=== PATIENT | male | born 1955 | race Two or more races ===

== ENCOUNTER 2020-04-03 09:52 | Emergency (ER) | payer MEDICARE, MEDICAID, SELFPAY ==
[2020-04-03 10:10] VITALS: BP 124/87; PULSE 88; RESP 16; TEMP 36.1; O2SAT 99; BMI 28.3
--- NOTE | 2020-04-03 10:10 | ED_ITS ---
HPI - Skin/Abscess/Foreign Bdy General Chief complaint: General Medical Stated complaint: swollen finger, itchy body Time Seen by Provider: 04/03/20 10:10 History of Present Illness HPI narrative: Patient with 2 complaints First complaint is left 3rd finger pain and redness and scant watery discharge redness pain mild swelling similar to prior infection of left 3rd finger Patient also complains of several days of feeling very itchy all over his body, no new rash no difficulty breathing no throat swelling Related Data Previous Rx's Medication Instructions Recorded cephalexin [Keflex] 500 mg PO QID 7 Days #28 cap 04/03/20 cetirizine 10 mg PO DAILY PRN #14 cap 04/03/20 doxycycline hyclate 100 mg PO BID 7 Days #14 cap 04/03/20 hydroxyzine pamoate [Vistaril] 50 mg PO BEDTIME #10 cap 04/03/20 prednisone 40 mg PO DAILY 3 Days #6 tab 04/03/20 Allergies Allergy/AdvReac Type Severity Reaction Status Date / Time latex [LATEX] Allergy Unknown UNKNOWN Unverified 11/20/19 15:08 morphine [MORPHINE] AdvReac Mild SENSATION Unverified 11/20/19 15:08 OF HEAT/WARMTH environmental Allergy Unknown Uncoded 05/26/19 00:00 GRASS Allergy Unknown POSITIVE Uncoded 11/20/19 15:08 ALLERGY TEST latex Allergy Unknown Uncoded 05/26/19 00:00 morphine AdvReac Unknown hot flashes Uncoded 05/26/19 00:00 Review of Systems Review of Systems: Positives are left 3rd finger pain and redness and generalized itchiness No fever no chills no dizziness no weakness no difficulty breathing or swallowing no throat swelling no chest pain no shortness of breath no difficulty breathing or swallowing Yes all other systems are reviewed and are negative PMFSH Past Medical History Source: nursing notes reviewed Social History Social History Advance Directives: No Advance Directives Information Provided: Yes Physical Exam Vital Signs: Vital Signs: Last Vital Signs Temp 97.0 F 04/03/20 10:10 Pulse 88 04/03/20 10:10 Resp 16 04/03/20 10:10 BP 124/87 04/03/20 10:10 Pulse Ox 99 04/03/20 10:10 Body Mass Index 28.3 Left 3rd finger middle phalanx dorsal has an area of redness that is weeping watery fluid, no fluctuance, full range of motion in all joints, this area is mildly tender it is about the size of a quarter, no fluctuance no pus visible, tendon function is intact in both flexion and extension, sensation is intact vascular intact no swelling over any joints no lymphangitis Course Course Course Narrative: The wound on the left 3rd finger is treated with antibiotics The generalized pruritus is treated with prednisone and antihistamine, labs were done with no evidence of liver or kidney failure MDM - Skin/Abscess/Foreign Bdy Lab Data Attestation: I reviewed the patient's lab results. Result diagrams: 04/03/20 10:42 04/03/20 10:42 Labs: Lab Results 04/03/20 04/03/20 Range/Units 10:42 10:42 WBC 4.7 L (4.8-10.8) X10*3/uL RBC 4.86 (4.60-5.80) X10*6/uL Hgb 15.0 (14.0-18.0) g/dl Hct 45.9 (42-52) % MCV 94.4 (80-98) fL MCH 30.9 (27.0-33.0) pg MCHC 32.7 (31.0-36.0) g/dl RDW 13.0 (11.0-16.0) % Plt Count 190 (160-400) X10*3/uL MPV 11.0 (9.4-12.4) fL Immature Gran % (Auto) 0.2 (0.0-0.4) % Neut % (Auto) 64.9 (45-73) % Lymph % (Auto) 23.7 (20-40) % [place] % (Auto) 8.9 (2-11) % Eos % (Auto) 1.7 (0-4) % Baso % (Auto) 0.6 (0-2) % Lymph # (Auto) 1.1 L (1.2-4.9) X10*3/uL [place] # (Auto) 0.4 (0.1-1.2) X10*3/uL Eos # (Auto) 0.1 (0.0-0.4) X10*3/uL Baso # (Auto) 0.0 (0.0-0.2) X10*3/uL Abs Immat Gran (auto) 0.01 (0.00-0.03) X10*3/uL Absolute Neuts (auto) 3.1 (2.0-8.3) X10*3/uL Absolute Nucleated RBC 0.000 (0.0-0.012) X10*3/uL Nucleated RBC % (auto) 0.0 (0.0-0.2) /100WBC Sodium 141 (135-145) mmol/L Potassium 4.9 (3.3-5.1) mmol/L Chloride 103 (96-108) mmol/L Carbon Dioxide 28 (22-29) mmol/L Anion Gap 15 (12-20) BUN 25 H (9-16) mg/dL Creatinine 0.96 (0.5-1.4) mg/dL Estim Creat Clear Calc 88.9 Estimated GFR > 60 Random Glucose 81 (60-115) mg/dL Calcium 9.7 (8.4-10.2) mg/dL Total Bilirubin 0.9 (0.0-1.0) mg/dL Direct Bilirubin 0.2 (0.0-0.5) mg/dL AST 31 (5-37) U/L ALT 51 H (0-40) U/L Alkaline Phosphatase 70 (39-117) U/L Total Protein 7.5 (6.5-8.0) g/dL Albumin 4.8 (3.5-5.0) g/dL Discharge Plan Discharge Clinical Impression: Cellulitis, Generalized pruritus Patient Disposition: Home, Self-Care Additional Instructions: We are treating the infection on her finger with antibiotic and a cream to apply to the finger I am not sure what is causing all the itching, it may be an allergy so we are treating with medication for itch and allergy Our blood tests did not show any dangerous cause of itching Follow with primary doctor or wound clinic or hand doctor in 3 days for recheck, if they are not available you can return to the ER for recheck Return any time any worse condition or concerns For finger follow with hand doctor if available or wound clinic Prescriptions: New cephalexin [Keflex] 500 mg capsule 500 mg PO QID 7 Days Qty: 28 RF: 0 doxycycline hyclate 100 mg capsule 100 mg PO BID 7 Days Qty: 14 RF: 0 cetirizine 10 mg capsule 10 mg PO DAILY PRN (Reason: allergy symptoms) Qty: 14 RF: 0 prednisone 20 mg tablet 40 mg PO DAILY 3 Days Qty: 6 RF: 0 hydroxyzine pamoate [Vistaril] 50 mg capsule 50 mg PO BEDTIME Qty: 10 RF: 0 Referrals: Geeta Hodges PA [Physician Shower Screen Installer] - 2 days (Recurrent wound to left 3rd finger) Veronica Tolentino MD [Physician] - 2 days (Recurrent left 3rd finger infection) Interventions: ED Discharge Assessment Last Done: 04/03/20 12:31 Discharge Date/Time: 04/03/20 12:32
--- NOTE | 2020-04-03 10:21 | XR_ITS ---
EXAMINATION: XR FINGER, LEFT CLINICAL INFORMATION: Abnormality third finger. Question osteoarthritis. COMPARISON: None TECHNIQUE: 3 views of the left third finger. FINDINGS: There is mild flexion deformity DIP joint third digit with periarticular spurring and soft tissue swelling with calcification. 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 No periosteal elevation or thickening seen to suspect osteomyelitis. XR/XR finger LT min 2V IMPRESSION: Mild loss of the DIP joint space with periapical spurring and soft tissue swelling as a small bony erosive changes along the dorsal proximal distal phalanx. This may represent a erosive arthritic changes. There is no periosteal thickening or elevation to suspect osteomyelitis.
[2020-04-03] MEDS: Loratadine 10 MG TABLET PO (10:30)
[2020-04-03] MEDS: cephALEXin 500 MG CAPSULE PO (10:31)
[2020-04-03 10:50] LABS: MANUAL DIFF FLAG NO
[2020-04-03 10:51] LABS: Basophils Percent Auto 0.6 % (0-2); Eosinophils Absolute Auto 0.1 X10*3/uL (0.0-0.4); Eosinophils Percent Auto 1.7 % (0-4); Hematocrit 45.9 % (42-52); Imm Gran Abs Auto 0.01 X10*3/uL (0.00-0.03); Imm Gran Pct Auto 0.2 % (0.0-0.4); Lymphocytes Absolute Auto 1.1 X10*3/uL (1.2-4.9); Lymphocytes Percent Auto 23.7 % (20-40); Mean Corpuscular HGB Conc 32.7 g/dl (31.0-36.0); Mean Corpuscular Hemoglobin 30.9 pg (27.0-33.0); Mean Corpuscular Volume 94.4 fL (80-98); Monocytes Absolute Auto 0.4 X10*3/uL (0.1-1.2); Monocytes Percent Auto 8.9 % (2-11); Neutrophils Absolute Auto 3.1 X10*3/uL (2.0-8.3); Neutrophils Percent Auto 64.9 % (45-73); Platelet Count 190 X10*3/uL (160-400); Red Blood Count 4.86 X10*6/uL (4.60-5.80); White Blood Count 4.7 X10*3/uL (4.8-10.8)
[2020-04-03 11:29] LABS: Alanine Aminotransferase 51 U/L (0-40); Albumin Level 4.8 g/dL (3.5-5.0); Alkaline Phosphatase 70 U/L (39-117); Anion Gap 15 (12-20); Aspartate Amino Transferase 31 U/L (5-37); Bilirubin Direct 0.2 mg/dL (0.0-0.5); Bilirubin Total 0.9 mg/dL (0.0-1.0); Blood Urea Nitrogen 25 mg/dL (9-16); Calcium 9.7 mg/dL (8.4-10.2); Carbon Dioxide 28 mmol/L (22-29); Chloride 103 mmol/L (96-108); Creatinine Clr Calc Pharmacy 88.9; Estimated Glomerular Filt Rate > 60; Glucose Random 81 mg/dL (60-115); Potassium 4.9 mmol/L (3.3-5.1); Sodium 141 mmol/L (135-145); Total Protein 7.5 g/dL (6.5-8.0)
[2020-04-03] MEDS: predniSONE 20 MG TABLET 60 MG PO (12:12)
== END 2020-04-03 12:32 | disposition home or self-care (01) ==
PROVIDERS: Physician Assistant Medical; Emergency Provider Emergency Medicine
DX: L03.012 Cellulitis of left finger (principal); L29.9 Pruritus, unspecified
CPT/HCPCS: 36415; 73140; 80048; 80076; 85025; 87071; 87205; 99283

== ENCOUNTER 2020-04-16 14:17 | Outpatient (RCR) | payer MEDICARE, MEDICAID, SELFPAY | END 2020-05-04 10:00 | disposition home or self-care (01) | LOC: HO.WCC 14:17 | PROVIDERS: Visit Provider Physician Assistant | DX: Z09 Encounter for follow-up examination after completed treatment for conditions other than malignant neoplasm (principal); R20.2 Paresthesia of skin; Z87.891 Personal history of nicotine dependence | CPT/HCPCS: 99212 ==

== ENCOUNTER 2020-04-16 17:47 | Inpatient (IN) | payer MEDICARE, MEDICAID, SELFPAY ==
--- NOTE | ~2020-04-16 | CT_ITS ---
EXAMINATION: CT HAND WITH CONTRAST CLINICAL INFORMATION: Wound to the distal third digit. COMPARISON: 04/03/2020. TECHNIQUE: Contiguous helical images of the left hand were obtained following the administration of IV contrast. Multiplanar reconstructions were performed. 85 mL of Omnipaque 350 were administered without incident. FINDINGS: Corresponding to the area of clinical concern, there is focal soft tissue prominence overlying the dorsum of the third distal phalanx. There are no radiopaque foreign bodies. There are no drainable fluid collections. The associated osseous structures are without evidence of acute or chronic bony destruction. There is mild narrowing to the third DIP joint with mild osteophyte formation. No areas of bone destruction are identified within the remainder of the visualized left hand. CT/CT hand LT w con IMPRESSION: Focal soft tissue prominence overlying the torso of the third DIP joint without associated destructive bone processes. There are no drainable fluid collections. The nature of the soft tissue prominence is nonspecific. If deemed clinically appropriate, consider correlation with MRI for further tissue characterization. The aforementioned was discussed with Ayana Rodirguez NP, at 0147 hours.
--- NOTE | ~2020-04-16 | MR_ITS ---
EXAMINATION: MRI WITHOUT AND WITH CONTRAST HAND, LEFT CLINICAL INFORMATION: Osteomyelitis 3rd finger COMPARISON: CT 04/17/2020 TECHNIQUE: MRI without and with intravenous administration of 10 mL of Gadavist is performed on the left hand. FINDINGS: There is mild skin thickening/enhancement of the 3rd finger dorsally, at the level of the DIP joint which may represent cellulitis. No abscess. No joint effusion. No evidence of osteomyelitis. Flexor and extensor tendons appear intact. MR/MR hand LT wo/w con IMPRESSION: Possible cellulitis of the distal 3rd finger. No abscess or evidence of osteomyelitis.
--- NOTE | ~2020-04-16 | XR_ITS ---
EXAMINATION: CHEST 1 VIEW CLINICAL INFORMATION: Tachycardia. COMPARISON: 08/23/2015. TECHNIQUE: An AP view of the chest is provided. FINDINGS: The cardiac silhouette is not enlarged. The mediastinal and hilar contours are unremarkable. There are neither pleural effusions nor pneumothoraces. There is mild streaky opacification within the left mid and right lower lung zones in the setting of slightly decreased lung volumes. There is a stable nodular density within the right lower lung zone. The osseous structures are stable. XR/XR chest 1V IMPRESSION: Mild nonspecific streaky opacification bilaterally. Favor atelectasis, though a developing infiltrate is difficult to exclude. Recommendation is for a followup chest series to be obtained following treatment and/or resolution of symptoms to assure resolution of this appearance.
[2020-04-16 17:58] VITALS: BP 125/85; PULSE 109; RESP 22; TEMP 36.7; O2SAT 95; BMI 28.5
--- NOTE | 2020-04-16 21:53 | ED.EXTPRO ---
HPI - Extremity Problem General Chief complaint: Extremity Problem Stated complaint: doctor said come in for iv Time Seen by Provider: 04/16/20 21:53 Source: patient Mode of arrival: ambulatory Limitations: no limitations History of Present Illness HPI Narrative: 64-year-old male referred to this facility by primary care physician presents with a chronic wound to the left 3rd finger. Was seen in the emergency department on 04/03/2020 and given Keflex And doxycycline. Patient stated that he finished the medications but the wound has not healed. He is now itching throughout his body and has some redness coming from the finger up the arm and to the armpit. He states to be tired, but does not report fevers, chills, chest pain or pressure, palpitations, shortness of breath, abdominal pain, abdominal distention, dysuria, hematuria, or any other concerning symptoms. MD Complaint: extremity pain, extremity swelling, joint swelling and joint paint Onset (ago): month(s) Pain Consistency: constant Location: left and upper extremity Severity scale (1-10): 10 Quality: burning, aching and other (Itching) Relieving factors: nothing Exacerbating factors: range of motion Associated symptoms: denies other symptoms Related Data Home Medications Medication Instructions Recorded Confirmed tamsulosin 1 cap PO BEDTIME 04/17/20 04/17/20 Allergies Allergy/AdvReac Type Severity Reaction Status Date / Time latex [LATEX] Allergy Unknown UNKNOWN Unverified 11/20/19 15:08 morphine [MORPHINE] AdvReac Mild SENSATION Unverified 11/20/19 15:08 OF HEAT/WARMTH environmental Allergy Unknown Uncoded 05/26/19 00:00 GRASS Allergy Unknown POSITIVE Uncoded 11/20/19 15:08 ALLERGY TEST latex Allergy Unknown Uncoded 05/26/19 00:00 morphine AdvReac Unknown hot flashes Uncoded 05/26/19 00:00 Review of Systems Review of Systems: Constitutional: No Fever, No Chills ENT/Mouth: No Ear Pain, No Hoarseness, No sore throat Eyes: No Eye Pain, No Swelling, No Redness, No Foreign Body Cardiovascular: No Chest Pain, No SOB Respiratory: No Cough, No Dyspnea Gastrointestinal: No Nausea, No Vomiting, No Diarrhea, No abdominal Pain Genitourinary: No Dysuria, No Hematuria Musculoskeletal: positive 3rd finger pain, No Myalgias, No Joint Swelling Skin: Positive wound to left 3rd index finger, erythema and drainage, No Skin lacerations, No rash Neuro: No Weakness, No Numbness, No Paresthesias, No Loss of Consciousness, No Dizziness, No Headache Psych: No Anxiety/Panic, No Depression Heme/Lymph: no easy bruising, no Lymphadenopathy Endocrine: No Polyuria, No Polydipsia Yes all other systems are reviewed and are negative [facility] Past Medical History Attestation statement: The following information was validated with the patient. Source: old records reviewed Medical History Asthma Prostate atrophy Pulmonary nodules Social History Social History Smoked in Last 30 Days: No Advance Directives: No Advance Directives Information Provided: Yes Physical Exam Vital Signs: Vital Signs: Last Vital Signs Temp 98.2 F 04/17/20 00:43 Pulse 76 04/17/20 00:43 Resp 13 04/17/20 00:43 BP 119/61 04/17/20 00:43 Pulse Ox 95 04/17/20 00:43 Body Mass Index 28.5 Appearance: Alert. Oriented X3. No acute distress. Eyes: Pupils equal, round and reactive to light. ENT: Pharynx normal. Neck: Normal inspection. Neck supple. CVS: Normal heart rate and rhythm. Pulses normal. Respiratory: No respiratory distress. Breath sounds normal. Abdomen: Soft and nontender. Skin: Approximately 3 cm in diameter wound noted to the dorsal aspect of the left 3rd finger, phlebitis noted to left upper extremity radiating from the hand laterally to the elbow and into the axilla. otherwise Skin warm and dry. Normal skin color. Normal skin turgor. Extremities: No lower extremity edema. Neuro: No motor deficit. No sensory deficit. Skin: Other: Course Course Course Narrative: 64-year-old male presents with chronic wound, vital signs on admission heart rate 109, respiration rate 22 which meets sepsis criteria. Patient was on doxycycline and Keflex which was started on the 04/03/2020. Will resuscitate with fluids 30 mL per kg, IV ceftriaxone, lactic, cultures and CBC and syphilis. X-ray of the hand on 04/03/2020 indicates Mild loss of the DIP joint space with periapical spurring and soft tissue swelling as a small bony erosive changes along the dorsal proximal distal phalanx. This may represent a erosive arthritic changes. Will order CT scan left hand to rule out tenosynovitis, or suspected Ca. syphilis negative, lactic acid 1.8, sepsis is not indicated. CT scan shows focal soft tissue prominence overlying the torso of the 3rd D IP joint without associated destructive bone process ease, no fluid collections, no indication of tenosynovitis. Radiology recommendation is to consider MRI for further tissue characterization. Will treat for osteomyelitis based on the discussion with Radiology. Discussion with hospitalist regarding plan of care. Patient will be admitted for IV antibiotics. Consultations Consultation #1: Maurice Time: 01:30 MDM - Extremity (Nontraumatic) MDM Narrative Medical decision making narrative: Syphilis, herpetic simeon, Ca, tenosynovitis, osteomyelitis Differential Diagnosis Differential diagnosis: Likely gout and cellulitis Medical Records Attestation: I reviewed the patient's medical records. Lab Data Attestation: I reviewed the patient's lab results. Result diagrams: 04/16/20 22:25 04/16/20 22:25 Labs: Lab Results 04/16/20 04/16/20 04/16/20 Range/Units 22:25 22:25 22:25 WBC 6.3 (4.8-10.8) X10*3/uL RBC 4.50 L (4.60-5.80) X10*6/uL Hgb 14.0 (14.0-18.0) g/dl Hct 42.2 (42-52) % MCV 93.8 (80-98) fL MCH 31.1 (27.0-33.0) pg MCHC 33.2 (31.0-36.0) g/dl RDW 13.2 (11.0-16.0) % Plt Count 207 (160-400) X10*3/uL MPV 11.0 (9.4-12.4) fL Immature Gran % (Auto) 0.5 H (0.0-0.4) % Neut % (Auto) 57.4 (45-73) % Lymph % (Auto) 29.7 (20-40) % [place] % (Auto) 9.2 (2-11) % Eos % (Auto) 2.7 (0-4) % Baso % (Auto) 0.5 (0-2) % Lymph # (Auto) 1.9 (1.2-4.9) X10*3/uL [place] # (Auto) 0.6 (0.1-1.2) X10*3/uL Eos # (Auto) 0.2 (0.0-0.4) X10*3/uL Baso # (Auto) 0.0 (0.0-0.2) X10*3/uL Abs Immat Gran (auto) 0.03 (0.00-0.03) X10*3/uL Absolute Neuts (auto) 3.6 (2.0-8.3) X10*3/uL Absolute Nucleated RBC 0.000 (0.0-0.012) X10*3/uL Nucleated RBC % (auto) 0.0 (0.0-0.2) /100WBC PT 12.2 (10.8-13.0) SEC INR 1.0 (0.9-1.1) APTT 27.7 (24.1-38.0) SEC Sodium 142 (135-145) mmol/L Potassium 3.9 D (3.3-5.1) mmol/L Chloride 106 (96-108) mmol/L Carbon Dioxide 27 (22-29) mmol/L Anion Gap 13 (12-20) BUN 24 H (9-16) mg/dL Creatinine 0.93 (0.5-1.4) mg/dL Estim Creat Clear Calc 92.2 Estimated GFR > 60 Random Glucose 106 (60-115) mg/dL Lactic Acid (0.5-2.0) mmol/L Calcium 9.1 D (8.4-10.2) mg/dL Magnesium 2.2 (1.6-2.6) mg/dL Troponin I High Sens (<3.5-35.0) ng/L T.pallidum Ab (EIA) (Nonreactive) 04/16/20 04/16/20 04/16/20 Range/Units 22:25 22:25 22:25 WBC (4.8-10.8) X10*3/uL RBC (4.60-5.80) X10*6/uL Hgb (14.0-18.0) g/dl Hct (42-52) % MCV (80-98) fL MCH (27.0-33.0) pg MCHC (31.0-36.0) g/dl RDW (11.0-16.0) % Plt Count (160-400) X10*3/uL MPV (9.4-12.4) fL Immature Gran % (Auto) (0.0-0.4) % Neut % (Auto) (45-73) % Lymph % (Auto) (20-40) % [place] % (Auto) (2-11) % Eos % (Auto) (0-4) % Baso % (Auto) (0-2) % Lymph # (Auto) (1.2-4.9) X10*3/uL [place] # (Auto) (0.1-1.2) X10*3/uL Eos # (Auto) (0.0-0.4) X10*3/uL Baso # (Auto) (0.0-0.2) X10*3/uL Abs Immat Gran (auto) (0.00-0.03) X10*3/uL Absolute Neuts (auto) (2.0-8.3) X10*3/uL Absolute Nucleated RBC (0.0-0.012) X10*3/uL Nucleated RBC % (auto) (0.0-0.2) /100WBC PT (10.8-13.0) SEC INR (0.9-1.1) APTT (24.1-38.0) SEC Sodium (135-145) mmol/L Potassium (3.3-5.1) mmol/L Chloride (96-108) mmol/L Carbon Dioxide (22-29) mmol/L Anion Gap (12-20) BUN (9-16) mg/dL Creatinine (0.5-1.4) mg/dL Estim Creat Clear Calc Estimated GFR Random Glucose (60-115) mg/dL Lactic Acid 1.8 (0.5-2.0) mmol/L Calcium (8.4-10.2) mg/dL Magnesium (1.6-2.6) mg/dL Troponin I High Sens < 3.5 (<3.5-35.0) ng/L T.pallidum Ab (EIA) Nonreactive (Nonreactive) Imaging Data Finger x-ray: Attestation: I personally reviewed and interpreted this imaging study as follows: Radiologist's impression: EXAMINATION: XR FINGER, LEFT CLINICAL INFORMATION: Abnormality third finger. Question osteoarthritis. COMPARISON: None TECHNIQUE: 3 views of the left third finger. FINDINGS: There is mild flexion deformity DIP joint third digit with periarticular spurring and soft tissue swelling with calcification. 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 No periosteal elevation or thickening seen to suspect osteomyelitis. XR/XR finger LT min 2V IMPRESSION: Mild loss of the DIP joint space with periapical spurring and soft tissue swelling as a small bony erosive changes along the dorsal proximal distal phalanx. This may represent a erosive arthritic changes. There is no periosteal thickening or elevation to suspect osteomyelitis. CT scan of left hand: Attestation: I personally reviewed and interpreted this imaging study as follows: Radiologist's impression: EXAMINATION: CT HAND WITH CONTRAST CLINICAL INFORMATION: Wound to the distal third digit. COMPARISON: 04/03/2020. TECHNIQUE: Contiguous helical images of the left hand were obtained following the administration of IV contrast. Multiplanar reconstructions were performed. 85 mL of Omnipaque 350 were administered without incident. FINDINGS: Corresponding to the area of clinical concern, there is focal soft tissue prominence overlying the dorsum of the third distal phalanx. There are no radiopaque foreign bodies. There are no drainable fluid collections. The associated osseous structures are without evidence of acute or chronic bony destruction. There is mild narrowing to the third DIP joint with mild osteophyte formation. No areas of bone destruction are identified within the remainder of the visualized left hand. CT/CT hand LT w con IMPRESSION: Focal soft tissue prominence overlying the torso of the third DIP joint without associated destructive bone processes. There are no drainable fluid collections. The nature of the soft tissue prominence is nonspecific. If deemed clinically appropriate, consider correlation with MRI for further tissue characterization. The aforementioned was discussed with Ayana Rodriguez NP, at 0147 hours. Critical Care Time Critical Care Time Critical Care Time: Yes Total Critical Care Time: 45 Attestation: I have personally provided critical care time exclusive of time spent on separately billable procedures. Time includes review of laboratory data, radiology results, discussion with consultants, and monitoring for potential decompensation. Interventions were performed as documented. Discharge Plan Discharge Clinical Impression: Cellulitis, Osteomyelitis, Chronic wound of extremity Patient Disposition: Admitted As Inpatient Prescriptions: No Action tamsulosin 0.4 mg capsule 1 cap PO BEDTIME RF: 0
[2020-04-16 22:00] VITALS: BP 132/76; PULSE 87; RESP 14; TEMP 36.8; O2SAT 100
--- NOTE | 2020-04-16 22:09 | ECG_ITS ---
Test Reason : SEPTIC Blood Pressure : / mmHG Vent. Rate : 082 BPM Atrial Rate : 082 BPM P-R Int : 140 ms QRS Dur : 096 ms QT Int : 364 ms P-R-T Axes : 044 043 046 degrees QTc Int : 425 ms Normal sinus rhythm Incomplete right bundle branch block Borderline ECG When compared with ECG of 26-OCT-2018 15:11, No significant change was found Referred By: Ayana Fernandes Electronically Signed By:BUZZ LANDRY MD
[2020-04-16 22:41] LABS: MANUAL DIFF FLAG NO
[2020-04-16 22:42] LABS: Basophils Percent Auto 0.5 % (0-2); Eosinophils Absolute Auto 0.2 X10*3/uL (0.0-0.4); Eosinophils Percent Auto 2.7 % (0-4); Hematocrit 42.2 % (42-52); Imm Gran Abs Auto 0.03 X10*3/uL (0.00-0.03); Imm Gran Pct Auto 0.5 % (0.0-0.4); Lymphocytes Absolute Auto 1.9 X10*3/uL (1.2-4.9); Lymphocytes Percent Auto 29.7 % (20-40); Mean Corpuscular HGB Conc 33.2 g/dl (31.0-36.0); Mean Corpuscular Hemoglobin 31.1 pg (27.0-33.0); Mean Corpuscular Volume 93.8 fL (80-98); Monocytes Absolute Auto 0.6 X10*3/uL (0.1-1.2); Monocytes Percent Auto 9.2 % (2-11); Neutrophils Absolute Auto 3.6 X10*3/uL (2.0-8.3); Neutrophils Percent Auto 57.4 % (45-73); Platelet Count 207 X10*3/uL (160-400); Red Cell Distribution Width 13.2 % (11.0-16.0); White Blood Count 6.3 X10*3/uL (4.8-10.8)
[2020-04-16 22:54] LABS: Prothrombin Time 12.2 SEC (10.8-13.0)
[2020-04-16 22:57] LABS: Partial Thromboplastin Time 27.7 SEC (24.1-38.0)
[2020-04-16 23:06] LABS: Lactic Acid 1.8 mmol/L (0.5-2.0)
[2020-04-16 23:20] LABS: Anion Gap 13 (12-20); Blood Urea Nitrogen 24 mg/dL (9-16); Calcium 9.1 mg/dL (8.4-10.2); Carbon Dioxide 27 mmol/L (22-29); Chloride 106 mmol/L (96-108); Creatinine Clr Calc Pharmacy 92.2; Estimated Glomerular Filt Rate > 60; Glucose Random 106 mg/dL (60-115); Magnesium 2.2 mg/dL (1.6-2.6); Potassium 3.9 mmol/L (3.3-5.1); Sodium 142 mmol/L (135-145)
[2020-04-16] MEDS: cefTRIAXone sodium 1 GM in 0.9 % Sodium Chloride 50 ML IV (23:26)
[2020-04-16 23:27] LABS: Troponin-I High Sensitivity < 3.5 ng/L (<3.5-35.0)
[2020-04-16 23:28] VITALS: BP 114/54
[2020-04-16 23:37] LABS: Syphilis Screen Nonreactive (Nonreactive)
[2020-04-17] VITALS (9 sets, daily range): BP systolic 103–145; BP diastolic 51–81; PULSE 58–76; RESP 12–22; TEMP 36.1–36.8; O2SAT 95–100
[2020-04-17] MEDS: Acetaminophen 325 MG TABLET 650 MG PO ×3 (00:54→19:23)
[2020-04-17] MEDS: oxyCODONE HCl Immed Release 5 MG TABLET PO ×2 (00:54→09:45)
[2020-04-17] MEDS: iohexoL 350 MG/ML 100 ML INFUS..BTL 85 ML IV (01:20)
[2020-04-17] MEDS: Enoxaparin Sodium 40 MG/0.4 ML SYRINGE SUBCUT (03:45)
[2020-04-17 04:12] LABS: COVID-19 Test Negative (Negative); IDNOW Serial# 9DD0AD1C
[2020-04-17 04:19] LABS: C Reactive Protein 0.08 mg/dL (< or = 0.50)
[2020-04-17 04:36] LABS: Erythrocyte Sedimentation Rate 2 MM/HR (0-15)
--- NOTE | 2020-04-17 05:51 | PM.IMHP ---
History of Present Illness Date of Service: 04/17/20 Chief Complaint: Finger infection This is a 64-year-old male with no significant past medical history presents to the hospital with complaints of acute on chronic wound of the left middle finger. Patient reports that he has been having difficulty with this finger for the past 1 year, this new wound started about 2 months ago, he went to the wound clinic today and the wound clinic recommended that he comes back to the hospital for IV antibiotics. Patient denies any fever chills, reports that he is unable to bend his finger much due to the severe pain, the pain is 10/10, nonradiating, patient also has noticed draining from his wound. He has no other wound in any other of his fingers or toes, he has no history of diabetes. Review of systems otherwise negative for any chest pain, shortness of breath, headache, change in vision, abdominal pain nausea or vomiting, no diarrhea constipation, no urinary symptoms and no lower extremity edema. On arrival to the ED hemodynamically stable with no significant abnormal vitals Labs are significant for WBC count of 6.3, otherwise unremarkable. Head CT shows focal soft tissue prominence overlying the torso of the 3rd D IP joint without associated destructive bone process. No drainable fluid collection. Past medical history: Asthma Surgical history: Knee surgery, ear surgery, neck surgery Family history: Denies Social history: Comes from home, denies any tobacco alcohol or illicit drugs Review of Systems Review of Systems: Yes all other systems are reviewed and are negative [facility] Medical History Asthma Prostate atrophy Pulmonary nodules Surgical History H/O cervical spine surgery H/O knee surgery History of ear surgery Social History Smoked in Last 30 Days: No Advance Directives: No Advance Directives Information Provided: Yes Meds Allergies Allergy/AdvReac Type Severity Reaction Status Date / Time latex [LATEX] Allergy Unknown UNKNOWN Unverified 11/20/19 15:08 morphine [MORPHINE] AdvReac Mild SENSATION Unverified 11/20/19 15:08 OF HEAT/WARMTH environmental Allergy Unknown Uncoded 05/26/19 00:00 GRASS Allergy Unknown POSITIVE Uncoded 11/20/19 15:08 ALLERGY TEST latex Allergy Unknown Uncoded 05/26/19 00:00 morphine AdvReac Unknown hot flashes Uncoded 05/26/19 00:00 Active Medications: Current Medications Generic Name Dose Route Start Last Admin Trade Name Freq PRN Reason Stop Dose Admin Acetaminophen 650 mg 04/17/20 03:24 Acetaminophen 325 Mg Tablet PO Q6H PRN Pain, Mild (Pain Scale 1-3) Docusate Sodium 100 mg 04/17/20 03:24 Docusate Sodium 100 Mg Capsule PO DAILY PRN Constipation Enoxaparin Sodium 40 mg 04/17/20 03:24 04/17/20 03:45 Enoxaparin Sodium 40 Mg/0.4 Ml Syringe SUBCUT 40 mg Q24H RENNY Administration Vancomycin HCl 1,500 mg/ 280 mls @ 186.667 mls/hr 04/17/20 03:24 04/17/20 03:28 Sodium Chloride IV Not Given Q24H RENNY Ondansetron HCl 4 mg 04/17/20 03:24 Ondansetron Hcl 4 Mg/2 Ml Vial IVPUSH Q8H PRN Nausea and Vomiting Oxycodone HCl 5 mg 04/17/20 03:24 Oxycodone Hcl Immed Release 5 Mg Tablet PO Q6H PRN Pain, Severe (Pain Scale 7-10) Pharmacy Consult 1 each 04/17/20 01:46 Consult Rx Vancomycin Dosing MISCELLANE DAILY PRN Consult order Pharmacy Consult 1 each 04/17/20 03:24 Consult Rx Vancomycin Dosing MISCELLANE DAILY PRN Consult order Sodium Chloride 3 ml 04/17/20 08:00 0.9 % Sodium Chloride Flush 3 [facility] Tamsulosin HCl 0.4 mg 04/17/20 21:00 Tamsulosin Hcl 0.4 Mg Capsule PO BEDTIME [facility] Home Medications Medication Instructions Recorded Confirmed Last Taken Type tamsulosin 1 cap PO BEDTIME 04/17/20 04/17/20 Unknown History Physical Exam Vital Signs and Narrative: Vital Signs: Last Vital Signs Temp 98.2 F 04/17/20 00:43 Pulse 74 04/17/20 03:24 Resp 16 04/17/20 03:24 BP 103/51 L 04/17/20 02:00 Pulse Ox 100 04/17/20 03:24 Body Mass Index 28.5 Const: General: cooperative and no acute distress Orientation/consciousness: patient oriented x3 Eyes: General: appearance normal, both eyes and all related structures Resp: Effort & Inspection: normal respiratory effort and able to speak in complete sentences Cardio: Rate: regular rate Rhythm: regular rhythm GI: Palpation (GI): Soft to palpation Auscultation: normal bowel sounds Skin: General skin exam: no rashes or lesions noted Neuro: General: patient oriented x3 Cognition (Neuro): normal cognition Extrem: Other: Open wound on the dorsum of the 3rd left finger, at the D IP joint. There is worth, difficulty with movement of the finger, tenderness. General: Yes no pedal edema Results Labs CBC and Chem 7: 04/16/20 22:25 04/16/20 22:25 Labs: Laboratory Results - last 24 hr 04/16/20 04/16/20 04/16/20 22:25 22:25 22:25 MCV 93.8 MCH 31.1 MCHC 33.2 RDW 13.2 Plt Count 207 MPV 11.0 Immature Gran % (Auto) 0.5 H Neut % (Auto) 57.4 Lymph % (Auto) 29.7 Ralls % (Auto) 9.2 Eos % (Auto) 2.7 Baso % (Auto) 0.5 Lymph # (Auto) 1.9 Ralls # (Auto) 0.6 Eos # (Auto) 0.2 Baso # (Auto) 0.0 Abs Immat Gran (auto) 0.03 Absolute Neuts (auto) 3.6 Absolute Nucleated RBC 0.000 Nucleated RBC % (auto) 0.0 ESR PT 12.2 INR 1.0 APTT 27.7 Anion Gap 13 Estim Creat Clear Calc 92.2 Estimated GFR > 60 Random Glucose 106 Lactic Acid Calcium 9.1 D Magnesium 2.2 Troponin I High Sens C-Reactive Protein T.pallidum Ab (EIA) COVID-19 ([place]) COVID-19 Clin Com 04/16/20 04/16/20 04/16/20 22:25 22:25 22:25 MCV MCH MCHC RDW Plt Count MPV Immature Gran % (Auto) Neut % (Auto) Lymph % (Auto) Ralls % (Auto) Eos % (Auto) Baso % (Auto) Lymph # (Auto) Ralls # (Auto) Eos # (Auto) Baso # (Auto) Abs Immat Gran (auto) Absolute Neuts (auto) Absolute Nucleated RBC Nucleated RBC % (auto) ESR PT INR APTT Anion Gap Estim Creat Clear Calc Estimated GFR Random Glucose Lactic Acid 1.8 Calcium Magnesium Troponin I High Sens < 3.5 C-Reactive Protein T.pallidum Ab (EIA) Nonreactive COVID-19 ([place]) COVID-19 Clin Com 04/17/20 04/17/20 04/17/20 03:51 03:51 03:51 MCV MCH MCHC RDW Plt Count MPV Immature Gran % (Auto) Neut % (Auto) Lymph % (Auto) Ralls % (Auto) Eos % (Auto) Baso % (Auto) Lymph # (Auto) Ralls # (Auto) Eos # (Auto) Baso # (Auto) Abs Immat Gran (auto) Absolute Neuts (auto) Absolute Nucleated RBC Nucleated RBC % (auto) ESR 2 PT INR APTT Anion Gap Estim Creat Clear Calc Estimated GFR Random Glucose Lactic Acid Calcium Magnesium Troponin I High Sens C-Reactive Protein 0.08 T.pallidum Ab (EIA) COVID-19 ([place]) Negative COVID-19 Clin Com See Note Imaging Radiologist's Impressions: Impressions Chest X-Ray 04/16/20 22:08 IMPRESSION: Mild nonspecific streaky opacification bilaterally. Favor atelectasis, though a developing infiltrate is difficult to exclude. Recommendation is for a followup chest series to be obtained following treatment and/or resolution of symptoms to assure resolution of this appearance. Hand CT 04/17/20 00:10 IMPRESSION: Focal soft tissue prominence overlying the torso of the third DIP joint without associated destructive bone processes. There are no drainable fluid collections. The nature of the soft tissue prominence is nonspecific. If deemed clinically appropriate, consider correlation with MRI for further tissue characterization. The aforementioned was discussed with Ayana Rodriguez NP, at 0147 hours. Assessment and Plan (1) Cellulitis: Qualifiers: Laterality: left Site of cellulitis: extremity Site of cellulitis of extremity: finger Qualified Code(s): L03.012 - Cellulitis of left finger Status: Acute (2) Chronic wound of extremity: Status: Acute 64-year-old male with history of asthm presents to the hospital with acute on chronic wound of 3rd middle finger. # cellulitis - patient has had this wound on off for the past 1 year, recently for the past 2 months, presented to the wound clinic who recommended patient come to the hospital - will start patient on vancomycin given the nature of the wound being open and draining and nonhealing for the past 2 months - normal ESR, and CRP therefore see mellitus less likely - will consult ID for further recommendation # asthma - no evidence of exacerbation - p.r.n. albuterol DVT prophylaxis: Enoxaparin
[2020-04-17 06:26] LABS: MANUAL DIFF FLAG NO
[2020-04-17 06:30] LABS: Basophils Percent Auto 0.4 % (0-2); Eosinophils Absolute Auto 0.1 X10*3/uL (0.0-0.4); Eosinophils Percent Auto 2.2 % (0-4); Hematocrit 40.2 % (42-52); Hemoglobin 12.9 g/dl (14.0-18.0); Imm Gran Abs Auto 0.02 X10*3/uL (0.00-0.03); Imm Gran Pct Auto 0.4 % (0.0-0.4); Lymphocytes Absolute Auto 1.7 X10*3/uL (1.2-4.9); Lymphocytes Percent Auto 33.7 % (20-40); Mean Corpuscular HGB Conc 32.1 g/dl (31.0-36.0); Mean Corpuscular Hemoglobin 30.4 pg (27.0-33.0); Mean Corpuscular Volume 94.6 fL (80-98); Monocytes Absolute Auto 0.5 X10*3/uL (0.1-1.2); Monocytes Percent Auto 9.1 % (2-11); Neutrophils Absolute Auto 2.7 X10*3/uL (2.0-8.3); Neutrophils Percent Auto 54.2 % (45-73); Platelet Count 174 X10*3/uL (160-400); Red Blood Count 4.25 X10*6/uL (4.60-5.80); Red Cell Distribution Width 13.3 % (11.0-16.0)
[2020-04-17 06:41] LABS: Alanine Aminotransferase 36 U/L (0-40); Albumin Level 3.5 g/dL (3.5-5.0); Alkaline Phosphatase 54 U/L (39-117); Anion Gap 9 (12-20); Aspartate Amino Transferase 23 U/L (5-37); Bilirubin Total 0.7 mg/dL (0.0-1.0); Blood Urea Nitrogen 20 mg/dL (9-16); Carbon Dioxide 26 mmol/L (22-29); Chloride 109 mmol/L (96-108); Creatinine Clr Calc Pharmacy 108.6; Estimated Glomerular Filt Rate > 60; Glucose Random 101 mg/dL (60-115); Potassium 4.3 mmol/L (3.3-5.1); Sodium 140 mmol/L (135-145); Total Protein 5.6 g/dL (6.5-8.0)
[2020-04-17] MEDS: 0.9 % Sodium Chloride Flush 3 ML SYRINGE IVFLUSH ×2 (09:45→16:21)
[2020-04-17] MEDS: Triamcinolone Acet 0.1 % Oint 15 GM TUBE 1 APPL TOPICAL ×2 (12:30→22:19)
--- NOTE | 2020-04-17 13:11 | P.CNID_ITS ---
History of Present Illness Data of Consult Service Date: 04/17/20 Requesting physician: Ahsan Martinez Primary Care Provider: Unknown Physician HPI Reason for consult: finger lesion He presents to hospital with chronic wound left 3rd finger he reports for two years. He has said lately he has clear drainage over last two weeks On 04/03 he was prescribed Keflex and Doxycycline with no improvement and came to hospital via Wound Clinic Review of Systems Review of Systems: Yes all other systems are reviewed and are negative PMFSH Past Medical History Medical History Asthma Prostate atrophy Pulmonary nodules Surgical History Surgical History H/O cervical spine surgery H/O knee surgery History of ear surgery Social History Social History Household Members: Spouse Housing: Apartment Do you presently have visiting nurse or other home services: No Smoking Status: Never smoker Smoked in Last 30 Days: No Second Hand Smoke Exposure: No Use of substances other than those prescribed or required for medical reasons: No Currently Displaying Signs/Symptoms of Drug Intoxication Withdrawal: No Have you been hit, kicked, punched, or otherwise hurt by someone within the past year? If so, by whom?: No Do you feel safe in your current relationship?: Yes Is there a partner from a previous relationship who is making you feel unsafe now?: No Are you made to feel afraid or neglected: No Advance Directives: No Advance Directives Information Provided: Yes Do you have thoughts of harming others: None Do you have a plan to hurt others: No Plan Recently lost weight without trying: No Meds Allergies Allergy/AdvReac Type Severity Reaction Status Date / Time latex [LATEX] Allergy Unknown UNKNOWN Unverified 11/20/19 15:08 morphine [MORPHINE] AdvReac Mild SENSATION Unverified 11/20/19 15:08 OF HEAT/WARMTH environmental Allergy Unknown Uncoded 05/26/19 00:00 GRASS Allergy Unknown POSITIVE Uncoded 11/20/19 15:08 ALLERGY TEST latex Allergy Unknown Uncoded 05/26/19 00:00 morphine AdvReac Unknown hot flashes Uncoded 05/26/19 00:00 Active Medications: Current Medications Generic Name Dose Route Start Last Admin Trade Name Freq PRN Reason Stop Dose Admin Acetaminophen 650 mg 04/17/20 03:24 04/17/20 07:05 Acetaminophen 325 Mg Tablet PO 650 mg Q6H PRN Administration Pain, Mild (Pain Scale 1-3) Docusate Sodium 100 mg 04/17/20 03:24 Docusate Sodium 100 Mg Capsule PO DAILY PRN Constipation Enoxaparin Sodium 40 mg 04/17/20 03:24 04/17/20 03:45 Enoxaparin Sodium 40 Mg/0.4 Ml Syringe SUBCUT 40 mg Q24H RENNY Administration Vancomycin HCl 1,000 mg/ 270 mls @ 270 mls/hr 04/17/20 14:00 Sodium Chloride IV Q12H RENNY Loratadine 10 mg 04/17/20 09:15 04/17/20 11:36 Loratadine 10 Mg Tablet PO Not Given DAILY RENNY Ondansetron HCl 4 mg 04/17/20 03:24 Ondansetron Hcl 4 Mg/2 Ml Vial IVPUSH Q8H PRN Nausea and Vomiting Oxycodone HCl 5 mg 04/17/20 03:24 04/17/20 09:45 Oxycodone Hcl Immed Release 5 Mg Tablet PO 5 mg Q6H PRN Administration Pain, Severe (Pain Scale 7-10) Pharmacy Consult 1 each 04/17/20 03:24 Consult Rx Vancomycin Dosing MISCELLANE DAILY PRN Consult order Sodium Chloride 3 ml 04/17/20 08:00 04/17/20 09:45 0.9 % Sodium Chloride Flush 3 Ml Syringe IVFLUSH 3 ml QSHIFT [facility] Administration Tamsulosin HCl 0.4 mg 04/17/20 21:00 Tamsulosin Hcl 0.4 Mg Capsule PO BEDTIME [facility] Triamcinolone Acetonide 1 appl 04/17/20 09:15 04/17/20 12:30 Triamcinolone Acet 0.1 % Oint 15 Gm Tube TOPICAL 1 appl BID [facility] Administration Home Medications Medication Instructions Recorded Confirmed Last Taken Type tamsulosin 1 cap PO BEDTIME 04/17/20 04/17/20 Unknown History Physical Exam Vital Signs: Vital Signs: Last Vital Signs Temp 97.0 F 04/17/20 11:41 Pulse 58 04/17/20 11:41 Resp 20 04/17/20 11:41 BP 127/71 04/17/20 11:41 Pulse Ox 95 04/17/20 11:41 Body Mass Index 28.5 Const: General: cooperative Orientation/consciousness: patient oriented x3 HENMT: Head: Yes normal to inspection Mouth: Normal oral and palatal mucosa present Eyes: General: appearance normal, both eyes and all related structures Resp: Effort & Inspection: normal respiratory effort Cardio: Rate: regular rate Rhythm: regular rhythm GI: Palpation (GI): Soft to palpation and nontender : General: Yes no CVA tenderness Back/Spine/Pelvis: Back: no CVA tenderness Skin: General skin exam: no rashes or lesions noted Neuro: General: patient oriented x3 Extrem: Other: left third finger eschar lesion 2 cm longitudinal,no cellulitis Results Labs CBC & Chem 7: 04/17/20 05:40 04/17/20 05:40 Labs: Short CBC 04/16/20 04/17/20 Range/Units 22:25 05:40 WBC 6.3 5.0 (4.8-10.8) X10*3/uL Hgb 14.0 12.9 L (14.0-18.0) g/dl Hct 42.2 40.2 L (42-52) % Plt Count 207 174 (160-400) X10*3/uL BMP 04/16/20 04/17/20 22:25 05:40 Sodium 142 140 Potassium 3.9 D 4.3 Chloride 106 109 H Carbon Dioxide 27 26 BUN 24 H 20 H Creatinine 0.93 0.79 Calcium 9.1 D 8.0 L D Liver Function 04/17/20 Range/Units 05:40 Total Bilirubin 0.7 (0.0-1.0) mg/dL AST 23 (5-37) U/L ALT 36 (0-40) U/L Alkaline Phosphatase 54 D (39-117) U/L Albumin 3.5 D (3.5-5.0) g/dL Assessment and Plan (1) Chronic wound of extremity: Problem details: He has had nonhealing wound he reports for years There is no fever,chills,leukocytosis or spreading cellulitis Possible syphilis,malignancy,herpetic simeon?osteomyelitis Status: Acute Check MRI of finger Stop Vancomycin Check HIV,RPR negative and ESR only 2 makes osteomyelitis less likely Dermatology outpatient if no diagnosis found ?biopsy,may hold Surgery biopsy for now due to difficult location to biopsy and Dermatology may have further lou as?creams Try Valtrex po?herpetic simeon MRSA should have responded to the Doxycycline and usually waxes and wanes,not stay in same location for years
--- NOTE | 2020-04-17 16:23 | MHC.CM.PN ---
Pt reports he lives with his , has no services, and no DME. pt reports being fully independent with all care. Pt has a HCP on file. pt states he does not know the name of his PCP. He states he goes to [facility] in [place] but they keep changing his providers. [facility] delivered current DC plan is home no services pt will arrange ride
[2020-04-17] MEDS: Tamsulosin HCL 0.4 MG CAPSULE PO (22:19)
[2020-04-18] VITALS (7 sets, daily range): BP systolic 101–146; BP diastolic 60–70; PULSE 62–87; RESP 18–20; TEMP 36.3–36.8; O2SAT 92–99
[2020-04-18] MEDS: 0.9 % Sodium Chloride Flush 3 ML SYRINGE IVFLUSH ×4 (00:41→20:59)
[2020-04-18] MEDS: Enoxaparin Sodium 40 MG/0.4 ML SYRINGE SUBCUT (03:44)
[2020-04-18 07:00] LABS: Basophils Percent Auto 0.3 % (0-2); Eosinophils Absolute Auto 0.1 X10*3/uL (0.0-0.4); Eosinophils Percent Auto 2.2 % (0-4); Hematocrit 43.3 % (42-52); Hemoglobin 14.3 g/dl (14.0-18.0); Imm Gran Abs Auto 0.02 X10*3/uL (0.00-0.03); Imm Gran Pct Auto 0.3 % (0.0-0.4); Lymphocytes Absolute Auto 1.4 X10*3/uL (1.2-4.9); Lymphocytes Percent Auto 22.9 % (20-40); MANUAL DIFF FLAG NO; Mean Corpuscular Hemoglobin 30.8 pg (27.0-33.0); Mean Corpuscular Volume 93.3 fL (80-98); Mean Platelet Volume 11.1 fL (9.4-12.4); Monocytes Absolute Auto 0.5 X10*3/uL (0.1-1.2); Monocytes Percent Auto 7.9 % (2-11); Neutrophils Absolute Auto 3.9 X10*3/uL (2.0-8.3); Neutrophils Percent Auto 66.4 % (45-73); Platelet Count 196 X10*3/uL (160-400); Red Blood Count 4.64 X10*6/uL (4.60-5.80); Red Cell Distribution Width 13.2 % (11.0-16.0); White Blood Count 5.9 X10*3/uL (4.8-10.8)
[2020-04-18 07:28] LABS: Anion Gap 12 (12-20); Blood Urea Nitrogen 13 mg/dL (9-16); Carbon Dioxide 28 mmol/L (22-29); Chloride 104 mmol/L (96-108); Creatinine Clr Calc Pharmacy 100.9; Estimated Glomerular Filt Rate > 60; Glucose Random 112 mg/dL (60-115); Potassium 4.2 mmol/L (3.3-5.1); Sodium 140 mmol/L (135-145)
[2020-04-18] MEDS: Triamcinolone Acet 0.1 % Oint 15 GM TUBE 1 APPL TOPICAL ×2 (08:30→21:00)
[2020-04-18] MEDS: Loratadine 10 MG TABLET PO (08:30)
--- NOTE | 2020-04-18 10:18 | P.PNIM_ITS ---
Subjective Subjective Date of Service: 04/18/20 Interval History: patient seen and examined at bedside patient reported finger drainage and swelling improving Review of Systems Constitutional: No Fever, No Chills ENT/Mouth: No Ear Pain, No Hoarseness, No sore throat Eyes: No Eye Pain, No Swelling, No Redness, No Foreign Body Cardiovascular: No Chest Pain, No SOB Respiratory: No Cough, No Dyspnea Gastrointestinal: No Nausea, No Vomiting, No Diarrhea, No abdominal Pain Genitourinary: No Dysuria, No Hematuria Musculoskeletal: positive 3rd finger pain, No Myalgias, No Joint Swelling Skin: Positive wound to left 3rd index finger, erythema and drainage, No Skin lacerations, No rash Neuro: No Weakness, No Numbness, No Paresthesias, No Loss of Consciousness, No Dizziness, No Headache Psych: No Anxiety/Panic, No Depression Heme/Lymph: no easy bruising, no Lymphadenopathy Endocrine: No Polyuria, No Polydipsia Physical Exam Vital Signs: Vital Signs: Last Vital Signs Temp 97.4 F 04/18/20 07:51 Pulse 62 04/18/20 07:51 Resp 18 04/18/20 07:51 BP 118/67 04/18/20 07:51 Pulse Ox 98 04/18/20 07:51 Body Mass Index 28.5 Const: General: cooperative and no acute distress Orientation/consciou sness: patient oriented x3 Eyes: General: appearance normal, both eyes and all related structures Resp: Effort & Inspection: normal respiratory effort and able to speak in complete sentences Cardio: Rate: regular rate Rhythm: regular rhythm GI: Palpation (GI): Soft to palpation Auscultation: normal bowel sounds Skin: General skin exam: no rashes or lesions noted Neuro: General: patient oriented x3 Cognition (Neuro): normal cognition Extrem: Other: Open wound on the dorsum of the 3rd left finger, at the D IP joint. There is worth, difficulty with movement of the finger, tenderness. Gen eral: Yes no pedal edema Objective Data Current Medications Generic Name Dose Route Start Last Admin Trade Name Freq PRN Reason Stop Dose Admin Acetaminophen 650 mg 04/17/20 03:24 04/17/20 19:23 Acetaminophen 325 Mg Tablet PO 650 mg Q6H PRN Administration Pain, Mild (Pain Scale 1-3) Docusate Sodium 100 mg 04/17/20 03:24 Docusate Sodium 100 Mg Capsule PO DAILY PRN Constipation Enoxaparin Sodium 40 mg 04/17/20 03:24 04/18/20 03:44 Enoxaparin Sodium 40 Mg/0.4 Ml Syringe SUBCUT 40 mg Q24H RENNY Administration Loratadine 10 mg 04/17/20 09:15 04/18/20 08:30 Loratadine 10 Mg Tablet PO 10 mg DAILY RENNY Administration Ondansetron HCl 4 mg 04/17/20 03:24 Ondansetron Hcl 4 Mg/2 Ml Vial IVPUSH Q8H PRN Nausea and Vomiting Oxycodone HCl 5 mg 04/17/20 03:24 04/17/20 09:45 Oxycodone Hcl Immed Release 5 Mg Tablet PO 5 mg Q6H PRN Administration Pain, Severe (Pain Scale 7-10) Pharmacy Consult 1 each 04/17/20 03:24 Consult Rx Vancomycin Dosing MISCELLANE DAILY PRN Consult order Sodium Chloride 3 ml 04/17/20 08:00 04/18/20 08:30 0.9 % Sodium Chloride Flush 3 Ml Syringe IVFLUSH 3 ml QSHIFT [facility]EN[facility] Administration Tamsulosin HCl 0.4 mg 04/17/20 21:00 04/17/20 22:19 Tamsulosin Hcl 0.4 Mg Capsule PO 0.4 mg BEDTIME [facility] Administration Triamcinolone Acetonide 1 appl 04/17/20 09:15 04/18/20 08:30 Triamcinolone Acet 0.1 % Oint 15 Gm Tube TOPICAL 1 appl BID [facility]ENNY Administration Valacyclovir HCl 1,000 mg 04/17/20 13:30 04/18/20 08:30 Valacycyclovir Hcl 1,000 Mg Tablet PO 1,000 mg BID RENNY Administration Labs CBC & Chem 7: 04/18/20 05:48 04/18/20 05:48 Microbiology Microbiology Results: Microbiology 04/16/20 22:27 Blood - Arterial Blood Culture - Preliminary No growth after 24 hours. 04/16/20 22:27 Blood - Arterial Blood Culture - Preliminary No growth after 24 hours. Assessment and Plan (1) Cellulitis: Status: Acute (2) Chronic wound of extremity: Status: Acute Assessment and Plan: 64-year-old male with history of asthm presents to the hospital with acute on chronic wound of 3rd middle finger. Left 3rd finger wound with erythema and drainage r/o syphilis,malignancy,herpetic simeon?osteomyelitis Patient has had this wound on off for the past 1 year, recently for the past 2 months, presented to the wound clinic who recommended patient come to the hospital Seen by ID recommended MRI and to rule out osteomyelitis ESR normal Vancomycin stopped per ID started on valacyclovir will get surgical evaluation for possible biopsy MRI hand pending Asthma - no evidence of exacerbation - p.r.n. albuterol DVT prophylaxis: Enoxaparin
[2020-04-18 13:38] LABS: Vancomycin Trough < 3.0 mcg/mL (10.0-20.0)
[2020-04-18] MEDS: Acetaminophen 325 MG TABLET 650 MG PO (19:42)
[2020-04-18] MEDS: Tamsulosin HCL 0.4 MG CAPSULE PO (20:59)
[2020-04-19] MEDS: Enoxaparin Sodium 40 MG/0.4 ML SYRINGE SUBCUT (03:30)
[2020-04-19 03:38] VITALS: BP 131/66; PULSE 72; RESP 16; TEMP 36.2; O2SAT 94
[2020-04-19 07:27] VITALS: BP 113/72; PULSE 71; RESP 18; TEMP 36.4; O2SAT 98
[2020-04-19 07:54] LABS: HIV AB/AG Nonreactive (Nonreactive); HIV Num 1 0.05 S/CO (0.00-0.99)
[2020-04-19] MEDS: Loratadine 10 MG TABLET PO (08:26)
[2020-04-19] MEDS: Triamcinolone Acet 0.1 % Oint 15 GM TUBE 1 APPL TOPICAL (09:12)
[2020-04-19] MEDS: 0.9 % Sodium Chloride Flush 3 ML SYRINGE IVFLUSH ×2 (09:12→15:16)
--- NOTE | 2020-04-19 10:24 | P.DS_ITS ---
DS: Providers Provider Date of Service: 07/03/20 Date of admission: 04/17/20 03:13 Primary care physician: Unknown Physician Consults: 04/17/20 03:24 Consult to Infectious Diseases Stat Consulting Provider: Nay Lockwood Reason for consultation: finger infection Has provider been notified: No 04/18/20 09:53 Consult to General Surgery Routine Consulting Provider: Kaela Mclain Reason for consultation: left third finger wound persistent assess for possible biopsy DS: Diagnosis Discharge Diagnosis (1) Cellulitis: Status: Acute (2) Chronic wound of extremity: Status: Acute DS: Medications Discharge Medications Home Medications: Home Medications Medication Instructions Recorded Confirmed tamsulosin 1 cap PO BEDTIME 04/17/20 04/17/20 DS: Summary Hospital Course Hospital Course: Chief Complaint: Finger infection This is a 64-year-old male with no significant past medical history presents to the hospital with complaints of acute on chronic wound of the left middle finger. Patient reports that he has been having difficulty with this finger for the past 1 year, this new wound started about 2 months ago, he went to the wound clinic today and the wound clinic recommended that he comes back to the hospital for IV antibiotics. Patient denies any fever chills, reports that he is unable to bend his finger much due to the severe pain, the pain is 10/10, nonradiating, patient also has noticed draining from his wound. He has no other wound in any other of his fingers or toes, he has no history of diabetes. Review of systems otherwise negative for any chest pain, shortness of breath, headache, change in vision, abdominal pain nausea or vomiting, no diarrhea constipation, no urinary symptoms and no lower extremity edema. On arrival to the ED hemodynamically stable with no significant abnormal vitals Labs are significant for WBC count of 6.3, otherwise unremarkable. Head CT shows focal soft tissue prominence overlying the torso of the 3rd D IP joint without associated destructive bone process. No drainable fluid collection. Hospital course: Finger infection/cellulitis, Started on Vancomycin but was discontinued as finding look more herpetic and was given IV Acyclovir. MRI Time Spent with Patient Time attestation: Total time spent providing and/or coordinating discharge services: Discharge coordination time: Greater than 30 minutes Physical Exam Vital Signs: Vital Signs: Last Vital Signs Temp 97.6 F 04/19/20 07:27 Pulse 71 04/19/20 07:27 Resp 18 04/19/20 07:27 BP 113/72 04/19/20 07:27 Pulse Ox 98 04/19/20 07:27 Body Mass Index 28.5 Const: Orientation/consciousness: patient oriented x3 Resp: Effort & Inspection: normal respiratory effort and able to speak in complete sentences Cardio: Rate: regular rate Rhythm: regular rhythm GI: Palpation (GI): Soft to palpation and nontender Auscultation: normal g[place] wel sounds Skin: Other: General skin exam: no rashes or lesions noted Neuro: General: patient oriented x3 Cognition (Neuro): normal cognition Extrem: Other: Open wound on the dorsum of the 3rd left finger, at the D IP joint. There is worth, difficulty with movement of the finger, tenderness. General: Yes no pedal edema DS: Data Data Completed and Pending Labs on day of discharge: Laboratory Results - last 24 hr 04/17/20 04/18/20 13:29 12:57 Vancomycin Trough < 3.0 L HIV 1&2 Ab/P24 Ag 4thGn Nonreactive Preliminary micro results at discharge 04/16/20 22:27 Blood Culture - Preliminary Blood - Arterial No growth after 48 hours. 04/16/20 22:27 Blood Culture - Preliminary Blood - Arterial No growth after 48 hours. Discharge Plan Discharge Anticipated Discharge Date/Time: 04/19/20 17:09 Patient Disposition: Home, Self-Care Discharge Diagnosis: Cellulitis Referrals: Physician,Unknown [Primary Care Provider] - Discharge Medications: New doxycycline hyclate 100 mg tablet 100 mg PO BID Qty: 14 RF: 0 valacyclovir 1 gram Tablet 1,000 mg PO BID Qty: 14 RF: 0 Continued tamsulosin 0.4 mg capsule 1 cap PO BEDTIME RF: 0 Discharge Orders: Discharge Order (Routine); Ordered 04/19/20 Ordered By: Reinaldo Wang Diet: advance to usual diet Activity on Discharge: As tolerated Stand Alone Forms: Patient Portal Discharge page Visit Report Forms: Patient Portal Discharge page Care Plan Goals: Resolution of infection Health Concerns: Finger infection Cellulitis Plan of Treatment: Take Doxycyline and Acyclovir as recommended and follow up with your Docor in a week Assessment: Cellulitis Discharge Date/Time: 04/19/20 17:45
[2020-04-19 11:23] VITALS: BP 125/80; PULSE 79; RESP 18; TEMP 36.4; O2SAT 97
[2020-04-19 15:37] VITALS: BP 146/71; PULSE 77; RESP 18; TEMP 36.1; O2SAT 93
== END 2020-04-19 17:45 | disposition home or self-care (01) | DRG 603 ==
LOC: HO.ED 04-17 03:23 → HO.IMC 04-17 06:55
PROVIDERS: Internal Medicine; Nurse Practitioner Family; Admitting Provider Internal Medicine; Emergency Provider Student in an Organized Health Care Education/Training Program; Visit Provider Internal Medicine
DX: L03.012 Cellulitis of left finger (principal); L98.499 Non-pressure chronic ulcer of skin of other sites with unspecified severity; J45.909 Unspecified asthma, uncomplicated; Z20.822 Contact with and (suspected) exposure to COVID-19; Z88.5 Allergy status to narcotic agent; Z79.899 Other long term (current) drug therapy
CPT/HCPCS: 36415; 71045; 73201; 73220; 80048; 80053; 80202; 83605; 83735; 84484; 85025; 85610; 85652; 85730; 86140; 86780; 87040; 87389; 87635; 93005; 96361; 96365; 96366; 96367; 99285; 99291; A9585; J0696; J1650; J3370; Q9967

== ENCOUNTER 2020-07-23 20:06 | Emergency (ER) | payer MEDICARE, MEDICAID, SELFPAY ==
--- NOTE | ~2020-07-23 | XR_ITS ---
EXAMINATION: PORTABLE CHEST 1 VIEW CLINICAL INFORMATION: CHEST PAIN . COMPARISON: 04/16/2020. TECHNIQUE: Portable frontal view of the chest was obtained. FINDINGS: The lungs are well expanded. No focal infiltrate, effusion, edema, or pneumothorax. Calcific granuloma at the left base incidentally noted are in Cardiac and mediastinal silhouettes are within normal limits for technique. No acute bony abnormality seen. Cervical spine hardware partially visualized. XR/XR chest 1V IMPRESSION: No evidence of acute disease.
--- NOTE | 2020-07-23 20:31 | ECG_ITS ---
Test Reason : CP/SOB Blood Pressure : / mmHG Vent. Rate : 064 BPM Atrial Rate : 064 BPM P-R Int : 156 ms QRS Dur : 094 ms QT Int : 366 ms P-R-T Axes : 052 029 041 degrees QTc Int : 377 ms Normal sinus rhythm Normal ECG When compared with ECG of 16-APR-2020 22:21, No significant change was found Referred By: Generic ED Physician Electronically Signed By:BUZZ LANDRY MD
[2020-07-23 22:15] VITALS: BP 109/67; PULSE 71; RESP 18; TEMP 37.1; O2SAT 96; BMI 28.5
[2020-07-23 22:43] LABS: Basophils Percent Auto 0.7 % (0-2); Eosinophils Absolute Auto 0.2 X10*3/uL (0.0-0.4); Eosinophils Percent Auto 2.5 % (0-4); Hematocrit 42.2 % (42-52); Imm Gran Abs Auto 0.02 X10*3/uL (0.00-0.03); Imm Gran Pct Auto 0.3 % (0.0-0.4); Lymphocytes Absolute Auto 1.8 X10*3/uL (1.2-4.9); Lymphocytes Percent Auto 29.4 % (20-40); MANUAL DIFF FLAG NO; Mean Corpuscular HGB Conc 33.2 g/dl (31.0-36.0); Mean Corpuscular Hemoglobin 30.8 pg (27.0-33.0); Mean Platelet Volume 10.9 fL (9.4-12.4); Monocytes Absolute Auto 0.5 X10*3/uL (0.1-1.2); Monocytes Percent Auto 8.9 % (2-11); Neutrophils Absolute Auto 3.5 X10*3/uL (2.0-8.3); Neutrophils Percent Auto 58.2 % (45-73); Platelet Count 206 X10*3/uL (160-400); Red Blood Count 4.54 X10*6/uL (4.60-5.80); Red Cell Distribution Width 12.7 % (11.0-16.0); White Blood Count 6.1 X10*3/uL (4.8-10.8)
[2020-07-23 22:59] LABS: COVID-19 Test Negative (Negative); IDNOW Serial# 9DD0AD1C
[2020-07-23 23:15] LABS: Anion Gap 14 (12-20); Blood Urea Nitrogen 20 mg/dL (9-16); Calcium 9.4 mg/dL (8.4-10.2); Carbon Dioxide 24 mmol/L (22-29); Chloride 108 mmol/L (96-108); Creatinine Clr Calc Pharmacy 97.5; Estimated Glomerular Filt Rate > 60; Glucose Random 107 mg/dL (60-115); Potassium 3.9 mmol/L (3.3-5.1); Sodium 142 mmol/L (135-145)
[2020-07-23 23:21] LABS: Troponin-I High Sensitivity < 3.5 ng/L (<3.5-35.0)
[2020-07-24 00:32] VITALS: BP 105/72; PULSE 62; RESP 20; TEMP 36.4; O2SAT 98
== END 2020-07-24 01:03 | disposition left against medical advice (07) ==
PROVIDERS: Emergency Provider Emergency Medicine
DX: R07.89 Other chest pain (principal); R05 Cough; R06.02 Shortness of breath
CPT/HCPCS: 36415; 71045; 80048; 84484; 85025; 87635; 93005; 99283

== ENCOUNTER 2020-07-26 18:15 | Emergency (ER) | payer MEDICARE, MEDICAID, SELFPAY ==
--- NOTE | 2020-07-26 | ECG_ITS ---
Test Reason : SOB Blood Pressure : / mmHG Vent. Rate : 077 BPM Atrial Rate : 077 BPM P-R Int : 140 ms QRS Dur : 086 ms QT Int : 374 ms P-R-T Axes : 033 023 038 degrees QTc Int : 423 ms Normal sinus rhythm Normal ECG When compared with ECG of 23-JUL-2020 21:10, No significant change was found Referred By: Generic ED Physician Electronically Signed By:JERRY ROBERTSON
--- NOTE | ~2020-07-26 | XR_ITS ---
EXAMINATION: XR CHEST CLINICAL INFORMATION: Shortness of breath COMPARISON: 07/23/2020 and 08/23/2015 TECHNIQUE: Frontal view of the chest was obtained. FINDINGS: No significant abnormality is noted involving the heart, lungs, mediastinum, bony thorax or soft tissues.. There is a probable small granuloma present in the right lung overlying the eighth posterior rib. Another rounded granuloma is noted at the left lung base. Both of these are unchanged when compared to studies dating back to 2016. Surgical clips are noted in the lower neck at the thoracic inlet. XR/XR chest 1V IMPRESSION: No acute intrathoracic disease Old calcified pulmonary granulomas, unchanged
[2020-07-26 18:25] VITALS: BP 128/73; PULSE 90; RESP 16; TEMP 35.6; O2SAT 96; BMI 28.3
[2020-07-26 20:00] VITALS: BP 111/56; PULSE 74; RESP 16; TEMP 35.6; O2SAT 96
[2020-07-26 21:12] LABS: MANUAL DIFF FLAG NO
[2020-07-26 21:14] LABS: Basophils Percent Auto 0.5 % (0-2); Eosinophils Absolute Auto 0.1 X10*3/uL (0.0-0.4); Eosinophils Percent Auto 1.8 % (0-4); Hematocrit 39.9 % (42-52); Hemoglobin 13.4 g/dl (14.0-18.0); Imm Gran Abs Auto 0.01 X10*3/uL (0.00-0.03); Imm Gran Pct Auto 0.2 % (0.0-0.4); Lymphocytes Absolute Auto 1.5 X10*3/uL (1.2-4.9); Lymphocytes Percent Auto 28.2 % (20-40); Mean Corpuscular HGB Conc 33.6 g/dl (31.0-36.0); Mean Corpuscular Hemoglobin 31.2 pg (27.0-33.0); Mean Corpuscular Volume 92.8 fL (80-98); Mean Platelet Volume 10.6 fL (9.4-12.4); Monocytes Absolute Auto 0.5 X10*3/uL (0.1-1.2); Monocytes Percent Auto 8.8 % (2-11); Neutrophils Absolute Auto 3.3 X10*3/uL (2.0-8.3); Neutrophils Percent Auto 60.5 % (45-73); Platelet Count 203 X10*3/uL (160-400); White Blood Count 5.5 X10*3/uL (4.8-10.8)
--- NOTE | 2020-07-26 21:34 | ED_ITS ---
HPI - SOB/Dyspnea General Chief Complaint: Dyspnea Stated Complaint: shortness of breath Time Seen by Provider: 07/26/20 21:32 Source: patient Mode of arrival: ambulatory Limitations: no limitations History of Present Illness HPI Narrative: Patient nonsmoker been coughing for last 1 week with increased shortness of breath and feeling tight in the chest drip and cough is mostly dry no fever no chills no leg swelling no cardiac history in the past no fever or chills patient was here 2 days ago labs were done and x-ray negative COVID was also negative Related Data Home Medications Medication Instructions Recorded Confirmed tamsulosin 1 cap PO BEDTIME 04/17/20 04/17/20 Previous Rx's Medication Instructions Recorded doxycycline hyclate 100 mg PO BID #14 tab 04/19/20 valacyclovir 1,000 mg PO BID #14 tab 04/19/20 albuterol sulfate [ProAir HFA] 2 puff INHALATION QID PRN #8.5 g 07/26/20 codeine-guaifenesin 10 ml PO Q4-6H PRN #237 ml 07/26/20 doxycycline hyclate 100 mg PO BID #20 cap 07/26/20 prednisone 40 mg PO DAILY #10 tab 07/26/20 Allergies Allergy/AdvReac Type Severity Reaction Status Date / Time grass pollen Allergy Unknown positive Verified 04/18/20 09:11 allergy test latex [LATEX] Allergy Unknown UNKNOWN Verified 04/17/20 13:28 Latex, Natural Rubber Allergy Unknown Itching Verified 04/18/20 09:11 morphine [MORPHINE] AdvReac Mild SENSATION Verified 04/17/20 13:28 OF HEAT/WARMTH environmental Allergy Unknown Dry Eye Uncoded 04/17/20 13:28 Review of Systems Review of Systems: Constitutional : No Weight loss, No Fever, No Chills ENT/Mouth : No sore throat, No Rhinorrhea Eyes: No Eye Pain, No Swelling Cardiovascular + Chest Pain, no palpitations Respiratory : +Cough, No Sputum, +shortness of breath Gastrointestinal : no Nausea, No Vomiting, No Diarrhea, No abdominal Pain, no black stools Genitourinary : No Dysuria, No Urinary Frequency Musculoskeletal : No joint pain, No Myalgias, No Joint Swelling Skin : No Skin Lesions, No rash Neuro : No Weakness, No Numbness, No Dizziness, No Headache Psych : No Anxiety/Panic, No Depression Heme/Lymph: No Bruising, No Lymphadenopathy Endocrine : No Polyuria, No Polydipsia All other systems reviewed and are negative PMF Past Medical History Medical History Asthma Prostate atrophy Pulmonary nodules Surgical History H/O cervical spine surgery H/O knee surgery History of ear surgery Social History Social History Household Members: Spouse Housing: Apartment Alcohol intake: never Smoking Status: Never smoker Second Hand Smoke Exposure: No Use of substances other than those prescribed or required for medical reasons: No Advance Directives: No service: No Current occupational status: unemployed and retired Physical Exam Vital Signs: Vital Signs: Last Vital Signs Temp 96.1 F L 07/26/20 20:00 Pulse 69 07/26/20 22:22 Resp 16 07/26/20 22:00 BP 111/56 L 07/26/20 22:00 Pulse Ox 99 07/26/20 22:00 Body Mass Index 28.3 Appearance: Alert. Oriented X3. No acute distress. Eyes: PERRLA, No Nystagmus ENT: Pharynx normal. Oral Mucosa moist Neck: Normal inspection. Neck supple. CVS: Normal heart rate and rhythm. Pulses normal. Respiratory: No respiratory distress. Equal air entry bilateral, no wheezing/rales/rhonchi , prolonged expiration with frequent dry cough Abdomen: Soft and nontender. Bowel sounds are present, no mass palpable, no CVA tenderness Skin: Skin warm and dry. Normal skin color. Normal skin turgor. Extremities: No lower extremity edema. No calf tenderness Neuro: Oriented X 3. No motor deficit. No sensory deficit.No cerebellar signs , cranial nerves II-XII intact MDM - SOB/Dyspnea MDM Narrative Medical decision making narrative: Patient feels much better after albuterol inhaler treatment coughing has improved chest x-ray negative blood workup negative discharge patient home Medical Records Attestation: I reviewed the patient's medical records. Lab Data Attestation: I reviewed the patient's lab results. Result diagrams: 07/26/20 21:07 07/26/20 21:07 Labs: Lab Results 07/26/20 07/26/20 07/26/20 Range/Units 21:07 21:07 21:07 WBC 5.5 (4.8-10.8) X10*3/uL RBC 4.30 L (4.60-5.80) X10*6/uL Hgb 13.4 L (14.0-18.0) g/dl Hct 39.9 L (42-52) % MCV 92.8 (80-98) fL MCH 31.2 (27.0-33.0) pg MCHC 33.6 (31.0-36.0) g/dl RDW 13.0 (11.0-16.0) % Plt Count 203 (160-400) X10*3/uL MPV 10.6 (9.4-12.4) fL Immature Gran % (Auto) 0.2 (0.0-0.4) % Neut % (Auto) 60.5 (45-73) % Lymph % (Auto) 28.2 (20-40) % Phillips % (Auto) 8.8 (2-11) % Eos % (Auto) 1.8 (0-4) % Baso % (Auto) 0.5 (0-2) % Lymph # (Auto) 1.5 (1.2-4.9) X10*3/uL Phillips # (Auto) 0.5 (0.1-1.2) X10*3/uL Eos # (Auto) 0.1 (0.0-0.4) X10*3/uL Baso # (Auto) 0.0 (0.0-0.2) X10*3/uL Abs Immat Gran (auto) 0.01 (0.00-0.03) X10*3/uL Absolute Neuts (auto) 3.3 (2.0-8.3) X10*3/uL Absolute Nucleated RBC 0.000 (0.0-0.012) X10*3/uL Nucleated RBC % (auto) 0.0 (0.0-0.2) /100WBC Sodium 142 (135-145) mmol/L Potassium 3.9 (3.3-5.1) mmol/L Chloride 109 H (96-108) mmol/L Carbon Dioxide 23 (22-29) mmol/L Anion Gap 14 (12-20) BUN 22 H (9-16) mg/dL Creatinine 1.00 (0.5-1.4) mg/dL Estim Creat Clear Calc 85.4 Estimated GFR > 60 Random Glucose 148 H D (60-115) mg/dL Calcium 8.9 (8.4-10.2) mg/dL B-Natriuretic Peptide < 10 (<100) pg/mL COVID-19 ([place]) (Negative) COVID-19 Clin Com 07/26/20 Range/Units 22:12 WBC (4.8-10.8) X10*3/uL RBC (4.60-5.80) X10*6/uL Hgb (14.0-18.0) g/dl Hct (42-52) % MCV (80-98) fL MCH (27.0-33.0) pg MCHC (31.0-36.0) g/dl RDW (11.0-16.0) % Plt Count (160-400) X10*3/uL MPV (9.4-12.4) fL Immature Gran % (Auto) (0.0-0.4) % Neut % (Auto) (45-73) % Lymph % (Auto) (20-40) % Phillips % (Auto) (2-11) % Eos % (Auto) (0-4) % Baso % (Auto) (0-2) % Lymph # (Auto) (1.2-4.9) X10*3/uL Phillips # (Auto) (0.1-1.2) X10*3/uL Eos # (Auto) (0.0-0.4) X10*3/uL Baso # (Auto) (0.0-0.2) X10*3/uL Abs Immat Gran (auto) (0.00-0.03) X10*3/uL Absolute Neuts (auto) (2.0-8.3) X10*3/uL Absolute Nucleated RBC (0.0-0.012) X10*3/uL Nucleated RBC % (auto) (0.0-0.2) /100WBC Sodium (135-145) mmol/L Potassium (3.3-5.1) mmol/L Chloride (96-108) mmol/L Carbon Dioxide (22-29) mmol/L Anion Gap (12-20) BUN (9-16) mg/dL Creatinine (0.5-1.4) mg/dL Estim Creat Clear Calc Estimated GFR Random Glucose (60-115) mg/dL Calcium (8.4-10.2) mg/dL B-Natriuretic Peptide (<100) pg/mL COVID-19 ([place]) Negative (Negative) COVID-19 Clin Com See Note ECG Data Attestation: I personally reviewed and interpreted this ECG as follows: Interpretation: Normal sinus rhythm heart rate 77 beats per minute normal intervals normal axis no acute ST T wave changes impression normal EKG Discharge Plan Discharge Clinical Impression: Acute bronchitis Qualifiers: Bronchitis organism: unspecified organism Qualified Code(s): J20.9 - Acute bronchitis, unspecified Patient Disposition: Home, Self-Care Instructions: Acute Bronchitis (ED) Additional Instructions: Take medication as prescribed. Use inhaler. Follow with PCP if not better Prescriptions: New codeine-guaifenesin 10-100 mg/5 mL liquid 10 ml PO Q4-6H PRN (Reason: cough) Qty: 237 RF: 0 doxycycline hyclate 100 mg capsule 100 mg PO BID Qty: 20 RF: 0 prednisone 20 mg tablet 40 mg PO DAILY Qty: 10 RF: 0 albuterol sulfate [ProAir HFA] 90 mcg/actuation HFA aerosol inhaler 2 puff inhalation QID PRN (Reason: shortness of breath or wheezing) Qty: 8.5 RF: 0 No Action tamsulosin 0.4 mg capsule 1 cap PO BEDTIME RF: 0 doxycycline hyclate 100 mg tablet 100 mg PO BID Qty: 14 RF: 0 valacyclovir 1 gram Tablet 1,000 mg PO BID Qty: 14 RF: 0
[2020-07-26 21:35] LABS: Anion Gap 14 (12-20); Blood Urea Nitrogen 22 mg/dL (9-16); Calcium 8.9 mg/dL (8.4-10.2); Carbon Dioxide 23 mmol/L (22-29); Chloride 109 mmol/L (96-108); Creatinine Clr Calc Pharmacy 85.4; Estimated Glomerular Filt Rate > 60; Glucose Random 148 mg/dL (60-115); Potassium 3.9 mmol/L (3.3-5.1); Sodium 142 mmol/L (135-145)
[2020-07-26 22:00] VITALS: BP 111/56; PULSE 74; RESP 16; O2SAT 99
[2020-07-26] MEDS: guaiFEN/Codeine SF 200/20/10ML 10 ML LIQUID PO (22:02)
[2020-07-26] MEDS: methylPREDNISolone Sod Succ 125 MG/2 ML VIAL IVPUSH (22:02)
[2020-07-26] MEDS: Albuterol Sulfate (0.083%) 2.5 MG/3 ML VIAL.NEB 5 MG INHALE (22:19)
[2020-07-26 22:22] VITALS: PULSE 69; O2SAT 98
[2020-07-26 22:22] LABS: B Type Natriuretic Peptide < 10 pg/mL (<100)
[2020-07-26 22:33] LABS: COVID-19 Test Negative (Negative)
[2020-07-26] MEDS: Albuterol Sulfate 90 MCG 8 GM INHALER 4 PUFF INHALE (23:53)
== END 2020-07-27 00:03 | disposition home or self-care (01) ==
PROVIDERS: Emergency Provider Internal Medicine
DX: J20.9 Acute bronchitis, unspecified (principal); Z20.822 Contact with and (suspected) exposure to COVID-19; J45.909 Unspecified asthma, uncomplicated
CPT/HCPCS: 36415; 71045; 80048; 83880; 85025; 87635; 93005; 94640; 96374; 99285; J2930

== ENCOUNTER 2021-02-27 10:49 | Emergency (ER) | payer MEDICARE, MEDICAID, SELFPAY ==
--- NOTE | 2021-02-27 10:59 | ECG_ITS ---
Test Reason : CHEST TIGHTNESS Blood Pressure : / mmHG Vent. Rate : 084 BPM Atrial Rate : 084 BPM P-R Int : 146 ms QRS Dur : 092 ms QT Int : 348 ms P-R-T Axes : 053 005 038 degrees QTc Int : 411 ms Normal sinus rhythm Normal ECG When compared with ECG of 26-JUL-2020 21:02, No significant change was found Referred By: Generic ED Physician Electronically Signed By:Blas Bruce
== END 2021-02-27 19:36 | disposition left against medical advice (07) ==
PROVIDERS: Emergency Provider Emergency Medicine
DX: R07.89 Other chest pain (principal)
CPT/HCPCS: 93005; 99281; 99283

== ENCOUNTER 2021-03-01 04:48 | Emergency (ER) | payer MEDICARE, MEDICAID, SELFPAY ==
[2021-03-01 04:51] VITALS: BP 113/82; PULSE 109; RESP 22; TEMP 36.8; O2SAT 95; BMI 28.3
--- NOTE | 2021-03-01 05:04 | ECG_ITS ---
Test Reason : cp Blood Pressure : / mmHG Vent. Rate : 100 BPM Atrial Rate : 100 BPM P-R Int : 140 ms QRS Dur : 092 ms QT Int : 318 ms P-R-T Axes : 064 034 052 degrees QTc Int : 410 ms Normal sinus rhythm Incomplete right bundle branch block Borderline ECG When compared with ECG of 27-FEB-2021 11:01, No significant change was found Referred By: Nisa Mcghee Electronically Signed By:Blas Bruce
[2021-03-01 05:55] LABS: Influenza A PCR NEGATIVE (Negative); Influenza B PCR NEGATIVE (Negative); Resp Syncy Virus RNA Qual PCR NEGATIVE (Negative)
[2021-03-01 06:25] LABS: SARS COV2 PCR INHOUSE POSITIVE (Negative)
[2021-03-01] MEDS: Acetaminophen 325 MG TABLET 975 MG PO (06:53)
[2021-03-01] MEDS: Ibuprofen 400 MG TABLET PO (06:54)
--- NOTE | 2021-03-01 07:00 | ED.CHESTPAIN ---
HPI - Chest Pain General Chief Complaint: Chest Pain Stated Complaint: chest pain Time Seen by Provider: 03/01/21 05:52 Source: patient Mode of arrival: ambulatory History of Present Illness HPI narrative: 65-year-old male presents without significant past medical history with right-sided chest pain, body aches all over with joint pain, chills, headache and subjective fevers at home since last week. Patient also reports a dry cough and was tested 1 week ago for COVID-19 and at that time was negative. He states he received his 1st COVID-19 vaccine and then did not return for the 2nd. Related Data Home Medications Medication Instructions Recorded Confirmed tamsulosin 0.4 mg capsule 1 cap PO BEDTIME 04/17/20 04/17/20 Previous Rx's Medication Instructions Recorded doxycycline hyclate 100 mg tablet 100 mg PO BID #14 tab 04/19/20 valacyclovir 1 gram tablet 1,000 mg PO BID #14 tab 04/19/20 albuterol sulfate 90 mcg/actuation 2 puff INHALATION QID PRN #8.5 g 07/26/20 aerosol inhaler (ProAir HFA) codeine 10 mg-guaifenesin 100 mg/5 10 ml PO Q4-6H PRN #237 ml 07/26/20 mL oral liquid doxycycline hyclate 100 mg capsule 100 mg PO BID #20 cap 07/26/20 prednisone 20 mg tablet 40 mg PO DAILY #10 tab 07/26/20 ondansetron HCl 4 mg tablet 4 mg PO Q8H PRN #7 tab 03/01/21 (Zofran) Allergies Allergy/AdvReac Type Severity Reaction Status Date / Time grass pollen Allergy Unknown positive Verified 04/18/20 09:11 allergy test latex [LATEX] Allergy Unknown UNKNOWN Verified 04/17/20 13:28 Latex, Natural Rubber Allergy Unknown Itching Verified 04/18/20 09:11 morphine [MORPHINE] AdvReac Mild SENSATION Verified 04/17/20 13:28 OF HEAT/WARMTH environmental Allergy Unknown Dry Eye Uncoded 04/17/20 13:28 Review of Systems Review of Systems: Pertinent positives and negatives as stated in HPI 10 point review of systems is otherwise negative. PMFSH Past Medical History Source: nursing notes reviewed Medical History Asthma Prostate atrophy Pulmonary nodules Surgical History H/O cervical spine surgery H/O knee surgery History of ear surgery Social History Social History Household Members: Spouse Housing: Apartment Do you presently have visiting nurse or other home services: No Alcohol intake: never Patient Tobacco Use Status: Never used Tobacco Second Hand Smoke Exposure: No Use of substances other than those prescribed or required for medical reasons: No Advance Directives: No Advance Directives Information Provided: Yes service: No Current occupational status: unemployed and retired Physical Exam Vital Signs: Vital Signs: Last Vital Signs Temp 98.2 F 03/01/21 04:51 Pulse 109 H 03/01/21 04:51 Resp 22 H 03/01/21 04:51 BP 113/82 03/01/21 04:51 Pulse Ox 95 03/01/21 04:51 BMI result Body Mass Index 28.3 VITAL SIGNS: Reviewed. GENERAL: Well developed, well nourished, in no acute distress. HEAD: Normocephalic/atraumatic EYES: PERRLA, EOMI EARS: Ext canals without abnormality, TMs non-bulging and non-erythematous NOSE: Nares patent bilateral OROPHARYNX: no oral lesions noted, posterior pharynx clear and non-erythematous without noted tonsillar enlargement/erythema/exudates NECK: Supple, no adenopathy LUNGS: Normal breath sounds. No adventitious sounds or accessory muscle use. SpO2<95> CARDIOVASCULAR: Regular rate and rhythm without noted murmurs, no JVD or lower extremity edema. ABDOMEN: Soft, non-tender, non-distended with bowel sounds. SKIN: Inspection of the skin reveals no rashes, tactile warm NEUROLOGIC: Alert and oriented x 4. Strength and sensation to light touch were grossly intact x 4. Course Course Course Narrative: 65-year-old male with history and clinical presentation consistent with viral syndrome and on review of results was noted to be COVID-19 positive. Although patient is feeling improved after having received the combination of Tylenol/ibuprofen/Zofran he states he is still feeling under the weather. He was explained him that this is to be expected and that he needs to follow-up with his primary care provider via telemedicine this morning. MDM - Chest Pain Lab Data Labs: Lab Results 03/01/21 Range/Units 05:12 Influenza Type A (PCR) NEGATIVE (Negative) Influenza Type B (PCR) NEGATIVE (Negative) RSV RNA Qual (PCR) NEGATIVE (Negative) SARS-CoV-2 RNA (RT-PCR) POSITIVE A (Negative) ECG Data ECG #1: Attestation: I personally reviewed and interpreted this ECG as follows: Prior ECG tracings: available for review (02/27/2021) Interpretation: Normal sinus rhythm, HR -100, incomplete right bundle branch block, AK/QRS/QTC are within normal limits. Discharge Plan Discharge Clinical Impression: Lab test positive for detection of COVID-19 virus, Viral syndrome Patient Disposition: Home, Self-Care Instructions: Viral Syndrome (ED), COVID-19 (Coronavirus Disease 2019) (ED) Additional Instructions: 1. Tylenol 1000 mg, orally, every 6 hours as needed for body aches, temperatures greater than 100.4, headache. Do not exceed 4000 mg within 24 hours. 2. Ibuprofen 400 mg, orally with milk or food, every 6 hours as needed for body aches, temperatures greater than 100.4, headache. 3. Recommend bedside cool mist humidifier for additional symptom relief while you sleep. 4. Follow-up with your primary care provider today via telemedicine appointment for re-evaluation further outpatient management. You of tested positive for COVID-19 and must isolate for the next 10 days as per all state and Federal guidelines. Return to the ER for worsening of your symptoms. Prescriptions: New ondansetron HCl [Zofran] 4 mg tablet 4 mg PO Q8H PRN (Reason: nausea and vomiting) Qty: 7 RF: 0 No Action codeine-guaifenesin 10-100 mg/5 mL liquid 10 ml PO Q4-6H PRN (Reason: cough) Qty: 237 RF: 0 doxycycline hyclate 100 mg capsule 100 mg PO BID Qty: 20 RF: 0 prednisone 20 mg tablet 40 mg PO DAILY Qty: 10 RF: 0 albuterol sulfate [ProAir HFA] 90 mcg/actuation HFA aerosol inhaler 2 puff inhalation QID PRN (Reason: shortness of breath or wheezing) Qty: 8.5 RF: 0 tamsulosin 0.4 mg capsule 1 cap PO BEDTIME RF: 0 doxycycline hyclate 100 mg tablet 100 mg PO BID Qty: 14 RF: 0 valacyclovir 1 gram Tablet 1,000 mg PO BID Qty: 14 RF: 0
[2021-03-01] MEDS: Ondansetron ODT 4 MG TAB.RAPDIS TRANSLINGU (07:19)
== END 2021-03-01 07:44 | disposition home or self-care (01) ==
PROVIDERS: Emergency Provider Student in an Organized Health Care Education/Training Program
DX: U07.1 COVID-19 (principal); B34.9 Viral infection, unspecified; J45.909 Unspecified asthma, uncomplicated
CPT/HCPCS: 0241U; 93005; 99283; 99285

== ENCOUNTER 2021-03-07 07:21 | Emergency (ER) | payer MEDICARE, MEDICAID, SELFPAY ==
[2021-03-07 07:39] VITALS: BP 110/83; PULSE 88; RESP 20; TEMP 36.6; O2SAT 92; BMI 25.7
--- NOTE | 2021-03-07 11:54 | PC.NURSE ---
ATTEMPTED TO CALL PATIENT INTO ED. NO ANSWER IN WAITING ROOM. CALLED AT 1100, 1110, 1145
== END 2021-03-07 12:10 | disposition left against medical advice (07) ==
PROVIDERS: Emergency Provider Emergency Medicine
DX: U07.1 COVID-19 (principal); R07.9 Chest pain, unspecified
CPT/HCPCS: 99281

== ENCOUNTER 2021-03-10 10:20 | Inpatient (IN) | payer MEDICARE, MEDICAID, SELFPAY ==
--- NOTE | ~2021-03-10 | CT_ITS ---
EXAMINATION: CT ANGIOGRAM OF THE CHEST WITH AND WITHOUT CONTRAST (CT PULMONARY ANGIOGRAM FOR PE) CLINICAL INFORMATION: Reason for Exam covid + COMPARISON: None TECHNIQUE: Prior to contrast administration, noncontrast localization images were obtained. Subsequently, multidetector volumetric imaging was performed from the thoracic inlet to below the diaphragms following the administration of 80 mL Omnipaque 350 intravenous contrast. No contrast reaction reported Sagittal, coronal, and MIP oblique sagittal reformatted images were obtained on the CT workstation, uploaded to PACS, and reviewed. This CT examination was performed using dose optimization techniques as appropriate, variously including the following: *Automated exposure control *Adjustment of mA and/or kV according to patient size (this includes techniques or standardized protocols for targeted exams where dose is matched to indication/reason for exam; i.e. extremities or head) *Use of iterative reconstruction technique Total exam dose-length product 376 mGy-cm FINDINGS: QUALITY OF STUDY/CONTRAST BOLUS: Suboptimal in the subsegmental branches. PULMONARY ARTERIES: No central, right or left pulmonary artery emboli seen. THORACIC AORTA: No aneurysm or dissection. LUNG: There is diffuse centrilobular emphysematous changes of both lungs. There is patchy opacities in both upper lobes, both lower lobes, lingula and right middle lobe consistent with rivas lobular infiltrates. PLEURA: No pleural effusion or pneumothorax. MEDIASTINUM: Heart size and the great vessels are normal caliber. The central trachea and the bronchi are widely patent. No abnormal size mediastinal or hilar lymph nodes seen. The thyroid lobes are symmetrical and normal. No evidence of septal bowing or right heart strain. CHEST WALL/AXILLA: No axillary or internal mammary lymphadenopathy. OSSEOUS STRUCTURES: No acute or suspicious osseous abnormality. UPPER ABDOMEN: The liver is diffusely attenuated without any focal lesion. Visualized gallbladder, pancreas, adrenal glands and the spleen is unremarkable. No reflux of contrast into the hepatic veins to suggest elevated right heart pressures. CT/CT angio chest PE protocol IMPRESSION: No evidence of central, right or left pulmonary artery emboli. Multilobular infiltrates likely related to COVID disease. Diffuse hepatic steatosis without focal lesion. VTE: negative
--- NOTE | ~2021-03-10 | XR_ITS ---
EXAMINATION: XR CHEST CLINICAL INFORMATION: SOB, Covid positive COMPARISON: Chest 07/26/2020 TECHNIQUE: Frontal view of the chest was obtained. FINDINGS: The lungs are hypoexpanded with patchy opacities in entire left lung and right upper middle lung region suspicious for infiltrates. Heart size and pulmonary vascularity is normal. No gross bony abnormality seen. XR/XR chest 1V IMPRESSION: Bilateral patchy infiltrates more predominantly in the left lung likely Covid related disease.
[2021-03-10 10:41] VITALS: BP 110/71; PULSE 90; RESP 22; TEMP 36.6; O2SAT 93; BMI 25.1
--- NOTE | 2021-03-10 12:44 | ECG_ITS ---
Test Reason : CP Blood Pressure : / mmHG Vent. Rate : 085 BPM Atrial Rate : 085 BPM P-R Int : 146 ms QRS Dur : 102 ms QT Int : 366 ms P-R-T Axes : 057 021 044 degrees QTc Int : 435 ms Normal sinus rhythm RSR' or QR pattern in V1 suggests right ventricular conduction delay Borderline ECG When compared with ECG of 01-MAR-2021 05:03, No significant change was found Referred By: Stacy Garza Electronically Signed By:BUZZ LANDRY MD
--- NOTE | 2021-03-10 12:48 | ED.URI ---
HPI - URI/Sore Throat General Chief Complaint: Upper Respiratory Symptoms Stated Complaint: +covid 02/28 symptoms worsening Time Seen by Provider: 03/10/21 11:06 Source: patient Mode of arrival: ambulatory Limitations: no limitations History of Present Illness HPI Narrative: Patient comes to the emergency room complaining of shortness of breath. Patient is known to be COVID positive since approximately 1 week. Patient tested positive on February. Patient states that he has worsening cough, shortness of breath, diffuse body aches, chest pain bilaterally and in the back on both sides. Patient's is also here in the emergency room much sicker than he is. Related Data Home Medications Medication Instructions Recorded Confirmed tamsulosin 0.4 mg capsule 1 cap PO BEDTIME 04/17/20 03/10/21 ipratropium 20 mcg-albuterol 100 1 puff INHALATION QID PRN 03/10/21 03/10/21 mcg/actuation mist for inhalation (Combivent Respimat) ondansetron HCl 4 mg tablet 4 mg PO Q8H PRN 03/10/21 03/10/21 Previous Rx's Medication Instructions Recorded albuterol sulfate 90 mcg/actuation 2 puff INHALATION QID PRN #8.5 g 07/26/20 aerosol inhaler (ProAir HFA) Allergies Allergy/AdvReac Type Severity Reaction Status Date / Time grass pollen Allergy Unknown positive Verified 04/18/20 09:11 allergy test latex [LATEX] Allergy Unknown UNKNOWN Verified 04/17/20 13:28 Latex, Natural Rubber Allergy Unknown Itching Verified 04/18/20 09:11 morphine [MORPHINE] AdvReac Mild SENSATION Verified 04/17/20 13:28 OF HEAT/WARMTH environmental Allergy Unknown Dry Eye Uncoded 04/17/20 13:28 Review of Systems Review of Systems: Constitutional : No Weight loss, No Fever, No Chills, No Night Sweats, No Fatigue, No Malaise ENT/Mouth : No Hearing loss, No Ear Pain, No Nasal Congestion, No Sinus Pain, No Hoarseness, No sore throat, No Rhinorrhea, No Swallowing Difficulty Eyes: No Eye Pain, No Swelling, No Redness, No Foreign Body, No Discharge, No Vision Changes Cardiovascular : Complaining of chest discomfort with coughing, no edema, no orthopnea, no palpitations Respiratory : Complaining of worsening cough, shortness of breath has gradually been getting worse Gastrointestinal : No Nausea, No Vomiting, No Diarrhea, No Constipation, No abdominal Pain, No Hematochezia, No Melena Genitourinary : no irregular bleeding, No Dysuria, No Urinary Frequency, No Hematuria, No Urinary Incontinence, No Urgency, No Flank Pain, No Urinary Flow Changes, No Hesitancy Musculoskeletal : No joint pain, No Myalgias, No Joint Swelling Skin : No Skin Lesions, No rash Neuro : No Weakness, No Numbness, No Paresthesias, No Loss of Consciousness, No Dizziness, No Headache Psych : No Anxiety/Panic, No Depression, No SI/HI/AH/VH, No Social Issues, Heme/Lymph: No Bruising, No Bleeding,No Lymphadenopathy Endocrine : No Polyuria, No Polydipsia, No Temperature Intolerance [facility] Past Medical History Medical History Asthma Prostate atrophy Pulmonary nodules Surgical History H/O cervical spine surgery H/O knee surgery History of ear surgery Social History Social History Household Members: Spouse Housing: Apartment Do you presently have visiting nurse or other home services: No Alcohol intake: never Patient Tobacco Use Status: Never used Tobacco Second Hand Smoke Exposure: No Advance Directives: No Advance Directives Information Provided: No service: No Current occupational status: unemployed and retired Physical Exam Vital Signs: Vital Signs: Last Vital Signs Temp 98 F 03/10/21 10:41 Pulse 83 03/10/21 16:21 Resp 24 H 03/10/21 16:21 BP 114/72 03/10/21 16:21 Pulse Ox 97 03/10/21 16:21 BMI result Body Mass Index 25.1 Const: Other: Appearance: Alert. Oriented X3. ill-appearing Eyes: Pupils equal, round and reactive to light. ENT: Pharynx normal. Neck: Normal inspection. Neck supple. No lymph nodes noted. No crepitus CVS: Tachycardic, regular rhythm. Pulses normal. Normal S1 and S2 Respiratory: Coughing violently, no wheezing, diminished breath sounds bilaterally, no crackles. Oxygen saturation with sitting and standing dropped to 87% on room air. Improved to 94% on 3 L. Abdomen: Soft and nontender. No rigidity. No distention. Skin: Skin warm and dry. Normal skin color. Normal skin turgor. Extremities: No lower extremity edema. No lower extremity edema. No Lacerations. No Rash Neuro: Oriented X 3. No motor deficit. No sensory deficit. Moving all extermities. No slurred speech. Course Course Course Narrative: 14:50 Patient is known to have COVID-19. Patient states that he has history asthma. Patient is tachycardic, D-dimer elevated, CT scan pending. Chest x-ray shows bilateral patchy infiltrates, this is likely viral/COVID related. Patient being empirically treated with antibiotics for pneumonia. Patient's blood pressure stable. White blood cell count within normal limits. Lactic acid 1.4. Sepsis is not suspected. Patient's oxygen saturation drops to 87% on room air, improved to 97% on 4 L nasal cannula. I discussed the patient with Dr. Harepr, patient being admitted MDM - URI/Sore Throat Lab Data Result diagrams: 03/10/21 13:29 03/10/21 13:29 Labs: Lab Results 03/10/21 03/10/21 03/10/21 Range/Units 13:29 13:29 13:29 WBC 10.8 (4.8-10.8) X10*3/uL RBC 4.78 (4.60-5.80) X10*6/uL Hgb 14.5 (14.0-18.0) g/dl Hct 43.1 (42.0-52.0) % MCV 90.2 (80.0-98.0) fL MCH 30.3 (27.0-33.0) pg MCHC 33.6 (31.0-36.0) g/dl RDW 12.8 (11.0-16.0) % Plt Count 467 H (160-400) X10*3/uL MPV 9.4 (9.4-12.4) fL Immature Gran % (Auto) 0.9 H (0.0-0.4) % Neut % (Auto) 80.8 H (45-73) % Lymph % (Auto) 6.7 L (20-40) % [place] % (Auto) 10.7 (2-11) % Eos % (Auto) 0.7 (0-4) % Baso % (Auto) 0.2 (0-2) % Lymph # (Auto) 0.7 L (1.2-4.9) X10*3/uL [place] # (Auto) 1.2 (0.1-1.2) X10*3/uL Eos # (Auto) 0.1 (0.0-0.4) X10*3/uL Baso # (Auto) 0.0 (0.0-0.2) X10*3/uL Abs Immat Gran (auto) 0.10 H (0.00-0.03) X10*3/uL Absolute Neuts (auto) 8.7 H (2.0-8.3) x10*3/uL Absolute Nucleated RBC 0.000 (0.0-0.012) X10*3/uL Nucleated RBC % (auto) 0.0 (0.0-0.2) /100WBC D-Dimer High Sensitivty 1311 NG/ML Sodium 137 (135-145) mmol/L Potassium 4.5 (3.3-5.1) mmol/L Chloride 100 (96-108) mmol/L Carbon Dioxide 27 (22-29) mmol/L Anion Gap 15 (12-20) BUN 19 H (9-16) mg/dL Creatinine 0.86 (0.5-1.4) mg/dL Estim Creat Clear Calc 89.9 Estimated GFR > 60 Random Glucose 113 (60-115) mg/dL Lactic Acid (0.5-2.0) mmol/L Calcium 8.9 (8.4-10.2) mg/dL Total Bilirubin 1.1 H (0.0-1.0) mg/dL Direct Bilirubin 0.5 (0.0-0.5) mg/dL AST 31 (5-37) U/L ALT 46 H (0-40) U/L Alkaline Phosphatase 62 (39-117) U/L Troponin I High Sens (<3.5-35.0) ng/L B-Natriuretic Peptide (<100) pg/mL Total Protein 7.1 D (6.5-8.0) g/dL Albumin 3.8 (3.5-5.0) g/dL COVID-19 ([place]) (Negative) COVID-19 Clin Com 03/10/21 03/10/21 03/10/21 Range/Units 13:29 13:29 13:29 WBC (4.8-10.8) X10*3/uL RBC (4.60-5.80) X10*6/uL Hgb (14.0-18.0) g/dl Hct (42.0-52.0) % MCV (80.0-98.0) fL MCH (27.0-33.0) pg MCHC (31.0-36.0) g/dl RDW (11.0-16.0) % Plt Count (160-400) X10*3/uL MPV (9.4-12.4) fL Immature Gran % (Auto) (0.0-0.4) % Neut % (Auto) (45-73) % Lymph % (Auto) (20-40) % [place] % (Auto) (2-11) % Eos % (Auto) (0-4) % Baso % (Auto) (0-2) % Lymph # (Auto) (1.2-4.9) X10*3/uL [place] # (Auto) (0.1-1.2) X10*3/uL Eos # (Auto) (0.0-0.4) X10*3/uL Baso # (Auto) (0.0-0.2) X10*3/uL Abs Immat Gran (auto) (0.00-0.03) X10*3/uL Absolute Neuts (auto) (2.0-8.3) x10*3/uL Absolute Nucleated RBC (0.0-0.012) X10*3/uL Nucleated RBC % (auto) (0.0-0.2) /100WBC D-Dimer High Sensitivty NG/ML Sodium (135-145) mmol/L Potassium (3.3-5.1) mmol/L Chloride (96-108) mmol/L Carbon Dioxide (22-29) mmol/L Anion Gap (12-20) BUN (9-16) mg/dL Creatinine (0.5-1.4) mg/dL Estim Creat Clear Calc Estimated GFR Random Glucose (60-115) mg/dL Lactic Acid 1.4 (0.5-2.0) mmol/L Calcium (8.4-10.2) mg/dL Total Bilirubin (0.0-1.0) mg/dL Direct Bilirubin (0.0-0.5) mg/dL AST (5-37) U/L ALT (0-40) U/L Alkaline Phosphatase (39-117) U/L Troponin I High Sens < 3.5 (<3.5-35.0) ng/L B-Natriuretic Peptide < 10 (<100) pg/mL Total Protein (6.5-8.0) g/dL Albumin (3.5-5.0) g/dL COVID-19 ([place]) Positive A (Negative) COVID-19 Clin Com See Note Imaging Data Chest x-ray: Radiologist's impression: The lungs are hypoexpanded with patchy opacities in entire left lung and right upper middle lung region suspicious for infiltrates. Heart size and pulmonary vascularity is normal. No gross bony abnormality seen. XR/XR chest 1V IMPRESSION: Bilateral patchy infiltrates more predominantly in the left lung likely Covid related diseas CTA chest: Radiologist's impression: FINDINGS: QUALITY OF STUDY/CONTRAST BOLUS: Suboptimal in the subsegmental branches. PULMONARY ARTERIES: No central, right or left pulmonary artery emboli seen.? THORACIC AORTA: No aneurysm or dissection. LUNG: There is diffuse centrilobular emphysematous changes of both lungs. There is patchy opacities in both upper lobes, both lower lobes, lingula and right middle lobe consistent with rivas lobular infiltrates. PLEURA: No pleural effusion or pneumothorax. MEDIASTINUM: Heart size and the great vessels are normal caliber. The central trachea and the bronchi are widely patent. No abnormal size mediastinal or hilar lymph nodes seen. The thyroid lobes are symmetrical and normal.? No evidence of septal bowing or right heart strain. CHEST WALL/AXILLA: No axillary or internal mammary lymphadenopathy. OSSEOUS STRUCTURES: No acute or suspicious osseous abnormality.? UPPER ABDOMEN: The liver is diffusely attenuated without any focal lesion. Visualized gallbladder, pancreas, adrenal glands and the spleen is unremarkable.? No reflux of contrast into the hepatic veins to suggest elevated right heart pressures. CT/CT angio chest PE protocol IMPRESSION: No evidence of central, right or left pulmonary artery emboli. ? Multilobular infiltrates likely related to COVID disease. ? Diffuse hepatic steatosis without focal lesion. ? VTE: negative Discharge Plan Discharge Clinical Impression: COVID-19, Hypoxia Patient Disposition: Admitted As Inpatient Prescriptions: No Action albuterol sulfate [ProAir HFA] 90 mcg/actuation HFA aerosol inhaler 2 puff inhalation QID PRN (Reason: shortness of breath or wheezing) Qty: 8.5 RF: 0 tamsulosin 0.4 mg capsule 1 cap PO BEDTIME RF: 0 ondansetron HCl 4 mg tablet 4 mg PO Q8H PRN (Reason: Nausea) RF: 0 Combivent Respimat 20-100 mcg/actuation mist 1 puff inhalation QID PRN (Reason: Wheezing) RF: 0
[2021-03-10 12:52] VITALS: O2SAT 87
[2021-03-10 12:53] VITALS: BP 116/82; PULSE 84; RESP 24; O2SAT 95
[2021-03-10 13:36] LABS: MANUAL DIFF FLAG NO
[2021-03-10] MEDS: dexAMETHasone sod phosphate 4 MG/ML VIAL 6 MG IVPUSH (13:39)
[2021-03-10] MEDS: 0.9 % Sodium Chloride 1,000 ML 999 ML IVCONT (13:40)
[2021-03-10 13:47] LABS: Lactic Acid 1.4 mmol/L (0.5-2.0)
[2021-03-10 13:48] LABS: COVID-19 Test Positive (Negative)
[2021-03-10 13:51] LABS: Basophils Percent Auto 0.2 % (0-2); Eosinophils Absolute Auto 0.1 X10*3/uL (0.0-0.4); Eosinophils Percent Auto 0.7 % (0-4); Hematocrit 43.1 % (42.0-52.0); Hemoglobin 14.5 g/dl (14.0-18.0); Imm Gran Pct Auto 0.9 % (0.0-0.4); Lymphocytes Absolute Auto 0.7 X10*3/uL (1.2-4.9); Lymphocytes Percent Auto 6.7 % (20-40); Mean Corpuscular HGB Conc 33.6 g/dl (31.0-36.0); Mean Corpuscular Hemoglobin 30.3 pg (27.0-33.0); Mean Corpuscular Volume 90.2 fL (80.0-98.0); Mean Platelet Volume 9.4 fL (9.4-12.4); Monocytes Absolute Auto 1.2 X10*3/uL (0.1-1.2); Monocytes Percent Auto 10.7 % (2-11); Neutrophils Absolute Auto 8.7 x10*3/uL (2.0-8.3); Neutrophils Percent Auto 80.8 % (45-73); Platelet Count 467 X10*3/uL (160-400); Red Blood Count 4.78 X10*6/uL (4.60-5.80); Red Cell Distribution Width 12.8 % (11.0-16.0); White Blood Count 10.8 X10*3/uL (4.8-10.8)
[2021-03-10 13:52] LABS: Alanine Aminotransferase 46 U/L (0-40); Albumin Level 3.8 g/dL (3.5-5.0); Alkaline Phosphatase 62 U/L (39-117); Anion Gap 15 (12-20); Aspartate Amino Transferase 31 U/L (5-37); Bilirubin Direct 0.5 mg/dL (0.0-0.5); Bilirubin Total 1.1 mg/dL (0.0-1.0); Blood Urea Nitrogen 19 mg/dL (9-16); Calcium 8.9 mg/dL (8.4-10.2); Carbon Dioxide 27 mmol/L (22-29); Chloride 100 mmol/L (96-108); Creatinine Clr Calc Pharmacy 89.9; Estimated Glomerular Filt Rate > 60; Glucose Random 113 mg/dL (60-115); Potassium 4.5 mmol/L (3.3-5.1); Sodium 137 mmol/L (135-145); Total Protein 7.1 g/dL (6.5-8.0)
[2021-03-10 13:57] LABS: B Type Natriuretic Peptide < 10 pg/mL (<100); Troponin-I High Sensitivity < 3.5 ng/L (<3.5-35.0)
[2021-03-10 13:59] LABS: D Dimer High Sensitivity 1311 NG/ML
--- NOTE | 2021-03-10 14:30 | PHA.MEDREC ---
Pharmacy Consult ? Medication Reconciliation Pharmacy has completed the medication reconciliation. There are no remarkable issues for provider's attention. Kelly Cano, CharlesD
[2021-03-10] MEDS: cefTRIAXone sodium 1 GM in 0.9 % Sodium Chloride 50 ML IV (15:39)
[2021-03-10] MEDS: iohexoL 350 MG/ML 100 ML INFUS..BTL 65 ML IV (15:40)
[2021-03-10] MEDS: Azithromycin 500 MG in 0.9 % Sodium Chloride 250 ML 125 MG IV (16:11)
[2021-03-10 16:21] VITALS: BP 114/72; PULSE 83; RESP 24; O2SAT 97
--- NOTE | 2021-03-10 17:16 | PC.NURSE ---
PT contact, Cynthia (daughter) [phone]
--- NOTE | 2021-03-10 17:42 | P.HPHOSP_ITS ---
History of Present Illness Date of Service: 03/10/21 Chief Complaint: Shortness of breath 65 year old male with history of asthma/emphasyma here with shortness of breath. He is vaccinated with 1 dose of Moderna vaccine vaccine last spring and was tested positive for COVID-19 on 03/01/21 and has not had any specific treatment. He present with increasing shortness of breath, diffuse body ache and noted to be hypoxic with Oxygen saturation of 87 on room air and has improved with oxygen by nasal canula. CXR shows viral pattern pneumonia. No fever, normal WBC. Review of Systems Review of Systems: Gen: no fever Resp: +sob, +cough CV: chest, no LIRIANO, no leg edema GI: No n/v, no abd pain Neuro: No confusion Yes all other systems are reviewed and are negative [facility] Medical History Asthma Prostate atrophy Pulmonary nodules Pertinent family history: Father of liver disease Surgical History H/O cervical spine surgery H/O knee surgery History of ear surgery Social History Household Members: Spouse Housing: Apartment Do you presently have visiting nurse or other home services: No Alcohol intake: never Patient Tobacco Use Status: Never used Tobacco Second Hand Smoke Exposure: No Advance Directives: No Advance Directives Information Provided: No service: No Current occupational status: unemployed and retired Meds Allergies Allergy/AdvReac Type Severity Reaction Status Date / Time grass pollen Allergy Unknown positive Verified 04/18/20 09:11 allergy test latex [LATEX] Allergy Unknown UNKNOWN Verified 04/17/20 13:28 Latex, Natural Rubber Allergy Unknown Itching Verified 04/18/20 09:11 morphine [MORPHINE] AdvReac Mild SENSATION Verified 04/17/20 13:28 OF HEAT/WARMTH environmental Allergy Unknown Dry Eye Uncoded 04/17/20 13:28 Active Medications: Current Medications Acetaminophen (Acetaminophen 325 Mg Tablet) 650 mg PO Q6H PRN PRN Reason: Pain, Mild (Pain Scale 1-3) Ascorbic Acid (Ascorbic Acid 500 Mg Tablet) 500 mg PO DAILY [facility] Dexamethasone Sodium Phosphate (Dexamethasone Sod Phosphate 4 Mg/Ml Vial) 6 mg IVPUSH DAILY [facility] Enoxaparin Sodium (Enoxaparin Sodium 40 Mg/0.4 Ml Syringe) 40 mg SUBCUT Q24H RENNY Famotidine (Famotidine 20 Mg Tablet) 20 mg PO BID [facility] Guaifenesin/Codeine Phosphate (Guaifen/Codeine Sf 200/20/10ml 10 Ml Liquid) 5 ml PO Q6H PRN PRN Reason: Cough Magnesium Hydroxide (Milk Of Magnesia 30 Ml Oral.Susp) 30 ml PO DAILY PRN PRN Reason: Constipation Melatonin (Melatonin 3 Mg Tablet) 6 mg PO BEDTIME PRN PRN Reason: Insomnia Ondansetron HCl (Ondansetron Hcl 4 Mg/2 Ml Vial) 4 mg IVPUSH Q8H PRN PRN Reason: Nausea and Vomiting Pharmacy Consult (Consult Rx Perform Med Rec) 1 each MISCELLANE ONCE PRN PRN Reason: Consult order Sodium Chloride (0.9 % Sodium Chloride Flush 3 Ml Syringe) 3 ml IVFLUSH QSHIFT [facility] Zinc Sulfate (Zinc Sulfate 220 Mg Capsule) 220 mg PO DAILY ONE Stop: 03/10/21 17:34 Home Medications Medication Instructions Recorded Confirmed Last Taken Type tamsulosin 0.4 mg capsule 1 cap PO BEDTIME 04/17/20 03/10/21 Unknown History ipratropium 20 mcg-albuterol 100 1 puff INHALATION QID PRN 03/10/21 03/10/21 Unknown History mcg/actuation mist for inhalation (Combivent Respimat) ondansetron HCl 4 mg tablet 4 mg PO Q8H PRN 03/10/21 03/10/21 Unknown History Physical Exam Vital Signs and Narrative: Vital Signs: Last Vital Signs Temp 98 F 03/10/21 10:41 Pulse 83 03/10/21 16:21 Resp 24 H 03/10/21 16:21 BP 114/72 03/10/21 16:21 Pulse Ox 97 03/10/21 16:21 BMI result Body Mass Index 25.1 Const: Other: Constitutional: Alert, in no distress, Mental Status: Oriented to person, place and time. Eyes: Pupils are equal, round and reactive to light. Ear, Nose and Throat: Oropharynx clear, mucous membranes moist. Ears and nose without eformities. Trachea midline. Respiratory: diminished bilteral, no wheezes, no accesory muscle use Cardiovascular: S1 S2 regular. No murmurs, rubs or gallops. Gastrointestinal: Abdomen soft, non-tender, non-distended. Normal bowel sounds.? Neurologic: Cranial nerves II-XII grossly intact. No focal neurological deficits. Moves all extremities spontaneously.? Skin: No rashes or lesions.? Musculoskeletal: No cyanosis or clubbing. Psychiatric: Normal mood and affect? Results Labs CBC and Chem 7: 03/10/21 13:29 03/10/21 13:29 Labs: Laboratory Results - last 24 hr 03/10/21 03/10/21 03/10/21 13:29 13:29 13:29 MCV 90.2 MCH 30.3 MCHC 33.6 RDW 12.8 Plt Count 467 H MPV 9.4 Immature Gran % (Auto) 0.9 H Neut % (Auto) 80.8 H Lymph % (Auto) 6.7 L Carter % (Auto) 10.7 Eos % (Auto) 0.7 Baso % (Auto) 0.2 Lymph # (Auto) 0.7 L Carter # (Auto) 1.2 Eos # (Auto) 0.1 Baso # (Auto) 0.0 Abs Immat Gran (auto) 0.10 H Absolute Neuts (auto) 8.7 H Absolute Nucleated RBC 0.000 Nucleated RBC % (auto) 0.0 D-Dimer High Sensitivty 1311 Anion Gap 15 Estim Creat Clear Calc 89.9 Estimated GFR > 60 Random Glucose 113 Lactic Acid Calcium 8.9 Total Bilirubin 1.1 H Direct Bilirubin 0.5 AST 31 ALT 46 H Alkaline Phosphatase 62 Troponin I High Sens B-Natriuretic Peptide Total Protein 7.1 D Albumin 3.8 COVID-19 ([place]) COVID-19 Clin Com 03/10/21 03/10/21 03/10/21 13:29 13:29 13:29 MCV MCH MCHC RDW Plt Count MPV Immature Gran % (Auto) Neut % (Auto) Lymph % (Auto) Carter % (Auto) Eos % (Auto) Baso % (Auto) Lymph # (Auto) Carter # (Auto) Eos # (Auto) Baso # (Auto) Abs Immat Gran (auto) Absolute Neuts (auto) Absolute Nucleated RBC Nucleated RBC % (auto) D-Dimer High Sensitivty Anion Gap Estim Creat Clear Calc Estimated GFR Random Glucose Lactic Acid 1.4 Calcium Total Bilirubin Direct Bilirubin AST ALT Alkaline Phosphatase Troponin I High Sens < 3.5 B-Natriuretic Peptide < 10 Total Protein Albumin COVID-19 ([place]) Positive A COVID-19 Clin Com See Note Imaging Radiologist's Impressions: Impressions Chest X-Ray 03/10/21 12:59 IMPRESSION: Bilateral patchy infiltrates more predominantly in the left lung likely Covid related disease. Chest CTA 03/10/21 15:40 IMPRESSION: No evidence of central, right or left pulmonary artery emboli. Multilobular infiltrates likely related to COVID disease. Diffuse hepatic steatosis without focal lesion. VTE: negative Assessment and Plan (1) Acute hypoxemic respiratory failure due to COVID-19: Status: Acute 65 year old male with history of asthma vaccinated x 1 with Moderna vaccine > 6 months ago here with subacute covid with Acute respiratory failure with hypoxia respiratory failure J96.01 - Acute respiratory failure with hypoxia d/t U07.1 - COVID-19 -Negative PE by CT -Out of timeframe for effectiveness of Remdesevir -Dexamethasone 6 daily/D1 -O2 by nasal canula and adjust to sat of 90% or better -Incentive spirometry -Proning if able -Vitamins and minieral (Zinc, Vitamin) -Pepcid to mitigate gastritis from steroid. -ID or pulmonology consult if getting worse -Brionchodilators -no indication for Abx at this time. DVT prophylaxis--Levenox Quality Stroke Does the patient have a stroke diagnosis?: No VTE Prior VTE?: No VTE Risk Level:: Medical - moderate - high VTE Device Contraindication: Treatment Not Indicated VTE Drug Contraindication: N/A - Med Ordered
[2021-03-10] MEDS: Enoxaparin Sodium 40 MG/0.4 ML SYRINGE SUBCUT (18:50)
[2021-03-10 23:25] VITALS: BP 112/69; PULSE 68; RESP 18; O2SAT 95
[2021-03-11] VITALS (8 sets, daily range): BP systolic 103–124; BP diastolic 54–84; PULSE 65–79; RESP 17–20; TEMP 36.3–37; O2SAT 92–95; BMI 26.4
[2021-03-11] MEDS: Zinc Sulfate 220 MG CAPSULE PO (02:18)
--- NOTE | 2021-03-11 04:47 | PC.NURSE ---
pt sleeping, wakes to voice, pt up to restroom and reconnected to monitor when returned to room. Pt alert, respirations easy, n/l. skin w/d. pt denies any complaints at this time.
[2021-03-11] MEDS: 0.9 % Sodium Chloride Flush 3 ML SYRINGE IVFLUSH ×2 (09:06→21:06)
[2021-03-11] MEDS: Ascorbic Acid 500 MG TABLET PO (09:06)
[2021-03-11] MEDS: Famotidine 20 MG TABLET PO ×2 (09:06→21:06)
[2021-03-11] MEDS: dexAMETHasone sod phosphate 4 MG/ML VIAL 6 MG IVPUSH (09:06)
--- NOTE | 2021-03-11 11:54 | HO.PM.IMPN ---
Subjective Subjective Date of Service: 03/12/21 Interval History: f/u on covid with hypoxia, feels better, went down on O2 now 93 on 2 liters, some cough Review of Systems cough no fever sob Physical Exam Vital Signs: Vital Signs: Last Vital Signs Temp 98.6 F 03/11/21 07:58 Pulse 79 03/11/21 07:58 Resp 18 03/11/21 07:58 BP 108/67 03/11/21 07:58 Pulse Ox 93 03/11/21 07:58 BMI result Body Mass Index 25.1 Const: Other: General: AO X 3, no acute distress Resp: normal lung expansion GI: +BS, NT, no distention Skin: No rash Neuro: motor grossly intact Psych: appropriate affect Objective Data Active Medications Acetaminophen (Acetaminophen 325 Mg Tablet) 650 mg PO Q6H PRN PRN Reason: Pain, Mild (Pain Scale 1-3) Albuterol Sulfate (Albuterol Sulfate 90 Mcg 8 Gm Inhaler) 2 puff INHALE QID PRN PRN Reason: shortness of breath or wheezing Albuterol/Ipratropium (Albuterol/Iprat 2.5/0.5mg 3 Ml Ampul.Neb) 3 ml INHALE Q6H PRN PRN Reason: Wheezing Ascorbic Acid (Ascorbic Acid 500 Mg Tablet) 500 mg PO DAILY [facility] Last Admin: 03/11/21 09:06 Dose: 500 mg Documented by: SILKE Dexamethasone Sodium Phosphate (Dexamethasone Sod Phosphate 4 Mg/Ml Vial) 6 mg IVPUSH DAILY [facility] Last Admin: 03/11/21 09:06 Dose: 6 mg Documented by: SILKE Enoxaparin Sodium (Enoxaparin Sodium 40 Mg/0.4 Ml Syringe) 40 mg SUBCUT Q24H [facility] Last Admin: 03/10/21 18:50 Dose: 40 mg Documented by: ELVIRA Famotidine (Famotidine 20 Mg Tablet) 20 mg PO BID [facility] Last Admin: 03/11/21 09:06 Dose: 20 mg Documented by: SILKE Guaifenesin/Codeine Phosphate (Guaifen/Codeine Sf 200/20/10ml 10 Ml Liquid) 5 ml PO Q6H PRN PRN Reason: Cough Magnesium Hydroxide (Milk Of Magnesia 30 Ml Oral.Susp) 30 ml PO DAILY PRN PRN Reason: Constipation Melatonin (Melatonin 3 Mg Tablet) 6 mg PO BEDTIME PRN PRN Reason: Insomnia Ondansetron HCl (Ondansetron Hcl 4 Mg/2 Ml Vial) 4 mg IVPUSH Q8H PRN PRN Reason: Nausea and Vomiting Ondansetron HCl (Ondansetron Odt 4 Mg Tab.Rapdis) 4 mg TRANSLINGU Q8H PRN PRN Reason: Nausea Pharmacy Consult (Consult Rx Perform Med Rec) 1 each MISCELLANE ONCE PRN PRN Reason: Consult order Sodium Chloride (0.9 % Sodium Chloride Flush 3 Ml Syringe) 3 ml IVFLUSH QSHIFT [facility] Last Admin: 03/11/21 09:06 Dose: 3 ml Documented by: SILKE Tamsulosin HCl (Tamsulosin Hcl 0.4 Mg Capsule) 0.4 mg PO BEDTIME [facility] Last Admin: 03/11/21 02:19 Dose: Not Given Documented by: LISSY Non-Admin Reason: See Note Labs CBC & Chem 7: 03/10/21 13:29 03/10/21 13:29 Labs: Laboratory Results - last 24 hr 03/10/21 03/10/21 03/10/21 13:29 13:29 13:29 MCV 90.2 MCH 30.3 MCHC 33.6 RDW 12.8 Plt Count 467 H MPV 9.4 Immature Gran % (Auto) 0.9 H Neut % (Auto) 80.8 H Lymph % (Auto) 6.7 L [place] % (Auto) 10.7 Eos % (Auto) 0.7 Baso % (Auto) 0.2 Lymph # (Auto) 0.7 L [place] # (Auto) 1.2 Eos # (Auto) 0.1 Baso # (Auto) 0.0 Abs Immat Gran (auto) 0.10 H Absolute Neuts (auto) 8.7 H Absolute Nucleated RBC 0.000 Nucleated RBC % (auto) 0.0 D-Dimer High Sensitivty 1311 Anion Gap 15 Estim Creat Clear Calc 89.9 Estimated GFR > 60 Random Glucose 113 Lactic Acid Calcium 8.9 Total Bilirubin 1.1 H Direct Bilirubin 0.5 AST 31 ALT 46 H Alkaline Phosphatase 62 Troponin I High Sens B-Natriuretic Peptide Total Protein 7.1 D Albumin 3.8 COVID-19 ([facility]) COVID-19 Clin Com 03/10/21 03/10/21 03/10/21 13:29 13:29 13:29 MCV MCH MCHC RDW Plt Count MPV Immature Gran % (Auto) Neut % (Auto) Lymph % (Auto) [place] % (Auto) Eos % (Auto) Baso % (Auto) Lymph # (Auto) [place] # (Auto) Eos # (Auto) Baso # (Auto) Abs Immat Gran (auto) Absolute Neuts (auto) Absolute Nucleated RBC Nucleated RBC % (auto) D-Dimer High Sensitivty Anion Gap Estim Creat Clear Calc Estimated GFR Random Glucose Lactic Acid 1.4 Calcium Total Bilirubin Direct Bilirubin AST ALT Alkaline Phosphatase Troponin I High Sens < 3.5 B-Natriuretic Peptide < 10 Total Protein Albumin COVID-19 ([facility]) Positive A COVID-19 Clin Com See Note Assessment and Plan (1) Acute hypoxemic respiratory failure due to COVID-19: Status: Acute (2) COVID-19: Status: Acute Quality Stroke Does the patient have a stroke diagnosis?: No VTE Prior VTE?: No VTE Risk Level:: Medical - moderate - high VTE Device Contraindication: Treatment Not Indicated VTE Drug Contraindication: N/A - Med Ordered
--- NOTE | 2021-03-11 15:57 | PC.NURSE ---
pt. well appearing. Speaking in full, clear sentences that are briefly intermittent with a cough occasionally. Dry, nonproductive cough. Rales bilaterally, primarily on left side. Chest pain when coughing or taking a deep breath. Skin appropriate for ethnicity. VSS.
[2021-03-11] MEDS: Enoxaparin Sodium 40 MG/0.4 ML SYRINGE SUBCUT (18:37)
--- NOTE | 2021-03-11 18:54 | MHC.CM.PN ---
Addendum entered by Pennie Solorio 03/11/21 19:04: IMM signed on 03/11/2021@[email or web address]. Original Note: CM met with admitted patient with bed assignment pending.A&Ox3. 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 IMM reviewed and signed per protocol. Copy given and one to medical records. HCP on file. HCP/ Marshal Jade ([phone]). Pt is currently admitted to [facility] with Covid. Pt is Covid positive from 02/28/2021. Pt received 1 dose of Moderna vaccine greater than 6 months ago. Pt has no services and uses no DME. PCP is at [facility] in [facility]. D/C plan is home without services. Will need to re-evaluate D/C needs closer to discharge. Pt may need home oxygen. Daughter will provide transportation home. CM will follow for d/c needs.
[2021-03-11] MEDS: Tamsulosin HCL 0.4 MG CAPSULE PO (21:06)
[2021-03-12 03:22] VITALS: BP 102/47; RESP 20; TEMP 36.4; O2SAT 96
[2021-03-12 08:00] VITALS: BP 114/65; PULSE 60; RESP 18; TEMP 36.4; O2SAT 94
[2021-03-12 08:45] VITALS: O2SAT 92
[2021-03-12] MEDS: Ascorbic Acid 500 MG TABLET PO (09:31)
[2021-03-12] MEDS: dexAMETHasone sod phosphate 4 MG/ML VIAL 6 MG IVPUSH (09:31)
[2021-03-12] MEDS: Famotidine 20 MG TABLET PO (09:31)
[2021-03-12] MEDS: 0.9 % Sodium Chloride Flush 3 ML SYRINGE IVFLUSH (09:32)
--- NOTE | 2021-03-12 10:22 | PM.DS ---
DS: Providers Provider Date of Service: 03/12/21 Date of admission: 03/10/21 17:38 Primary care physician: Unknown Physician DS: Diagnosis Discharge Diagnosis (1) Acute hypoxemic respiratory failure due to COVID-19: Status: Acute (2) COVID-19: Status: Acute DS: Summary Hospital Course Hospital Course: Chief Complaint: Shortness of breath 65 year? old male with history of asthma/emphasyma here with shortness of breath. He is vaccinated with 1 dose of Moderna vaccine vaccine last spring and was tested positive for COVID-19 on 03/01/21 and has not had any specific treatment. He present with increasing shortness of breath, diffuse body ache and noted to be hypoxic with Oxygen saturation of 87 on room air and has improved with oxygen by nasal canula.? CXR shows viral pattern pneumonia.? No fever, normal WBC. Hospital course: Patient was admitted and treated with O2, IV steroid and has been doing well, feeling good, breathing easy and is taken off oxygen and saturation 92 and above on room air and feels comfortable going home. Will discharge to complete course of Dexamethasone. Final diagnoses: Acute hypoxic respiratory failure due to covid-19 Time Spent with Patient Time attestation: Total time spent providing and/or coordinating discharge services: Discharge coordination time: Greater than 30 minutes Quality: Stroke Does the patient have a stroke diagnosis?: No Physical Exam Vital Signs: Vital Signs: Last Vital Signs Temp 97.5 F 03/12/21 08:00 Pulse 60 03/12/21 08:00 Resp 18 03/12/21 08:00 BP 114/65 03/12/21 08:00 Pulse Ox 92 03/12/21 08:45 BMI result Body Mass Index 26.4 Const: Other: General: AO X 3, no acute distress Resp: CTA bilateral CVS: S1,S2,RRR GI: +BS, NT, no distention Skin: No rash Neuro: motor grossly intact Psych: appropriate affect DS: Data Data Completed and Pending Labs on day of discharge: Preliminary micro results at discharge 03/10/21 14:26 Blood Culture - Preliminary Blood - Venous No growth after 24 hours. 03/10/21 13:29 Blood Culture - Preliminary Blood - Venous No growth after 24 hours. Discharge Plan Discharge Anticipated Discharge Date/Time: 03/12/21 10:00 Patient Disposition: Home, Self-Care Discharge Diagnosis: Covid, acute hypoxic resp failure Referrals: Physician,Unknown J [Primary Care Provider] - 1 Week Discharge Medications: New dexamethasone sodium phosphate 4 mg/mL Solution 6 mg IVPUSH DAILY Qty: 7 RF: 0 Continued albuterol sulfate [ProAir HFA] 90 mcg/actuation HFA aerosol inhaler 2 puff inhalation QID PRN (Reason: shortness of breath or wheezing) Qty: 8.5 RF: 0 tamsulosin 0.4 mg capsule 1 cap PO BEDTIME RF: 0 ondansetron HCl 4 mg tablet 4 mg PO Q8H PRN (Reason: Nausea) RF: 0 Combivent Respimat 20-100 mcg/actuation mist 1 puff inhalation QID PRN (Reason: Wheezing) RF: 0 Discharge Orders: Discharge Order (Routine); Ordered 03/12/21 Ordered By: Reinaldo Harper Diet: advance to usual diet Activity on Discharge: As tolerated Stand Alone Forms: Patient Portal Discharge page Care Plan Goals: Full recovery from covid Health Concerns: covid Plan of Treatment: Take Dexamethasone as directed, follow isolation guidelines and follow up with your Doctor in a week Assessment: as above
--- NOTE | 2021-03-12 11:10 | MHC.CM.PN ---
PT IS CLEARED TO DC HOME TODAY WITH NO SERVICES DAUGHTER TO TRANSPORT
[2021-03-12 11:51] VITALS: BP 103/65; PULSE 73; RESP 18; TEMP 36.6; O2SAT 94
== END 2021-03-12 12:40 | disposition home or self-care (01) | DRG 177 ==
LOC: HO.ED 17:06 → HO.EDOVER 17:59 → HO.IMC 03-11 19:32
PROVIDERS: Admitting Provider Internal Medicine; Emergency Provider Emergency Medicine; Visit Provider Internal Medicine
DX: U07.1 COVID-19 (principal); J96.01 Acute respiratory failure with hypoxia; J12.82 Pneumonia due to coronavirus disease 2019; J43.9 Emphysema, unspecified; Z91.040 Latex allergy status; Z88.5 Allergy status to narcotic agent; Z79.899 Other long term (current) drug therapy
CPT/HCPCS: 36415; 71045; 71275; 80048; 80076; 83605; 83880; 84484; 85025; 85379; 87040; 87635; 93005; 96361; 96365; 96367; 96375; 99281; 99285; J0456; J0696; J1100; J1650; Q9967

== ENCOUNTER 2021-05-23 18:05 | Emergency (ER) | payer MEDICARE, MEDICAID, SELFPAY | END 2021-05-23 19:55 | disposition left against medical advice (07) | PROVIDERS: Emergency Provider Emergency Medicine | DX: R21 Rash and other nonspecific skin eruption (principal) ==

== ENCOUNTER 2021-05-27 18:24 | Emergency (ER) | payer MEDICARE, MEDICAID, SELFPAY ==
[2021-05-27 18:55] VITALS: BP 133/82; PULSE 85; RESP 18; TEMP 36.8; O2SAT 98; BMI 27.8
[2021-05-27] MEDS: hydrOXYzine HCL 50 MG TABLET PO (20:24)
[2021-05-27] MEDS: valACYclovir HCL 1,000 MG TABLET 1000 MG PO (20:25)
--- NOTE | 2021-05-27 20:26 | PC.NURSE ---
NOTE MEDS WERE SCANNED AND GIVEN, DID NOT FILE SO MANUALLY CHARTED.
--- NOTE | 2021-05-27 20:27 | ED.SKABFB ---
HPI - Skin/Abscess/Foreign Bdy General Chief complaint: Skin/Abscess/Foreign Body Stated complaint: rash like infection spreading, sever itchiness Time Seen by Provider: 05/27/21 19:22 Source: patient Mode of arrival: ambulatory Limitations: no limitations History of Present Illness HPI narrative: 65-year-old male here with reports of itching and burning rash that is painful at times to the arms, left hand and buttocks. Patient tells me he has had this rash for 1 month. He is using topical steroid cream and [id number] Benadryl with continued symptoms. Patient tells me he had a similar rash in April of 2020 and was admitted here to the hospital. Patient tells me he was treated with IV medications and then felt like his rash improved. Patient states this rash is similar. He denies any fevers, chills, difficulty breathing, difficulty swallowing, vomiting, diarrhea, facial swelling. No new medications, foods, detergents, topical product. Related Data Home Medications Medication Instructions Recorded Confirmed tamsulosin 0.4 mg capsule 1 cap PO BEDTIME 04/17/20 03/10/21 ipratropium 20 mcg-albuterol 100 1 puff INHALATION QID PRN 03/10/21 03/10/21 mcg/actuation mist for inhalation (Combivent Respimat) ondansetron HCl 4 mg tablet 4 mg PO Q8H PRN 03/10/21 03/10/21 Previous Rx's Medication Instructions Recorded albuterol sulfate 90 mcg/actuation 2 puff INHALATION QID PRN #8.5 g 07/26/20 aerosol inhaler (ProAir HFA) dexamethasone 6 mg tablet 6 mg PO DAILY #7 tab 03/12/21 (Decadron) hydroxyzine HCl 25 mg tablet 25 mg PO Q8H PRN #20 tab 05/27/21 triamcinolone acetonide 0.1 % 1 appl TOPICAL TID PRN #30 g 05/27/21 topical cream valacyclovir 1 gram tablet 1,000 mg PO BID #14 tab 05/27/21 (Valtrex) Allergies Allergy/AdvReac Type Severity Reaction Status Date / Time grass pollen Allergy Unknown positive Verified 05/27/21 18:55 allergy test latex [LATEX] Allergy Unknown UNKNOWN Verified 05/27/21 18:55 Latex, Natural Rubber Allergy Unknown Itching Verified 05/27/21 18:55 morphine [MORPHINE] AdvReac Mild SENSATION Verified 05/27/21 18:55 OF HEAT/WARMTH environmental Allergy Unknown Dry Eye Uncoded 05/27/21 18:55 Review of Systems Review of Systems: Yes all other systems are reviewed and are negative Constitutional: Constitutional: Reports no additional constitutional complaints, Denies body ache(s), Denies chills, Denies fever(s), Denies headache(s) and Denies weakness Eyes: Eyes: Reports no additional eye complaints and Denies change in vision ENT: Reports system reviewed and no additional complaints, except as documented, Denies dizziness, Denies headache(s), Denies nasal congestion, Denies nasal discharge and Denies neck pain Cardiovascular: Cardiovascular: Reports no additional cardiovascular complaints, Denies chest pain, Denies leg edema and Denies dyspnea Respiratory: Respiratory: Reports no additional respiratory complaints, Denies cough and Denies dyspnea Gastrointestinal: Gastrointestinal: Reports no additional gastrointestinal complaints, Denies abdominal pain, Denies diarrhea, Denies nausea and Denies vomiting Genitourinary: Genitourinary: Denies urinary incontinence Musculoskeletal: Musculoskeletal: Reports no additional musculoskeletal complaints, Denies back pain, Denies arthralgias, Denies joint swelling, Denies neck pain, Denies numbness and Denies tingling Integumentary/Breasts: Skin/Breast: Reports system reviewed and no additional complaints, except as docu and Reports rash Neurologic: Reports system reviewed and no additional complaints, except as documented, Denies Abnormal speech present, Denies dizziness, Denies headache(s), Denies numbness, Denies tingling and Denies weakness [facility] Past Medical History Attestation statement: The following information was validated with the patient. Source: old records reviewed and nursing notes reviewed Medical History Asthma Prostate atrophy Pulmonary nodules Surgical History H/O cervical spine surgery H/O knee surgery History of ear surgery Social History Social History Household Members: Family Housing: House Do you presently have visiting nurse or other home services: No Alcohol intake: never Patient Tobacco Use Status: Never used Tobacco Second Hand Smoke Exposure: No Advance Directives: Yes Advance Directives on File: Yes Advance Directives Date on File: 03/11/21 service: No Current occupational status: unemployed and retired Physical Exam Vital Signs: Vital Signs: Last Vital Signs Temp 98.3 F 05/27/21 18:55 Pulse 85 05/27/21 18:55 Resp 18 05/27/21 18:55 BP 133/82 05/27/21 18:55 Pulse Ox 98 05/27/21 18:55 BMI result Body Mass Index 27.8 Const: General: cooperative, healthy appearing, comfortable and no acute distress Orientation/consciousness: patient oriented x3 Limitations: no limitations HEENT: Head: Yes normal to inspection Ears: hearing grossly normal bilaterally General nose exam: Normal external nose present Face and sinus: Yes normal facial exam Mouth: Normal oral and palatal mucosa present Throat: Yes posterior oropharynx normal Eyes: General: appearance normal, both eyes and all related structures Pupils: Equal, round and reactive pupils present Neck: Neck: Yes normal visual inspection Chest: Chest palpation & inspection: normal inspection of the chest Resp: Effort & Inspection: normal respiratory effort Auscultation: clear to auscultation bilaterally Cardio: Rate: regular rate Rhythm: regular rhythm Peripheral pulses: Peripheral pulses 2+ throughout GI: Inspection: Yes normal to inspection Palpation (GI): Soft to palpation and nontender Auscultation: normal bowel sounds Back/Spine/Pelvis: Thoracic/Lumbar Spine: thoracic and lumbar spine normal to inspection Skin: Other: General skin exam: no rashes or lesions noted Neuro: General: patient oriented x3, no focal motor deficits and normal sensation to monofilament Cranial nerves: Yes Equal, round and reactive pupils present Cognition (Neuro): normal cognition Speech: No Abnormal speech present Gait exam (Neuro): Normal gait present Motor exam (neuro): 5/5 motor strength present throughout Extrem: General: Yes normal to inspection Course Course Course Narrative: 65-year-old male here with a recurrent rash over the last month that is itchy, painful and burning. Patient tells me he had a similar rash last year that necessitated admission to the hospital and was treated with IV medications. I reviewed the chart. Patient was admitted for similar type rash. He was tested for HIV, and syphilis which were negative. He was treated with IV antibiotics and then IV acyclovir. It was thought to be herpetic in nature and he improved with IV doxycycline and acyclovir and was discharged home with these. On exam the pattern of the rash seems more herpetic although there are some lesions in the flexor surfaces which makes me think that this may be a dermatitis as well. I discussed this with the patient. Low concern for cellulitis. Hesitant to give prednisone if patient is having a herpetic flare. Discussed the case with Dr. Lu. Plan to start Valtrex, prescribed hydroxyzine for itching, and topical steroid. Recommend follow-up outpatient with primary care and ask for referral for Dermatology. Reviewed worrisome signs and symptoms and when to return to the emergency department. Comfortable discharge home. MDM - Skin/Abscess/Foreign Bdy Medical Records Attestation: I reviewed the patient's medical records. Lab Data Attestation: I reviewed the patient's lab results. Discharge Plan Discharge Clinical Impression: Rash Patient Disposition: Home, Self-Care Instructions: Acute Rash (ED) Additional Instructions: Follow-up with your primary care doctor to get a referral to see a roller mechanic Prescriptions: New valacyclovir [Valtrex] 1 gram tablet 1,000 mg PO BID Qty: 14 0RF hydroxyzine HCl 25 mg tablet 25 mg PO Q8H PRN (Reason: itching) Qty: 20 0RF triamcinolone acetonide 0.1 % cream 1 appl topical TID PRN (Reason: rash) Qty: 30 0RF No Action albuterol sulfate [ProAir HFA] 90 mcg/actuation HFA aerosol inhaler 2 puff inhalation QID PRN (Reason: shortness of breath or wheezing) Qty: 8.5 0RF tamsulosin 0.4 mg capsule 1 cap PO BEDTIME 0RF ondansetron HCl 4 mg tablet 4 mg PO Q8H PRN (Reason: Nausea) 0RF Combivent Respimat 20-100 mcg/actuation mist 1 puff inhalation QID PRN (Reason: Wheezing) 0RF dexamethasone [Decadron] 6 mg tablet 6 mg PO DAILY Qty: 7 0RF Referrals: [facility] [Primary Care Provider] - 2 days Interventions: ED Discharge Assessment Last Done: 05/27/21 20:25 Discharge Date/Time: 05/27/21 20:27
== END 2021-05-27 20:27 | disposition home or self-care (01) ==
PROVIDERS: Emergency Provider Emergency Medicine
DX: R21 Rash and other nonspecific skin eruption (principal)
CPT/HCPCS: 99283

== ENCOUNTER 2021-07-02 07:40 | Outpatient (REF) | payer MEDICARE, MEDICAID, SELFPAY ==
--- NOTE | ~2021-07-02 | XR_ITS ---
EXAMINATION: XR CHEST CLINICAL INFORMATION: Other nonspecific abnormal finding of lung field COMPARISON: Previous chest x-ray and chest CT March 2021 TECHNIQUE: 2 views of the chest were obtained. FINDINGS: The cardiac and mediastinal contours are stable. There is interval improvement in the bilateral infiltrates compared to most recent exam March 2021. There are still coarse lung markings seen, particularly in the left lung. There are 2 dense nodules measuring 4 mm in the right midlung and at the left lung base. These are stable and compared with previous CT probably represent calcified granulomas. There is no pleural effusion or pneumothorax. There are mild degenerative changes of the spine. There are postsurgical changes to the lower cervical spine. XR/XR chest 2V IMPRESSION: Improving bilateral infiltrates from March 2021 exam. Stable wall bilateral pulmonary nodules probably representing calcified granulomas.
[2021-07-02 08:00] LABS: MANUAL DIFF FLAG NO
[2021-07-02 08:35] LABS: Appearance Urine CLEAR; Color Urine YELLOW; Glucose Urine UA NEG (NEG); Leukocyte Esterase Urine NEG (NEG); Nitrite Urine NEG (NEG); Specific Gravity - Urine 1.025 (1.005-1.025); Urine Blood NEG (NEG); Urine Ketones NEG (NEG); Urine Protein NEG (NEG-TRACE)
[2021-07-02 08:39] LABS: Basophils Percent Auto 0.4 % (0-2); Eosinophils Absolute Auto 0.1 X10*3/uL (0.0-0.4); Eosinophils Percent Auto 2.2 % (0-4); Hematocrit 46.7 % (42.0-52.0); Imm Gran Abs Auto 0.02 X10*3/uL (0.00-0.03); Imm Gran Pct Auto 0.4 % (0.0-0.4); Lymphocytes Absolute Auto 1.5 X10*3/uL (1.2-4.9); Lymphocytes Percent Auto 33.6 % (20-40); Mean Corpuscular HGB Conc 32.1 g/dl (31.0-36.0); Mean Corpuscular Hemoglobin 30.6 pg (27.0-33.0); Mean Corpuscular Volume 95.3 fL (80.0-98.0); Mean Platelet Volume 11.1 fL (9.4-12.4); Monocytes Absolute Auto 0.4 X10*3/uL (0.1-1.2); Monocytes Percent Auto 8.1 % (2-11); Neutrophils Absolute Auto 2.5 x10*3/uL (2.0-8.3); Neutrophils Percent Auto 55.3 % (45-73); Platelet Count 210 X10*3/uL (160-400); Red Cell Distribution Width 13.4 % (11.0-16.0); White Blood Count 4.6 X10*3/uL (4.8-10.8)
[2021-07-02 09:41] LABS: Erythrocyte Sedimentation Rate 3 MM/HR (0-15)
[2021-07-02 09:45] LABS: TSH reflex Free T4 1.24 uIU/mL (0.32-4.0); Vitamin D 25-OH Total 13.7 ng/mL (>30)
[2021-07-02 10:00] LABS: Rheumatoid Factor < 15.0 IU/mL (<15.0)
[2021-07-02 10:09] LABS: Alanine Aminotransferase 37 U/L (0-40); Albumin Level 4.5 g/dL (3.5-5.0); Alkaline Phosphatase 64 U/L (39-117); Anion Gap 14 (12-20); Aspartate Amino Transferase 25 U/L (5-37); Bilirubin Total 0.8 mg/dL (0.0-1.0); Blood Urea Nitrogen 21 mg/dL (9-16); C Reactive Protein 0.05 mg/dL (< or = 0.50); Calcium 9.9 mg/dL (8.4-10.2); Carbon Dioxide 25 mmol/L (22-29); Chloride 106 mmol/L (96-108); Cholesterol 245 mg/dL; Estimated Glomerular Filt Rate > 60; Glucose Fasting 118 mg/dL (60-99); HDL Cholesterol 55 mg/dL; LDL Cholesterol Calculated 157 mg/dl; Lactate Dehydrogenase 185 U/L (118-273); Potassium 4.9 mmol/L (3.3-5.1); Sodium 140 mmol/L (135-145); Total Protein 7.3 g/dL (6.5-8.0); Triglycerides 166 mg/dL
[2021-07-04 13:26] LABS: Anti Nuclear Antibody Screen NEGATIVE (NEGATIVE)
[2021-07-04 22:13] LABS: Lyme Abs Screen <0.90 index
== END 2021-07-02 07:41 | disposition home or self-care (01) ==
LOC: HO.LAB 07:40
PROVIDERS: PCP Internal Medicine; Visit Provider Internal Medicine
DX: Z00.00 Encounter for general adult medical examination without abnormal findings (principal); Z12.5 Encounter for screening for malignant neoplasm of prostate; N40.1 Benign prostatic hyperplasia with lower urinary tract symptoms; R91.8 Other nonspecific abnormal finding of lung field; L28.2 Other prurigo; E55.9 Vitamin D deficiency, unspecified
CPT/HCPCS: 36415; 71046; 80053; 80061; 81003; 82306; 82550; 83615; 84153; 84443; 85025; 85652; 86038; 86039; 86140; 86431; 86617; 86618

== ENCOUNTER 2021-07-30 15:52 | Emergency (ER) | payer MEDICARE, MEDICAID, SELFPAY ==
--- NOTE | 2021-07-30 | ECG_ITS ---
Test Reason : DYSPNEA Blood Pressure : / mmHG Vent. Rate : 061 BPM Atrial Rate : 061 BPM P-R Int : 158 ms QRS Dur : 090 ms QT Int : 396 ms P-R-T Axes : 015 005 032 degrees QTc Int : 398 ms Normal sinus rhythm Normal ECG When compared with ECG of 10-MAR-2021 13:11, RSR' pattern in V1 is no longer Present Referred By: Generic ED Physician Electronically Signed By:Blas Bruce
[2021-07-30 15:59] VITALS: BP 113/79; PULSE 68; RESP 18; TEMP 36.2; O2SAT 99; BMI 28.4
--- NOTE | 2021-07-30 17:12 | ED_ITS ---
HPI - SOB/Dyspnea General Chief Complaint: Dyspnea Stated Complaint: Oxygen level fluctuate 70-84 Time Seen by Provider: 07/30/21 17:01 Source: patient Mode of arrival: ambulatory Limitations: no limitations History of Present Illness HPI Narrative: 65-year-old male who presents emergency department for evaluation of shortness of breath. The patient states that he has a history of emphysema and pulmonary nodules. He states that he woke up this morning and had felt like he had to gasp for air. He states that his daughter had O2 saturation monitor and she put it on his finger. The monitor was ranging from 66% to 98%. The patient was concerned about these readings and came to the emergency department for evaluation. He denied fever, chills, rhinorrhea, sore throat, cough, chest pain, dyspnea on exertion. He states that he is no longer feeling short of breath and is not gasping for air. He denied pain or swelling in his lower extremities. He has not been on any long trips. Patient states that he has a history pulmonary nodules and he had a chest x-ray 07/02/2021 which revealed improving bilateral infiltrates since March 26 with stable wall bilateral pulmonary nodules probably representing calcified granulomas. Related Data Home Medications Medication Instructions Recorded Confirmed tamsulosin 0.4 mg capsule 1 cap PO BEDTIME 04/17/20 07/01/21 ipratropium 20 mcg-albuterol 100 1 puff INHALATION QID PRN 03/10/21 07/01/21 mcg/actuation mist for inhalation (Combivent Respimat) ondansetron HCl 4 mg tablet 4 mg PO Q8H PRN 03/10/21 07/01/21 dexamethasone 6 mg tablet 6 mg PO DAILY PRN tab 07/01/21 (Decadron) Previous Rx's Medication Instructions Recorded albuterol sulfate 90 mcg/actuation 2 puff INHALATION QID PRN #8.5 g 07/26/20 aerosol inhaler (ProAir HFA) hydroxyzine HCl 25 mg tablet 25 mg PO Q8H PRN #20 tab 05/27/21 triamcinolone acetonide 0.1 % 1 appl TOPICAL TID PRN #30 g 05/27/21 topical cream valacyclovir 1 gram tablet 1,000 mg PO BID #14 tab 05/27/21 (Valtrex) clotrimazole-betamethasone 1 1 appl TOPICAL BID 14 Days #45 g 07/01/21 %-0.05 % topical cream Allergies Allergy/AdvReac Type Severity Reaction Status Date / Time grass pollen Allergy Unknown positive Verified 07/30/21 16:03 allergy test latex [LATEX] Allergy Unknown UNKNOWN Verified 07/30/21 16:03 Latex, Natural Rubber Allergy Unknown Itching Verified 07/30/21 16:03 morphine [MORPHINE] AdvReac Mild SENSATION Verified 07/30/21 16:03 OF HEAT/WARMTH environmental Allergy Unknown Dry Eye Uncoded 07/01/21 16:53 Review of Systems Review of Systems: Yes all other systems are reviewed and are negative [facility] Past Medical History Medical History Asthma Benign prostatic hyperplasia Overweight (BMI 25.0-29.9) Prostate atrophy Pulmonary nodules Surgical History H/O cervical spine surgery H/O knee surgery History of ear surgery Social History Social History Household Members: Family Housing: House Do you presently have visiting nurse or other home services: No Alcohol intake: never Patient Tobacco Use Status: Never used Tobacco Second Hand Smoke Exposure: No Advance Directives: Yes Advance Directives on File: Yes Advance Directives Date on File: 03/11/21 service: No Current occupational status: unemployed and retired Cognitive needs: No Hearing needs: No Vision needs: Yes Physical Exam Vital Signs: Vital Signs: Last Vital Signs Temp 97.1 F 07/30/21 15:59 Pulse 68 07/30/21 15:59 Resp 18 07/30/21 15:59 BP 113/79 07/30/21 15:59 Pulse Ox 99 07/30/21 15:59 BMI result Body Mass Index 28.4 Const: General: cooperative, no acute distress, alert and awake Orientation/consciousness: oriented to person and oriented to place Limitations: no limitations HEENT: Head: Yes normal to inspection, Yes normocephalic and Yes atraumatic Ears: external ears normal General nose exam: Normal external nose present Face and sinus: Yes normal facial exam Mouth: Normal oral and palatal mucosa present Throat: Yes posterior oropharynx normal Eyes: General: appearance normal, both eyes and all related structures Periorbital: periorbital findings normal Eyelids: Yes eyelids normal Conjunctivae: conjunctivae normal Sclerae: sclerae normal Corneas: corneas normal Pupils: Equal, round and reactive pupils present Direct Ophthalmoscopy: normal light reflex Neck: Neck: Yes normal visual inspection and Yes supple Lymphatic: no lymphadenopathy noted Chest: Chest palpation & inspection: normal inspection of the chest and normal palpation of entire chest wall Resp: Effort & Inspection: normal respiratory effort, abnormal respiratory pattern, no audible wheezes and no respiratory distress Auscultation: clear to auscultation bilaterally, no crackles, no rales, no rhonchi and no wheezes Cardio: Rate: regular rate Rhythm: regular rhythm Heart sounds: S1 normal heart sound present, S2 normal heart sound present and Murmur heart sound present GI: Inspection: No distended Palpation (GI): Soft to palpation, nontender, no guarding and No hepatosplenomegaly present Auscultation: normal bowel sounds : General: Yes no CVA tenderness Back/Spine/Pelvis: Back: no CVA tenderness Skin: General skin exam: no rashes or lesions noted Lesions: no lesions Rashes: no rashes Wounds: no wounds Neuro: General: oriented to person and oriented to place Cranial nerves: Yes CN's II-XII intact bilaterally and Yes Equal, round and reactive pupils present Cognition (Neuro): normal cognition Motor exam (neuro): 5/5 motor strength present throughout Extrem: General: Yes normal to inspection, Yes full ROM, Yes no pedal edema and Yes no calf tenderness Psych: Appearance: grossly normal Mental Status: mental status grossly normal Speech and movement: Clear speech present Affect: normal affect Attitude: cooperative Thought process: Normal thought process present Thought content: Normal thought content present Course Course Course Narrative: 65-year-old male presents emergency department for evaluation of brief episode of shortness of breath occurred this morning when he woke up. The patient's daughter had an O2 saturation monitor which gave him variable results at home which concerned him. Here in the emergency department his O2 saturation is normal and his exam is unremarkable. At this time, I do not think that has a significant COPD exacerbation however his shortness of breath may be related to environmentally allergies since there is of very high pollen count and has been raining at this time I did discuss this with him. The patient was advised to continue to use his inhalers as prescribed by his provider and return if he develops persistent shortness of breath or other symptoms that are concerning to him. Discharge Plan Discharge Clinical Impression: Shortness of breath, COPD (chronic obstructive pulmonary disease) Patient Disposition: Home, Self-Care Additional Instructions: Your O2 saturation today was normal at 99% on room air. Your lung exam was unremarkable. Your shortness of breath today may be caused by the large amount of pollen in the air and the recent rain. Follow-up with your doctor in 2 days. Please return to the emergency department if your symptoms get worse or if you develop any symptoms that are concerning to you. Prescriptions: No Action albuterol sulfate [ProAir HFA] 90 mcg/actuation HFA aerosol inhaler 2 puff inhalation QID PRN (Reason: shortness of breath or wheezing) Qty: 8.5 0RF tamsulosin 0.4 mg capsule 1 cap PO BEDTIME 0RF ondansetron HCl 4 mg tablet 4 mg PO Q8H PRN (Reason: Nausea) 0RF Combivent Respimat 20-100 mcg/actuation mist 1 puff inhalation QID PRN (Reason: Wheezing) 0RF valacyclovir [Valtrex] 1 gram tablet 1,000 mg PO BID Qty: 14 0RF hydroxyzine HCl 25 mg tablet 25 mg PO Q8H PRN (Reason: itching) Qty: 20 0RF triamcinolone acetonide 0.1 % cream 1 appl topical TID PRN (Reason: rash) Qty: 30 0RF dexamethasone [Decadron] 6 mg tablet 6 mg PO DAILY PRN0RF clotrimazole-betamethasone 1-0.05 % cream 1 appl topical BID 14 Days Qty: 45 2RF
== END 2021-07-30 17:37 | disposition home or self-care (01) ==
PROVIDERS: Emergency Provider Emergency Medicine Emergency Medical Services; PCP Internal Medicine
DX: J44.9 Chronic obstructive pulmonary disease, unspecified (principal); R06.02 Shortness of breath; Z79.899 Other long term (current) drug therapy
CPT/HCPCS: 93005; 99283

== ENCOUNTER 2021-09-25 17:56 | Emergency (ER) | payer MEDICARE, MEDICAID, SELFPAY ==
--- NOTE | ~2021-09-25 | XR_ITS ---
EXAMINATION: CR CHEST CLINICAL INFORMATION: Cough. Chest pain. COMPARISON: Chest x-ray dated 07/02/2021. TECHNIQUE: 2 views of the chest were obtained. FINDINGS: The cardiomediastinal silhouette is within normal limits in size. There is patchy parenchymal opacity seen in the right upper lobe, new compared to the prior exam, suspicious for pneumonia in the clinical setting provided. Slight thickening of the central airways is seen. Small nodular density in the right mid lung and in the left lower lung again seen, unchanged and shown to represent densely calcified granulomas and prior CT scan from 03/10/2021. Bony structures are unremarkable. XR/XR chest 2V IMPRESSION: New patchy parenchymal opacity in the right upper lobe, suspicious for pneumonia.
[2021-09-25 18:49] VITALS: BP 117/68; PULSE 88; RESP 20; TEMP 36.7; O2SAT 96; BMI 27.8
--- NOTE | 2021-09-25 18:52 | ECG_ITS ---
Test Reason : WAKNESS Blood Pressure : / mmHG Vent. Rate : 081 BPM Atrial Rate : 081 BPM P-R Int : 152 ms QRS Dur : 094 ms QT Int : 360 ms P-R-T Axes : 044 009 029 degrees QTc Int : 418 ms Normal sinus rhythm Normal ECG When compared with ECG of 30-JUL-2021 16:40, No significant change was found Referred By: Generic ED Physician Electronically Signed By:JERRY ROBERTSON
[2021-09-25 19:11] LABS: MANUAL DIFF FLAG NO
[2021-09-25 19:14] LABS: Basophils Percent Auto 0.4 % (0-2); Eosinophils Absolute Auto 0.2 X10*3/uL (0.0-0.4); Eosinophils Percent Auto 2.6 % (0-4); Hematocrit 39.5 % (42.0-52.0); Imm Gran Abs Auto 0.03 X10*3/uL (0.00-0.03); Imm Gran Pct Auto 0.4 % (0.0-0.4); Lymphocytes Absolute Auto 1.6 X10*3/uL (1.2-4.9); Lymphocytes Percent Auto 21.7 % (20-40); Mean Corpuscular HGB Conc 32.9 g/dl (31.0-36.0); Mean Corpuscular Hemoglobin 30.3 pg (27.0-33.0); Mean Corpuscular Volume 92.1 fL (80.0-98.0); Mean Platelet Volume 9.7 fL (9.4-12.4); Monocytes Absolute Auto 0.7 X10*3/uL (0.1-1.2); Neutrophils Absolute Auto 4.9 x10*3/uL (2.0-8.3); Neutrophils Percent Auto 65.9 % (45-73); Platelet Count 344 X10*3/uL (160-400); Red Blood Count 4.29 X10*6/uL (4.60-5.80); Red Cell Distribution Width 12.8 % (11.0-16.0); White Blood Count 7.4 X10*3/uL (4.8-10.8)
[2021-09-25 19:26] LABS: Anion Gap 14 (12-20); Blood Urea Nitrogen 23 mg/dL (9-16); Calcium 9.2 mg/dL (8.4-10.2); Carbon Dioxide 25 mmol/L (22-29); Chloride 107 mmol/L (96-108); Creatinine Clr Calc Pharmacy 80.5; Estimated Glomerular Filt Rate > 60; Glucose Random 92 mg/dL (60-115); Potassium 4.3 mmol/L (3.3-5.1); Sodium 142 mmol/L (135-145)
[2021-09-25 19:29] LABS: COVID-19 Test Negative (Negative); IDNOW Serial# 16C4AD1C
[2021-09-25 19:34] LABS: Troponin-I High Sensitivity < 3.5 ng/L (<3.5-35.0)
--- NOTE | 2021-09-25 20:09 | ED_ITS ---
HPI - Chest Pain General Chief Complaint: Chest Pain Stated Complaint: Chest Tightness FB in R Eye S/P Injury 09/25/21 Time Seen by Provider: 09/25/21 20:09 Source: patient Mode of arrival: ambulatory Limitations: no limitations History of Present Illness HPI narrative: Patient walked and for evaluation of coughing and chest pain for 1 week. Patient feel chest tightness for the past week, tightness is constant in the mid chest with no radiation, worsening with coughing, with sputum production, otherwise no fever or chills, no recent travel or prolonged immobilization, no lower extremity swelling or tenderness. A family member at home is complaining of coughing also. Patient is a former smoker. No night sweating, no unexplained loss of weight. Related Data Home Medications Medication Instructions Recorded Confirmed tamsulosin 0.4 mg capsule 1 cap PO BEDTIME 04/17/20 07/01/21 ipratropium 20 mcg-albuterol 100 1 puff inhalation QID PRN Wheezing 03/10/21 07/01/21 mcg/actuation mist for inhalation (Combivent Respimat) ondansetron HCl 4 mg tablet 4 mg PO Q8H PRN Nausea 03/10/21 07/01/21 dexamethasone 6 mg tablet 6 mg PO DAILY PRN 07/01/21 (Decadron) Previous Rx's Medication Instructions Recorded albuterol sulfate 90 mcg/actuation 2 puff inhalation QID PRN 07/26/20 aerosol inhaler (ProAir HFA) shortness of breath or wheezing #8.5 grams hydroxyzine HCl 25 mg tablet 25 mg PO Q8H PRN itching #20 tabs 05/27/21 triamcinolone acetonide 0.1 % 1 appl topical TID PRN rash #30 05/27/21 topical cream grams valacyclovir 1 gram tablet 1,000 mg PO BID #14 tabs 05/27/21 (Valtrex) clotrimazole-betamethasone 1 1 appl topical BID 2 weeks #45 07/01/21 %-0.05 % topical cream grams azithromycin 250 mg tablet See Rx Instructions PO .COMPLEX #6 09/25/21 (Zithromax Z-Chaim) tabs Allergies Allergy/AdvReac Type Severity Reaction Status Date / Time grass pollen Allergy Unknown positive Verified 07/30/21 16:03 allergy test latex [LATEX] Allergy Unknown UNKNOWN Verified 07/30/21 16:03 Latex, Natural Rubber Allergy Unknown Itching Verified 07/30/21 16:03 morphine [MORPHINE] AdvReac Mild SENSATION Verified 07/30/21 16:03 OF HEAT/WARMTH environmental Allergy Unknown Dry Eye Uncoded 07/01/21 16:53 Review of Systems Review of Systems: All other systems are reviewed and are negative Constitutional: Reports as per HPI and Reports no additional constitutional complaints Eyes: Reports as per HPI and Reports no additional eye complaints Reports system reviewed and no additional complaints, except as documented Cardiovascular: Reports as per HPI and Reports no additional cardiovascular complaints Respiratory: Reports as per HPI and Reports no additional respiratory complaints Gastrointestinal: Reports as per HPI and Reports no additional gastrointestinal complaints Genitourinary: Reports no additional female genitourinary complaints Musculoskeletal: Reports no additional musculoskeletal complaints Skin/Breast: Reports system reviewed and no additional complaints, except as docu Psychiatric: Reports no additional psychiatric complaints Endocrine: Reports no additional endocrine complaints Hematologic/Lymphatic: Reports no additional hematologic/lymphatic complaints Allergic/Immunologic: Reports no additional allergic/immunologic complaints Reports system reviewed and no additional complaints, except as documented and Reports Abnormal speech present [facility] Past Medical History Medical History Asthma Benign prostatic hyperplasia Overweight (BMI 25.0-29.9) Prostate atrophy Pulmonary nodules Surgical History H/O cervical spine surgery H/O knee surgery History of ear surgery Social History Social History Household Members: Family Housing: House Do you presently have visiting nurse or other home services: No Alcohol intake: never Patient Tobacco Use Status: Never used Tobacco Second Hand Smoke Exposure: No Advance Directives: Yes Advance Directives on File: Yes Advance Directives Date on File: 03/11/21 service: No Current occupational status: unemployed and retired Cognitive needs: No Hearing needs: No Vision needs: Yes Physical Exam Vital Signs: Vital Signs: Last Vital Signs Temp 98.1 F 09/25/21 18:49 Pulse 88 09/25/21 18:49 Resp 20 09/25/21 18:49 BP 117/68 09/25/21 18:49 Pulse Ox 96 09/25/21 18:49 O2 Del Method 09/25/21 18:49 BMI result Body Mass Index 27.8 Vital signs have been reviewed as appeared to be correct. Blood pressure normal. Heart rate normal. Respiration rate normal. Temperature normal. Oxygen saturation normal. Appearance: Alert. Oriented X3. No acute distress. Head: Normal external exam. Normocephalic. Atraumatic. No Morgan signs noted. No raccoon eyes noted Eyes: PERRLA. EOMI. Conjunctiva and sclera normal. Eyelids normal. ENT: TM's Normal. Pharynx normal. Uvula midline. Moist mucous membranes. No trismus noted. No drooling noted. No muffled voice noted. Neck: Normal inspection. Neck supple. FROM. No adenopathy. Thyroid Normal. No meningeal signs. No neck mass noted. CVS: Normal heart rate and rhythm. Heart sound normal. No murmurs noted. Pulses normal throughout. Respiratory: No respiratory distress. Painless inspiration. Breath sounds normal. No wheezes/rales/rhonchi noted. Chest nontender. No accessory muscle usage noted or decreased air movement noted. Abdomen: Soft and nontender. Bowel sounds normal in all 4 quadrants. No distention noted. No organomegaly noted. No visible injury noted. Back: No CVA tenderness. Full range of motion noted. Skin: Skin warm and dry. Normal skin color. Normal skin turgor. No rashes/lesions/lacerations noted. Extremities: No lower extremity edema. Extremities exhibit normal range of motion. Extremities nontender. Neuro: Oriented X 3. Cranial nerve exam: II-XII are grossly intact No motor deficit. No sensory deficit. Reflexes normal. Course Course Course Narrative: Chest tightness for 1 week negative troponin unremarkable EKG, chest x-ray is consistent with right upper lobe pneumonia will treat with Zithromax and follow- up with PCP. MDM - Chest Pain Medical Records Data Attestation: I reviewed the patient's medical records. Lab Data Attestation: I reviewed the patient's lab results. Result diagrams: 09/25/21 19:04 09/25/21 19:04 Labs: Lab Results 09/25/21 09/25/21 09/25/21 Range/Units 19:04 19:04 19:04 WBC 7.4 (4.8-10.8) X10*3/uL RBC 4.29 L (4.60-5.80) X10*6/uL Hgb 13.0 L (14.0-18.0) g/dl Hct 39.5 L (42.0-52.0) % MCV 92.1 (80.0-98.0) fL MCH 30.3 (27.0-33.0) pg MCHC 32.9 (31.0-36.0) g/dl RDW 12.8 (11.0-16.0) % Plt Count 344 D (160-400) X10*3/uL MPV 9.7 (9.4-12.4) fL Immature Gran % (Auto) 0.4 (0.0-0.4) % Neut % (Auto) 65.9 (45-73) % Lymph % (Auto) 21.7 (20-40) % Dougherty % (Auto) 9.0 (2-11) % Eos % (Auto) 2.6 (0-4) % Baso % (Auto) 0.4 (0-2) % Lymph # (Auto) 1.6 (1.2-4.9) X10*3/uL Dougherty # (Auto) 0.7 (0.1-1.2) X10*3/uL Eos # (Auto) 0.2 (0.0-0.4) X10*3/uL Baso # (Auto) 0.0 (0.0-0.2) X10*3/uL Abs Immat Gran (auto) 0.03 (0.00-0.03) X10*3/uL Absolute Neuts (auto) 4.9 (2.0-8.3) x10*3/uL Absolute Nucleated RBC 0.000 (0.0-0.012) X10*3/uL Nucleated RBC % (auto) 0.0 (0.0-0.2) /100WBC Sodium 142 (135-145) mmol/L Potassium 4.3 (3.3-5.1) mmol/L Chloride 107 (96-108) mmol/L Carbon Dioxide 25 (22-29) mmol/L Anion Gap 14 (12-20) BUN 23 H (9-16) mg/dL Creatinine 1.04 (0.5-1.4) mg/dL Estim Creat Clear Calc 80.5 Estimated GFR > 60 Random Glucose 92 (60-115) mg/dL Calcium 9.2 D (8.4-10.2) mg/dL Troponin I High Sens < 3.5 (<3.5-35.0) ng/L COVID-19 ([place]) (Negative) COVID-19 Clin Com 09/25/21 Range/Units 19:04 WBC (4.8-10.8) X10*3/uL RBC (4.60-5.80) X10*6/uL Hgb (14.0-18.0) g/dl Hct (42.0-52.0) % MCV (80.0-98.0) fL MCH (27.0-33.0) pg MCHC (31.0-36.0) g/dl RDW (11.0-16.0) % Plt Count (160-400) X10*3/uL MPV (9.4-12.4) fL Immature Gran % (Auto) (0.0-0.4) % Neut % (Auto) (45-73) % Lymph % (Auto) (20-40) % Dougherty % (Auto) (2-11) % Eos % (Auto) (0-4) % Baso % (Auto) (0-2) % Lymph # (Auto) (1.2-4.9) X10*3/uL Dougherty # (Auto) (0.1-1.2) X10*3/uL Eos # (Auto) (0.0-0.4) X10*3/uL Baso # (Auto) (0.0-0.2) X10*3/uL Abs Immat Gran (auto) (0.00-0.03) X10*3/uL Absolute Neuts (auto) (2.0-8.3) x10*3/uL Absolute Nucleated RBC (0.0-0.012) X10*3/uL Nucleated RBC % (auto) (0.0-0.2) /100WBC Sodium (135-145) mmol/L Potassium (3.3-5.1) mmol/L Chloride (96-108) mmol/L Carbon Dioxide (22-29) mmol/L Anion Gap (12-20) BUN (9-16) mg/dL Creatinine (0.5-1.4) mg/dL Estim Creat Clear Calc Estimated GFR Random Glucose (60-115) mg/dL Calcium (8.4-10.2) mg/dL Troponin I High Sens (<3.5-35.0) ng/L COVID-19 ([place]) Negative (Negative) COVID-19 Clin Com See Note Imaging Data Chest x-ray: Attestation: I personally reviewed and interpreted this imaging study as follows: Radiologist's impression: New patchy parenchymal opacity in the right upper lobe, suspicious for pneumonia. ECG Data ECG #1: Attestation: I personally reviewed and interpreted this ECG as follows: Interpretation: Normal sinus rhythm at 81 beats per minutes, normal intervals, no ST-T changes. Discharge Plan Discharge Clinical Impression: Pneumonia Patient Disposition: Home, Self-Care Instructions: Pneumonia (ED) Prescriptions: New azithromycin [Zithromax Z-Chaim] 250 mg tablet See Rx Instructions .ROUTE .COMPLEX Qty: 6 0RF Rx Instructions: For 250 mg dose pack: take 500 mg today (day 1), then 250 mg for 4 days (days 2-5) No Action albuterol sulfate [ProAir HFA] 90 mcg/actuation HFA aerosol inhaler 2 puff inhalation QID PRN (Reason: shortness of breath or wheezing) Qty: 8.5 0RF tamsulosin 0.4 mg capsule 1 cap PO BEDTIME ondansetron HCl 4 mg tablet 4 mg PO Q8H PRN (Reason: Nausea) Combivent Respimat 20-100 mcg/actuation mist 1 puff inhalation QID PRN (Reason: Wheezing) valacyclovir [Valtrex] 1 gram tablet 1,000 mg PO BID Qty: 14 0RF hydroxyzine HCl 25 mg tablet 25 mg PO Q8H PRN (Reason: itching) Qty: 20 0RF triamcinolone acetonide 0.1 % cream 1 appl topical TID PRN (Reason: rash) Qty: 30 0RF dexamethasone [Decadron] 6 mg tablet 6 mg PO DAILY PRN clotrimazole-betamethasone 1-0.05 % cream 1 appl topical BID 14 Days Qty: 45 2RF Referrals: Earnest Lucio MD [Primary Care Provider] -
== END 2021-09-25 20:35 | disposition home or self-care (01) ==
PROVIDERS: Emergency Provider Emergency Medicine; PCP Internal Medicine
DX: J18.9 Pneumonia, unspecified organism (principal); R07.89 Other chest pain; Z20.822 Contact with and (suspected) exposure to COVID-19; Z79.899 Other long term (current) drug therapy
CPT/HCPCS: 71046; 80048; 84484; 85025; 87635; 93005; 99283

== ENCOUNTER 2021-10-17 16:38 | Emergency (ER) | payer MEDICARE, MEDICAID, SELFPAY ==
--- NOTE | ~2021-10-17 | XR_ITS ---
EXAMINATION: XR CHEST CLINICAL INFORMATION: Cough, chest pain. COMPARISON: 09/25/2021 chest radiographs. TECHNIQUE: Frontal view of the chest was obtained. FINDINGS: Linear markings are seen in the right upper lobe extending to the right apex. Small calcified granulomas overlie the right midlung and left lung base. The heart and mediastinal structures are unremarkable. XR/XR chest 1V IMPRESSION: Interval decrease in markings in right upper lobe with persistent linear markings extending to the right apex suggesting resolving infiltrate with possible associated atelectasis/scarring. A follow-up chest radiograph in one month is recommended to assess for continued improvement/resolution. If these findings do not resolve, a chest CT scan is recommended.
--- NOTE | 2021-10-17 16:44 | ECG_ITS ---
Test Reason : cp Blood Pressure : / mmHG Vent. Rate : 083 BPM Atrial Rate : 083 BPM P-R Int : 138 ms QRS Dur : 090 ms QT Int : 358 ms P-R-T Axes : 049 005 033 degrees QTc Int : 420 ms Normal sinus rhythm Normal ECG When compared with ECG of 25-SEP-2021 18:58, No significant change was found Referred By: Generic ED Physician Electronically Signed By:DARELL ROMERO
[2021-10-17 16:49] VITALS: BP 104/71; PULSE 79; RESP 18; TEMP 37.2; O2SAT 100; BMI 28.5
[2021-10-17 17:01] LABS: MANUAL DIFF FLAG NO
[2021-10-17 17:14] LABS: Basophils Percent Auto 0.5 % (0-2); Eosinophils Absolute Auto 0.1 X10*3/uL (0.0-0.4); Eosinophils Percent Auto 1.4 % (0-4); Hematocrit 41.5 % (42.0-52.0); Imm Gran Abs Auto 0.01 X10*3/uL (0.00-0.03); Imm Gran Pct Auto 0.2 % (0.0-0.4); Lymphocytes Absolute Auto 1.5 X10*3/uL (1.2-4.9); Lymphocytes Percent Auto 27.6 % (20-40); Mean Corpuscular HGB Conc 33.7 g/dl (31.0-36.0); Mean Corpuscular Hemoglobin 30.6 pg (27.0-33.0); Mean Corpuscular Volume 90.8 fL (80.0-98.0); Mean Platelet Volume 10.8 fL (9.4-12.4); Monocytes Absolute Auto 0.4 X10*3/uL (0.1-1.2); Neutrophils Absolute Auto 3.5 x10*3/uL (2.0-8.3); Neutrophils Percent Auto 63.3 % (45-73); Platelet Count 214 X10*3/uL (160-400); Red Blood Count 4.57 X10*6/uL (4.60-5.80); White Blood Count 5.5 X10*3/uL (4.8-10.8)
[2021-10-17 17:21] LABS: COVID-19 Test Negative (Negative); IDNOW Serial# 16C4AD1C
[2021-10-17 17:35] LABS: Alanine Aminotransferase 42 U/L (0-40); Albumin Level 4.5 g/dL (3.5-5.0); Alkaline Phosphatase 71 U/L (39-117); Anion Gap 16 (12-20); Aspartate Amino Transferase 30 U/L (5-37); Bilirubin Total 0.7 mg/dL (0.0-1.0); Blood Urea Nitrogen 22 mg/dL (9-16); Calcium 9.2 mg/dL (8.4-10.2); Carbon Dioxide 22 mmol/L (22-29); Chloride 106 mmol/L (96-108); Creatinine Clr Calc Pharmacy 83.8; Estimated Glomerular Filt Rate > 60; Glucose Random 113 mg/dL (60-115); Potassium 4.1 mmol/L (3.3-5.1); Sodium 140 mmol/L (135-145); Total Protein 7.5 g/dL (6.5-8.0)
[2021-10-17 17:36] LABS: B Type Natriuretic Peptide < 10 pg/mL (<100); Troponin-I High Sensitivity < 3.5 ng/L (<3.5-35.0)
== END 2021-10-17 18:37 | disposition left against medical advice (07) ==
PROVIDERS: Emergency Provider Emergency Medicine; PCP Internal Medicine
DX: R07.9 Chest pain, unspecified (principal); R05.9 Cough, unspecified; Z20.822 Contact with and (suspected) exposure to COVID-19; R91.8 Other nonspecific abnormal finding of lung field
CPT/HCPCS: 36415; 71045; 80053; 83880; 84484; 85025; 87635; 93005; 99283

== ENCOUNTER 2022-04-11 10:30 | Emergency (ER) | payer MEDICARE, MEDICAID, SELFPAY ==
[2022-04-11 10:44] VITALS: BP 108/71; PULSE 90; RESP 18; TEMP 36.1; O2SAT 96; BMI 27.8
--- NOTE | 2022-04-11 10:50 | MHC.EDTECH ---
Covid/flu swab collected and sent to lab
--- OUTSIDE RECORDS SUMMARY | 2022-04-11 11:11 | XMS_ITS | Continuity of Care Document ---
:1955 Author Organization [facility] Address [address] [place] [address]- Care Team Providers Name Role Phone Bel Segovia DO Primary Care Physician [place] [facility] [place] 08/25/[address] [address]- Encounter Diagnosis SOB (shortness of breath) (Discharge Diagnosis) - 07/26/20 Attending Physician: Sukhjinder Mcconnell MD Admitting Physician: Sukhjinder Mcconnell MD Allergies, Adverse Reactions, Alerts Substance Reaction Severity Status Grass Active Latex itching Active Immunizations Given and Recorded Vaccine Date Status Refusal Reason SARS-CoV-2 (COVID-19) mRNA BNT-162b2 vac 07/06/20 Given influenza virus vaccine, inactivated1 03/09/17 Given influenza virus vaccine, inactivated 03/27/13 Given pneumococcal 23-valent vaccine 08/09/12 Given Influenza Inactive (IM) (oldterm)2 12/16/09 Given Influenza Virus Vaccine (oldterm)3 03/30/08 Given Tet/Diphth/Acel, Pertussis (oldterm)4 12/02/07 Given 1Admin Note: Iklokcfu2Vfywa Note: vis [id number] Note: VIS GIVEN Admin Note: VIS GIVEN 09/13/05 Medications Aerochamber See Instructions, # 1 each, Refills 1, Tot. Refills 1, Maintenance, Pharmacist, please demonstrate use. For use with flovent, 08/09/12 17:00:57 Start Date: 08/09/12 Stop Date: 08/10/13 Status: Orderedatorvastatin 20 mg oral tablet 1 tablet = 20 mg, By Mouth, Daily at bedtime, # 30 tablet, 11 Refills, Maintenance, Tablet, Route toPharmacy Electronically, [id number], [facility]/pharmacy #[id number] Start Date: 05/30/17 Stop Date: 05/25/18 Status: Orderedclotrimazole 1% topical cream 1 application, Topically, 2 times a day, # 100 Gm, 0 Refills, Maintenance, 05/31/20 16:08:00 EDT, Cream, [facility]/pharmacy #[id number], Partial fill upon patient request if the prescription is for a schedule II opioid drug., 1 application Topically 2 times a day... Start Date: 05/31/20 Stop Date: 06/14/20 Status: OrderedCombivent Respimat 20 mcg-100 mcg/inh inhalation aerosol 1 puffs, Inhalation, 4 times a day, may take additional inhalations as required, not to exceed six in 24 hours, # 4 Gm, 2 Refills, Maintenance, 07/26/20 16:35:00 EDT, Aerosol, [facility]/pharmacy #[id number], Partial fill upon patient request if the prescription i... Start Date: 07/26/20 Status: OrderedEucerin Gentle Hydrating Cleanser topical liquid 1 application, Topically, 2 times a day, PRN for dry skin, # 240 mL, 1 Refills, Maintenance, 02/10/19 15:51:31 EST, Liquid, 1 application Topically 2 times a day,PRN:for dry skin, 180.34, cm, 02/10/19 15:08:00 EST, Height Start Date: 02/10/19 Status: OrderedNuLYTELY with Flavor Packs oral powder for reconstitution See Instructions, 240 mL By Mouth Every 15 minutes, # 4,000 mL, 0 Refills, Maintenance, 04/03/18 10:31:19 EST, 240 mL By Mouth Every 15 minutes Start Date: 04/03/18 Status: Orderedtamsulosin 0.4 mg oral capsule 0.4 mg, 1, capsule, By Mouth, Daily, # 30 capsule, Refills 5, Tot. Refills 5, Maintenance, 03/28/19 9:01:00 EST, Route to Pharmacy Electronically, [facility]/pharmacy #207, 180.34, cm, 03/20/19 14:50:00 EST,Height Start Date: 03/28/19 Status: Ordered Problem List Condition Effective Dates Status Health Status Informant Back pain(Confirmed)1, 2 Active Benign prostatic Active hyperplasia(Confirmed) Cigarette smoker(Confirmed) 07/02/89 Active Depression(Confirmed)3 01/25/98 Active SOB (shortness of breath)(Confirmed) Active Erectile dysfunction(Confirmed) Active History of colon polyps(Confirmed) Active Hypercholesterolemia(Confirmed)4, 5 2007 Active Stool incontinence(Confirmed) Active Encounter for screening Active colonoscopy(Confirmed) Tubular adenoma of colon(Confirmed) 05/27/18 Active 1Darben Honeycutt (neurosurgery) 12-10, mild spondylitic changes and small disk bulge L4-5, more pain in zglb3Bywcdxxaux lcswjrpopsn6Kpudtnv, Dr. Faxo080 yr CVD risk = 15%510-yr Diagnosis Diagnosis Type Effective Dates Health Status Clinical In formant Service SOB (shortness Discharge 07/26/20 of breath) Diagnosis Social History Social History Type Response Smoking Status Never smoker entered on: 04/21/14 Sex
--- OUTSIDE RECORDS SUMMARY | 2022-04-11 11:11 | XMS_ITS | Continuity of Care Document ---
:1955 Author Organization [facility] Address [address] [place] [address]- Care Team Providers Name Role Phone Bel Segovia DO Primary Care Physician Encounter [facility] [place] R [id number] Date(s): 03/20/19 - 03/30/[address] [address]- [facility] Attending Physician: Admtr, Ar8 Allergies, Adverse Reactions, Alerts Substance Reaction Severity Status Latex itching Active Immunizations Given and Recorded Vaccine Date Status Refusal Reason influenza virus vaccine, inactivated1 03/09/17 Given influenza virus vaccine, inactivated 03/27/13 Given pneumococcal 23-valent vaccine 08/09/12 Given Influenza Inactive (IM) (oldterm)2 12/16/09 Given Influenza Virus Vaccine (oldterm)3 03/30/08 Given Tet/Diphth/Acel, Pertussis (oldterm)4 12/02/07 Given 1Admin Note: Prqqjwtz8Pefzu Note: vis [id number] Note: VIS GIVEN Admin Note: VIS GIVEN 09/13/05 Medications Aerochamber See Instructions, # 1 each, Refills 1, Tot. Refills 1, Maintenance, Pharmacist, please demonstrate use. For use with flovent, 08/09/12 17:00:57 Start Date: 08/09/12 Stop Date: 08/10/13 Status: Orderedatorvastatin 20 mg oral tablet 1 tablet = 20 mg, By Mouth, Daily at bedtime, # 30 tablet, 11 Refills, Maintenance, Tablet, Route toPharmacy Electronically, [id number], [id number] Start Date: 05/30/17 Stop Date: 05/25/18 Status: OrderedEucerin Gentle Hydrating Cleanser topical liquid 1 application, Topically, 2 times a day, PRN for dry skin, # 240 mL, 1 Refills, Maintenance, 02/10/19 15:51:31 EST, Liquid, 1 application Topically 2 times a day,PRN:for dry skin, 180.34, cm, 02/10/19 15:08:00 EST, Height Start Date: 02/10/19 Status: Orderedhydrocortisone 1% topical cream 1 application, Topically, 3 times a day, # 60 Gm, 0 Refills, Maintenance, 02/10/19 15:50:40 EST, Cream, 1 application Topically 3 times a day,x14 days, 180.34, cm, 02/10/19 15:08:00 EST, Height Start Date: 02/10/19 Stop Date: 02/24/19 Status: Orderedloratadine 10 mg oral tablet 10 mg, 1, tablet, By Mouth, Daily, # 30 tablet, Refills 5, Tot. Refills 5, Maintenance, 03/20/19 14:59:00 EST, Route to Pharmacy Electronically, [facility]/pharmacy #[id number], 180.34, cm, 03/20/19 14:50:00 EST, Height Start Date: 03/20/19 Status: Orderedmeloxicam 7.5 mg oral tablet 1 tablet = 7.5 mg, By Mouth, Daily, # 30 tablet, 2 Refills, Maintenance, 05/30/17 15:24:54 EDT, Tablet Start Date: 05/30/17 Status: OrderedNuLYTELY with Flavor Packs oral powder for reconstitution See Instructions, 240 mL By Mouth Every 15 minutes, # 4,000 mL, 0 Refills, Maintenance, 04/03/18 10:31:19 EST, 240 mL By Mouth Every 15 minutes Start Date: 04/03/18 Status: OrderedProAir HFA 90 mcg/inh inhalation aerosol with adapter 1, puffs, Inhalation, Every 4 hours, PRN, # 8.5 Gm, Refills 1, Tot. Refills 1, Maintenance, 05/30/1814:15:16 EDT, Aerosol, Route to Pharmacy Electronically, [id number], [facility]/pharmacy #[id number] Start Date: 05/30/17 Status: Orderedtamsulosin 0.4 mg oral capsule 0.4 mg, 1, capsule, By Mouth, Daily, # 30 capsule, Refills 5, Tot. Refills 5, Maintenance, 03/28/19 9:01:00 EST, Route to Pharmacy Electronically, [facility]/pharmacy #[id number], 180.34, cm, 03/20/19 14:50:00 EST,Height Start Date: 03/28/19 Status: Ordered Problem List Condition Effective Dates Status Health Status Informant Back pain(Confirmed)1, 2 Active Benign prostatic Active hyperplasia(Confirmed) Cigarette smoker(Confirmed) 07/02/89 Active Depression(Confirmed)3 01/25/98 Active Erectile dysfunction(Confirmed) Active History of colon polyps(Confirmed) Active Hypercholesterolemia(Confirmed)4, 5 2007 Active Stool incontinence(Confirmed) Active Encounter for screening Active colonoscopy(Confirmed) Tubular adenoma of colon(Confirmed) 05/27/18 Active 1DrCaity Honeycutt (neurosurgery) -, mild spondylitic changes and small disk bulge L4-5, more pain in htra5Nccyfltskb dzshsecjdgd8Hihhuxr, Dr. Vjvv611 yr CVD risk = 15%510-yr Social History Social History Type Response Smoking Status Never smoker entered on: 04/21/14 Sex
--- OUTSIDE RECORDS SUMMARY | 2022-04-11 11:11 | XMS_ITS | Continuity of Care Document ---
:1955 Author Organization [facility] Address [address] [place] [address]- Care Team Providers Name Role Phone Bel Segovia DO Primary Care Physician [place] [facility] [place] [id number] Date(s): 07/27/20 - 08/26/[address] [address]- Attending Physician: Admtr, Tracie Allergies, Adverse Reactions, Alerts Substance Reaction Severity [...] Tet/Diphth/Acel, Pertussis (oldterm)4 12/02/07 Given 1Admin Note: [id number] Note: vis [id number] Note: VIS GIVEN Admin Note: VIS GIVEN 09/13/05 Medications Aerochamber See Instructions, # 1 each, Refills 1, Tot. Refills 1, Maintenance, Pharmacist, please demonstrate use. For use with flovent, 08/09/12 17:00:57 Start Date: 08/09/12 Stop Date: 08/10/13 Status: Orderedatorvastatin 20 mg oral tablet 1 tablet = 20 mg, By Mouth, Daily at bedtime, # 30 tablet, 11 Refills, Maintenance, Tablet, Route toPharmacy Electronically, [id number], [facility]/pharmacy #[id number] Start Date: 05/30/17 Stop Date: 05/25/18 Status: Orderedclotrimazole 1% topical cream 1 application, Topically, 2 times a day, # 100 Gm, 0 Refills, Maintenance, 05/31/20 16:08:00 EDT, Cream, [facility]/pharmacy #[id number], Partial fill upon patient request [...] 2 Refills, Maintenance, 07/26/20 16:35:00 EDT, Aerosol, [facility]/pharmacy #[id number], Partial fill upon patient request [...] 03/28/19 9:01:00 EST, Route to Pharmacy Electronically, [facility]/pharmacy #[id number], 180.34, cm, 03/20/19 14:50:00 EST,Height Start Date: [...] small disk bulge L4-5, more pain in vafn5Madpidhlza agkedvcitqv4Xcriuuf, Dr. Qsct591 yr CVD risk = 15%510-yr Social History Social History Type Response Smoking Status Never smoker entered on: 04/21/14 Sex
--- OUTSIDE RECORDS SUMMARY | 2022-04-11 11:11 | XMS_ITS | Continuity of Care Document ---
:1955 Author Organization [facility] Address [address] [place] [address]- Care Team Providers Name Role Phone Bel Segovia DO Primary Care Physician Encounter [facility] [place] Date(s): 02/10/19 - 02/10/[address] [address]- [place] Encounter Diagnosis Finger infection (Discharge Diagnosis) - 02/11/19 BPH (benign prostatic hyperplasia) (Discharge Diagnosis) - 02/11/19 Discharge Disposition: A-D/C Home Attending Physician: Sukhjinder Mcconnell MD Admitting Physician: Sukhjinder Mcconnell MD Referring Physician: Not on Staff, Referring MD Allergies, Adverse Reactions, Alerts Substance Reaction Severity Status Latex itching Active Immunizations Given and Recorded Vaccine Date Status Refusal Reason influenza virus vaccine, inactivated1 03/09/17 Given influenza virus vaccine, inactivated 03/27/13 Given pneumococcal 23-valent vaccine 08/09/12 Given Influenza Inactive (IM) (oldterm)2 12/16/09 Given Influenza Virus Vaccine (oldterm)3 03/30/08 Given Tet/Diphth/Acel, Pertussis (oldterm)4 12/02/07 Given 1Admin Note: Ofedmmjw0Vtotb Note: vis [id number] Note: VIS GIVEN Admin Note: VIS GIVEN 09/13/05 Medications Aerochamber See Instructions, # 1 each, Refills 1, Tot. Refills 1, Maintenance, Pharmacist, please demonstrate use. For use with flovent, 08/09/12 17:00:57 Start Date: 08/09/12 Stop Date: 08/10/13 Status: Orderedatorvastatin 20 mg oral tablet 1 tablet = 20 mg, By Mouth, Daily at bedtime, # 30 tablet, 11 Refills, Maintenance, Tablet, Route toPharmacy Electronically, [id number], [facility]/pharmacy #1 Start Date: 05/30/17 Stop Date: 05/25/18 Status: [...] Start Date: 02/10/19 Stop Date: 02/24/19 Status: Orderedmeloxicam 7.5 mg oral tablet 1 [...] 05/30/1814:15:16 EDT, Aerosol, Route to Pharmacy Electronically, [id number], [facility]/pharmacy #[id number] Start Date: 05/30/17 Status: Orderedtamsulosin 0.4 mg oral capsule 0.4 mg, 1, capsule, By Mouth, Daily, # 30 capsule, Refills 5, Tot. Refills 5, Maintenance, 10/04/18 14:29:23 EDT, Route to Pharmacy Electronically, [id number], [facility]/pharmacy #207 Start Date: 10/04/18 Status: Ordered Problem List Condition Effective Dates Status Health Status Informant Back pain(Confirmed)1, 2 Active Cigarette smoker(Confirmed) 07/02/89 Active Depression(Confirmed)3 01/25/98 Active Erectile dysfunction(Confirmed) Active History of colon polyps(Confirmed) Active Hypercholesterolemia(Confirmed), 2007 Active Stool incontinence(Confirmed) Active Encounter for screening Active colonoscopy(Confirmed) Tubular adenoma of colon(Confirmed) 05/27/18 Active 1DrCaity Honeycutt (neurosurgery) -, mild spondylitic changes and small disk bulge L4-5, more pain in pojj3Iiegfqmfwm vuzgtokodad3Ksakgso, Dr. Xbro526 yr CVD risk = 15%510-yr Diagnosis Diagnosis Type Effective Dates Health Status Clinical In formant Service Finger infection Discharge 02/11/19 Diagnosis BPH (benign Discharge 02/11/19 prostatic Diagnosis hyperplasia) Vital Signs Most recent to oldest [Reference Range]: 1 Height 180.34 cm (02/10/19 3:08 PM) Weight 93.63 kg (02/10/19 3:08 PM) Oxygen Saturation [94-100 %] 100 % (02/10/19 3:08 PM) Pulse Rate [55-90 bpm] 85 bpm (02/10/19 3:08 PM) Body Mass Index [18.5-24.99] 28.79 *H* (02/10/19 3:08 PM) Blood Pressure [90-138/55-84 mm Hg] 108/67 mm Hg (02/10/19 3:08 PM) Temperature [96.8-100.4 DegF] 97.8 DegF (02/10/19 3:08 PM) Blood pressure sites Arm, left (02/10/19 3:08 PM) Weight Obtained Via Standing scale (02/10/19 3:08 PM) Social History Social History Type Response Smoking Status Never smoker entered on: 04/21/14 Sex
--- OUTSIDE RECORDS SUMMARY | 2022-04-11 11:11 | XMS_ITS | Continuity of Care Document ---
:1955 Author Organization [facility] Address [address] [place] [address]- Care Team Providers Name Role Phone Bel Segovia DO Primary Care Physician Encounter [facility] [place] Date(s): 06/30/20 - 07/30/[address] [address]- Allergies, Adverse Reactions, Alerts Substance Reaction Severity [...] Tet/Diphth/Acel, Pertussis (oldterm)4 12/02/07 Given 1Admin Note: [id number] Note: vis [id number] Note: VIS GIVEN Admin Note: VIS GIVEN 09/13/05 Medications Aerochamber See Instructions, # 1 each, Refills 1, Tot. Refills 1, Maintenance, Pharmacist, please demonstrate use. For use with flovent, 08/09/12 17:00:57 Start Date: 08/09/12 Stop Date: 08/10/13 Status: Orderedatorvastatin 20 mg oral tablet 1 tablet = 20 mg, By Mouth, Daily at bedtime, # 30 tablet, 11 Refills, Maintenance, Tablet, Route toPharmacy Electronically, [id number], [id number] Start Date: 05/30/17 Stop Date: 05/25/18 Status: Orderedclotrimazole 1% topical cream 1 application, Topically, 2 times a day, # 100 Gm, 0 Refills, Maintenance, 05/31/20 16:08:00 EDT, Cream, [facility]/pharmacy #[id number], Partial fill upon patient request if [...] 2 Refills, Maintenance, 07/26/20 16:35:00 EDT, Aerosol, [facility]/pharmacy #[id number], Partial fill upon patient request if [...] 03/28/19 9:01:00 EST, Route to Pharmacy Electronically, [facility]/pharmacy #207, 180.34, cm, 03/20/19 14:50:00 EST,Height Start Date: 03/28/19 Status: Ordered Problem List Condition Effective Dates Status Health Status Informant Back pain(Confirmed)1, 2 Active Benign prostatic Active hyperplasia(Confirmed) Cigarette smoker(Confirmed) 4/30/90 Active Depression(Confirmed)3 01/25/98 Active SOB (shortness of breath)(Confirmed) Active Erectile dysfunction(Confirmed) Active History of colon polyps(Confirmed) Active Hypercholesterolemia(Confirmed)4, 2007 Active Stool incontinence(Confirmed) Active Encounter for screening Active colonoscopy(Confirmed) Tubular adenoma of colon(Confirmed) 05/27/18 Active 1DrCaity Honeycutt (neurosurgery) 10-08, mild spondylitic changes and small disk bulge L4-5, more pain in hiyx9Klurvadmac wjryjkgrstx2Jypiwqf, Dr. Bfab801 yr CVD risk = 15%510-yr Social History Social History Type Response Smoking Status Never smoker entered on: 04/21/14 Sex
--- OUTSIDE RECORDS SUMMARY | 2022-04-11 11:11 | XMS_ITS | Continuity of Care Document ---
:1955 Author Organization [facility] Address [address] [place] [address]- Care Team Providers Name Role Phone Bel Segovia DO Primary Care Physician Encounter [facility] [place] Date(s): 05/26/21 - 06/25/[address] [address]- Allergies, Adverse Reactions, Alerts Substance Reaction Severity [...] Tet/Diphth/Acel, Pertussis (oldterm)4 12/02/07 Given 1Admin Note: Xdyvepzh3Dlcvd Note: vis [id number] Note: VIS GIVEN Admin Note: VIS GIVEN 09/13/05 Medications Aerochamber See Instructions, # 1 each, Refills 1, Tot. Refills 1, Maintenance, Pharmacist, please demonstrate use. For use with flovent, 08/09/12 17:00:57 Start Date: 08/09/12 Stop Date: 08/10/13 Status: Orderedatorvastatin 20 mg oral tablet 1 tablet = 20 mg, By Mouth, Daily at bedtime, # 30 tablet, 11 Refills, Maintenance, Tablet, Route toPharmacy Electronically, [id number], [id number] Start Date: 05/30/17 Stop Date: 05/25/18 Status: Orderedclotrimazole 1% topical cream 1 application, Topically, 2 times a day, # 100 Gm, 0 Refills, Maintenance, 05/31/20 16:08:00 EDT, Cream, [facility]/pharmacy #[id number], Partial fill upon patient request if the prescription is for a schedule II opioid drug., 1 application Topically 2 times a day... Start Date: 05/31/20 Stop Date: 06/14/20 Status: OrderedCombivent Respimat 20 mcg-100 mcg/inh inhalation aerosol See Instructions, TOME JUANITO INHALACION POR VIA ORAL CUATRO VECES AL LORRIE - MAY TAKE ADDITIONAL PUFFS. MAX 6/DAY, # 12 mL, 0 Refills, [facility] STORE [id number], 90, TOME JUANITO INHALACION POR VIA ORAL CUATRO VECES AL LORRIE - MAY TAKE ADDITIONAL PUFFS. MAX 6/DAY, 180.34... Start Date: 01/19/21 Status: OrderedCombivent Respimat 20 mcg-100 mcg/inh inhalation aerosol 1 puffs, Inhalation, 4 times a day, may take additional inhalations as required, not to exceed six in 24 hours, # 4 Gm, 2 Refills, Maintenance, 10/18/20 6:43:00 EDT, Aerosol, [facility]/pharmacy #[id number], Partial fill upon patient request if the prescription is... Start Date: 10/18/20 Status: OrderedEucerin Gentle Hydrating Cleanser topical liquid [...] 03/28/19 9:01:00 EST, Route to Pharmacy Electronically, [facility]/pharmacy #[id number], 180.34, cm, 03/20/19 14:50:00 EST,Height Start [...] of colon(Confirmed) 05/27/18 Active 1Darben Honeycutt (neurosurgery) 10-08, mild spondylitic changes and small disk bulge L4-5, more pain in rcoh6Lsalodfamf hvwypedjsin3Xfzhjbq, Dr. Yenb802 yr CVD risk = 15%510-yr Social History Social History Type Response Smoking Status Never smoker entered on: 04/21/14 Sex
--- OUTSIDE RECORDS SUMMARY | 2022-04-11 11:11 | XMS_ITS | Continuity of Care Document ---
:1955 Author Organization [facility] Address [address] [place] [address]- Care Team Providers Name Role Phone Bel Segovia DO Primary Care Physician [place] [facility] [place] [id number] Date(s): 05/26/21 - 06/25/[address] [address]- Attending Physician: Admtr, Tracie Allergies, Adverse Reactions, [...] Tet/Diphth/Acel, Pertussis (oldterm)4 12/02/07 Given 1Admin Note: Wcmbtlln6Jwzyq Note: vis [id number] Note: VIS GIVEN Admin Note: VIS GIVEN 09/13/05 Medications Aerochamber See Instructions, # 1 each, Refills 1, Tot. Refills 1, Maintenance, Pharmacist, please demonstrate use. For use with flovent, 08/09/12 17:00:57 Start Date: 08/09/12 Stop Date: 08/10/13 Status: Orderedatorvastatin 20 mg oral tablet 1 tablet = 20 mg, By Mouth, Daily at bedtime, # 30 tablet, 11 Refills, Maintenance, Tablet, Route toPharmacy Electronically, [id number], [facility]/pharmacy #[id number] Start Date: 05/30/17 Stop Date: 05/25/18 Status: Orderedclotrimazole 1% topical cream 1 application, Topically, 2 times a day, # 100 Gm, 0 Refills, Maintenance, 05/31/20 16:08:00 EDT, Cream, [facility]/pharmacy #[id number], Partial fill upon patient request if the prescription is for a schedule II opioid drug., 1 application Topically 2 times a day... Start Date: 05/31/20 Stop Date: 06/14/20 Status: OrderedCombivent Respimat 20 mcg-100 mcg/inh inhalation aerosol See Instructions, TOME JUANITO INHALACION POR VIA ORAL CUATRO VECES AL LORRIE - MAY TAKE ADDITIONAL PUFFS. MAX 6/DAY, # 12 mL, 0 Refills, [facility] STORE [id number], 90, TOME JUANITO INHALACION POR VIA ORAL CUATRO VECES AL LORRIE - MAY TAKE ADDITIONAL PUFFS. MAX 6/DAY, 180.34... Start Date: 01/19/21 Status: OrderedCombivent Respimat 20 mcg-100 mcg/inh inhalation aerosol 1 puffs, Inhalation, 4 times a day, may take additional inhalations as required, not to exceed six in 24 hours, # 4 Gm, 2 Refills, Maintenance, 10/18/20 6:43:00 EDT, Aerosol, [facility]/pharmacy #[id number], Partial fill upon patient [...] 03/28/19 9:01:00 EST, Route to Pharmacy Electronically, [facility]/pharmacy #[id number], 180.34, cm, 03/20/19 14:50:00 EST,Height Start Date: 03/28/19 Status: Ordered Problem List Condition Effective Dates Status Health Status Informant Back pain(Confirmed)1, 2 Active Benign prostatic Active hyperplasia(Confirmed) Cigarette smoker(Confirmed) 07/02/89 Active Depression(Confirmed)3 01/25/98 Active SOB (shortness of breath)(Confirmed) Active Erectile dysfunction(Confirmed) Active History of colon polyps(Confirmed) Active Hypercholesterolemia(Confirmed), 5 2007 Active Stool incontinence(Confirmed) Active Encounter for screening Active colonoscopy(Confirmed) Tubular adenoma of colon(Confirmed) 05/27/18 Active 1DrCaity Honeycutt (neurosurgery) 10-08, mild spondylitic changes and small disk bulge L4-5, more pain in hvez8Mzijdmzrgf wdtlhyfhdua9Bwknnrb, Dr. Gird787 yr CVD risk = 15%510-yr Social History Social History Type Response Smoking Status Never smoker entered on: 04/21/14 Sex
--- OUTSIDE RECORDS SUMMARY | 2022-04-11 11:11 | XMS_ITS | Continuity of Care Document ---
:1955 Author Organization [facility] [place] Address [address] [place] [address]- Care Team Providers Name Role Phone Bel Segovia DO Primary Care Physician Encounter [facility] Date(s): 07/26/20 - 08/25/[address] [address]- Allergies, Adverse Reactions, Alerts Substance Reaction Severity [...] Tet/Diphth/Acel, Pertussis (oldterm)4 12/02/07 Given 1Admin Note: [id number] Note: vis [id number] Note: VIS GIVEN Admin Note: VIS GIVEN 09/13/05 Medications Aerochamber See Instructions, # 1 each, Refills 1, Tot. Refills 1, Maintenance, Pharmacist, please demonstrate use. For use with flovent, 08/09/12 17:00:57 Start Date: 08/09/12 Stop Date: 08/10/13 Status: Orderedatorvastatin 20 mg oral tablet 1 tablet = 20 mg, By Mouth, Daily at bedtime, # 30 tablet, 11 Refills, Maintenance, Tablet, Route toPharmacy Electronically, [id number], [id number] Start Date: 05/30/17 Stop Date: 05/25/18 Status: Orderedclotrimazole 1% topical cream 1 application, Topically, 2 times a day, # 100 Gm, 0 Refills, Maintenance, 05/31/20 16:08:00 EDT, Cream, [facility]/pharmacy #[id number], Partial fill upon patient request [...] 2 Refills, Maintenance, 07/26/20 16:35:00 EDT, Aerosol, [facility]/pharmacy #[id number], Partial fill upon patient request [...] 03/28/19 9:01:00 EST, Route to Pharmacy Electronically, [facility]/pharmacy #[id number], 180.34, cm, 03/20/19 14:50:00 EST,Height [...] small disk bulge L4-5, more pain in [id number], Dr. [id number] yr CVD risk = 15%510-yr Social History Social History Type Response Smoking Status Never smoker entered on: 04/21/14 Sex
--- OUTSIDE RECORDS SUMMARY | 2022-04-11 11:11 | XMS_ITS | Continuity of Care Document ---
:1955 Author Organization [facility] Address [address] [place] [address]- Care Team Providers Name Role Phone Bel Segovia DO Primary Care Physician [facility] Date(s): 06/01/20 - 07/01/[address] [address] Allergies, Adverse Reactions, Alerts Substance Reaction Severity Status Grass Active Latex itching Active Immunizations Given and Recorded Vaccine Date Status Refusal Reason influenza virus vaccine, inactivated1 03/09/17 Given influenza virus vaccine, inactivated 03/27/13 Given pneumococcal 23-valent vaccine 08/09/12 Given Influenza Inactive (IM) (oldterm)2 12/16/09 Given Influenza Virus Vaccine (oldterm)3 03/30/08 Given Tet/Diphth/Acel, Pertussis (oldterm)4 12/02/07 Given 1Admin Note: [id number] Note: vis [id number] Note: VIS GIVEN Admin Note: VIS GIVEN 09/13/05 Medications Aerochamber See Instructions, # 1 each, Refills 1, Tot. Refills 1, Maintenance, Pharmacist, please demonstrate use. For use with flovent, 08/09/12 17:00:57 Start Date: 08/09/12 Stop Date: 08/10/13 Status: Orderedatorvastatin 20 mg oral tablet 1 tablet = 20 mg, By Mouth, Daily at bedtime, # 30 tablet, 11 Refills, Maintenance, Tablet, Route toPharmacy Electronically, [id number], [facility]/pharmacy #[id number] Start Date: 05/30/17 Stop Date: 05/25/18 Status: Orderedclotrimazole 1% topical cream 1 application, Topically, 2 times a day, # 100 Gm, 0 Refills, Maintenance, 05/31/20 16:08:00 EDT, Cream, [facility]/pharmacy #[id number], Partial fill upon patient request if the prescription is for a schedule II opioid drug., 1 application Topically 2 times a day... Start Date: 05/31/20 Stop Date: 06/14/20 Status: OrderedEucerin Gentle Hydrating Cleanser topical liquid [...] 05/30/1814:15:16 EDT, Aerosol, Route to Pharmacy Electronically, [id number], [facility]/pharmacy #[id number] Start Date: 05/30/17 Status: Orderedtamsulosin 0.4 mg oral capsule 0.4 mg, 1, capsule, By Mouth, Daily, # 30 capsule, Refills 5, Tot. Refills 5, Maintenance, 03/28/19 9:01:00 EST, Route to Pharmacy Electronically, [facility]/pharmacy #[id number], 180.34, cm, 03/20/19 14:50:00 EST,Height Start [...] small disk bulge L4-5, more pain in [id number], Dr. [id number] yr CVD risk = 15%510-yr Social History Social History Type Response Smoking Status Never smoker entered on: 04/21/14 Sex
--- OUTSIDE RECORDS SUMMARY | 2022-04-11 11:11 | XMS_ITS | Continuity of Care Document ---
:1955 Author Organization [facility] Address [address] [place] [address]- Care Team Providers Name Role Phone Bel Segovia DO Primary Care Physician Encounter [facility] Date(s): 05/10/20 - 06/09/[address] [address] Allergies, Adverse Reactions, Alerts Substance Reaction Severity Status Grass Active Latex itching Active Immunizations Given and Recorded Vaccine Date Status Refusal Reason influenza virus vaccine, inactivated1 03/09/17 Given influenza virus vaccine, inactivated 03/27/13 Given pneumococcal 23-valent vaccine 08/09/12 Given Influenza Inactive (IM) (oldterm)2 12/16/09 Given Influenza Virus Vaccine (oldterm)3 03/30/08 Given Tet/Diphth/Acel, Pertussis (oldterm)4 12/02/07 Given 1Admin Note: [id number] Note: vis [id number] Note: VIS GIVEN Admin Note: VIS GIVEN 09/13/05 Medications Aerochamber See Instructions, # 1 each, Refills 1, Tot. Refills 1, Maintenance, Pharmacist, please demonstrate use. For use with flovent, 08/09/12 17:00:57 Start Date: 08/09/12 Stop Date: 08/10/13 Status: Orderedatorvastatin 20 mg oral tablet 1 tablet = 20 mg, By Mouth, Daily at bedtime, # 30 tablet, 11 Refills, Maintenance, Tablet, Route toPharmacy Electronically, [id number], [facility]/pharmacy #[id number] Start Date: 05/30/17 Stop Date: 05/25/18 Status: Orderedclotrimazole 1% topical cream 1 application, Topically, 2 times a day, # 100 Gm, 0 Refills, Maintenance, 05/31/20 16:08:00 EDT, Cream, [facility]/pharmacy #[id number], Partial fill upon patient request if [...] 15:08:00 EST, Height Start Date: 02/10/19 Status: OrderedhydrOXYzine hydrochloride 25 mg oral tablet 1 capsule, By Mouth, 3 times a day, for 14 days, PRN Itching., # 42 capsule, 0 Refills, Acute 06/14/20 16:05:00 EDT, 05/31/20 16:05:00 EDT, Capsule, [facility]/pharmacy #[id number], Partial fill upon patient request if the prescription is for a schedule II opioid... Start Date: 05/31/20 Stop Date: 06/14/20 Status: OrderedNuLYTELY with Flavor Packs oral powder [...] 05/30/1814:15:16 EDT, Aerosol, Route to Pharmacy Electronically, [id number], [facility]/pharmacy #[id number] Start Date: 05/30/17 Status: Orderedtamsulosin 0.4 mg oral capsule 0.4 mg, 1, capsule, By Mouth, Daily, # 30 capsule, Refills 5, Tot. Refills 5, Maintenance, 03/28/19 9:01:00 EST, Route to Pharmacy Electronically, [facility]/pharmacy #[id number], 180.34, cm, 03/20/19 14:50:00 EST,Height Start [...] of colon(Confirmed) 05/27/18 Active 1DrCaity Honeycutt (neurosurgery) 10-, mild spondylitic changes and small disk bulge L4-5, more pain in [id number], Dr. [id number] yr CVD risk = 15%510-yr Social History Social History Type Response Smoking Status Never smoker entered on: 04/21/14 Sex
[2022-04-11 11:14] LABS: COVID-19 Test Negative (Negative); IDNOW Serial# 16C4AD1C
[2022-04-11 11:16] LABS: IDNOW Serial# 9DB6401D; Influenza A Negative (Negative); Influenza B2 Negative (Negative)
--- NOTE | 2022-04-11 11:29 | ED.URI ---
HPI - URI/Sore Throat General Chief Complaint: Upper Respiratory Symptoms Stated Complaint: body aches running nose ear pain Time Seen by Provider: 04/11/22 11:10 Source: patient Mode of arrival: ambulatory Limitations: no limitations History of Present Illness HPI Narrative: 66-year-old male with a history of asthma, BPH here with complaints of runny nose, body aches since yesterday. Patient reports yesterday he had 3 episodes of diarrhea this morning he had 2 episodes of diarrhea. No associated vomiting, abdominal pain, chest pain, difficulty breathing, fever, headache, neck pain or neck stiffness, skin rash. No recent travel or sick contact. Related Data Home Medications Medication Instructions Recorded Confirmed tamsulosin 0.4 mg capsule 1 cap PO BEDTIME 04/17/20 12/14/21 ondansetron HCl 4 mg tablet 4 mg PO Q8H PRN Nausea 03/10/21 12/14/21 dexamethasone 6 mg tablet 6 mg PO DAILY PRN 07/01/21 12/14/21 (Decadron) Previous Rx's Medication Instructions Recorded hydroxyzine HCl 25 mg tablet 25 mg PO Q8H PRN itching #20 tabs 05/27/21 triamcinolone acetonide 0.1 % 1 appl topical TID PRN rash #30 05/27/21 topical cream grams valacyclovir 1 gram tablet 1,000 mg PO BID #14 tabs 05/27/21 (Valtrex) clotrimazole-betamethasone 1 1 appl topical BID 2 weeks #45 07/01/21 %-0.05 % topical cream grams atorvastatin 10 mg tablet 10 mg PO BEDTIME 90 days #90 tabs 10/28/21 ipratropium 20 mcg-albuterol 100 1 puff inhalation QID Wheezing 30 10/28/21 mcg/actuation mist for inhalation days #4 grams (Combivent Respimat) cholecalciferol (vitamin D3) 50 50 mcg PO DAILY 90 days #90 caps 12/14/21 mcg (2,000 unit) capsule albuterol sulfate 90 mcg/actuation 2 puff inhalation QID PRN 02/24/22 aerosol inhaler (ProAir HFA) shortness of breath or wheezing 30 days #8.5 grams Allergies Allergy/AdvReac Type Severity Reaction Status Date / Time grass pollen Allergy Unknown positive Verified 12/14/21 18:59 allergy test latex [LATEX] Allergy Unknown UNKNOWN Verified 12/14/21 18:59 Latex, Natural Rubber Allergy Unknown Itching Verified 12/14/21 18:59 morphine [MORPHINE] AdvReac Mild SENSATION Verified 12/14/21 18:59 OF HEAT/WARMTH environmental Allergy Unknown Dry Eye Uncoded 12/14/21 18:59 Review of Systems Review of Systems: Yes all other systems are reviewed and are negative Constitutional: Constitutional: Reports no additional constitutional complaints, Reports body ache(s), Denies chills, Denies fever(s), Denies headache(s) and Denies weakness Eyes: Eyes: Reports no additional eye complaints and Denies change in vision ENT: Reports system reviewed and no additional complaints, except as documented, Denies dizziness, Denies headache(s), Denies nasal congestion, Reports nasal discharge and Denies neck pain Cardiovascular: Cardiovascular: Reports no additional cardiovascular complaints, Denies chest pain, Denies leg edema and Denies dyspnea Respiratory: Respiratory: Reports no additional respiratory complaints, Denies cough and Denies dyspnea Gastrointestinal: Gastrointestinal: Reports no additional gastrointestinal complaints, Denies abdominal pain, Reports diarrhea, Denies nausea and Denies vomiting Genitourinary: Genitourinary: Denies urinary incontinence Musculoskeletal: Musculoskeletal: Reports no additional musculoskeletal complaints, Denies back pain, Denies arthralgias, Denies joint swelling, Denies neck pain, Denies numbness and Denies tingling Integumentary/Breasts: Skin/Breast: Reports system reviewed and no additional complaints, except as docu and Denies rash Neurologic: Reports system reviewed and no additional complaints, except as documented, Denies Abnormal speech present, Denies dizziness, Denies headache(s), Denies numbness, Denies tingling and Denies weakness [facility] Past Medical History Attestation statement: The following information was validated with the patient. Source: old records reviewed and nursing notes reviewed Medical History Asthma Benign prostatic hyperplasia Chronic obstructive pulmonary disease (COPD) Impaired fasting glucose Overweight (BMI 25.0-29.9) Prostate atrophy Pulmonary nodules Pure hypercholesterolemia Vitamin D deficiency Surgical History H/O cervical spine surgery H/O knee surgery History of ear surgery Social History Social History Household Members: Family Housing: House Do you presently have visiting nurse or other home services: No Alcohol intake: never Patient Tobacco Use Status: Former Tobacco user Second Hand Smoke Exposure: No Advance Directives Date on File: 03/11/21 service: No Current occupational status: unemployed and retired Cognitive needs: No Hearing needs: No Vision needs: Yes Physical Exam Vital Signs: Vital Signs: Last Vital Signs Temp 98 F 04/11/22 11:38 Pulse 90 04/11/22 10:44 Resp 18 04/11/22 10:44 BP 108/71 04/11/22 10:44 Pulse Ox 96 04/11/22 10:44 O2 Del Method 04/11/22 10:44 BMI result Body Mass Index 27.8 Const: General: cooperative, healthy appearing, comfortable and no acute distress Orientation/consciousness: patient oriented x3 Limitations: no limitations HEENT: Head: Yes normal to inspection Ears: hearing grossly normal bilaterally and TM's normal bilaterally General nose exam: Normal external nose present Face and sinus: Yes normal facial exam Mouth: Normal oral and palatal mucosa present Throat: Yes posterior oropharynx normal, Yes tonsils normal and Yes uvula midline Eyes: General: appearance normal, both eyes and all related structures Pupils: Equal, round and reactive pupils present Neck: Neck: Yes normal visual inspection, Yes full ROM, Yes no lymphadenopathy and Yes no meningeal signs Chest: Chest palpation & inspection: normal inspection of the chest Resp: Effort & Inspection: normal respiratory effort Auscultation: clear to auscultation bilaterally Cardio: Rate: regular rate Rhythm: regular rhythm Peripheral pulses: Peripheral pulses 2+ throughout GI: Inspection: Yes normal to inspection Palpation (GI): Soft to palpation and nontender Auscultation: normal bowel sounds Back/Spine/Pelvis: Thoracic/Lumbar Spine: thoracic and lumbar spine normal to inspection Skin: General skin exam: no rashes or lesions noted Neuro: General: patient oriented x3, no meningeal signs, no focal motor deficits and normal sensation to monofilament Cranial nerves: Yes Equal, round and reactive pupils present Cognition (Neuro): normal cognition Speech: No Abnormal speech present Gait exam (Neuro): Normal gait present Motor exam (neuro): 5/5 motor strength present throughout Extrem: General: Yes normal to inspection Course Course Course Narrative: testing for flu and COVID are negative. Afebrile here. Patient tolerating p.o.. Likely viral syndrome. Plan for discharge home. Recommend alternating Motrin and Tylenol for pain or fever, increasing fluids, returning for worrisome signs or symptoms. Medical Decision Making Medical Decision Making [facility] Narrative: 66-year-old male here with 2 days of body aches, rhinorrhea and diarrhea. On arrival vitals are stable. Abdomen soft nontender. No meningeal signs, no lymphadenopathy. Lungs are clear. Overall patient nontoxic appearing likely viral syndrome. Will send testing for COVID, flu Differential Diagnosis Differential Diagnoses: The differential diagnosis associated with the presentation includes viral syndrome, low concern for meningitis, acute abdomen Lab Data [facility] Lab Attestation statement: I reviewed the patient's lab results. Labs: Lab Results 04/11/22 04/11/22 Range/Units 10:46 10:46 COVID-19 (FATOUMATA) Negative (Negative) COVID-19 Clin Com See Note Influenza Type A (MIRTA) Negative (Negative) Influenza Type B (MIRTA) Negative (Negative) Influenza A & B Note See Note Discharge Plan Discharge Clinical Impression: Viral infection Patient Disposition: Home, Self-Care Instructions: Viral Syndrome (ED) Additional Instructions: testing for COVID and flu are negative Increase fluids, rest You likely have a virus Take Motrin or Tylenol as needed Return for any worsening symptoms Follow-up with primary care doctor but and this week for persistent symptoms. Prescriptions: No Action albuterol sulfate [ProAir HFA] 90 mcg/actuation HFA aerosol inhaler 2 puff inhalation QID PRN (Reason: shortness of breath or wheezing) 30 Days Qty: 8.5 3RF tamsulosin 0.4 mg capsule 1 cap PO BEDTIME ondansetron HCl 4 mg tablet 4 mg PO Q8H PRN (Reason: Nausea) valacyclovir [Valtrex] 1 gram tablet 1,000 mg PO BID Qty: 14 0RF hydroxyzine HCl 25 mg tablet 25 mg PO Q8H PRN (Reason: itching) Qty: 20 0RF triamcinolone acetonide 0.1 % cream 1 appl topical TID PRN (Reason: rash) Qty: 30 0RF Combivent Respimat 20-100 mcg/actuation mist 1 puff inhalation QID 30 Days Qty: 4 5RF atorvastatin 10 mg tablet 10 mg PO BEDTIME 90 Days Qty: 90 1RF dexamethasone [Decadron] 6 mg tablet 6 mg PO DAILY PRN clotrimazole-betamethasone 1-0.05 % cream 1 appl topical BID 14 Days Qty: 45 2RF cholecalciferol (vitamin D3) 50 mcg (2,000 unit) capsule 50 mcg PO DAILY 90 Days Qty: 90 3RF Referrals: Earnest Lucio MD [Primary Care Provider] - 1 week Interventions: ED Discharge Assessment Last Done: 04/11/22 11:47 Discharge Date/Time: 04/11/22 11:48
[2022-04-11 11:38] VITALS: TEMP 36.6
== END 2022-04-11 11:48 | disposition home or self-care (01) ==
PROVIDERS: Emergency Provider Emergency Medicine; PCP Internal Medicine
DX: M79.10 Myalgia, unspecified site (principal); H92.03 Otalgia, bilateral; Z20.822 Contact with and (suspected) exposure to COVID-19; Z20.828 Contact with and (suspected) exposure to other viral communicable diseases; Z87.891 Personal history of nicotine dependence; Z79.899 Other long term (current) drug therapy
CPT/HCPCS: 36415; 80053; 80061; 82306; 83036; 84443; 87502; 87635; 99282; 99283

== ENCOUNTER 2022-04-11 11:47 | Outpatient (REF) | payer MEDICARE, MEDICAID, SELFPAY ==
[2022-04-11 12:54] LABS: Alanine Aminotransferase 37 U/L (0-40); Albumin Level 4.6 g/dL (3.5-5.0); Alkaline Phosphatase 79 U/L (39-117); Anion Gap 16 (12-20); Aspartate Amino Transferase 31 U/L (5-37); Bilirubin Total 0.7 mg/dL (0.0-1.0); Blood Urea Nitrogen 24 mg/dL (9-16); Calcium 9.6 mg/dL (8.4-10.2); Carbon Dioxide 25 mmol/L (22-29); Chloride 106 mmol/L (96-108); Cholesterol 171 mg/dL; Estimated Glomerular Filt Rate > 60; Glucose Fasting 98 mg/dL (60-99); HDL Cholesterol 48 mg/dL; LDL Cholesterol Calculated 94 mg/dl; Potassium 4.8 mmol/L (3.3-5.1); Sodium 142 mmol/L (135-145); Total Protein 7.4 g/dL (6.5-8.0); Triglycerides 148 mg/dL
[2022-04-11 13:05] LABS: Vitamin D 25-OH Total 27.8 ng/mL (>30)
[2022-04-11 13:26] LABS: Estimated Average Glucose 131 mg/dL; Hemoglobin A1c % 6.2 %
== END 2022-04-11 11:48 | disposition home or self-care (01) ==
LOC: HO.LAB 11:47
PROVIDERS: PCP Internal Medicine; Visit Provider Internal Medicine
DX: Z13.89 Encounter for screening for other disorder (principal)
CPT/HCPCS: 36415; 80053; 80061; 82306; 83036; 84443

== ENCOUNTER → 2022-06-09 14:45 | Outpatient (BNVA) | payer MEDICARE, MEDICAID, SELFPAY | PROVIDERS: PCP Internal Medicine; Visit Provider Hospitalist | DX: J43.2 Centrilobular emphysema (principal); R93.89 Abnormal findings on diagnostic imaging of other specified body structures; R91.8 Other nonspecific abnormal finding of lung field | CPT/HCPCS: 99202 ==

== ENCOUNTER 2022-07-04 14:51 | Outpatient (REF) | payer MEDICARE, MEDICAID, SELFPAY ==
--- NOTE | ~2022-07-04 | CT_ITS ---
EXAMINATION: CT CHEST WITHOUT CONTRAST CLINICAL INFORMATION: Abnormal findings. COMPARISON: Chest x-ray 10/17/2021. CTA chest 03/10/2021 TECHNIQUE: Multidetector volumetric CT imaging of the chest was done. Axial MIP volume rendering provided. Sagittal and coronal reformatted images were obtained. This CT examination was performed using dose optimization techniques as appropriate, variously including the following: *Automated exposure control *Adjustment of mA and/or kV according to patient size (this includes techniques or standardized protocols for targeted exams where dose is matched to indication/reason for exam; i.e. extremities or head) *Use of iterative reconstruction technique DLP: 249 mGy-cm FINDINGS: HOISTING ENGINEER: Hyperinflated lungs. LUNGS: There is diffuse centrilobular emphysema with patchy ground-glass scarring in both upper lobes. There is 4 mm calcified nodule right upper lobe axial image 27/4. No additional calcified or noncalcified nodules seen. Focal atelectasis right lung base.. MEDIASTINUM: Thyroid lobes are symmetric and normal. The central trachea and the bronchi are widely patent. Heart size and the great vessels are normal caliber. No pericardial effusion seen. No abnormal size mediastinal or hilar lymph nodes seen. The trachea is dilated with normal patency of the trachea and the bronchi. CORONARY ARTERY CALCIFICATION: Minimal coronary artery calcifications are present. PLEURA: There is no pleural effusion. No pleural mass or thickening. AXILLA: Small shotty lymph nodes seen in bilateral axilla. The chest wall is unremarkable. UPPER ABDOMEN: The liver is diffusely attenuated without focal lesion. Gallbladder is unremarkable. The spleen, pancreas and adrenal glands unremarkable. There is diffuse colonic diverticulosis without diverticulitis. OSSEOUS STRUCTURES: No aggressive lytic or sclerotic process seen. CT/CT chest wo IV con IMPRESSION: Centrilobular emphysema with groundglass scarring in both upper lobes. 4 mm noncalcified nodule right upper lobe likely granuloma. Fleischner guidelines were followed.
== END 2022-07-04 14:52 | disposition home or self-care (01) ==
LOC: HO.CT 14:51
PROVIDERS: PCP Internal Medicine; Visit Provider Hospitalist
DX: R93.89 Abnormal findings on diagnostic imaging of other specified body structures (principal); R91.8 Other nonspecific abnormal finding of lung field
CPT/HCPCS: 71250

== ENCOUNTER 2022-09-14 15:14 | Outpatient (AMB) | payer MEDICARE, MEDICAID, SELFPAY ==
[2022-09-14 15:32] VITALS: BP 118/60; PULSE 75; O2SAT 96; BMI 28.7
--- NOTE | 2022-09-14 15:32 | A.OFFVIS_ITS ---
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 He was followed at [facility] for many years. Apparently the last CT scan at [facility] was back in 2017 were demonstrated multiple pulmonary nodules indeed he had a new left upper lobe pulmonary nodule. The patient also had extensive upper lobe emphysema. He has subsequently moved a and did not follow up further. Back in early March 2021 the patient developed bad acute respiratory failure he was diagnosed with COVID- 19. He had a CTA demonstrating extensive airspace disease bilaterally. He was hospitalized for. Was treated appropriately and subsequently discharged. His last chest x-ray was done back in October 2021 demonstrating persistent airspace disease. On a evidence of potential scarring and decreased lung volumes. The patient was recommended to get a CT scan. He continues to have shortness of breath with activity. Pjrh-go-ahfxgyec severity. He does have her inhaler that helps him. He does use Combivent. Sometimes he gets a little tremulous with it. Will go ahead and request a CT scan of the chest to follow up with the abnormal findings in addition to that will go ahead and request pulmonary function studies. 09/14/2022 the patient is here for a pulmonary follow-up visit. Overall the patient has been doing well. He does complaint of shortness of breath with activity. Mild in severity. Also has an intermittent cough. As far as inhalers he does have a Combivent inhaler that he uses couple times a day. He also has a short-acting beta agonist that he uses about twice a week. He is not on any other inhalers. Will hold off on changing his regimen since this appears to be working for him. We should repeat his PFTs next year also in July. He recently had a CT scan of the chest that we personally reviewed. His pulmonary nodules appear to be stable which is reassuring. The patient does have extensive emphysema primarily in the upper lung zones. The rest of the lungs are preserved. He also has some coronary calcifications. He no longer smoking. He quit about 25 years ago. the patient also has evidence of some scarring and some ground-glass opacities. Likely residual from a previous infection could have been COVID. Clinically the patient is doing well on this is likely printout. Will go ahead and follow-up july after his repeat CT scan. [facility] Medical History Abnormal chest x-ray Anxiety and depression Asthma Benign prostatic hyperplasia Chronic obstructive pulmonary disease (COPD) Impaired fasting glucose Overweight (BMI 25.0-29.9) Prostate atrophy Pulmonary nodules Pure hypercholesterolemia Vitamin D deficiency Surgical History H/O cervical spine surgery H/O knee surgery History of ear surgery Social History Household Members: Family Housing: Apartment Do you presently have visiting nurse or other home services: No Alcohol intake: never Patient Tobacco Use Status: Former Tobacco user e-Cigarette/Vaping Use: Never Used Second Hand Smoke Exposure: No Advance Directives Date on File: 03/11/21 service: No Current occupational status: unemployed and retired Cognitive needs: No Hearing needs: Yes Vision needs: Yes Review of Systems Const Denies fatigue, Denies fever(s) and Denies headache(s) ENT Reports dysphagia (sometimes chokes when drinking liquids), Denies dizziness, Denies otalgia, Denies headache(s) and Denies sore throat Card Denies chest pain, Denies palpitations and Reports dyspnea on exertion Resp Denies chest congestion, Reports cough (occasional, non-productive), Reports dyspnea on exertion and Denies wheezing GI Denies abdominal pain, Denies constipation, Reports dysphagia (sometimes chokes when drinking liquids), Denies heartburn, Denies diarrhea, Denies nausea and Denies vomiting Denies dysuria, Denies nocturia and Denies urinary frequency Skin/Breast Reports pruritus (frequent, generalized) and Reports rash (recurrent; more recently over his right lower leg) Neuro Denies dizziness and Denies headache(s) Psych Reports anxiety and Reports depression Endo Denies fatigue and Denies palpitations Aller/Immun Denies wheezing Physical Exam Vital Signs: Last Vital Signs Pulse 75 09/14/22 15:32 BP 118/60 09/14/22 15:32 Pulse Ox 96 09/14/22 15:32 Oxygen Delivery Method Room Air 09/14/22 15:32 BMI result Body Mass Index 28.7 Const General: cooperative, no acute distress, alert and awake Orientation/consciousness: oriented to person and oriented to place Limitations: no limitations HEENT Head: Yes normal to inspection, Yes normocephalic and Yes atraumatic Ears: external ears normal General nose exam: Normal external nose present Face and sinus: Yes normal facial exam Mouth: Normal oral and palatal mucosa present Throat: Yes posterior oropharynx normal Eyes General: appearance normal, both eyes and all related structures Periorbital: periorbital findings normal Eyelids: Yes eyelids normal Conjunctivae: conjunctivae normal Sclerae: sclerae normal Corneas: corneas normal Pupils: Equal, round and reactive pupils present Direct Ophthalmoscopy: normal light reflex Neck Neck: Yes normal visual inspection and Yes supple Lymphatic: no lymphadenopathy noted Chest Chest palpation & inspection: normal inspection of the chest and normal palpation of entire chest wall Resp Effort & Inspection: normal respiratory effort, abnormal respiratory pattern, no audible wheezes and no respiratory distress Auscultation: clear to auscultation bilaterally, no crackles, no rales, no rhonchi and no wheezes Cardio Rate: regular rate Rhythm: regular rhythm Heart sounds: S1 normal heart sound present, S2 normal heart sound present and Murmur heart sound present GI Inspection: No distended Palpation (GI): Soft to palpation, nontender, no guarding and No hepatosplenomegaly present Auscultation: normal bowel sounds General: Yes no CVA tenderness Back/Spine/Pelvis Back: no CVA tenderness Skin General skin exam: no rashes or lesions noted Lesions: no lesions Rashes: no rashes Wounds: no wounds Neuro General: oriented to person and oriented to place Cranial nerves: Yes CN's II-XII intact bilaterally and Yes Equal, round and reactive pupils present Cognition (Neuro): normal cognition Motor exam (neuro): /5 motor strength present throughout Extrem General: Yes normal to inspection, Yes full ROM, Yes no pedal edema and Yes no calf tenderness Psych Appearance: grossly normal Mental Status: mental status grossly normal Speech and movement: Clear speech present Affect: normal affect Attitude: cooperative Thought process: Normal thought process present Thought content: Normal thought content present Assessment & Plan Assessment & Plan (1) Chronic obstructive pulmonary disease (COPD): Code(s): J44.9 - Chronic obstructive pulmonary disease, unspecified Qualifiers: COPD type: emphysema Emphysema type: centrilobular Qualified Code(s): J43.2 - Centrilobular emphysema (2) Abnormal chest x-ray: Code(s): R93.89 - Abnormal findings on diagnostic imaging of other specified body structures (3) Pulmonary nodules: Code(s): R91.8 - Other nonspecific abnormal finding of lung field Plan continue combivent VINICIUS as needed CT chest in July 2023 PFTs July 2023 F/U July 2023 Orders: Orders CT chest wo IV con 07/09/23 R91.8 - Other nonspecific abnormal finding of lung field PFT pulmonary function test 07/09/23 R91.8 - Other nonspecific abnormal finding of lung field Coding Level of Care Code Est Pt Level 4 (12469) Diagnoses Chronic obstructive pulmonary disease (COPD) J43.2 COPD type: emphysema Emphysema type: centrilobular Abnormal chest x-ray R93.89 Pulmonary nodules R91.8 Time Spent (min) 19
== END 2022-09-15 09:51 | disposition home or self-care (01) ==
PROVIDERS: PCP Internal Medicine; Visit Provider Hospitalist
DX: J43.2 Centrilobular emphysema (principal); R93.89 Abnormal findings on diagnostic imaging of other specified body structures; R91.8 Other nonspecific abnormal finding of lung field
CPT/HCPCS: 99214

== ENCOUNTER → 2022-09-14 15:14 | Outpatient (BNVA) | payer MEDICARE, MEDICAID, SELFPAY | PROVIDERS: PCP Internal Medicine; Visit Provider Hospitalist | DX: J43.2 Centrilobular emphysema (principal); R91.8 Other nonspecific abnormal finding of lung field; R39.89 Other symptoms and signs involving the genitourinary system; Z79.899 Other long term (current) drug therapy | CPT/HCPCS: 99212 ==

== ENCOUNTER 2022-10-27 14:07 | Outpatient (REF) | payer MEDICARE, MEDICAID, SELFPAY ==
--- NOTE | 2022-10-27 14:50 | PFT_ITS ---
INDICATION: Dyspnea. SPIROMETRY: FEV to FVC of 77% with an FEV1 of 3.29 L, which is 92% predicted, FVC of 4.27 L, which is 93% predicted. No significant response to bronchodilator is noted. Maximum voluntary ventilation is 77% predicted. LUNG VOLUMES: Total lung capacity 89% predicted with an expiratory reserve volume of 27% predicted. DIFFUSION CAPACITY: DLCO 72% predicted. COMPARISONS: None. INTERPRETATION: No obstructive nor restrictive ventilatory defects identified. No significant response to bronchodilators noted. There is a mild decrease in maximum voluntary ventilation secondary to likely deconditioning. Lung volumes within normal limits except for decrease in the expiratory reserve volume secondary to an elevated BMI. The patient does have a mild diffusion impairment. Should correct for hemoglobin. Clinical correlation warranted. MD CORAL Martinez/MODSusy / [phone]
== END 2022-10-27 14:08 | disposition home or self-care (01) ==
LOC: HO.RESP 14:07
PROVIDERS: PCP Internal Medicine; Visit Provider Hospitalist
DX: R93.89 Abnormal findings on diagnostic imaging of other specified body structures (principal)
CPT/HCPCS: 94010; 94727; 94729

== ENCOUNTER → 2022-10-27 14:50 | Outpatient (BNV) | payer MEDICARE, MEDICAID, SELFPAY | PROVIDERS: PCP Internal Medicine; Visit Provider Hospitalist | DX: J44.9 Chronic obstructive pulmonary disease, unspecified (principal) | CPT/HCPCS: 94060; 94727; 94729 ==

== ENCOUNTER 2022-12-15 15:34 | Outpatient (REF) | payer MEDICARE, MEDICAID, SELFPAY ==
[2022-12-15 15:52] LABS: MANUAL DIFF FLAG NO
[2022-12-15 16:34] LABS: Basophils Percent Auto 0.6 % (0-2); Eosinophils Absolute Auto 0.1 X10*3/uL (0.0-0.4); Eosinophils Percent Auto 1.3 % (0-4); Hematocrit 42.3 % (42.0-52.0); Hemoglobin 13.8 g/dl (14.0-18.0); Imm Gran Abs Auto 0.01 X10*3/uL (0.00-0.03); Imm Gran Pct Auto 0.2 % (0.0-0.4); Lymphocytes Absolute Auto 1.4 X10*3/uL (1.2-4.9); Lymphocytes Percent Auto 21.1 % (20-40); Mean Corpuscular HGB Conc 32.6 g/dl (31.0-36.0); Mean Corpuscular Hemoglobin 30.6 pg (27.0-33.0); Mean Corpuscular Volume 93.8 fL (80.0-98.0); Mean Platelet Volume 11.5 fL (9.4-12.4); Monocytes Absolute Auto 0.4 X10*3/uL (0.1-1.2); Monocytes Percent Auto 6.9 % (2-11); Neutrophils Absolute Auto 4.5 x10*3/uL (2.0-8.3); Neutrophils Percent Auto 69.9 % (45-73); Platelet Count 215 X10*3/uL (160-400); Red Blood Count 4.51 X10*6/uL (4.60-5.80); Red Cell Distribution Width 13.2 % (11.0-16.0); White Blood Count 6.4 X10*3/uL (4.8-10.8)
[2022-12-15 16:37] LABS: Appearance Urine Clear; Color Urine Yellow; Glucose Urine UA Negative (Negative); Leukocyte Esterase Urine Negative (Negative); Nitrite Urine Negative (Negative); PH 5.5 (5.0-9.0); Specific Gravity - Urine 1.025 (1.005-1.025); Urine Blood Negative (Negative); Urine Ketones Negative (Negative); Urine Protein Negative (Neg-Trace)
[2022-12-15 17:03] LABS: Alanine Aminotransferase 45 U/L (0-40); Albumin Level 4.4 g/dL (3.5-5.0); Alkaline Phosphatase 60 U/L (39-117); Anion Gap 14 (12-20); Aspartate Amino Transferase 30 U/L (5-37); Bilirubin Total 0.6 mg/dL (0.0-1.0); Blood Urea Nitrogen 21 mg/dL (9-16); Calcium 9.1 mg/dL (8.4-10.2); Carbon Dioxide 26 mmol/L (22-29); Chloride 107 mmol/L (96-108); Cholesterol 153 mg/dL (<200); Estimated Glomerular Filt Rate > 60; Glucose Fasting 86 mg/dL (60-99); HDL Cholesterol 54 mg/dL (>40); LDL Cholesterol Calculated 57 mg/dL (<100); Potassium 3.8 mmol/L (3.3-5.1); Sodium 143 mmol/L (135-145); Triglycerides 212 mg/dL (<150)
[2022-12-15 17:14] LABS: TSH reflex Free T4 1.02 uIU/mL (0.32-4.0); Vitamin D 25-OH Total 32.6 ng/mL (>30)
== END 2022-12-15 15:35 | disposition home or self-care (01) ==
LOC: HO.LAB 15:34
PROVIDERS: PCP Internal Medicine; Visit Provider Internal Medicine
DX: R30.0 Dysuria (principal); E55.9 Vitamin D deficiency, unspecified; E78.00 Pure hypercholesterolemia, unspecified; I10 Essential (primary) hypertension
CPT/HCPCS: 36415; 80053; 80061; 81003; 82306; 84443; 85025

== ENCOUNTER 2022-12-19 16:50 | Outpatient (AMB) | payer MEDICARE, MEDICAID, SELFPAY ==
[2022-12-19 16:52] VITALS: BP 110/82; PULSE 84; O2SAT 96; BMI 27.4
--- NOTE | 2022-12-19 16:52 | A.OFFPC_ITS ---
Vital Signs 12/19/22 16:52 Height 5 ft 11 in Weight 196 lb 6 oz BMI 27.4 BP 110/82 Blood Pressure Location Lt brachial Position Sitting Pulse 84 Pulse Source Pulse Oximeter Pulse Oximetry (%) 96 Oxygen Delivery Method Room Air Intake Visit Reasons: 4 month f/u E Learning Manager Required: No Accompanied by: Self / Same As Patient Allergies grass pollen Allergy (Unknown, Verified 12/19/22 17:12) positive allergy test latex [LATEX] Allergy (Unknown, Verified 12/19/22 17:12) UNKNOWN Latex, Natural Rubber Allergy (Unknown, Verified 12/19/22 17:12) Itching morphine [MORPHINE] Adverse Reaction (Mild, Verified 12/19/22 17:12) SENSATION OF HEAT/WARMTH environmental Allergy (Unknown, Uncoded 12/19/22 17:12) Dry Eye Medication List - Last Reconciled 12/19/22 by Earnest Lucio MD albuterol sulfate 90 mcg/actuation (ProAir HFA) 2 puffs inhalation QID PRN 30 days atorvastatin 10 mg PO BEDTIME 90 days cholecalciferol (vitamin D3) 50 mcg PO DAILY 90 days ipratropium-albuterol 20-100 mcg/actuation (Combivent Respimat) 1 puff inhalation QID 30 days sertraline 25 mg PO DAILY 30 days tamsulosin 0.4 mg PO BEDTIME Tobacco use date assessed: 12/19/22 Fall risk assessment: No Falls in past year Last assessed Fall Risk: 12/19/22 Dental Screening Dental Screen Date: 12/19/22 Did you have a dental visit in the last 12 months?: Yes Did you have a dental problem in the last 6 months where you did not have access to dental care?: No Was dental information given to patient?: Patient has dentist HPI 4 month f/u HPI Details Patient comes in today for his follow up visit States that he feels okay He denies any headaches or dizziness Denies any chest pains, no SOB No nausea/vomiting, no abdominal pain No change in bowel habits noted Had his follow up labs done a few days ago - to discuss his results He is also now scheduled for his repeat colonoscopy on 01/04/2023 [facility] Medical History Abnormal chest x-ray Anxiety and depression Chronic obstructive pulmonary disease (COPD) Impaired fasting glucose Vitamin D deficiency Pure hypercholesterolemia Overweight (BMI 25.0-29.9) Benign prostatic hyperplasia Pulmonary nodules Asthma Prostate atrophy Surgical History H/O cervical spine surgery History of ear surgery H/O knee surgery Social History Household Members: Family Housing: Apartment Do you presently have visiting nurse or other home services: No Alcohol intake: never Patient Tobacco Use Status: Former Tobacco user e-Cigarette/Vaping Use: Never Used Second Hand Smoke Exposure: No Advance Directives Date on File: 03/11/21 service: No Current occupational status: unemployed and retired Cognitive needs: No Hearing needs: Yes Vision needs: Yes Questionnaire PHQ-9 Over the last 2 weeks, how often have you been bothered by any of the following problems? 1. Little interest or pleasure in doing things: several days 2. Feeling down, depressed, or hopeless: several days 3. Trouble falling or staying asleep, or sleeping too much: several days 4. Feeling tired or having little energy: not at all 5. Poor appetite or overeating: not at all 6. Feeling bad about yourself - or that you are a failure or have let yourself or your family down: not at all 7. Trouble concentrating on things, such as reading the newspaper or watching television: not at all 8. Moving or speaking so slowly that other people could have noticed. Or the opposite - being so fidgety or restless that you have been moving around a lot more than usual: not at all 9. Thoughts that you would be better off or of hurting yourself in some way: not at all Total score: 3 Depression Screening Interpretation: Positive Depression Screening Follow-up: Existing condition and In treatment Depression Screening Done: Yes 44269 - PHQ-9 Billing: Yes Source: Developed by Drs. Nader Madera, Gabrielle Contreras, Brock Kahn and colleagues, with an educational jo from [employer]. Thrive Questionnaire Date Thrive assessed: 12/19/22 I am a: Patient What is your living situation today?: I have a steady place to live Within the past 12 months, did the food you bought not last and you didn't have the money to get more?: Never true Within the past 12 months, did you worry whether your food would run out before you got money to buy more?: Never true Do you have trouble paying for medicines?: No Do you have trouble getting transportation to medical appointments?: No Do you have trouble paying your heating and electricity bill?: No Do you have trouble taking care of your child, family member or friend?: No Do you have trouble with day-to-day activities such as bathing, preparing meals, shopping, managing finances, etc.?: No Are you currently unemployed and looking for a job?: No Are you interested in more education?: No Please select the resources that you would like help with: None Currently or been in a relationship where the following occur: no concerns reported AUDIT C Alcohol Use Questionnaire (AUDIT-C) 1. How often do you have a drink containing alcohol?: Monthly or less 2. How many drinks containing alcohol do you have on a typical day when you are drinking?: 3 or 4 3. How often do you have six or more drinks on one occasion?: Never Total Score: 2 Score Reviewed/Action Taken: Yes CALOS-7 AMB Questionnaire CALOS-7 Date CALOS - 7 assessed: 12/19/22 Feeling nervous, anxious, or on edge: 0 = Not at all Not being able to stop or control worryin = Not at all Worrying too much about different things: 0 = Not at all Trouble relaxin = Not at all Being so restless that it is hard to sit still: 0 = Not at all Becoming easily annoyed or irritable: 0 = Not at all Feeling afraid as if something awful might happen: 0 = Not at all Total CALOS-7 score (0-4 normal; 5-9 mild; 10-14 moderate; 15-21 severe): 0 Source: Developed by Drs. Nader Madera, Gabrielle Contreras, Brock Kahn and colleagues, with an educational jo from [employer]. Review of Systems Const Denies fatigue, Denies fever(s) and Denies headache(s) ENT Reports dysphagia (sometimes chokes when drinking liquids), Denies dizziness, Denies otalgia, Denies headache(s), Denies odynophagia and Denies sore throat Card Denies chest pain, Denies palpitations and Reports dyspnea on exertion (mild) Resp Denies chest congestion, Reports cough (occasional, non-productive), Reports dyspnea on exertion (mild) and Denies wheezing GI Denies abdominal pain, Denies constipation, Reports dysphagia (sometimes chokes when drinking liquids), Denies heartburn, Denies diarrhea, Denies nausea, Denies odynophagia and Denies vomiting Denies dysuria, Denies nocturia and Denies urinary frequency Musc Denies back pain Skin/Breast Reports rash (recurrent) Neuro Denies dizziness and Denies headache(s) Psych Reports anxiety and Reports depression Endo Denies fatigue and Denies palpitations Aller/Immun Denies wheezing Physical exam (Primary Care) Vital Signs: Last Vital Signs Pulse 84 12/19/22 16:52 BP 110/82 12/19/22 16:52 Pulse Ox 96 12/19/22 16:52 Oxygen Delivery Method Room Air 12/19/22 16:52 BMI result Body Mass Index 27.4 Tobacco/Smoking Status: Tobacco use Status Tobacco use date assessed 12/19/22 12/19/22 16:58 Patient Tobacco Use Status Former Tobacco user 12/19/22 16:58 e-Cigarette/Vaping Use Never Used 12/19/22 16:58 PHQ-9: PHQ-9 Score PHQ-9: Total score 3 12/19/22 17:16 Depression Screening Interpretation: Positive Depression Screening Follow-up: Existing condition and In treatment Thrive Assessment: Date of Thrive Assessment Date Thrive assessed 12/19/22 12/19/22 16:58 Currently or been in a relationship where the following occur: no concerns reported Const General: no acute distress and alert HENMT Ears: TM's normal bilaterally and EAC's normal Throat: Yes posterior oropharynx normal and Yes tonsils normal (no TP congestion) Neck Neck: Yes no lymphadenopathy and Yes supple Resp Auscultation: no rales, no wheezes and diminished lung sounds (slightly) bilateral Cardio Rate: regular rate Rhythm: regular rhythm Heart sounds: no murmurs GI Palpation (GI): Soft to palpation and nontender Auscultation: normal bowel sounds Skin Rashes: no rashes Extrem General: Yes no clubbing, cyanosis or edema Results Reviewed Results Reviewed: Laboratory Tests 12/15/22 12/15/2223 15:51 15:51 15:55 WBC 6.4 Hgb 13.8 L Hct 42.3 Plt Count 215 Sodium 143 Potassium 3.8 D Creatinine 1.01 Estimated GFR > 60 Fasting Glucose 86 Calcium 9.1 AST 30 ALT 45 H Triglycerides 212 H Cholesterol 153 LDL Cholesterol, Calc 57 HDL Cholesterol 54 25-OH Vitamin D Total 32.6 TSH 1.02 Ur Specific [place] 1.025 Urine Protein Negative Urine Glucose (UA) Negative Urine Blood Negative Assessment and Plan Assessment & Plan (1) Pure hypercholesterolemia: Code(s): E78.00 - Pure hypercholesterolemia, unspecified Plan: Results of his labs done a few days ago reviewed and discussed with patient - his lipids have improved significantly from previous although his serum triglyceride level has increased recently Reinforced low cholesterol diet Continue Atorvastatin 10 mg QD Will recheck his labs and fasting lipids in 4 months for follow up (2) Chronic obstructive pulmonary disease (COPD): Code(s): J44.9 - Chronic obstructive pulmonary disease, unspecified Qualifiers: COPD type: emphysema Emphysema type: centrilobular Qualified Code(s): J43.2 - Centrilobular emphysema Plan: Chest CT done back on 07/04/22 revealed (+) centrilobular emphysema with ground glass scarring in both upper lobes; a 4 mm noncalcified nodule is noted at the right upper lobe, likely a granuloma States that his chest/lung symptoms have been stable lately - uses his inhalers with (+) relief of his symptoms even though his PFT showed no significant bronchodilator response Continue Combivent Respimat 20-100 mcg 1 inhalation QID and Albuterol HFA 2 inhalations every 6 hours as needed PFTs done a couple of months ago revealed no obstructive nor restrictive ventilatory defects identified and no significant response to bronchodilators noted. There is a mild decrease in maximum voluntary ventilation secondary to likely deconditioning. Lung volumes are within normal limits except for decrease in the expiratory reserve volume secondary to an elevated BMI. Follow up with pulmonary as scheduled (3) Pulmonary nodules: Code(s): R91.8 - Other nonspecific abnormal finding of lung field Plan: Nodules were seen on previous chest CT and chest x-rays A more recent chest x-ray revealed (+) bilateral pulmonary nodules probably representing calcified granulomas Was referred for thoracic surgery evaluation last year but patient states that he has not been contacted or scheduled for appt Follow up with pulmonary as scheduled (4) Vitamin D deficiency: Code(s): E55.9 - Vitamin D deficiency, unspecified Plan: Continue Vitamin D3 2000 units QD (5) Impaired fasting glucose: Code(s): R73.01 - Impaired fasting glucose Plan: HgbA1c was at 6.2% when checked a few months ago Reinforced low calorie diet/exercise as tolerated (6) Eczema: Code(s): L30.9 - Dermatitis, unspecified Qualifiers: Eczema type: unspecified Qualified Code(s): L30.9 - Dermatitis, unspecified Plan: Continue Hydroxyzine 25 mg TID PRN for rash/ itching Continue Triamcinolooe 0.1% cream apply to rash TID PRN Follow-up with dermatology as scheduled (7) Anxiety and depression: Code(s): F41.9 - Anxiety disorder, unspecified; F32.A - Depression, unspecified Plan: Patient used to see psychiatry and goes to therapy at the [facility] in [place] regularly but stopped going a while back as he got tired of seeing and talking to a different therapist every time he goes there States that the psychiatrists there also tend to change often as they move on after a year or two States that he has been doing well since he was started on Sertraline 25 mg QD a few months ago - to continue on the same dose for now (8) Overweight (BMI 25.0-29.9): Code(s): E66.3 - Overweight Plan: Reinforced diet/exercise as tolearted/lose weight Plan Follow up in 4 months Orders: Orders Lipid Panel 4 Months E78.00 - Pure hypercholesterolemia, unspecified UA CC w/rflx Micro + Cult 4 Months R30.0 - Dysuria Hemoglobin A1c 4 Months R73.01 - Impaired fasting glucose Comprehensive [place]. Panel Fast 4 Months E78.00 - Pure hypercholesterolemia, unspecified Complete Blood Count Auto Diff 4 Months I10 - Essential (primary) hypertension Vitamin D 25-OH Total 4 Months E55.9 - Vitamin D deficiency, unspecified Coding Level of Care Code Est Pt Level 4 (30032) Diagnoses Pure hypercholesterolemia E78.00 Centrilobular emphysema J43.2 COPD type: emphysema Emphysema type: centrilobular Pulmonary nodules R91.8 Vitamin D deficiency E55.9 Impaired fasting glucose R73.01 Eczema, unspecified type L30.9 Eczema type: unspecified Anxiety and depression F41.9; F32.A Overweight (BMI 25.0-29.9) E66.3
== END 2022-12-19 17:22 | disposition home or self-care (01) ==
PROVIDERS: PCP Internal Medicine; Visit Provider Internal Medicine
DX: E78.00 Pure hypercholesterolemia, unspecified (principal); J43.2 Centrilobular emphysema; R91.8 Other nonspecific abnormal finding of lung field; E55.9 Vitamin D deficiency, unspecified; R73.01 Impaired fasting glucose; L30.9 Dermatitis, unspecified; F41.9 Anxiety disorder, unspecified; F32.A Depression, unspecified; E66.3 Overweight
CPT/HCPCS: 99214

== ENCOUNTER → 2023-01-05 15:52 | Outpatient (BNVA) | payer MEDICARE, MEDICAID, SELFPAY | PROVIDERS: PCP Internal Medicine; Visit Provider Nurse Practitioner Family ==

== ENCOUNTER 2023-02-03 07:08 | Emergency (ER) | payer MEDICARE, MEDICAID, SELFPAY ==
[2023-02-03 07:16] VITALS: BP 139/74; PULSE 70; RESP 20; TEMP 36.4; O2SAT 97; BMI 28.0
--- NOTE | 2023-02-03 08:55 | PC.NURSE ---
patient a&ox3, pt was updated as to the wait to be seen by provider, pt then stated he isnt waiting any longer got dressed and asked for this nurse to open the doors for him, this nurse opened the doors and notified the charge nurse that the patient left.
== END 2023-02-03 09:00 | disposition left against medical advice (07) ==
PROVIDERS: Emergency Provider Emergency Medicine; PCP Internal Medicine
DX: M79.605 Pain in left leg (principal); Z53.21 Procedure and treatment not carried out due to patient leaving prior to being seen by health care provider
CPT/HCPCS: 99281

== ENCOUNTER 2023-03-28 08:25 | Outpatient (REF) | payer MEDICARE, MEDICAID, SELFPAY ==
--- NOTE | ~2023-03-28 | FL_ITS ---
EXAMINATION: FL BARIUM SWALLOW CLINICAL INFORMATION: Dysphagia COMPARISON: None TECHNIQUE: Fluoroscopic air contrast upper GI examination was performed utilizing standard techniques with thin and thick barium and effervescent granules. Numerous spot images were obtained. FINDINGS: Status post C6/C7 discectomy Lateral cine images of the oropharynx and hypopharynx demonstrate normal swallow mechanism with normal epiglottic inversion and soft palate elevation. There is trace laryngeal penetration with the thick barium. No tracheal penetration, glottic or subglottic aspiration identified. No nasopharyngeal reflux present. Hypopharyngeal structures appear normal without evidence of mass or diverticulum. There was no significant cricopharyngeal achalasia. Dual and single contrast images of the esophagus demonstrate normal caliber, contour, and mucosal pattern. No evidence of stricture, mass, or ulcerations identified. Primary esophageal peristalsis was normal. Mild disorganized tertiary contractions are noted in the lower esophagus. No evidence of hiatus hernia identified. No significant gastroesophageal reflux was seen during the course of the examination and on reflux views. FLUOROSCOPY TIME: 3 minutes 34 seconds Number of Spot Images: 5 Number of Cine: 7 DOSE AREA PRODUCT: [id number] uGy-m2 (microgray-meter squared) FL/FL barium swallow IMPRESSION: 1. Trace laryngeal penetration with thick barium. 2. Mildly disorganized esophageal peristalsis. 3. Status post C6/C7 discectomy and anterior fusion. This procedure was performed by Sandro Ramos PA-C, and supervised by Dr. Vizcaino
--- NOTE | ~2023-03-28 | XR_ITS ---
EXAMINATION: XR SOFT TISSUE NECK CLINICAL INDICATION: Dysphagia. COMPARISON: CT soft tissues neck dated 09/01/2012. TECHNIQUE: 2 views of the soft tissue neck were obtained. FINDINGS: Soft tissue films of the neck demonstrate a normal larynx, pharynx and upper trachea. No soft tissue swelling or opaque foreign body is demonstrated. XR/XR soft tissue neck IMPRESSION: Unremarkable examination.
== END 2023-03-28 08:26 | disposition home or self-care (01) ==
LOC: HO.XRAY 08:25
PROVIDERS: PCP Internal Medicine; Visit Provider Nurse Practitioner Family
DX: R13.10 Dysphagia, unspecified (principal)
CPT/HCPCS: 70360; 74220

== ENCOUNTER → 2023-03-28 08:27 | Outpatient (BNV) | payer MEDICARE, MEDICAID, SELFPAY | PROVIDERS: PCP Internal Medicine; Visit Provider Radiology Diagnostic Radiology | DX: R13.10 Dysphagia, unspecified (principal) | CPT/HCPCS: 74221 ==

== ENCOUNTER 2023-04-13 15:26 | Outpatient (AMB) | payer MEDICARE, MEDICAID, SELFPAY ==
--- NOTE | 2023-04-13 15:35 | A.OFFVIS_ITS ---
Intake Vital Signs 04/13/23 15:40 Height 5 ft 11 in BP 132/66 Blood Pressure Location Lt brachial Position Sitting Pulse 75 Intake Visit Reasons: follow up Intake Note: Pt c/o; reports if drinks water or soda has to scratch his throat, reports is on one round of PCN and Motrin from tooth infection. 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 Campaign Manager Required: No Accompanied by: Spouse Allergies grass pollen Allergy (Unknown, Verified 04/13/23 15:42) positive allergy test latex [LATEX] Allergy (Unknown, Verified 04/13/23 15:42) UNKNOWN Latex, Natural Rubber Allergy (Unknown, Verified 04/13/23 15:42) Itching morphine [MORPHINE] Adverse Reaction (Mild, Verified 04/13/23 15:42) SENSATION OF HEAT/WARMTH environmental Allergy (Unknown, Uncoded 04/13/23 15:42) Dry Eye HPI follow up HPI Details LAST VISIT: Screen for colon cancer Dysphagia Plan Patient will be sent for barium swallow, will send him for soft tissue neck x- ray in 6 weeks to discuss colonoscopy and upper endoscopy. If acid reflux he will be started on PPI. Patient is agreeable to plan of care and verbalizes understanding of instructions. He was given the opportunity to ask questions and all questions answered. ? Thank you for allowing me to participate in his care Orders Orders FL barium swallow 01/05/23 R13.10 XR soft tissue neck 01/05/23 R13.10 TODAY'S VISIT Patient is here today for follow-up, to discuss x-ray and barium swallow results as well as discuss going for colonoscopy and possible endoscopy. Disorganized esophageal peristalsis and trace laryngeal penetration with tick barium noted. Patient continues to have trouble swallowing certain food. No episodes of choking. Patient reports feeling scratchy throat any time he drink soda or even water. Patient does have lot of allergies. Environmental allergies including grass pollen. Patient seen library science professor in the past. Patient reports occasional dyspepsia. Currently patient is not on any PPI. Tries to control symptoms with food. Patient agrees to go for endoscopy as long as it is going to be done the same day as colonoscopy. Patient denies any issues with anesthesia in the [facility] t. No history of sleep apnea. Currently patient is not on any anticoagulation medication. Patient denies any family history of CRC. Patient denies any respiratory or cardiac symptoms. [facility] Medical History Abnormal chest x-ray Anxiety and depression Chronic obstructive pulmonary disease (COPD) Impaired fasting glucose Vitamin D deficiency Pure hypercholesterolemia Overweight (BMI 25.0-29.9) Benign prostatic hyperplasia Pulmonary nodules Asthma Prostate atrophy Surgical History H/O cervical spine surgery History of ear surgery H/O knee surgery Social History Household Members: Family Housing: Apartment Do you presently have visiting nurse or other home services: No Alcohol intake: never Patient Tobacco Use Status: Former Tobacco user e-Cigarette/Vaping Use: Never Used Second Hand Smoke Exposure: No Advance Directives Date on File: 03/11/21 service: No Current occupational status: unemployed and retired Cognitive needs: No Hearing needs: Yes Vision needs: Yes Review of Systems Const Denies weight gain and Denies weight loss ENT Reports no additional complaints, Reports dysphagia and Denies odynophagia Card Reports no additional complaints Resp Reports no additional complaints GI Denies abdominal pain, Denies belching, Denies melena, Denies bloating, Denies change in bowel habits, Reports dysphagia, Denies excessive flatus, Reports dyspepsia, Reports heartburn, Denies diarrhea, Denies loose stools, Denies nausea, Denies odynophagia and Denies vomiting Reports no additional complaints Musc Reports no additional complaints Neuro Reports no additional complaints Psych Reports no additional complaints Endo Reports no additional complaints Physical Exam Vital Signs: Last Vital Signs Pulse 75 04/13/23 15:40 BP 132/66 04/13/23 15:40 Const General: healthy appearing, no acute distress and well developed Nutritional Appearance: well nourished Orientation/consciousness: patient oriented x3 Resp Effort & Inspection: normal respiratory effort, able to speak in complete sentences, no tracheal deviation and symmetric chest movement Auscultation: clear to auscultation bilaterally Cardio Rate: regular rate GI Inspection: Yes normal to inspection and No distended Palpation (GI): Soft to palpation, not firm, nontender and No hepatosplenomegaly present Auscultation: normal bowel sounds General: Yes no CVA tenderness Back/Spine/Pelvis Back: no CVA tenderness Skin General skin exam: elasticity normal, turgor normal and dry skin Neuro General: patient oriented x3 Psych Appearance: grossly normal Mental Status: mental status grossly normal Results Reviewed Results Reviewed: X-ray of soft tissue neck FINDINGS: Soft tissue films of the neck demonstrate a normal larynx, pharynx and upper trachea. No soft tissue swelling or opaque foreign body is demonstrated. Barium swallow FINDINGS: Status post C6/C7 discectomy Lateral cine images of the oropharynx and hypopharynx demonstrate normal swallow mechanism with normal epiglottic inversion and soft palate elevation. There is trace laryngeal penetration with the thick barium. No tracheal penetration, glottic or subglottic aspiration identified. No nasopharyngeal reflux present. Hypopharyngeal structures appear normal without evidence of mass or diverticulum. There was no significant cricopharyngeal achalasia. Dual and single contrast images of the esophagus demonstrate normal caliber, contour, and mucosal pattern. No evidence of stricture, mass, or ulcerations identified. Primary esophageal peristalsis was normal. Mild disorganized tertiary contractions are noted in the lower esophagus. No evidence of hiatus hernia identified. No significant gastroesophageal reflux was seen during the course of the examination and on reflux views. FLUOROSCOPY TIME: 3 minutes 34 seconds Number of Spot Images: 5 Number of Cine: 7 DOSE AREA PRODUCT: 1541 uGy-m2 (microgray-meter squared) FL/FL barium swallow IMPRESSION: 1. Trace laryngeal penetration with thick barium. 2. Mildly disorganized esophageal peristalsis. 3. Status post C6/C7 discectomy and anterior fusion. Assessment & Plan Assessment & Plan (1) Screen for colon cancer: Code(s): Z12.11 - Encounter for screening for malignant neoplasm of colon (2) Dysphagia: Code(s): R13.10 - Dysphagia, unspecified Qualifiers: Dysphagia type: pharyngoesophageal phase Qualified Code(s): R13.14 - Dysphagia, pharyngoesophageal phase Plan Please book patient for upper endoscopy and colonoscopy. As mentioned above in HPI disorganized esophageal peristalsis and trace laryngeal penetration with tick barium noted. Patient denies any respiratory or cardiac symptoms. No issues with anesthesia in the past. No history of sleep apnea. What to expect before during and after procedure discussed with patient. Good bowel prep and clear liquid diet day before procedure discussed with him. Patient will follow- up in the office after the procedure, sooner on as needed basis. Patient is agreeable to this plan and verbalizes understanding of instructions. She was given the opportunity to ask questions and all questions answered. Thank you for allowing me to participate in his care Medications: New bisacodyl (Dulcolax (bisacodyl)) take 4 tabs at noon the day before your colonoscopy 20 mg (4 x 5 mg) PO ONCE 1 day 4 tabs 0RF Z12.11 - Encounter for screening for malignant neoplasm of colon polyethylene glycol 3350 (Miralax) As directed by gastroenterology department at [facility] 238 grams PO ONCE 238 grams 0RF Z12.11 - Encounter for screening for malignant neoplasm of colon Coding Level of Care Code Est Pt Level 4 (02872) Diagnoses Screen for colon cancer Z12.11 Pharyngoesophageal dysphagia R13.14 Dysphagia type: pharyngoesophageal phase Time Spent (min) 35 Comment 25 minutes spent with patient and additional 10 minutes spent reviewing his records
[2023-04-13 15:40] VITALS: BP 132/66; PULSE 75
== END 2023-04-13 16:15 | disposition home or self-care (01) ==
PROVIDERS: PCP Internal Medicine; Visit Provider Nurse Practitioner Family
DX: R13.14 Dysphagia, pharyngoesophageal phase (principal); Z12.11 Encounter for screening for malignant neoplasm of colon
CPT/HCPCS: 99214

== ENCOUNTER → 2023-04-13 15:26 | Outpatient (BNVA) | payer MEDICARE, MEDICAID, SELFPAY | PROVIDERS: PCP Internal Medicine; Visit Provider Nurse Practitioner Family | DX: Z12.11 Encounter for screening for malignant neoplasm of colon (principal); R13.14 Dysphagia, pharyngoesophageal phase | CPT/HCPCS: 99212 ==

== ENCOUNTER 2023-04-23 14:58 | Outpatient (REF) | payer MEDICARE, MEDICAID, SELFPAY ==
[2023-04-23 15:09] LABS: MANUAL DIFF FLAG NO
[2023-04-23 16:16] LABS: Basophils Percent Auto 0.3 % (0-2); Eosinophils Absolute Auto 0.1 X10*3/uL (0.0-0.4); Eosinophils Percent Auto 1.6 % (0-4); Hematocrit 41.1 % (42.0-52.0); Hemoglobin 13.5 g/dl (14.0-18.0); Imm Gran Abs Auto 0.01 X10*3/uL (0.00-0.03); Imm Gran Pct Auto 0.2 % (0.0-0.4); Lymphocytes Absolute Auto 1.4 X10*3/uL (1.2-4.9); Lymphocytes Percent Auto 23.5 % (20-40); Mean Corpuscular HGB Conc 32.8 g/dl (31.0-36.0); Mean Corpuscular Hemoglobin 30.3 pg (27.0-33.0); Mean Corpuscular Volume 92.4 fL (80.0-98.0); Mean Platelet Volume 10.9 fL (9.4-12.4); Monocytes Absolute Auto 0.5 X10*3/uL (0.1-1.2); Monocytes Percent Auto 9.4 % (2-11); Neutrophils Absolute Auto 3.7 x10*3/uL (2.0-8.3); Platelet Count 197 X10*3/uL (160-400); Red Blood Count 4.45 X10*6/uL (4.60-5.80); Red Cell Distribution Width 13.2 % (11.0-16.0); White Blood Count 5.7 X10*3/uL (4.8-10.8)
[2023-04-23 16:16] LABS: Appearance Urine Clear; Color Urine Yellow; Glucose Urine UA Negative (Negative); Leukocyte Esterase Urine Negative (Negative); Nitrite Urine Negative (Negative); PH 6.5 (5.0-9.0); Urine Blood Negative (Negative); Urine Ketones Negative (Negative); Urine Protein Negative (Neg-Trace)
[2023-04-23 16:19] LABS: Estimated Average Glucose 123 mg/dL; Hemoglobin A1c % 5.9 % (<6.0)
[2023-04-23 17:02] LABS: Alanine Aminotransferase 24 U/L (0-40); Albumin Level 4.3 g/dL (3.5-5.0); Alkaline Phosphatase 58 U/L (39-117); Anion Gap 15 (12-20); Aspartate Amino Transferase 21 U/L (5-37); Bilirubin Total 0.4 mg/dL (0.0-1.0); Blood Urea Nitrogen 22 mg/dL (9-16); Calcium 9.1 mg/dL (8.4-10.2); Carbon Dioxide 25 mmol/L (22-29); Chloride 107 mmol/L (96-108); Cholesterol 177 mg/dL (<200); Estimated Glomerular Filt Rate 55; Glucose Fasting 93 mg/dL (60-99); HDL Cholesterol 50 mg/dL (>40); LDL Cholesterol Calculated 93 mg/dL (<100); Potassium 3.9 mmol/L (3.3-5.1); Sodium 143 mmol/L (135-145); Total Protein 6.9 g/dL (6.5-8.0); Triglycerides 174 mg/dL (<150)
[2023-04-23 17:17] LABS: Vitamin D 25-OH Total 27.5 ng/mL (>30)
== END 2023-04-23 14:59 | disposition home or self-care (01) ==
LOC: HO.LAB 14:58
PROVIDERS: PCP Internal Medicine; Visit Provider Internal Medicine
DX: E78.00 Pure hypercholesterolemia, unspecified (principal); E55.9 Vitamin D deficiency, unspecified; R30.0 Dysuria; R73.01 Impaired fasting glucose; I10 Essential (primary) hypertension
CPT/HCPCS: 36415; 80053; 80061; 81003; 82306; 83036; 85025

== ENCOUNTER 2023-04-24 16:56 | Outpatient (AMB) | payer MEDICARE, MEDICAID, SELFPAY ==
[2023-04-24 16:56] VITALS: BP 122/80; PULSE 72; O2SAT 98; BMI 27.8
--- NOTE | 2023-04-24 16:56 | MHC.PC.OV ---
Vital Signs 04/24/23 16:56 Height 5 ft 11 in Weight 199 lb 6 oz BMI 27.8 BP 122/80 Blood Pressure Location Lt brachial Position Sitting Pulse 72 Pulse Source Pulse Oximeter Pulse Oximetry (%) 98 Oxygen Delivery Method Room Air Intake Visit Reasons: hyperlipidemia, BPH Fireperson Required: No Accompanied by: Self / Same As Patient Allergies grass pollen Allergy (Unknown, Verified 04/24/23 17:19) positive allergy test latex [LATEX] Allergy (Unknown, Verified 04/24/23 17:19) UNKNOWN Latex, Natural Rubber Allergy (Unknown, Verified 04/24/23 17:19) Itching morphine [MORPHINE] Adverse Reaction (Mild, Verified 04/24/23 17:19) SENSATION OF HEAT/WARMTH environmental Allergy (Unknown, Uncoded 04/24/23 17:19) Dry Eye Medication List - Last Reconciled 04/24/23 by Earnest Lucio MD albuterol sulfate 90 mcg/actuation (ProAir HFA) 2 puffs inhalation QID PRN 30 days atorvastatin 10 mg PO BEDTIME 90 days bisacodyl (Dulcolax (bisacodyl)) 20 mg (4 x 5 mg) PO ONCE 1 day cholecalciferol (vitamin D3) 50 mcg PO DAILY 90 days ipratropium-albuterol 20-100 mcg/actuation (Combivent Respimat) 1 puff inhalation QID 30 days polyethylene glycol 3350 (Miralax) 238 grams PO ONCE sertraline 25 mg PO DAILY 30 days tamsulosin 0.4 mg PO BEDTIME Tobacco use date assessed: 04/24/23 Fall risk assessment: No Falls in past year Last assessed Fall Risk: 04/24/23 Dental Screening Dental Screen Date: 04/24/23 Did you have a dental visit in the last 12 months?: Yes Did you have a dental problem in the last 6 months where you did not have access to dental care?: No Was dental information given to patient?: Patient has dentist HPI hyperlipidemia, BPH HPI Details Patient comes in today for his follow up visit States that he has been experiencing increased pain over his left heel for the past 1 to 2 months Notes that his left heel pain feels worse when he puts his weight on his foot and when he is walking Patient does not recall any recent injury or trauma to his left foot States that he went to the ER yesterday for his increasing left heel pain but was told that there were no doctors available at the time so he ended up leaving without being seen He continues to have some difficulty / problems with swallowing Had a barium swallow done a few months ago that revealed some disorganized peristaltic activity in the esophagus He was seen for follow-up by GI a couple of weeks ago and is now being scheduled for both an EGD and colonoscopy States that he feels okay otherwise He denies any headaches or dizziness Denies any chest pains, no shortness of breath No nausea/ vomiting, no abdominal pain No change in bowel habits noted Had his follow-up labs done last week - to discuss his results [facility] Medical History (Updated 04/25/23 @ 05:55 by Earnest Lucio MD) Abnormal chest x-ray Anxiety and depression Chronic obstructive pulmonary disease (COPD) Impaired fasting glucose Vitamin D deficiency Pure hypercholesterolemia Overweight (BMI 25.0-29.9) Benign prostatic hyperplasia Pulmonary nodules Asthma Prostate atrophy Surgical History (Updated 04/25/23 @ 05:33 by Earnest Lucio MD) H/O cervical spine surgery History of ear surgery H/O knee surgery Social History Household Members: Family Housing: Apartment Do you presently have visiting nurse or other home services: No Alcohol intake: never Patient Tobacco Use Status: Former Tobacco user e-Cigarette/Vaping Use: Never Used Second Hand Smoke Exposure: No Advance Directives Date on File: 03/11/21 service: No Current occupational status: unemployed and retired Cognitive needs: No Hearing needs: Yes Vision needs: Yes Questionnaire PHQ-9 Over the last 2 weeks, how often have you been bothered by any of the following problems? 1. Little interest or pleasure in doing things: several days 2. Feeling down, depressed, or hopeless: several days 3. Trouble falling or staying asleep, or sleeping too much: several days 4. Feeling tired or having little energy: not at all 5. Poor appetite or overeating: not at all 6. Feeling bad about yourself - or that you are a failure or have let yourself or your family down: not at all 7. Trouble concentrating on things, such as reading the newspaper or watching television: not at all 8. Moving or speaking so slowly that other people could have noticed. Or the opposite - being so fidgety or restless that you have been moving around a lot more than usual: not at all 9. Thoughts that you would be better off or of hurting yourself in some way: not at all Total score: 3 Depression Screening Interpretation: Positive Depression Screening Follow-up: Existing condition and In treatment Depression Screening Done: Yes 03206 - PHQ-9 Billing: Yes Source: Developed by Drs. Nader Madera, Gabrielle Contreras, Brock Kahn and colleagues, with an educational jo from [employer]. Thrive Questionnaire Date Thrive assessed: 04/24/23 I am a: Patient What is your living situation today?: I have a steady place to live Within the past 12 months, did the food you bought not last and you didn't have the money to get more?: Never true Within the past 12 months, did you worry whether your food would run out before you got money to buy more?: Never true Do you have trouble paying for medicines?: No Do you have trouble getting transportation to medical appointments?: No Do you have trouble paying your heating and electricity bill?: No Do you have trouble taking care of your child, family member or friend?: No Do you have trouble with day-to-day activities such as bathing, preparing meals, shopping, managing finances, etc.?: No Are you currently unemployed and looking for a job?: No Are you interested in more education?: No Please select the resources that you would like help with: None Currently or been in a relationship where the following occur: no concerns reported THRIVE Score: 0 AUDIT C Alcohol Use Questionnaire (AUDIT-C) 1. How often do you have a drink containing alcohol?: Monthly or less 2. How many drinks containing alcohol do you have on a typical day when you are drinking?: 3 or 4 3. How often do you have six or more drinks on one occasion?: Never Total Score: 2 Score Reviewed/Action Taken: Yes CALOS-7 AMB Questionnaire CALOS-7 Date CALOS - 7 assessed: 04/24/23 Feeling nervous, anxious, or on edge: 0 = Not at all Not being able to stop or control worryin = Not at all Worrying too much about different things: 0 = Not at all Trouble relaxin = Not at all Being so restless that it is hard to sit still: 0 = Not at all Becoming easily annoyed or irritable: 0 = Not at all Feeling afraid as if something awful might happen: 0 = Not at all Total CALOS-7 score (0-4 normal; 5-9 mild; 10-14 moderate; 15-21 severe): 0 Source: Developed by Drs. Nader Madera, Gabrielle Contreras, Brock Kahn and colleagues, with an educational jo from [employer]. Review of Systems Const Denies fatigue, Denies fever(s) and Denies headache(s) ENT Reports dysphagia (sometimes chokes when drinking liquids), Denies dizziness, Denies otalgia, Denies headache(s), Reports neck pain (on and off), Denies odynophagia and Denies sore throat Card Denies chest pain, Denies palpitations and Reports dyspnea on exertion (mild) Resp Denies chest congestion, Reports cough (occasional, non-productive), Reports dyspnea on exertion (mild) and Denies wheezing GI Denies abdominal pain, Denies constipation, Reports dysphagia (sometimes chokes when drinking liquids), Denies heartburn, Denies diarrhea, Denies nausea, Denies odynophagia and Denies vomiting Denies dysuria, Denies nocturia and Denies urinary frequency Musc Details: increased pain over the left heel, worse with walking and weight-bearing Denies back pain and Reports neck pain (on and off) Skin/Breast Reports rash (recurrent) Neuro Denies dizziness and Denies headache(s) Psych Reports anxiety and Reports depression Endo Denies fatigue and Denies palpitations Aller/Immun Denies wheezing Physical exam (Primary Care) Vital Signs: Last Vital Signs Pulse 72 04/24/23 16:56 BP 122/80 04/24/23 16:56 Pulse Ox 98 04/24/23 16:56 Oxygen Delivery Method Room Air 04/24/23 16:56 BMI result Body Mass Index 27.8 Tobacco/Smoking Status: Tobacco use Status Tobacco use date assessed 04/24/23 04/24/23 16:58 Patient Tobacco Use Status Former Tobacco user 04/24/23 16:58 e-Cigarette/Vaping Use Never Used 04/24/23 16:58 PHQ-9: PHQ-9 Score PHQ-9: Total score 3 04/24/23 17:20 Depression Screening Interpretation: Positive Depression Screening Follow-up: Existing condition and In treatment Thrive Assessment: Date of Thrive Assessment Date Thrive assessed 04/24/23 04/24/23 16:58 Currently or been in a relationship where the following occur: no concerns reported Const General: no acute distress and alert HENMT Ears: TM's normal bilaterally and EAC's normal Throat: Yes posterior oropharynx normal and Yes tonsils normal (no TP congestion) Neck Neck: Yes no lymphadenopathy and Yes supple Resp Auscultation: no rales, no wheezes and diminished lung sounds (slightly) bilateral Cardio Rate: regular rate Rhythm: regular rhythm Heart sounds: no murmurs GI Palpation (GI): Soft to palpation and nontender Auscultation: normal bowel sounds Skin Rashes: no rashes Extrem General: Yes no clubbing, cyanosis or edema Left lower extremity: foot Details: tenderness Location: of the calcaneus Results Reviewed Results Reviewed: Laboratory Tests 04/23/23 04/23/23 04/23/23 15:08 15:08 15:08 WBC 5.7 Hgb 13.5 L Hct 41.1 L Plt Count 197 Sodium 143 Potassium 3.9 Creatinine 1.29 Estimated GFR 55 Fasting Glucose 93 Hemoglobin A1c % 5.9 Calcium 9.1 AST 21 ALT 24 Triglycerides 174 H Cholesterol 177 LDL Cholesterol, Calc 93 HDL Cholesterol 50 25-OH Vitamin D Total 27.5 L Ur Specific [place] Urine Protein Urine Glucose (UA) Urine Blood Urine Nitrite Ur Leukocyte Esterase 04/23/23 04/23/23 15:10 15:10 WBC Hgb Hct Plt Count Sodium Potassium Creatinine Estimated GFR Fasting Glucose Hemoglobin A1c % Calcium AST ALT Triglycerides Cholesterol LDL Cholesterol, Calc HDL Cholesterol 25-OH Vitamin D Total Ur Specific [place] 1.020 Urine Protein Negative Urine Glucose (UA) Negative Urine Blood Negative Urine Nitrite Negative Ur Leukocyte Esterase Negative Assessment and Plan Assessment & Plan (1) Pure hypercholesterolemia: Code(s): E78.00 - Pure hypercholesterolemia, unspecified Plan: Results of his labs done last week reviewed and discussed with patient - (+) some improvement noted in his cholesterol levels recently Reinforced low cholesterol diet Continue Atorvastatin 10 mg QD Will recheck his labs and fasting lipids in 4 months for follow up (2) Chronic obstructive pulmonary disease (COPD): Code(s): J44.9 - Chronic obstructive pulmonary disease, unspecified Qualifiers: COPD type: emphysema Emphysema type: centrilobular Qualified Code(s): J43.2 - Centrilobular emphysema Plan: Chest CT done back on 07/04/22 revealed (+) centrilobular emphysema with ground glass scarring in both upper lobes; a 4 mm noncalcified nodule is noted at the right upper lobe, likely a granuloma PFTs done a few months ago revealed no obstructive nor restrictive ventilatory defects identified and no significant response to bronchodilators noted. There is a mild decrease in maximum voluntary ventilation secondary to likely deconditioning. Lung volumes are within normal limits except for decrease in the expiratory reserve volume secondary to an elevated BMI Patient states that his chest/lung symptoms have been stable lately - uses his inhalers with (+) relief of his symptoms even though his PFT showed no significant bronchodilator response Continue Combivent Respimat 20-100 mcg 1 inhalation QID and Albuterol HFA 2 inhalations every 6 hours as needed Follow up with pulmonary as scheduled (3) Pulmonary nodules: Code(s): R91.8 - Other nonspecific abnormal finding of lung field Plan: (+) multiple nodules were seen on previous chest CT and chest x-rays A more recent chest x-ray revealed (+) bilateral pulmonary nodules probably representing calcified granulomas Patient was referred for thoracic surgery evaluation a couple of years ago but he states that he has not been contacted or scheduled for appt Follow up with pulmonary as scheduled (4) Vitamin D deficiency: Code(s): E55.9 - Vitamin D deficiency, unspecified Plan: Continue Vitamin D3 2000 units QD (5) Impaired fasting glucose: Code(s): R73.01 - Impaired fasting glucose Plan: HgbA1c was at 5.9% on his labs done last week; was at 6.2% previously Reinforced low calorie diet/exercise as tolerated (6) Dysphagia: Code(s): R13.10 - Dysphagia, unspecified Qualifiers: Dysphagia type: unspecified Qualified Code(s): R13.10 - Dysphagia, unspecified Plan: Barium swallow done a few months ago reviewed (+) 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 He is currently seeing GI for this issue and he is presently being scheduled for an EGD together with his colonoscopy for further evaluation of his swallowing issues (7) Pain of left heel: Code(s): M79.672 - Pain in left foot Plan: Discussed with patient that this is likely due to heel spur(s) or plantar fasciitis Will send him for left heel x-rays for further evaluation Advised that he will likely need to see podiatry to help address his foot issues but we will wait and see how his heel x-rays come out first (8) Eczema: Code(s): L30.9 - Dermatitis, unspecified Qualifiers: Eczema type: unspecified Qualified Code(s): L30.9 - Dermatitis, unspecified Plan: Continue Hydroxyzine 25 mg TID PRN for rash/ itching Continue Triamcinolone 0.1% cream apply to rash TID PRN Follow-up with dermatology as scheduled (9) Anxiety and depression: Code(s): F41.9 - Anxiety disorder, unspecified; F32.A - Depression, unspecified Plan: Patient used to see psychiatry and goes to therapy at the [facility] in [place] regularly but stopped going a while back as he got tired of seeing and talking to a different therapist every time he goes there States that the psychiatrists there also tend to change often as they move on after a year or two States that he has been doing well since he was started on Sertraline 25 mg QD a few months ago - to continue on the same Rx and dose for now (10) Overweight (BMI 25.0-29.9): Code(s): E66.3 - Overweight Plan: Reinforced diet/exercise as tolearted/lose weight Plan Follow up in 4 months Orders: Orders Comprehensive Mack. Panel Fast 4 Months E78.00 - Pure hypercholesterolemia, unspecified Lipid Panel 4 Months E78.00 - Pure hypercholesterolemia, unspecified Hemoglobin A1c 4 Months R73.01 - Impaired fasting glucose XR foot LT min 3V 04/24/23 M79.672 - Pain in left foot Vitamin D 25-OH Total 4 Months E55.9 - Vitamin D deficiency, unspecified Complete Blood Count Auto Diff 4 Months D64.9 - Anemia, unspecified TSH reflex Free T4 4 Months E78.00 - Pure hypercholesterolemia, unspecified UA CC w/rflx Micro + Cult 4 Months R30.0 - Dysuria Coding Level of Care Code Est Pt Level 4 (13422) Diagnoses Pure hypercholesterolemia E78.00 Centrilobular emphysema J43.2 COPD type: emphysema Emphysema type: centrilobular Pulmonary nodules R91.8 Vitamin D deficiency E55.9 Impaired fasting glucose R73.01 Dysphagia, unspecified type R13.10 Dysphagia type: unspecified Pain of left heel M79.672 Eczema, unspecified type L30.9 Eczema type: unspecified Anxiety and depression F41.9; F32.A Overweight (BMI 25.0-29.9) E66.3
== END 2023-04-24 17:30 | disposition home or self-care (01) ==
LOC: HO.HMGH 16:56
PROVIDERS: PCP Internal Medicine; Visit Provider Internal Medicine
DX: E78.00 Pure hypercholesterolemia, unspecified (principal); J43.2 Centrilobular emphysema; R91.8 Other nonspecific abnormal finding of lung field; E55.9 Vitamin D deficiency, unspecified; R73.01 Impaired fasting glucose; R13.10 Dysphagia, unspecified; M79.672 Pain in left foot; L30.9 Dermatitis, unspecified; F41.9 Anxiety disorder, unspecified; F32.A Depression, unspecified; E66.3 Overweight
CPT/HCPCS: 99214

== ENCOUNTER 2023-04-25 15:08 | Outpatient (REF) | payer MEDICARE, MEDICAID, SELFPAY ==
--- NOTE | ~2023-04-25 | XR_ITS ---
EXAMINATION: XR FOOT, LEFT CLINICAL INFORMATION: Pain in the left foot evaluate for spur plantar fasciitis COMPARISON: None available. TECHNIQUE: AP, lateral, and oblique views of the left foot. FINDINGS: Tiny plantar and posterior calcaneal spurs. Mild osteoarthritis of the first metatarsophalangeal joint manifested by small marginal osteophytes. Enthesopathic cystic change along the medial head of the first metatarsal. Remaining bones joints and soft tissues unremarkable. XR/XR foot LT min 3V IMPRESSION: 1. Tiny calcaneal spurs. 2. Mild osteoarthritis of the first metatarsophalangeal joint.
== END 2023-04-25 15:09 | disposition home or self-care (01) ==
LOC: HO.XRAY 15:08
PROVIDERS: PCP Internal Medicine; Visit Provider Internal Medicine
DX: M79.672 Pain in left foot (principal)
CPT/HCPCS: 73630

== ENCOUNTER 2023-06-22 15:32 | Emergency (ER) | payer MEDICARE, MEDICAID, SELFPAY ==
--- NOTE | ~2023-06-22 | CT_ITS ---
EXAMINATION: CT SOFT TISSUE NECK WITH CONTRAST CLINICAL INFORMATION: Sore throat and muffled voice. COMPARISON: Chest CT dated 07/04/2022. TECHNIQUE: Following intravenous administration of 60 mL of Omnipaque 350 contrast, helical imaging was performed in the axial plane with generation of coronal and sagittal reformatted images. Limited study with motion artifacts. This CT examination was performed using dose optimization techniques as appropriate, variously including the following: *Automated exposure control *Adjustment of mA and/or kV according to patient size (this includes techniques or standardized protocols for targeted exams where dose is matched to indication/reason for exam; i.e. extremities or head) *Use of iterative reconstruction technique DLP: 712 mGy-cm FINDINGS: There is no contour abnormality or pathologic enhancement evident within the pharyngeal mucosal space, non-obscured oral cavity, or larynx. Of note, complete assessment of the oral cavity is somewhat limited due to dental amalgam artifacts. The carotid sheath vasculature opacifies normally with mild wall calcifications. No pathologically enlarged cervical lymph nodes are visible. The parotid and submandibular glands are normal. The thyroid gland is normal in appearance. No abnormal retropharyngeal fluid collection is seen. The superior mediastinum is somewhat limited for assessment due to motion. The mediastinum is otherwise unremarkable. Advanced emphysematous changes are present in the lungs. There is linear scarring reidentified in the right upper lobe with a stable 6 mm nodule. The patient is status post previous anterior cervical discectomy and fusion with hardware instrumentation at the C6-C7 level. Moderate spondylitic changes visible at the C5-C6 level. There is a mild reversal of the normal cervical lordosis. The craniovertebral junction appears normal. Mild periapical lucency seen around the tooth roots of the right first maxillary molar. The TMJs are normal in appearance. The paranasal sinuses and mastoid air cells are fairly well aerated. The orbits are normal. The imaged portions of the brain demonstrate no acute abnormality. CT/CT soft tissue neck w IV con IMPRESSION: Limited study with motion artifacts. No suspicious soft tissue enhancement or adenopathy. No acute process. Limited assessment of the oral cavity due to dental amalgam artifacts. Advanced emphysematous changes in the lungs. Stable 6 mm nodule in the right upper lobe along a region of linear scarring, as seen on prior chest CT imaging from 07/04/2022. Per the 2017 revised Fleischner Society guidelines, recommend 6-12 month follow-up CT and consideration of subsequent follow-up CT at 18-24 months to demonstrate stability. In patients at high-risk for the development of pulmonary neoplasm, recommend 6-12 month follow-up CT and subsequent follow-up CT at 18-24 months.
[2023-06-22 15:57] VITALS: BP 114/69; PULSE 91; RESP 18; TEMP 36.9; O2SAT 95; BMI 28.3
--- NOTE | 2023-06-22 15:59 | ED.GENADULT ---
HPI - General Adult General Chief complaint: Upper Respiratory Symptoms Stated complaint: sore throat, unable to swallow, in pain Time Seen by Provider: 06/22/23 16:17 Source: patient Mode of arrival: ambulatory Limitations: no limitations History of Present Illness HPI narrative: Patient is a 67-year-old male who presents emergency department for evaluation of sore throat, swelling sensation, voice changes, right ear pain over the past 3 days. Related Data Previous Rx's ?Medication ?Instructions ?Recorded ipratropium 20 mcg-albuterol 100 1 puff inhalation QID Wheezing 30 04/17/22 mcg/actuation mist for inhalation days #4 grams (Combivent Respimat) cholecalciferol (vitamin D3) 50 50 mcg PO DAILY 90 days #90 caps 11/28/22 mcg (2,000 unit) capsule bisacodyl 5 mg tablet,delayed 20 mg (4 x 5 mg) PO ONCE 1 day #4 04/13/23 release (Dulcolax (bisacodyl)) tabs polyethylene glycol 3350 17 238 g PO ONCE #238 grams 04/13/23 gram/dose oral powder (Miralax) sertraline 25 mg tablet 25 mg PO DAILY 30 days #30 tabs 04/17/23 atorvastatin 10 mg tablet 10 mg PO BEDTIME 90 days #90 tabs 04/30/23 tamsulosin 0.4 mg capsule 0.4 mg PO BEDTIME #90 caps 06/08/23 albuterol sulfate 90 mcg/actuation 2 puff inhalation QID PRN 06/22/23 aerosol inhaler (ProAir HFA) shortness of breath or wheezing 30 days #8.5 grams amoxicillin 875 mg-potassium 1 tab PO BID #14 tabs 06/22/23 clavulanate 125 mg tablet ibuprofen 600 mg tablet 600 mg PO Q8H PRN fever or pain 06/22/23 #20 tabs Allergies Allergy/AdvReac Type Severity Reaction Status Date / Time grass pollen Allergy Unknown positive Verified 06/22/23 15:59 allergy test latex [LATEX] Allergy Unknown UNKNOWN Verified 06/22/23 15:59 Latex, Natural Rubber Allergy Unknown Itching Verified 06/22/23 15:59 morphine [MORPHINE] AdvReac Mild SENSATION Verified 06/22/23 15:59 OF HEAT/WARMTH environmental Allergy Unknown Dry Eye Uncoded 04/24/23 17:19 Review of Systems Review of Systems: Yes all other systems are reviewed and are negative [facility] Past Medical History Attestation statement: The following information was validated with the patient. Source: old records reviewed Medical History Abnormal chest x-ray Anxiety and depression Chronic obstructive pulmonary disease (COPD) Impaired fasting glucose Vitamin D deficiency Pure hypercholesterolemia Overweight (BMI 25.0-29.9) Benign prostatic hyperplasia Pulmonary nodules Asthma Prostate atrophy Surgical History H/O cervical spine surgery History of ear surgery H/O knee surgery Social History Social History Household Members: Family Housing: Apartment Do you presently have visiting nurse or other home services: No Alcohol intake: never Patient Tobacco Use Status: Former Tobacco user e-Cigarette/Vaping Use: Never Used Second Hand Smoke Exposure: No Advance Directives: Yes Advance Directives on File: Yes Advance Directives Date on File: 03/11/21 service: No Current occupational status: unemployed and retired Cognitive needs: No Hearing needs: Yes Vision needs: Yes Physical Exam ED Vital Signs: Vital Signs - 24 hr 06/22/23 15:57 06/22/23 17:52 06/22/23 19:19 Temperature 98.5 F 99.3 F 99.2 F Pulse Rate 91 76 74 Respiratory Rate 18 18 17 Blood Pressure 114/69 113/59 L 116/67 Pulse Oximetry 95 95 96 Oxygen Delivery Method Room Air Room Air Room Air BMI result Body Mass Index 28.3 Appearance: Alert.?Oriented to person, place and time. No acute distress.?Normal affect. Eyes: Pupils equal, round and reactive to light.? ENT: TM normal bilaterally. no palpable mastoid tenderness. Pharynx Erythematous with 3+ left-sided and 2+ right-sided tonsillar hypertrophy, uvula edematous with slight deviation towards the right.. No trismus. No drooling. Managing oral secretions without difficulty. Neck: Normal inspection.? Neck supple.??No cervical adenopathy CVS: Heart sounds normal. Normal heart rate and rhythm.? Pulses normal.?? Respiratory: No respiratory distress.? Lung sounds clear to auscultation bilaterally?? Abdomen: Soft and non-tender. Normoactive bowel sounds. Skin: Skin warm and dry.? Normal skin color.? ? Extremities: No lower extremity edema.? Neuro: Moves all extremities spontaneously. Sensation intact bilaterally. No motor deficits. Ambulates with normal steady gait. Course Course Course Narrative: This is an RME: Additional HPI, ROS, PE not included below will be deferred to primary provider. 67 yo m presents with sore throat, swelling, changes in voice X 3 days. Reevaluation(s) Reevaluation #1: pending CT at this time. Patient signed out to Binh MURILLO. Time: 18:47 Reevaluation #2: CT/CT soft tissue neck w IV con IMPRESSION: Limited study with motion artifacts. No suspicious soft tissue enhancement or adenopathy. No acute process. Limited assessment of the oral cavity due to dental amalgam artifacts. Advanced emphysematous changes in the lungs. Stable 6 mm nodule in the right upper lobe along a region of linear scarring, as seen on prior chest CT imaging from 07/04/2022. Per the 2017 revised Fleischner Society guidelines, recommend 6-12 month follow-up CT and consideration of subsequent follow-up CT at 18-24 months to demonstrate stability. In patients at high-risk for the development of pulmonary neoplasm, recommend 6-12 month follow-up CT and subsequent follow-up CT at 18-24 months. Patient was re-evaluated at the bedside twice. He was given a dose of IV Toradol for pain with improvement in his symptoms. He states since he has been in the emergency department his symptoms have improved. He does not have a muffled voice rather a raspy voice. He has a a sore throat, worse with swallowing. Examination reveals tonsillar swelling without exudate, mild uvular swelling, midline. He is handling secretions normally. Nontoxic appearing. Comfortable starting the patient on empiric oral antibiotics with plan to follow-up with his provider. He was given strict return precautions to come back to the emergency department if he is any new or worsening symptoms. He expressed understanding and all questions were answered. Stable for discharge home. Time: 22:16 Medications Administered Discontinued Medications Generic Name Dose Route Start Last Admin Trade Name Freq PRN Reason Stop Dose Admin Dexamethasone Sodium Phosphate 10 mg 06/22/23 16:00 06/22/23 16:49 Dexamethasone Sod Phosphate 10 Mg/Ml Vial IVPUSH 06/22/23 16:01 10 mg ONCE ONE Administration Sodium Chloride 1,000 mls @ 999 mls/hr 06/22/23 17:15 06/22/23 18:45 Ns IV 06/22/23 18:15 Infused .Q1H1M RENNY Infusion Iohexol 60 ml 06/22/23 18:57 06/22/23 18:57 Iohexol 350 Mg/Ml 100 Ml Infus..Btl IV 06/22/23 18:58 60 ml ONCE ONE Administration Ketorolac Tromethamine 15 mg 06/22/23 21:15 06/22/23 21:39 Ketorolac Tromethamine 15 Mg/Ml Vial IVPUSH 06/22/23 21:16 15 mg ONCE ONE Administration Medical Decision Making Medical Decision Making [facility] Narrative: Patient is a 67-year-old male with past medical history of anxiety, depression, COPD /asthma, vitamin-D deficiency, hypercholesterolemia, BPH, presenting for evaluation of upper respiratory symptoms. COVID-19 /Influenza/ RSV testing is negative. Strep a testing is negative. he has no leukocytosis, no significant anemia. No significant electrolyte derangement, renal function is at baseline. Concern for possible Deep space infection /RPA pain/ swelling appears mildly more predominant on the left, uvula with slight deviation towards the right and has muffled voice per patient and family member as well. At this time the, soft palate remain soft without bulging, reports no associated no neck pain or swelling, no torticollis, no crepitus, no trismus or fevers. Has no drooling, stridor, respiratory distress, tripoding position. he isafebrile, no tachycardia or tachypnea/hypoxia. will obtain CT for further evaluation. oral dexamethasone to be administered. Differential Diagnosis Differential Diagnoses: The differential diagnosis associated with the presentation includes ( See narrative above) Admission/Observation Consideration of admission/observation: Escalation of care including admission/observation considered ( see narrative above) Lab Data [facility] Lab Attestation statement: I reviewed the patient's lab results. ( see narrative above) 06/22/23 16:06 06/22/23 16:06 Labs: Lab Results 06/22/23 06/22/23 06/22/23 Range/Units 15:41 16:06 21:01 WBC 10.1 (4.8-10.8) X10*3/uL RBC 4.37 L (4.60-5.80) X10*6/uL Hgb 13.5 L (14.0-18.0) g/dl Hct 40.6 L (42.0-52.0) % MCV 92.9 (80.0-98.0) fL MCH 30.9 (27.0-33.0) pg MCHC 33.3 (31.0-36.0) g/dl RDW 13.2 (11.0-16.0) % Plt Count 178 (160-400) X10*3/uL MPV 10.6 (9.4-12.4) fL Immature Gran % (Auto) 0.2 (0.0-0.4) % Neut % (Auto) 80.0 H (45-73) % Lymph % (Auto) 10.5 L (20-40) % [place] % (Auto) 8.6 (2-11) % Eos % (Auto) 0.5 (0-4) % Baso % (Auto) 0.2 (0-2) % Lymph # (Auto) 1.1 L (1.2-4.9) X10*3/uL [place] # (Auto) 0.9 (0.1-1.2) X10*3/uL Eos # (Auto) 0.1 (0.0-0.4) X10*3/uL Baso # (Auto) 0.0 (0.0-0.2) X10*3/uL Abs Immat Gran (auto) 0.02 (0.00-0.03) X10*3/uL Absolute Neuts (auto) 8.1 (2.0-8.3) x10*3/uL Absolute Nucleated RBC 0.000 (0.0-0.012) X10*3/uL Nucleated RBC % (auto) 0.0 (0.0-0.2) /100WBC ESR 6 (0-15) MM/HR Sodium 141 (135-145) mmol/L Potassium 4.1 (3.3-5.1) mmol/L Chloride 109 H (96-108) mmol/L Carbon Dioxide 27 (22-29) mmol/L Anion Gap 9 L (12-20) BUN 24 H (9-16) mg/dL Creatinine 0.99 (0.5-1.4) mg/dL Estim Creat Clear Calc 82.7 Estimated GFR > 60 Random Glucose 96 (60-115) mg/dL Calcium 9.2 (8.4-10.2) mg/dL Total Bilirubin 0.4 (0.0-1.0) mg/dL AST 21 (5-37) U/L ALT 24 (0-40) U/L Alkaline Phosphatase 65 (39-117) U/L C-Reactive Protein 2.11 H (< or = 0.50) mg/dL Total Protein 7.2 (6.5-8.0) g/dL Albumin 4.4 (3.5-5.0) g/dL Monoscreen Negative (Negative) Influenza Type A (PCR) NEGATIVE (Negative) Influenza Type B (PCR) NEGATIVE (Negative) RSV RNA Qual (PCR) NEGATIVE (Negative) SARS-CoV-2 RNA (RT-PCR) NEGATIVE (Negative) S. pyogenes GrpA MIRTA Negative (Negative) Prescription Management I considered prescription management with: Pain Medication ( acetaminophen/ibuprofen) Discharge Plan Discharge Clinical Impression: Sore throat, Pharyngitis Patient Disposition: Home, Self-Care Instructions: Pharyngitis (ED) Additional Instructions: Your CT scan today did not show any evidence of an abscess. You tested negative for strep throat, mono, flu, COVID, RSV. You were treated with anti-inflammatories and steroids with improvement in your symptoms. Recommend taking the prescribed antibiotic as directed, your given 1st dose today in the emergency department. Next dose is due tomorrow morning. Take the prescribed anti-inflammatory pain medication as needed for pain. Recommend warm saltwater gargles 3 times per day for sore throat. Recommend [id number] Chloraseptic spray or Cepacol lozenges to help numb your throat. Make sure drinking plenty of oral fluids. Follow-up with your doctor. If you develop new or worsening symptoms call 911 or come back to the ER for further evaluation. Prescriptions: New amoxicillin-pot clavulanate 875-125 mg tablet 1 tab PO BID Qty: 14 0RF ibuprofen 600 mg tablet 600 mg PO Q8H PRN (Reason: fever or pain) Qty: 20 0RF No Action Combivent Respimat 20-100 mcg/actuation mist 1 puff inhalation QID 30 Days Qty: 4 5RF cholecalciferol (vitamin D3) 50 mcg (2,000 unit) capsule 50 mcg PO DAILY 90 Days Qty: 90 3RF sertraline 25 mg tablet 25 mg PO DAILY 30 Days Qty: 30 3RF atorvastatin 10 mg tablet 10 mg PO BEDTIME 90 Days Qty: 90 1RF tamsulosin 0.4 mg capsule 0.4 mg PO BEDTIME Qty: 90 3RF albuterol sulfate [ProAir HFA] 90 mcg/actuation HFA aerosol inhaler 2 puff inhalation QID PRN (Reason: shortness of breath or wheezing) 30 Days Qty: 8.5 3RF bisacodyl [Dulcolax (bisacodyl)] 5 mg tablet,delayed release (DR/EC) 20 mg PO ONCE 1 Days Qty: 4 0RF Rx Instructions: take 4 tabs at noon the day before your colonoscopy polyethylene glycol 3350 [Miralax] 17 gram/dose powder 238 g PO ONCE Qty: 238 0RF Rx Instructions: As directed by gastroenterology department at [facility] Print Language: Yi
[2023-06-22 16:00] LABS: IDNOW Serial# 08D9AD1C; Strep A Nucleic Acid Negative (Negative)
[2023-06-22 16:10] LABS: MANUAL DIFF FLAG NO
[2023-06-22 16:30] LABS: Alanine Aminotransferase 24 U/L (0-40); Albumin Level 4.4 g/dL (3.5-5.0); Alkaline Phosphatase 65 U/L (39-117); Anion Gap 9 (12-20); Aspartate Amino Transferase 21 U/L (5-37); Bilirubin Total 0.4 mg/dL (0.0-1.0); Blood Urea Nitrogen 24 mg/dL (9-16); C Reactive Protein 2.11 mg/dL (< or = 0.50); Calcium 9.2 mg/dL (8.4-10.2); Carbon Dioxide 27 mmol/L (22-29); Chloride 109 mmol/L (96-108); Creatinine Clr Calc Pharmacy 82.7; Estimated Glomerular Filt Rate > 60; Glucose Random 96 mg/dL (60-115); Potassium 4.1 mmol/L (3.3-5.1); Sodium 141 mmol/L (135-145); Total Protein 7.2 g/dL (6.5-8.0)
[2023-06-22 16:32] LABS: Basophils Percent Auto 0.2 % (0-2); Eosinophils Absolute Auto 0.1 X10*3/uL (0.0-0.4); Eosinophils Percent Auto 0.5 % (0-4); Hematocrit 40.6 % (42.0-52.0); Hemoglobin 13.5 g/dl (14.0-18.0); Imm Gran Abs Auto 0.02 X10*3/uL (0.00-0.03); Imm Gran Pct Auto 0.2 % (0.0-0.4); Lymphocytes Absolute Auto 1.1 X10*3/uL (1.2-4.9); Lymphocytes Percent Auto 10.5 % (20-40); Mean Corpuscular HGB Conc 33.3 g/dl (31.0-36.0); Mean Corpuscular Hemoglobin 30.9 pg (27.0-33.0); Mean Corpuscular Volume 92.9 fL (80.0-98.0); Mean Platelet Volume 10.6 fL (9.4-12.4); Monocytes Absolute Auto 0.9 X10*3/uL (0.1-1.2); Monocytes Percent Auto 8.6 % (2-11); Neutrophils Absolute Auto 8.1 x10*3/uL (2.0-8.3); Platelet Count 178 X10*3/uL (160-400); Red Blood Count 4.37 X10*6/uL (4.60-5.80); Red Cell Distribution Width 13.2 % (11.0-16.0); White Blood Count 10.1 X10*3/uL (4.8-10.8)
[2023-06-22 16:36] LABS: Influenza A PCR NEGATIVE (Negative); Influenza B PCR NEGATIVE (Negative); Resp Syncy Virus RNA Qual PCR NEGATIVE (Negative); SARS COV2 PCR INHOUSE NEGATIVE (Negative)
[2023-06-22] MEDS: dexAMETHasone sod phosphate 10 MG/ML VIAL IVPUSH (16:49)
[2023-06-22 17:08] LABS: Erythrocyte Sedimentation Rate 6 MM/HR (0-15)
[2023-06-22] MEDS: 0.9 % Sodium Chloride 1,000 ML 999 ML IV (17:40)
[2023-06-22 17:52] VITALS: BP 113/59; PULSE 76; RESP 18; TEMP 37.4; O2SAT 95
[2023-06-22] MEDS: iohexoL 350 MG/ML 100 ML INFUS..BTL 60 ML IV (18:57)
[2023-06-22 19:19] VITALS: BP 116/67; PULSE 74; RESP 17; TEMP 37.3; O2SAT 96
[2023-06-22] MEDS: Ketorolac Tromethamine 15 MG/ML VIAL IVPUSH (21:39)
[2023-06-22 21:59] LABS: Monotest Negative (Negative)
[2023-06-22 22:27] VITALS: BP 136/83; PULSE 78; RESP 14; TEMP 36.3; O2SAT 97
[2023-06-22] MEDS: Amoxicillin/Potassium Clav 875 MG TABLET PO (22:27)
== END 2023-06-22 22:29 | disposition home or self-care (01) ==
PROVIDERS: Physician Assistant; Emergency Provider Emergency Medicine; PCP Internal Medicine
DX: J02.9 Acute pharyngitis, unspecified (principal); J44.9 Chronic obstructive pulmonary disease, unspecified; Z03.818 Encounter for observation for suspected exposure to other biological agents ruled out
CPT/HCPCS: 0241U; 36415; 70491; 80053; 85025; 85652; 86140; 86308; 87651; 96361; 96374; 96375; 99283; 99284; J1100; J1885; Q9967

== ENCOUNTER 2023-06-24 17:05 | Emergency (ER) | payer MEDICARE, MEDICAID, SELFPAY ==
--- NOTE | ~2023-06-24 | CT_ITS ---
EXAMINATION: CT ABDOMEN AND PELVIS WITHOUT CONTRAST CLINICAL INFORMATION: LLQ pain and left flank pain. kidney stones?. COMPARISON: No pertinent prior studies are available for comparison. TECHNIQUE: Multidetector volumetric imaging was performed from the superior aspect of the liver through the pubic symphysis without contrast per renal stone protocol. Sagittal and coronal reformatted images were obtained on the technologist workstation. This CT examination was performed using dose optimization techniques as appropriate, variously including the following: *Automated exposure control *Adjustment of mA and/or kV according to patient size (this includes techniques or standardized protocols for targeted exams where dose is matched to indication/reason for exam; i.e. extremities or head) *Use of iterative reconstruction technique DLP: 756 mGy-cm. FINDINGS: LUNG BASES: Mild dependent atelectasis. Coronary artery calcification seen. LIVER, GALLBLADDER, BILIARY TREE: The non-contrast liver is normal in size, shape, and attenuation. No focal hepatic lesion or biliary ductal dilatation is present. The gallbladder is unremarkable with no evidence of radiopaque gallstones, gallbladder wall thickening, or obvious pericholecystic inflammatory changes. PANCREAS: Unremarkable. SPLEEN: Unremarkable. ADRENAL GLANDS: Unremarkable. KIDNEYS AND URETERS: Mild left-sided hydronephrosis and hydroureter extending up to a 0.4 cm calcification at the level of L4. Small punctate nonobstructing calculi in the lower pole collecting system of the left kidney as well. Contralateral right kidney is unremarkable. BLADDER: Unremarkable. GASTROINTESTINAL TRACT: Scattered colonic diverticulosis but no colonic wall thickening or pericolonic inflammatory change to suggest diverticulitis. Normal-appearing appendix in the right lower quadrant ABDOMINAL WALL: No significant hernia is appreciated. LYMPHOVASCULAR STRUCTURES: Vascular calculation within the aorta iliac system.. PELVIC VISCERA: Unremarkable. OSSEUS STRUCTURES: Unremarkable. CT/CT abdomen pelvis wo IV con IMPRESSION: Mild left-sided hydronephrosis and hydroureter extending up to a 0.4 cm calcification at the level of L4.
[2023-06-24 17:21] VITALS: BP 127/79; PULSE 70; RESP 18; TEMP 36.9; O2SAT 96; BMI 28.1
--- NOTE | 2023-06-24 17:24 | ED_ITS ---
HPI - General Adult General Chief complaint: Urogenital-Male Stated complaint: pain lft side Time Seen by Provider: 06/24/23 18:53 Source: patient Mode of arrival: ambulatory Limitations: no limitations History of Present Illness HPI narrative: Patient history of kidney stone complaining of pain started earlier today on the left flank with nausea and vomited 4 times no hematuria no dysuria no fever no chills no abdominal pain Related Data Previous Rx's ?Medication ?Instructions ?Recorded ipratropium 20 mcg-albuterol 100 1 puff inhalation QID Wheezing 30 04/17/22 mcg/actuation mist for inhalation days #4 grams (Combivent Respimat) cholecalciferol (vitamin D3) 50 50 mcg PO DAILY 90 days #90 caps 11/28/22 mcg (2,000 unit) capsule bisacodyl 5 mg tablet,delayed 20 mg (4 x 5 mg) PO ONCE 1 day #4 04/13/23 release (Dulcolax (bisacodyl)) tabs polyethylene glycol 3350 17 238 g PO ONCE #238 grams 04/13/23 gram/dose oral powder (Miralax) sertraline 25 mg tablet 25 mg PO DAILY 30 days #30 tabs 04/17/23 atorvastatin 10 mg tablet 10 mg PO BEDTIME 90 days #90 tabs 04/30/23 tamsulosin 0.4 mg capsule 0.4 mg PO BEDTIME #90 caps 06/08/23 albuterol sulfate 90 mcg/actuation 2 puff inhalation QID PRN 06/22/23 aerosol inhaler (ProAir HFA) shortness of breath or wheezing 30 days #8.5 grams amoxicillin 875 mg-potassium 1 tab PO BID #14 tabs 06/22/23 clavulanate 125 mg tablet ibuprofen 600 mg tablet 600 mg PO Q8H PRN fever or pain 06/22/23 #20 tabs ondansetron 4 mg disintegrating 4 mg PO Q6-8H PRN nausea and 06/24/23 tablet vomiting #7 tabs oxycodone 5 mg tablet 5 mg PO Q6H PRN pain #20 tabs 06/24/23 tamsulosin 0.4 mg capsule (Flomax) 0.4 mg PO BEDTIME #7 caps 06/24/23 Allergies Allergy/AdvReac Type Severity Reaction Status Date / Time grass pollen Allergy Unknown positive Verified 06/24/23 17:24 allergy test latex [LATEX] Allergy Unknown UNKNOWN Verified 06/24/23 17:24 Latex, Natural Rubber Allergy Unknown Itching Verified 06/24/23 17:24 morphine [MORPHINE] AdvReac Mild SENSATION Verified 06/24/23 17:24 OF HEAT/WARMTH environmental Allergy Unknown Dry Eye Uncoded 06/24/23 17:24 PMFSH Past Medical History Medical History Abnormal chest x-ray Anxiety and depression Chronic obstructive pulmonary disease (COPD) Impaired fasting glucose Vitamin D deficiency Pure hypercholesterolemia Overweight (BMI 25.0-29.9) Benign prostatic hyperplasia Pulmonary nodules Asthma Prostate atrophy Surgical History H/O cervical spine surgery History of ear surgery H/O knee surgery Social History Social History Household Members: Family Housing: Apartment Do you presently have visiting nurse or other home services: No Alcohol intake: never Patient Tobacco Use Status: Former Tobacco user e-Cigarette/Vaping Use: Never Used Second Hand Smoke Exposure: No Advance Directives: Yes Advance Directives on File: Yes Advance Directives Date on File: 03/11/21 service: No Current occupational status: unemployed and retired Cognitive needs: No Hearing needs: Yes Vision needs: Yes Physical Exam ED Vital Signs: Vital Signs - 24 hr 06/24/23 17:21 06/24/23 20:00 06/24/23 22:00 Temperature 98.4 F 97.9 F 98.5 F Pulse Rate 70 62 61 Respiratory Rate 18 16 16 Blood Pressure 127/79 118/64 114/51 L Pulse Oximetry 96 98 98 Oxygen Delivery Method Room Air Room Air Room Air BMI result Body Mass Index 28.1 Course Course Course Narrative: 67-year-old male presents to ED for left lower quadrant left flank pain. Patient states history of kidney stones. Labs CT scan ordered. Medications Administered Discontinued Medications Generic Name Dose Route Start Last Admin Trade Name Freq PRN Reason Stop Dose Admin Sodium Chloride 1,000 mls @ 999 mls/hr 06/24/23 19:13 06/24/23 20:52 Ns IV 04/21/24 20:13 Infused .Q1H1M ONE Infusion Ketorolac Tromethamine 30 mg 06/24/23 19:13 06/24/23 19:45 Ketorolac Tromethamine 30 Mg/Ml Vial IVPUSH 06/24/23 19:14 30 mg ONCE ONE Administration Morphine Sulfate 4 mg 06/24/23 19:13 06/24/23 20:51 Morphine Sulfate 4 Mg/Ml Cartridge IVPUSH 06/24/23 19:14 Not Given ONCE ONE Protocol Ondansetron HCl 4 mg 06/24/23 19:13 06/24/23 19:45 Ondansetron Hcl 4 Mg/2 Ml Vial IVPUSH 06/24/23 19:14 4 mg ONCE ONE Administration Oxycodone HCl 10 mg 06/24/23 22:20 06/24/23 23:06 Oxycodone Hcl Immed Release 5 Mg Tablet PO 06/24/23 22:21 10 mg ONCE ONE Administration Tamsulosin HCl 0.4 mg 06/24/23 22:20 06/24/23 23:07 Tamsulosin Hcl 0.4 Mg Capsule PO 06/24/23 22:21 0.4 mg ONCE ONE Administration Medical Decision Making Lab Data 06/24/23 17:31 06/24/23 17:31 Labs: Lab Results 06/24/23 06/24/23 Range/Units 17:31 18:32 WBC 10.5 (4.8-10.8) X10*3/uL RBC 4.39 L (4.60-5.80) X10*6/uL Hgb 13.6 L (14.0-18.0) g/dl Hct 41.1 L (42.0-52.0) % MCV 93.6 (80.0-98.0) fL MCH 31.0 (27.0-33.0) pg MCHC 33.1 (31.0-36.0) g/dl RDW 13.6 (11.0-16.0) % Plt Count 201 (160-400) X10*3/uL MPV 10.6 (9.4-12.4) fL Immature Gran % (Auto) 0.5 H (0.0-0.4) % Neut % (Auto) 74.9 H (45-73) % Lymph % (Auto) 13.7 L (20-40) % [place] % (Auto) 10.3 (2-11) % Eos % (Auto) 0.3 (0-4) % Baso % (Auto) 0.3 (0-2) % Lymph # (Auto) 1.4 (1.2-4.9) X10*3/uL [place] # (Auto) 1.1 (0.1-1.2) X10*3/uL Eos # (Auto) 0.0 (0.0-0.4) X10*3/uL Baso # (Auto) 0.0 (0.0-0.2) X10*3/uL Abs Immat Gran (auto) 0.05 H (0.00-0.03) X10*3/uL Absolute Neuts (auto) 7.9 (2.0-8.3) x10*3/uL Absolute Nucleated RBC 0.000 (0.0-0.012) X10*3/uL Nucleated RBC % (auto) 0.0 (0.0-0.2) /100WBC Sodium 142 (135-145) mmol/L Potassium 4.6 (3.3-5.1) mmol/L Chloride 110 H (96-108) mmol/L Carbon Dioxide 23 (22-29) mmol/L Anion Gap 14 (12-20) BUN 27 H (9-16) mg/dL Creatinine 1.40 (0.5-1.4) mg/dL Estim Creat Clear Calc 56.6 Estimated GFR 50 Random Glucose 101 (60-115) mg/dL Calcium 9.4 (8.4-10.2) mg/dL Total Bilirubin 0.4 (0.0-1.0) mg/dL AST 25 (5-37) U/L ALT 27 (0-40) U/L Alkaline Phosphatase 57 (39-117) U/L Total Protein 7.2 (6.5-8.0) g/dL Albumin 4.2 (3.5-5.0) g/dL Urine Color Yellow Urine Appearance Clear Urine pH 5.5 (5.0-9.0) Ur Specific [place] 1.020 (1.005-1.025) Urine Protein Negative (Neg-Trace) mg/dL Urine Glucose (UA) Negative (Negative) mg/dL Urine Ketones Negative (Negative) mg/dL Urine Blood Moderate (2+) H (Negative) Urine Nitrite Negative (Negative) Ur Leukocyte Esterase Negative (Negative) Urine RBC >20 H (0-2) /HPF Urine WBC 0-5 (0-5) /HPF Ur Squamous Epith Cells 0-2 (0-2) /HPF Urine Bacteria None Seen (None Seen) Hyaline Casts 0-2 (0-2) /LPF Discharge Plan Discharge Clinical Impression: Calculus of distal left ureter Patient Disposition: Home, Self-Care Instructions: Ureteral Stones (ED) Additional Instructions: Drink plenty of fluids Decreased oxalate containing foods Pain medication and Flomax as prescribed for the pain Follow-up with urologist Report to the ER if pain gets worse Prescriptions: New ondansetron 4 mg tablet,disintegrating 4 mg PO Q6-8H PRN (Reason: nausea and vomiting) Qty: 7 0RF oxycodone 5 mg tablet 5 mg PO Q6H PRN (Reason: pain) Qty: 20 0RF Rx Instructions: Partial Fill upon patient request. tamsulosin [Flomax] 0.4 mg capsule 0.4 mg PO BEDTIME Qty: 7 0RF No Action Combivent Respimat 20-100 mcg/actuation mist 1 puff inhalation QID 30 Days Qty: 4 5RF cholecalciferol (vitamin D3) 50 mcg (2,000 unit) capsule 50 mcg PO DAILY 90 Days Qty: 90 3RF sertraline 25 mg tablet 25 mg PO DAILY 30 Days Qty: 30 3RF atorvastatin 10 mg tablet 10 mg PO BEDTIME 90 Days Qty: 90 1RF tamsulosin 0.4 mg capsule 0.4 mg PO BEDTIME Qty: 90 3RF albuterol sulfate [ProAir HFA] 90 mcg/actuation HFA aerosol inhaler 2 puff inhalation QID PRN (Reason: shortness of breath or wheezing) 30 Days Qty: 8.5 3RF amoxicillin-pot clavulanate 875-125 mg tablet 1 tab PO BID Qty: 14 0RF ibuprofen 600 mg tablet 600 mg PO Q8H PRN (Reason: fever or pain) Qty: 20 0RF bisacodyl [Dulcolax (bisacodyl)] 5 mg tablet,delayed release (DR/EC) 20 mg PO ONCE 1 Days Qty: 4 0RF Rx Instructions: take 4 tabs at noon the day before your colonoscopy polyethylene glycol 3350 [Miralax] 17 gram/dose powder 238 g PO ONCE Qty: 238 0RF Rx Instructions: As directed by gastroenterology department at [facility] Referrals: Lars Cordoba MD [Physician] - 3 days Print Language: Greenlandic
[2023-06-24 17:36] LABS: MANUAL DIFF FLAG NO
[2023-06-24 17:38] LABS: Basophils Percent Auto 0.3 % (0-2); Eosinophils Percent Auto 0.3 % (0-4); Hematocrit 41.1 % (42.0-52.0); Hemoglobin 13.6 g/dl (14.0-18.0); Imm Gran Abs Auto 0.05 X10*3/uL (0.00-0.03); Imm Gran Pct Auto 0.5 % (0.0-0.4); Lymphocytes Absolute Auto 1.4 X10*3/uL (1.2-4.9); Lymphocytes Percent Auto 13.7 % (20-40); Mean Corpuscular HGB Conc 33.1 g/dl (31.0-36.0); Mean Corpuscular Volume 93.6 fL (80.0-98.0); Mean Platelet Volume 10.6 fL (9.4-12.4); Monocytes Absolute Auto 1.1 X10*3/uL (0.1-1.2); Monocytes Percent Auto 10.3 % (2-11); Neutrophils Absolute Auto 7.9 x10*3/uL (2.0-8.3); Neutrophils Percent Auto 74.9 % (45-73); Platelet Count 201 X10*3/uL (160-400); Red Blood Count 4.39 X10*6/uL (4.60-5.80); Red Cell Distribution Width 13.6 % (11.0-16.0); White Blood Count 10.5 X10*3/uL (4.8-10.8)
[2023-06-24 18:06] LABS: Alanine Aminotransferase 27 U/L (0-40); Albumin Level 4.2 g/dL (3.5-5.0); Alkaline Phosphatase 57 U/L (39-117); Anion Gap 14 (12-20); Aspartate Amino Transferase 25 U/L (5-37); Bilirubin Total 0.4 mg/dL (0.0-1.0); Blood Urea Nitrogen 27 mg/dL (9-16); Calcium 9.4 mg/dL (8.4-10.2); Carbon Dioxide 23 mmol/L (22-29); Chloride 110 mmol/L (96-108); Creatinine Clr Calc Pharmacy 56.6; Estimated Glomerular Filt Rate 50; Glucose Random 101 mg/dL (60-115); Potassium 4.6 mmol/L (3.3-5.1); Sodium 142 mmol/L (135-145); Total Protein 7.2 g/dL (6.5-8.0)
[2023-06-24 18:38] LABS: Appearance Urine Clear; Color Urine Yellow; Glucose Urine UA Negative (Negative); Leukocyte Esterase Urine Negative (Negative); Nitrite Urine Negative (Negative); PH 5.5 (5.0-9.0); UMIC TRIGGER UACC YES; Urine Blood Moderate (2+) (Negative); Urine Ketones Negative (Negative); Urine Protein Negative (Neg-Trace)
[2023-06-24 18:41] LABS: Bacteria Urine None Seen (None Seen); Hyaline Casts Urine 0-2 /LPF (0-2); RBC Urine >20 /HPF (0-2); Squamous Epithelial Cell Urine 0-2 /HPF (0-2); WBC Urine 0-5 /HPF (0-5)
[2023-06-24] MEDS: ondansetron HCL 4 MG/2 ML VIAL IVPUSH (19:45)
[2023-06-24] MEDS: Ketorolac Tromethamine 30 MG/ML VIAL IVPUSH (19:45)
[2023-06-24] MEDS: 0.9 % Sodium Chloride 1,000 ML 999 ML IV (19:45)
[2023-06-24 20:00] VITALS: BP 118/64; PULSE 62; RESP 16; TEMP 36.6; O2SAT 98
[2023-06-24 22:00] VITALS: BP 114/51; PULSE 61; RESP 16; TEMP 36.9; O2SAT 98
[2023-06-24] MEDS: oxyCODONE HCl Immed Release 5 MG TABLET 10 MG PO (23:06)
[2023-06-24] MEDS: Tamsulosin HCL 0.4 MG CAPSULE PO (23:07)
[2023-06-24 23:16] VITALS: BP 114/51; PULSE 61; RESP 16; TEMP 36.9; O2SAT 98
== END 2023-06-24 23:25 | disposition home or self-care (01) ==
PROVIDERS: Physician Assistant; Emergency Provider Internal Medicine; PCP Internal Medicine
DX: N20.1 Calculus of ureter (principal); R10.9 Unspecified abdominal pain; R11.2 Nausea with vomiting, unspecified; Z79.899 Other long term (current) drug therapy; Z87.891 Personal history of nicotine dependence
CPT/HCPCS: 36415; 74176; 80053; 81001; 85025; 96361; 96374; 96375; 99284; J1885; J2405

== ENCOUNTER 2023-08-06 15:09 | Outpatient (REF) | payer MEDICARE, MEDICAID, SELFPAY ==
--- NOTE | ~2023-08-06 | CT_ITS ---
EXAMINATION: CT CHEST WITHOUT CONTRAST CLINICAL INFORMATION: Abnormal finding of lung filed/pulmonary nodules. COMPARISON: CT chest 07/04/2022: There is diffuse centrilobular emphysema with patchy ground-glass scarring in both upper lobes. There is 4 mm calcified nodule right upper lobe axial image 27/4. No additional calcified or noncalcified nodules seen. TECHNIQUE: Multidetector volumetric CT imaging of the chest was done. Axial MIP volume rendering provided. Sagittal and coronal reformatted images were obtained. This CT examination was performed using dose optimization techniques as appropriate, variously including the following: *Automated exposure control *Adjustment of mA and/or kV according to patient size (this includes techniques or standardized protocols for targeted exams where dose is matched to indication/reason for exam; i.e. extremities or head) *Use of iterative reconstruction technique DLP: 192 mGy-cm FINDINGS: LUNGS: Marked emphysematous changes are present with marked bullous formation at the apices. Densely calcified granuloma seen in the right upper lobe and in the lingula. No suspicious noncalcified lung nodules are seen. Right apical scarring/atelectasis is present. Compared to the prior study, there has been no interval change. MEDIASTINUM: The mediastinum is normal. CORONARY ARTERY CALCIFICATION: [id number]. PLEURA: There is no pleural effusion. No pleural mass or thickening. AXILLA: No lymphadenopathy. UPPER ABDOMEN: Hepatic steatosis. OSSEOUS STRUCTURES: Unremarkable. CT/CT chest wo IV con IMPRESSION: 1. Marked emphysematous changes with bullous formation at the apices. 2. No suspicious lung nodules are seen. 3. Incidental note made of calcified pulmonary granulomas, hepatic steatosis, and [id number] coronary artery calcifications. Fleischner guidelines were followed.
== END 2023-08-06 15:10 | disposition home or self-care (01) ==
LOC: HO.CT 15:09
PROVIDERS: PCP Internal Medicine; Visit Provider Hospitalist
DX: R91.8 Other nonspecific abnormal finding of lung field (principal)
CPT/HCPCS: 71250

== ENCOUNTER 2023-08-28 15:44 | Outpatient (AMB) | payer MEDICARE, MEDICAID, SELFPAY ==
[2023-08-28 15:48] VITALS: PULSE 84; O2SAT 97; BMI 28.7
--- NOTE | 2023-08-28 15:48 | A.OFFVIS_ITS ---
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 Apparently the last CT scan at [facility] was back in 2016 were demonstrated multiple pulmonary nodules indeed he had a new left upper lobe pulmonary nodule. The patient also had extensive upper lobe emphysema. He has subsequently moved a and did not follow up further. Back in early March 2021 the patient developed bad acute respiratory failure he was diagnosed with COVID-19. He had a CTA demonstrating extensive airspace disease bilaterally. He was hospitalized for. Was treated appropriately and subsequently discharged. His last chest x-ray was done back in October 2021 demonstrating persistent airspace disease. On a evidence of potential scarring and decreased lung volumes. The patient was recommended to get a CT scan. He continues to have shortness of breath with activity. [id number] severity. He does have her inhaler that helps him. He does use Combivent. Sometimes he gets a little tremulous with it. Will go ahead and request a CT scan of the chest to follow up with the abnormal findings in addition to that will go ahead and request pulmonary function studies. 09/14/2022 the patient is here for a pulmonary follow-up visit. Overall the patient has been doing well. He does complaint of shortness of breath with activity. Mild in severity. Also has an intermittent cough. As far as inhalers he does have a Combivent inhaler that he uses couple times a day. He also has a short-acting beta agonist that he uses about twice a week. He is not on any other inhalers. Will hold off on changing his regimen since this appears to be working for him. We should repeat his PFTs next year also in July. He recently had a CT scan of the chest that we personally reviewed. His pulmonary nodules appear to be stable which is reassuring. The patient does have extensive emphysema primarily in the upper lung zones. The rest of the terri ngs are preserved. He also has some coronary calcifications. He no longer smoking. He quit about 25 years ago. the patient also has evidence of some scarring and some ground-glass opacities. Likely residual from a previous infection could have been COVID. Clinically the patient is doing well on this is likely printout. Will go ahead and follow-up july after his repeat CT scan. 08/28/2023 the patient is here for a pulmonary follow-up visit. The patient overall has been doing well from a respiratory status. He has these inhalers available. He has not had to use his rescue inhaler as often. Typically less than 2 times a week. He did have a CT scan of the chest that was personally by me. Appears that his pulmonary nodule in the right upper lobe appears to be stable measuring between 7-8 mm in size. The other nodules appear doing granulomas and not concerning. Again the other findings including the calcifications of the coronary arteries. He did quit smoking which is very smart ppy about. Will wait for the final read on the CT scan. Although the appears that the nodule has been stable when compared to last year's CT scan. Although we have to wait for the final read from the radiologist. At this point I will plan to repeat the CT scan in a year unless the reading from the radiologist states differently. [facility] Medical History Abnormal chest x-ray Anxiety and depression Chronic obstructive pulmonary disease (COPD) Impaired fasting glucose Vitamin D deficiency Pure hypercholesterolemia Overweight (BMI 25.0-29.9) Benign prostatic hyperplasia Pulmonary nodules Asthma Prostate atrophy Surgical History H/O cervical spine surgery History of ear surgery H/O knee surgery Social History Household Members: Family Housing: Apartment Do you presently have visiting nurse or other home services: No Alcohol intake: never Patient Tobacco Use Status: Former Tobacco user e-Cigarette/Vaping Use: Never Used Second Hand Smoke Exposure: No Advance Directives Date on File: 03/11/21 service: No Current occupational status: unemployed and retired Cognitive needs: No Hearing needs: Yes Vision needs: Yes Review of Systems Const Denies fatigue, Denies fever(s) and Denies headache(s) ENT Reports dysphagia (sometimes chokes when drinking liquids), Denies dizziness, Denies otalgia, Denies headache(s), Reports neck pain (on and off), Denies odynophagia and Denies sore throat Card Denies chest pain, Denies palpitations and Reports dyspnea on exertion (mild) Resp Denies chest congestion, Reports cough (occasional, non-productive), Reports dyspnea on exertion (mild) and Denies wheezing GI Denies abdominal pain, Denies constipation, Reports dysphagia (sometimes chokes when drinking liquids), Denies heartburn, Denies diarrhea, Denies nausea, Denies odynophagia and Denies vomiting Musc Details: increased pain over the left heel, worse with walking and weight-bearing Denies back pain and Reports neck pain (on and off) Neuro Denies dizziness and Denies headache(s) Psych Reports anxiety and Reports depression Endo Denies fatigue and Denies palpitations Aller/Immun Denies wheezing Physical Exam Vital Signs: Last Vital Signs Pulse 84 08/28/23 15:48 Pulse Ox 97 08/28/23 15:48 Oxygen Delivery Method Room Air 08/28/23 15:48 BMI result Body Mass Index 28.7 Const General: cooperative, no acute distress, alert and awake Orientation/consciousness: oriented to person and oriented to place Limitations: no limitations HEENT Head: Yes normal to inspection, Yes normocephalic and Yes atraumatic Ears: external ears normal General nose exam: Normal external nose present Face and sinus: Yes normal facial exam Mouth: Normal oral and palatal mucosa present Throat: Yes posterior oropharynx normal Eyes General: appearance normal, both eyes and all related structures Periorbital: periorbital findings normal Eyelids: Yes eyelids normal Conjunctivae: conjunctivae normal Sclerae: sclerae normal Corneas: corneas normal Pupils: Equal, round and reactive pupils present Direct Ophthalmoscopy: normal light reflex Neck Neck: Yes normal visual inspection and Yes supple Lymphatic: no lymphadenopathy noted Chest Chest palpation & inspection: normal inspection of the chest and normal palpation of entire chest wall Resp Effort & Inspection: normal respiratory effort Auscultation: clear to auscultation bilaterally, no rales, no rhonchi and no wheezes Cardio Rate: regular rate Rhythm: regular rhythm Heart sounds: S1 normal heart sound present, S2 normal heart sound present and Murmur heart sound present GI Inspection: No distended Palpation (GI): Soft to palpation, nontender, no guarding and No hepatosplenomegaly present Auscultation: normal bowel sounds General: Yes no CVA tenderness Back/Spine/Pelvis Back: no CVA tenderness Skin General skin exam: no rashes or lesions noted Lesions: no lesions Rashes: no rashes Wounds: no wounds Neuro General: oriented to person and oriented to place Cranial nerves: Yes CN's II-XII intact bilaterally and Yes Equal, round and reactive pupils present Cognition (Neuro): normal cognition Motor exam (neuro): 5/5 motor strength present throughout Extrem General: Yes normal to inspection, Yes full ROM, Yes no pedal edema and Yes no calf tenderness Psych Appearance: grossly normal Mental Status: mental status grossly normal Speech and movement: Clear speech present Affect: normal affect Attitude: cooperative Thought process: Normal thought process present Thought content: Normal thought content present Assessment & Plan Assessment & Plan (1) Chronic obstructive pulmonary disease (COPD): Code(s): J44.9 - Chronic obstructive pulmonary disease, unspecified Category: Medical Qualifiers: COPD type: emphysema Emphysema type: centrilobular Qualified Code(s): J43.2 - Centrilobular emphysema (2) Pulmonary nodules: Code(s): R91.8 - Other nonspecific abnormal finding of lung field Category: Medical Plan continue combivent VINICIUS as needed CT chest in August 2024 F/U August 2024 Coding Level of Care Code Est Pt Level 4 (89349) Diagnoses Centrilobular emphysema J43.2 COPD type: emphysema Emphysema type: centrilobular Pulmonary nodules R91.8 Time Spent (min) 16
== END 2023-08-28 16:29 | disposition home or self-care (01) ==
PROVIDERS: PCP Internal Medicine; Visit Provider Hospitalist
DX: J43.2 Centrilobular emphysema (principal); R91.8 Other nonspecific abnormal finding of lung field
CPT/HCPCS: 99214

== ENCOUNTER → 2023-08-28 15:44 | Outpatient (BNVA) | payer MEDICARE, MEDICAID, SELFPAY | PROVIDERS: PCP Internal Medicine; Visit Provider Hospitalist | DX: R91.8 Other nonspecific abnormal finding of lung field (principal); J44.9 Chronic obstructive pulmonary disease, unspecified; J43.2 Centrilobular emphysema | CPT/HCPCS: 99212 ==

== ENCOUNTER 2023-09-24 15:26 | Outpatient (REF) | payer MEDICARE, MEDICAID, SELFPAY ==
[2023-09-24 15:47] LABS: MANUAL DIFF FLAG NO
[2023-09-24 16:40] LABS: Basophils Percent Auto 0.5 % (0-2); Eosinophils Absolute Auto 0.1 X10*3/uL (0.0-0.4); Hemoglobin 14.5 g/dl (14.0-18.0); Imm Gran Abs Auto 0.02 X10*3/uL (0.00-0.03); Imm Gran Pct Auto 0.3 % (0.0-0.4); Lymphocytes Absolute Auto 1.4 X10*3/uL (1.2-4.9); Lymphocytes Percent Auto 23.9 % (20-40); Mean Corpuscular Hemoglobin 31.1 pg (27.0-33.0); Mean Corpuscular Volume 94.4 fL (80.0-98.0); Mean Platelet Volume 11.1 fL (9.4-12.4); Monocytes Absolute Auto 0.5 X10*3/uL (0.1-1.2); Monocytes Percent Auto 7.7 % (2-11); Neutrophils Absolute Auto 3.9 x10*3/uL (2.0-8.3); Neutrophils Percent Auto 66.6 % (45-73); Platelet Count 209 X10*3/uL (160-400); Red Blood Count 4.66 X10*6/uL (4.60-5.80); Red Cell Distribution Width 13.6 % (11.0-16.0); White Blood Count 5.8 X10*3/uL (4.8-10.8)
[2023-09-24 16:46] LABS: Estimated Average Glucose 128 mg/dL; Hemoglobin A1c % 6.1 % (<6.0)
[2023-09-24 17:11] LABS: Alanine Aminotransferase 36 U/L (0-40); Albumin Level 4.7 g/dL (3.5-5.0); Alkaline Phosphatase 57 U/L (39-117); Anion Gap 13 (12-20); Aspartate Amino Transferase 27 U/L (5-37); Bilirubin Total 0.6 mg/dL (0.0-1.0); Blood Urea Nitrogen 25 mg/dL (9-16); Calcium 9.8 mg/dL (8.4-10.2); Carbon Dioxide 26 mmol/L (22-29); Chloride 109 mmol/L (96-108); Cholesterol 178 mg/dL (<200); Estimated Glomerular Filt Rate > 60; Glucose Fasting 112 mg/dL (60-99); HDL Cholesterol 56 mg/dL (>40); LDL Cholesterol Calculated 100 mg/dL (<100); Sodium 144 mmol/L (135-145); Total Protein 7.4 g/dL (6.5-8.0); Triglycerides 113 mg/dL (<150)
[2023-09-24 17:13] LABS: Appearance Urine Clear; Color Urine Yellow; Glucose Urine UA Negative (Negative); Leukocyte Esterase Urine Negative (Negative); Nitrite Urine Negative (Negative); PH 5.5 (5.0-9.0); Specific Gravity - Urine >= 1.030 (1.005-1.025); Urine Blood Negative (Negative); Urine Ketones Negative (Negative); Urine Protein Negative (Neg-Trace)
[2023-09-24 17:28] LABS: TSH reflex Free T4 1.17 uIU/mL (0.32-4.0); Vitamin D 25-OH Total 32.7 ng/mL (>30)
== END 2023-09-24 15:27 | disposition home or self-care (01) ==
LOC: HO.LAB 15:26
PROVIDERS: PCP Internal Medicine; Visit Provider Internal Medicine
DX: E78.00 Pure hypercholesterolemia, unspecified (principal); R73.01 Impaired fasting glucose; E55.9 Vitamin D deficiency, unspecified; R30.0 Dysuria; D64.9 Anemia, unspecified
CPT/HCPCS: 36415; 80053; 80061; 81003; 82306; 83036; 84443; 85025

== ENCOUNTER 2023-09-28 09:26 | Outpatient (AMB) | payer MEDICARE, MEDICAID, SELFPAY ==
[2023-09-28 09:39] VITALS: BP 100/58; PULSE 80; O2SAT 96; BMI 28.7
--- NOTE | 2023-09-28 09:39 | MHC.PC.OV ---
Vital Signs 09/28/23 09:39 Height 5 ft 10 in Weight 200 lb 2 oz BMI 28.7 BP 100/58 L Blood Pressure Location Lt brachial Position Sitting Pulse 80 Pulse Source Pulse Oximeter Pulse Oximetry (%) 96 Oxygen Delivery Method Room Air Intake Visit Reasons: 4 month f/u Email Campaign Specialist Required: No Accompanied by: Self / Same As Patient Allergies grass pollen Allergy (Unknown, Verified 09/28/23 10:19) positive allergy test latex [LATEX] Allergy (Unknown, Verified 09/28/23 10:19) UNKNOWN Latex, Natural Rubber Allergy (Unknown, Verified 09/28/23 10:19) Itching morphine [MORPHINE] Adverse Reaction (Mild, Verified 09/28/23 10:19) SENSATION OF HEAT/WARMTH environmental Allergy (Unknown, Uncoded 09/28/23 10:19) Dry Eye Medication List - Last Reconciled 09/28/23 by Earnest Lucio MD albuterol sulfate 90 mcg/actuation (ProAir HFA) 2 puffs inhalation QID PRN 30 days atorvastatin 10 mg PO BEDTIME 90 days bisacodyl (Dulcolax (bisacodyl)) 20 mg (4 x 5 mg) PO ONCE 1 day cholecalciferol (vitamin D3) 50 mcg PO DAILY 90 days ibuprofen 600 mg PO Q8H PRN ipratropium-albuterol 20-100 mcg/actuation (Combivent Respimat) 1 puff inhalation QID 30 days ondansetron 4 mg PO Q6-8H PRN polyethylene glycol 3350 (Miralax) 238 grams PO ONCE sertraline 25 mg PO DAILY 30 days tamsulosin (Flomax) 0.4 mg PO BEDTIME tamsulosin 0.4 mg PO BEDTIME Tobacco use date assessed: 04/24/23 Fall risk assessment: No Falls in past year Last assessed Fall Risk: 09/28/23 Dental Screening Dental Screen Date: 04/24/23 HPI 4 month f/u HPI Details Patient comes in today for his follow up visit States that he currently feels okay He had a bout of kidney stone flare up back in June 2023 - was seen by urology and was being scheduled for lithotripsy and stent insertion but he fortunately was able to pass out the stone spontaneously and did not require any surgical intervention States that he's had no recurrence of kidney stones since He denies any headaches or dizziness Denies any chest pains, no increased SOB - states that his breathing has been well-controlled on his current inhalers and he was just seen by pulmonary for follow up at [facility] last month No nausea/vomiting, no abdominal pain No change in bowel habits noted He had his follow up labs done a few days ago - to discuss his results He is also scheduled for EGD (to evaluate his recurrent choking when drinking liquids) and colonoscopy in December 2023 [facility] Medical History (Updated 09/28/23 @ 10:42 by Earnest Lucio MD) Abnormal chest x-ray Anxiety and depression Chronic obstructive pulmonary disease (COPD) Impaired fasting glucose Vitamin D deficiency Pure hypercholesterolemia Overweight (BMI 25.0-29.9) Benign prostatic hyperplasia Pulmonary nodules Asthma Surgical History H/O cervical spine surgery History of ear surgery H/O knee surgery Social History Household Members: Family Housing: Apartment Do you presently have visiting nurse or other home services: No Alcohol intake: never Patient Tobacco Use Status: Former Tobacco user e-Cigarette/Vaping Use: Never Used Second Hand Smoke Exposure: No Advance Directives Date on File: 03/11/21 service: No Current occupational status: unemployed and retired Cognitive needs: No Hearing needs: Yes Vision needs: Yes Questionnaire Thrive Questionnaire Date Thrive assessed: 04/24/23 CALOS-7 AMB Questionnaire CALOS-7 Date CALOS - 7 assessed: 04/24/23 Source: Developed by Drs. Nader Madera, Gabrielle Contreras, Brock Kahn and colleagues, with an educational jo from [email or web address]. Review of Systems Const Denies chills, Denies fatigue, Denies fever(s) and Denies headache(s) ENT Reports dysphagia (sometimes chokes when drinking liquids), Denies dizziness, Denies otalgia, Denies headache(s), Reports neck pain (on and off), Denies odynophagia and Denies sore throat Card Denies chest pain, Denies palpitations and Reports dyspnea on exertion (mild) Resp Denies chest congestion, Reports cough (occasional, non-productive), Reports dyspnea on exertion (mild) and Denies wheezing GI Denies abdominal pain, Denies constipation, Reports dysphagia (sometimes chokes when drinking liquids), Denies heartburn, Denies diarrhea, Denies nausea, Denies odynophagia and Denies vomiting Denies dysuria, Denies nocturia and Denies urinary frequency Musc Denies back pain and Reports neck pain (on and off) Skin/Breast Denies rash Neuro Denies dizziness and Denies headache(s) Psych Reports anxiety and Reports depression Endo Denies fatigue and Denies palpitations Aller/Immun Denies wheezing Physical exam (Primary Care) Vital Signs: Last Vital Signs Pulse 80 09/28/23 09:39 BP 100/58 L 09/28/23 09:39 Pulse Ox 96 09/28/23 09:39 Oxygen Delivery Method Room Air 09/28/23 09:39 BMI result Body Mass Index 28.7 Tobacco/Smoking Status: Tobacco use Status Tobacco use date assessed 04/24/23 09/28/23 09:44 Patient Tobacco Use Status Former Tobacco user 09/28/23 09:44 e-Cigarette/Vaping Use Never Used 09/28/23 09:44 Thrive Assessment: Date of Thrive Assessment Date Thrive assessed 04/24/23 09/28/23 09:44 Const General: no acute distress and alert HENMT Ears: TM's normal bilaterally and EAC's normal Throat: Yes posterior oropharynx normal and Yes tonsils normal (no TP congestion) Neck Neck: Yes no lymphadenopathy and Yes supple Thyroid: Thyroid normal Resp Auscultation: no rales, no wheezes and diminished lung sounds (slightly) bilateral Cardio Rate: regular rate Rhythm: regular rhythm Heart sounds: no murmurs GI Palpation (GI): Soft to palpation and nontender Auscultation: normal bowel sounds General: Yes no CVA tenderness Back/Spine/Pelvis Back: no CVA tenderness Cervical Spine: Cervical spine tenderness (mild) Thoracic/Lumbar Spine: No lumbar spinal tenderness Skin Rashes: no rashes Extrem General: Yes no clubbing, cyanosis or edema Results Reviewed Results Reviewed: Laboratory Tests 09/24/23 09/24/23 15:46 Unknown WBC 5.8 Hgb 14.5 Hct 44.0 Plt Count 209 Sodium 144 Potassium 4.0 Creatinine 1.16 Estimated GFR > 60 Fasting Glucose 112 H Hemoglobin A1c % 6.1 H Calcium 9.8 AST 27 ALT 36 Triglycerides 113 Cholesterol 178 LDL Cholesterol, Calc 100 H HDL Cholesterol 56 25-OH Vitamin D Total 32.7 TSH 1.17 Ur Specific [place] >= 1.030 H Urine Protein Negative Urine Glucose (UA) Negative Urine Blood Negative Urine Nitrite Negative Ur Leukocyte Esterase Negative Assessment and Plan Assessment & Plan (1) Pure hypercholesterolemia: Code(s): E78.00 - Pure hypercholesterolemia, unspecified Plan: Results of his labs done a few days ago reviewed and discussed with patient Reinforced low cholesterol diet Continue Atorvastatin 10 mg QD Will recheck his labs and fasting lipids in 4 months for follow up (2) Chronic obstructive pulmonary disease (COPD): Code(s): J44.9 - Chronic obstructive pulmonary disease, unspecified Qualifiers: COPD type: emphysema Emphysema type: centrilobular Qualified Code(s): J43.2 - Centrilobular emphysema Plan: Chest CT done back on 07/04/22 revealed (+) centrilobular emphysema with ground glass scarring in both upper lobes; a 4 mm noncalcified nodule is noted at the right upper lobe, likely a granuloma PFTs done last year revealed no obstructive nor restrictive ventilatory defects identified and no significant response to bronchodilators noted. There is a mild decrease in maximum voluntary ventilation secondary to likely deconditioning. Lung volumes are within normal limits except for decrease in the expiratory reserve volume secondary to an elevated BMI Patient states that his chest/lung symptoms have been stable lately - uses his inhalers with (+) relief of his symptoms even though his PFT showed no significant bronchodilator response Continue Combivent Respimat 20-100 mcg 1 inhalation QID and Albuterol HFA 2 inhalations every 6 hours as needed Follow up with pulmonary as scheduled (3) Pulmonary nodules: Code(s): R91.8 - Other nonspecific abnormal finding of lung field Plan: (+) multiple nodules were seen on previous chest CT and chest x-rays A more recent chest x-ray revealed (+) bilateral pulmonary nodules probably representing calcified granulomas Patient was referred for thoracic surgery evaluation a couple of years ago but he states that he has not been contacted or scheduled for appt He was seen for this as well by pulmonary recently and will have a repeat chest CT next year for follow up Follow up with pulmonary as scheduled (4) Vitamin D deficiency: Code(s): E55.9 - Vitamin D deficiency, unspecified Plan: Continue Vitamin D3 2000 units QD (5) Impaired fasting glucose: Code(s): R73.01 - Impaired fasting glucose Plan: His HgbA1c was at 6.1% on his labs done a few days ago; was previously at 5.9% previously Reinforced low calorie diet/exercise as tolerated (6) Dysphagia: Code(s): R13.10 - Dysphagia, unspecified Qualifiers: Dysphagia type: unspecified Qualified Code(s): R13.10 - Dysphagia, unspecified Plan: Barium swallow done a few months ago reviewed (+) 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 He is currently seeing GI for this issue and is now scheduled for EGD (together with his colonoscopy) in December 2023 for further evaluation of his swallowing issues (7) Ureteral calculus, left: Code(s): N20.1 - Calculus of ureter Plan: Resolved with no recurrence He had a bout of kidney stone(s) in June 2023 - abdominal and pelvic CT revealed (+) mild left-sided hydronephrosis and hydroureter extending up to a 0.4 cm calcification at the level of L4 He was seen by urology and was being scheduled for lithotripsy and stent insertion but he fortunately was able to pass out the kidney stone spontaneously and did not require any surgical intervention States that he's had no recurrence of symptoms since He is encouraged to continue to increase his oral fluid intake (8) Eczema: Code(s): L30.9 - Dermatitis, unspecified Qualifiers: Eczema type: unspecified Qualified Code(s): L30.9 - Dermatitis, unspecified Plan: Continue Hydroxyzine 25 mg TID PRN for rash/ itching Continue Triamcinolone 0.1% cream apply to rash TID PRN Follow-up with dermatology as scheduled (9) Anxiety and depression: Code(s): F41.9 - Anxiety disorder, unspecified; F32.A - Depression, unspecified Plan: Patient used to see psychiatry and goes to therapy at the [facility] in [place] regularly but stopped going a while back as he got tired of seeing and talking to a different therapist every time he goes there States that the psychiatrists there also tend to change often as they move on after a year or two States that he has been doing well since he was started on Sertraline 25 mg QD and would like to just continue on the same Rx and dose for now (10) Overweight (BMI 25.0-29.9): Code(s): E66.3 - Overweight Plan: Reinforced diet/exercise as tolearted/lose weight Plan Follow up in 4 months Orders: Orders Lipid Panel 4 Months E78.00 - Pure hypercholesterolemia, unspecified UA CC w/rflx Micro + Cult 4 Months R30.0 - Dysuria TSH reflex Free T4 4 Months E78.00 - Pure hypercholesterolemia, unspecified Complete Blood Count Auto Diff 4 Months D64.9 - Anemia, unspecified Comprehensive [place]. Panel Fast 4 Months E78.00 - Pure hypercholesterolemia, unspecified Vitamin D 25-OH Total 4 Months E55.9 - Vitamin D deficiency, unspecified Hemoglobin A1c 4 Months R73.01 - Impaired fasting glucose Coding Level of Care Code Est Pt Level 4 (23193) Diagnoses Pure hypercholesterolemia E78.00 Centrilobular emphysema J43.2 COPD type: emphysema Emphysema type: centrilobular Pulmonary nodules R91.8 Vitamin D deficiency E55.9 Impaired fasting glucose R73.01 Dysphagia, unspecified type R13.10 Dysphagia type: unspecified Ureteral calculus, left N20.1 Eczema, unspecified type L30.9 Eczema type: unspecified Anxiety and depression F41.9; F32.A Overweight (BMI 25.0-29.9) E66.3
== END 2023-09-28 10:28 | disposition home or self-care (01) ==
PROVIDERS: PCP Internal Medicine; Visit Provider Internal Medicine
DX: E78.00 Pure hypercholesterolemia, unspecified (principal); J43.2 Centrilobular emphysema; R91.8 Other nonspecific abnormal finding of lung field; E55.9 Vitamin D deficiency, unspecified; R73.01 Impaired fasting glucose; R13.10 Dysphagia, unspecified; N20.1 Calculus of ureter; L30.9 Dermatitis, unspecified; F41.9 Anxiety disorder, unspecified; F32.A Depression, unspecified; E66.3 Overweight
CPT/HCPCS: 99214

== ENCOUNTER 2023-10-25 13:43 | Emergency (ER) | payer MEDICARE, MEDICAID, SELFPAY ==
[2023-10-25 14:18] VITALS: BP 110/74; PULSE 97; RESP 20; TEMP 37.9; O2SAT 95; BMI 27.5
--- NOTE | 2023-10-25 14:25 | ED.URI ---
HPI - URI/Sore Throat General Chief Complaint: Upper Respiratory Symptoms Stated Complaint: body ache-chills Time Seen by Provider: 10/25/23 15:24 Source: patient and family Mode of arrival: ambulatory Limitations: no limitations History of Present Illness ED Provider: Binh Mack PA-C HPI Narrative: 59-year-old male with history of COPD, HLD, eczema, history of COVID-19 back in 2020 requiring admission to the hospital who presents to the ER for evaluation of diffuse body aches and headaches. He states he has been sick for 2 days. He is having some sore throat, worse on the right side. He is able to eat and drink normally. He denies any significant cough, admits to a mild dry cough at nighttime only. No shortness a breath or chest pain. No abdominal pain, nausea, vomiting diarrhea. States he has been having some subjective fevers and chills at home. His has similar symptoms but are more mild. MD elicited complaint: other (Diffuse body aches and headache) Onset (ago): day(s) (2) Consistency: progressively worsening Severity: severe Able to tolerate fluids by mouth: Yes Exacerbating factors: swallowing and exertion Relieving factors: NSAID Context: sick contacts Associated symptoms: fever, chills, headache, sore throat and cough Treatments prior to arrival: none Related Data Previous Rx's ?Medication ?Instructions ?Recorded ipratropium 20 mcg-albuterol 100 1 puff inhalation QID Wheezing 30 04/17/22 mcg/actuation mist for inhalation days #4 grams (Combivent Respimat) cholecalciferol (vitamin D3) 50 50 mcg PO DAILY 90 days #90 caps 11/28/22 mcg (2,000 unit) capsule bisacodyl 5 mg tablet,delayed 20 mg (4 x 5 mg) PO ONCE 1 day #4 04/13/23 release (Dulcolax (bisacodyl)) tabs polyethylene glycol 3350 17 238 g PO ONCE #238 grams 04/13/23 gram/dose oral powder (Miralax) atorvastatin 10 mg tablet 10 mg PO BEDTIME 90 days #90 tabs 04/30/23 tamsulosin 0.4 mg capsule 0.4 mg PO BEDTIME #90 caps 06/08/23 ibuprofen 600 mg tablet 600 mg PO Q8H PRN fever or pain 06/22/23 #20 tabs ondansetron 4 mg disintegrating 4 mg PO Q6-8H PRN nausea and 06/24/23 tablet vomiting #7 tabs tamsulosin 0.4 mg capsule (Flomax) 0.4 mg PO BEDTIME #7 caps 06/24/23 sertraline 25 mg tablet 25 mg PO DAILY 30 days #90 tabs 07/19/23 albuterol sulfate 90 mcg/actuation 2 puff inhalation QID PRN 10/07/23 aerosol inhaler shortness of breath or wheezing 30 days #8.5 grams Allergies Allergy/AdvReac Type Severity Reaction Status Date / Time grass pollen Allergy Unknown positive Verified 10/25/23 14:21 allergy test latex [LATEX] Allergy Unknown UNKNOWN Verified 10/25/23 14:21 Latex, Natural Rubber Allergy Unknown Itching Verified 10/25/23 14:21 morphine [MORPHINE] AdvReac Mild SENSATION Verified 10/25/23 14:21 OF HEAT/WARMTH environmental Allergy Unknown Dry Eye Uncoded 10/25/23 14:21 Review of Systems Review of Systems: Yes all other systems are reviewed and are negative PMFSH Past Medical History Medical History (Updated 10/25/23 @ 15:40 by CHIDI August) Abnormal chest x-ray Anxiety and depression Chronic obstructive pulmonary disease (COPD) Impaired fasting glucose Vitamin D deficiency Pure hypercholesterolemia Overweight (BMI 25.0-29.9) Benign prostatic hyperplasia Pulmonary nodules Asthma Surgical History H/O cervical spine surgery History of ear surgery H/O knee surgery Social History Social History Household Members: Family Housing: Apartment Do you presently have visiting nurse or other home services: No Alcohol intake: never Patient Tobacco Use Status: Former Tobacco user e-Cigarette/Vaping Use: Never Used Second Hand Smoke Exposure: No Advance Directives: Yes Advance Directives on File: Yes Advance Directives Date on File: 03/11/21 service: No Current occupational status: unemployed and retired Cognitive needs: No Hearing needs: Yes Vision needs: Yes Physical Exam Vital Signs: Vital Signs: Last Vital Signs Temp 100.8 F H 10/25/23 15:55 Pulse 93 10/25/23 16:04 Resp 18 08/22/24 16:04 BP 115/75 10/25/23 16:04 Pulse Ox 94 10/25/23 16:04 O2 Del Method Room Air 10/25/23 16:04 BMI result Body Mass Index 27.5 Appearance: Alert. Oriented X3. No acute distress. Head: normocephalic, atraumatic. Eyes: Pupils equal, round and reactive to light. ENT: Pharynx normal. No tonsillar swelling or exudate. Neck: Normal inspection. Neck supple. CVS: Normal heart rate and rhythm. Pulses normal. Respiratory: No respiratory distress. Breath sounds normal. Abdomen: Soft and nontender. +BS x4 Skin: Skin warm and dry. Normal skin color. Normal skin turgor. No rashes. Extremities: No lower extremity edema. No joint swelling. Neuro/psych: Oriented X 3. No motor deficit. No sensory deficit. CN II-XII intact. Normal speech and cognition. Course Course Course Narrative: This is a Rapid Medical Examination (RME) performed by Marcella Lambert PA-C in triage. Full HPI, ROS, assessment and treatment plan per primary provider in the Main ED. 67 yo male here for eval of myalgias, sore throat, cough, fatigue x2 days. No known sick contacts. Denies nasal congestion, fevers. Plan: Viral / strep swab Medications Administered Discontinued Medications Generic Name Dose Route Start Last Admin Trade Name Freq PRN Reason Stop Dose Admin Acetaminophen 975 mg 10/25/23 15:52 10/25/23 16:03 Acetaminophen 325 Mg Tablet PO 10/25/23 15:53 975 mg ONCE ONE Administration Medical Decision Making Medical Decision Making [facility] Narrative: 67-year-old male with history of COPD presents to the ER for evaluation of diffuse body aches and headaches for the last 2 days. He is found to have a low-grade fever here. He is not tachycardic. He is hemodynamically stable. He is saturating in the mid 90s on room air. Physical exam is unremarkable, lung sounds are clear. He is in no respiratory distress. Viral studies were done showing patient has COVID-19. Symptoms are mild at this point. We discussed diagnosis, treatment with supportive care. He is stable for discharge home with monitoring of symptoms and outpatient follow-up as needed. Return precautions were discussed. Stable for DC home Differential Diagnosis Differential Diagnoses: The differential diagnosis associated with the presentation includes strep, covid, flu, rsv, other viral syndrome, bronchitis, pneumonia, no evidence of peritonsillar abcsess or retropharyngeal abscess Lab Data covid + Labs: Lab Results 10/25/23 10/25/23 Range/Units 14:25 14:56 Influenza Type A (PCR) NEGATIVE (Negative) Influenza Type B (PCR) NEGATIVE (Negative) RSV RNA Qual (PCR) NEGATIVE (Negative) SARS-CoV-2 RNA (RT-PCR) POSITIVE A (Negative) S. pyogenes GrpA MIRTA Negative (Negative) External Record Review External record reviewed: Inpatient record, Office record, Outpatient record and Prior outpatient labs Tests considered The following testing was considered but not selected: CXR considered Doubt superimposed bacterial pneumonia or viral pneumonia Prescription Management I considered prescription management with: Pain Medication and Antiviral Chronic Conditions Patient?s care impacted by: Other ( COPD) Critical Care Time Critical Care Time Critical Care Time: No Discharge Plan Discharge Clinical Impression: COVID-19 Patient Disposition: Home, Self-Care Instructions: COVID-19 (Coronavirus Disease 2019) (ED) Additional Instructions: You were found to be COVID-19 POSITIVE today. Your exam and oxygen levels were normal. Rest. Drink plenty of fluids. Do not go out in public no you are not feeling well. Take over the counter cold/flu medications as needed for your symptoms. Take Tylenol and/or Motrin as needed for fevers and body aches. Follow up with your doctor this week. If you develop new or worsening symptoms call 911 or come back to the ER for further evaluation. Prescriptions: No Action Combivent Respimat 20-100 mcg/actuation mist 1 puff inhalation QID 30 Days Qty: 4 5RF cholecalciferol (vitamin D3) 50 mcg (2,000 unit) capsule 50 mcg PO DAILY 90 Days Qty: 90 3RF atorvastatin 10 mg tablet 10 mg PO BEDTIME 90 Days Qty: 90 1RF tamsulosin 0.4 mg capsule 0.4 mg PO BEDTIME Qty: 90 3RF sertraline 25 mg tablet 25 mg PO DAILY 30 Days Qty: 90 1RF albuterol sulfate 90 mcg/actuation HFA aerosol inhaler 2 puff inhalation QID PRN (Reason: shortness of breath or wheezing) 30 Days Qty: 8.5 3RF ibuprofen 600 mg tablet 600 mg PO Q8H PRN (Reason: fever or pain) Qty: 20 0RF ondansetron 4 mg tablet,disintegrating 4 mg PO Q6-8H PRN (Reason: nausea and vomiting) Qty: 7 0RF tamsulosin [Flomax] 0.4 mg capsule 0.4 mg PO BEDTIME Qty: 7 0RF bisacodyl [Dulcolax (bisacodyl)] 5 mg tablet,delayed release (DR/EC) 20 mg PO ONCE 1 Days Qty: 4 0RF Rx Instructions: take 4 tabs at noon the day before your colonoscopy polyethylene glycol 3350 [Miralax] 17 gram/dose powder 238 g PO ONCE Qty: 238 0RF Rx Instructions: As directed by gastroenterology department at [facility] Print Language: Urdu
[2023-10-25 15:09] LABS: IDNOW Serial# 08D9AD1C; Strep A Nucleic Acid Negative (Negative)
[2023-10-25 15:34] LABS: Influenza A PCR NEGATIVE (Negative); Influenza B PCR NEGATIVE (Negative); Resp Syncy Virus RNA Qual PCR NEGATIVE (Negative); SARS COV2 PCR INHOUSE POSITIVE (Negative)
[2023-10-25 15:55] VITALS: TEMP 38.2
[2023-10-25] MEDS: Acetaminophen 325 MG TABLET 975 MG PO (16:03)
[2023-10-25 16:04] VITALS: BP 115/75; PULSE 93; RESP 18; O2SAT 94
[2023-10-25 16:17] VITALS: BP 115/75; PULSE 93; RESP 18; TEMP 38.2; O2SAT 94
== END 2023-10-25 16:18 | disposition home or self-care (01) ==
PROVIDERS: Physician Assistant Medical; Emergency Provider Emergency Medicine; PCP Internal Medicine
DX: U07.1 COVID-19 (principal); J02.9 Acute pharyngitis, unspecified
CPT/HCPCS: 0241U; 87651; 99283

== ENCOUNTER 2023-10-30 16:49 | Emergency (ER) | payer MEDICARE, MEDICAID, SELFPAY ==
--- NOTE | 2023-10-30 17:04 | ED.GENADULT ---
HPI - General Adult General Chief complaint: Eye Problems Stated complaint: ?Eye infection Time Seen by Provider: 10/30/23 19:00 Related Data Previous Rx's ?Medication ?Instructions ?Recorded ipratropium 20 mcg-albuterol 100 1 puff inhalation QID Wheezing 30 04/17/22 mcg/actuation mist for inhalation days #4 grams (Combivent Respimat) bisacodyl 5 mg tablet,delayed 20 mg (4 x 5 mg) PO ONCE 1 day #4 04/13/23 release (Dulcolax (bisacodyl)) tabs polyethylene glycol 3350 17 238 g PO ONCE #238 grams 04/13/23 gram/dose oral powder (Miralax) ibuprofen 600 mg tablet 600 mg PO Q8H PRN fever or pain 06/22/23 #20 tabs ondansetron 4 mg disintegrating 4 mg PO Q6-8H PRN nausea and 06/24/23 tablet vomiting #7 tabs tamsulosin 0.4 mg capsule (Flomax) 0.4 mg PO BEDTIME #7 caps 06/24/23 sertraline 25 mg tablet 25 mg PO DAILY 30 days #90 tabs 07/19/23 albuterol sulfate 90 mcg/actuation 2 puff inhalation QID PRN 10/07/23 aerosol inhaler shortness of breath or wheezing 30 days #8.5 grams atorvastatin 10 mg tablet 10 mg PO BEDTIME 90 days #90 tabs 10/27/23 amoxicillin 500 mg tablet 500 mg PO BID #20 tabs 11/12/23 amoxicillin 875 mg-potassium 1 tab PO Q12H 7 days #14 tabs 11/20/23 clavulanate 125 mg tablet benzocaine 15 mg-menthol 2.6 mg 1 timothy mucous membrane Q2-4H PRN 11/20/23 lozenges (Cepacol Sore Throat sore throat #16 ea (benzocaine-menthol)) prednisone 20 mg tablet 40 mg (2 x 20 mg) PO DAILY 5 days 11/20/23 #10 tabs cholecalciferol (vitamin D3) 50 50 mcg PO DAILY 90 days #90 caps 12/30/23 mcg (2,000 unit) capsule Allergies Allergy/AdvReac Type Severity Reaction Status Date / Time grass pollen Allergy Unknown positive Verified 11/20/23 14:06 allergy test latex [LATEX] Allergy Unknown UNKNOWN Verified 11/10/23 13:56 Latex, Natural Rubber Allergy Unknown Itching Verified 11/10/23 13:56 morphine [MORPHINE] AdvReac Mild SENSATION Verified 11/10/23 13:56 OF HEAT/WARMTH environmental Allergy Unknown Dry Eye Uncoded 11/10/23 13:50 [facility] Past Medical History Medical History Abnormal chest x-ray Anxiety and depression Chronic obstructive pulmonary disease (COPD) Impaired fasting glucose Vitamin D deficiency Pure hypercholesterolemia Overweight (BMI 25.0-29.9) Benign prostatic hyperplasia Pulmonary nodules Asthma Surgical History H/O cervical spine surgery History of ear surgery H/O knee surgery Social History Social History Household Members: Family Housing: Apartment Are you a primary residential child care counselor to a significant other at home: No Do you presently have visiting nurse or other home services: No Alcohol intake: never Patient Tobacco Use Status: Former Tobacco user e-Cigarette/Vaping Use: Never Used Second Hand Smoke Exposure: No Advance Directives Date on File: 03/11/21 service: No Current occupational status: unemployed and retired Cognitive needs: No Hearing needs: Yes Vision needs: Yes Physical Exam ED Vital Signs: BMI result Body Mass Index 27.8 Course Course Course Narrative: This is an RME done by CHIDI Oropeza: Additional HPI, ROS, PE not included below will be deferred to primary provider. 67 year old male with concerns of R eye pain and erythema since he has been sick with covid since last week. Pt states it feels like something might be in his eye. Plan- visual acuity, viral testing Appearance: Alert.? Oriented X3.? No acute cardiopulmonary distress distress.? Head: Normocephalic, atraumatic, no step-offs or deformities Eyes: + R eye injection Neck: Normal inspection.? Neck supple.? CVS: Pulses normal.? Respiratory: No respiratory distress.? Abdomen: Soft and nontender.? Skin: ? Normal skin color. Extremities: 5/5 strength to bilateral upper and lower extremities Neuro: Oriented X 3.? No motor deficit.? No sensory deficit. Discharge Plan Discharge Clinical Impression: Eloped from emergency department Patient Disposition: Left W/O Completing Treatment Prescriptions: No Action Combivent Respimat 20-100 mcg/actuation mist 1 puff inhalation QID 30 Days Qty: 4 5RF sertraline 25 mg tablet 25 mg PO DAILY 30 Days Qty: 90 1RF albuterol sulfate 90 mcg/actuation HFA aerosol inhaler 2 puff inhalation QID PRN (Reason: shortness of breath or wheezing) 30 Days Qty: 8.5 3RF atorvastatin 10 mg tablet 10 mg PO BEDTIME 90 Days Qty: 90 1RF amoxicillin 500 mg tablet 500 mg PO BID Qty: 20 0RF cholecalciferol (vitamin D3) 50 mcg (2,000 unit) capsule 50 mcg PO DAILY 90 Days Qty: 90 3RF ibuprofen 600 mg tablet 600 mg PO Q8H PRN (Reason: fever or pain) Qty: 20 0RF ondansetron 4 mg tablet,disintegrating 4 mg PO Q6-8H PRN (Reason: nausea and vomiting) Qty: 7 0RF tamsulosin [Flomax] 0.4 mg capsule 0.4 mg PO BEDTIME Qty: 7 0RF amoxicillin-pot clavulanate 875-125 mg tablet 1 tab PO Q12H 7 Days Qty: 14 0RF Cepacol Sore Throat (nayana-men) 15-2.6 mg lozenge 1 timothy mucous membrane Q2-4H PRN (Reason: sore throat) Qty: 16 0RF prednisone 20 mg tablet 40 mg PO DAILY 5 Days Qty: 10 0RF bisacodyl [Dulcolax (bisacodyl)] 5 mg tablet,delayed release (DR/EC) 20 mg PO ONCE 1 Days Qty: 4 0RF Rx Instructions: take 4 tabs at noon the day before your colonoscopy polyethylene glycol 3350 [Miralax] 17 gram/dose powder 238 g PO ONCE Qty: 238 0RF Rx Instructions: As directed by gastroenterology department at [facility] Discharge Date/Time: 10/30/23 19:06
[2023-10-30 17:05] VITALS: BP 115/72; PULSE 83; RESP 18; TEMP 36.3; O2SAT 96; BMI 27.8
== END 2023-10-30 19:06 | disposition left against medical advice (07) ==
PROVIDERS: Emergency Provider Emergency Medicine; PCP Internal Medicine
DX: L53.8 Other specified erythematous conditions (principal)
CPT/HCPCS: 99281

== ENCOUNTER 2023-11-10 13:15 | Outpatient (AMB) | payer MEDICARE, MEDICAID, SELFPAY ==
--- NOTE | 2023-11-10 13:39 | AM.OFFWIN_ITS ---
Intake Vital Signs 11/10/23 13:48 Height 5 ft 11 in Weight 205 lb BMI 28.6 BP 100/68 Blood Pressure Location Rt brachial Position Sitting Pulse 81 Pulse Source Pulse Oximeter Temp 98.6 F Temp Source Oral Pulse Oximetry (%) 94 Oxygen Delivery Method Room Air Intake Visit Reasons: EP sore throat, ear pain Patient Tobacco Use Status: Former Tobacco user Allergies grass pollen Allergy (Unknown, Verified 11/10/23 13:56) positive allergy test latex [LATEX] Allergy (Unknown, Verified 11/10/23 13:56) UNKNOWN Latex, Natural Rubber Allergy (Unknown, Verified 11/10/23 13:56) Itching morphine [MORPHINE] Adverse Reaction (Mild, Verified 11/10/23 13:56) SENSATION OF HEAT/WARMTH environmental Allergy (Unknown, Uncoded 11/10/23 13:50) Dry Eye Medication List - Last Reconciled 11/10/23 by Jahaira Phoenix, [employer]- albuterol sulfate 90 mcg/actuation 2 puffs inhalation QID PRN 30 days atorvastatin 10 mg PO BEDTIME 90 days bisacodyl (Dulcolax (bisacodyl)) 20 mg (4 x 5 mg) PO ONCE 1 day cholecalciferol (vitamin D3) 50 mcg PO DAILY 90 days ibuprofen 600 mg PO Q8H PRN ipratropium-albuterol 20-100 mcg/actuation (Combivent Respimat) 1 puff inhalation QID 30 days ondansetron 4 mg PO Q6-8H PRN polyethylene glycol 3350 (Miralax) 238 grams PO ONCE sertraline 25 mg PO DAILY 30 days tamsulosin (Flomax) 0.4 mg PO BEDTIME HPI HPI Comments History of Present Illness Details 67-year-old male here today with a sore throat and right ear pain that started yesterday. He reports that he was sick with COVID 10 days ago. He recovered from COVID and just yesterday started to feel these symptoms. He has pain with swallowing. In pain with his ear that is worse with swallowing. He reports mild chills. Otherwise he denies fever, headache, runny nose, cough. Exam Awake alert NAD Sclera and conjunctiva mildly injected bilat Nares patent, turbinates within normal limits, no sinus tenderness with palpation bilat TM intact with injection on the left, mucoid effusion on the right MMM, pharynx positive erythema RRR LS CTAB Plan Will treat him with Augmentin for 7 days. Rapid strep in the office negative. However did advise him to take the same precautions that this was strep. Supportive care to include [id number] analgesics and liberal hydration. Return to the office occasion provided. This note is constructed using voice recognition software. While every effort has been made to ensure accuracy in traveling freight agent, still errors may have been included Sometimes, these errors may affect the content or meaning of the given sentence . [facility] Medical History (Updated 11/10/23 @ 14:06 by Jahaira Phoenix, [facility]) Abnormal chest x-ray Anxiety and depression Chronic obstructive pulmonary disease (COPD) Impaired fasting glucose Vitamin D deficiency Pure hypercholesterolemia Overweight (BMI 25.0-29.9) Benign prostatic hyperplasia Pulmonary nodules Asthma Surgical History H/O cervical spine surgery History of ear surgery H/O knee surgery Social History Household Members: Family Housing: Apartment Do you presently have visiting nurse or other home services: No Alcohol intake: never Patient Tobacco Use Status: Former Tobacco user e-Cigarette/Vaping Use: Never Used Second Hand Smoke Exposure: No Advance Directives Date on File: 03/11/21 service: No Current occupational status: unemployed and retired Cognitive needs: No Hearing needs: Yes Vision needs: Yes Physical Exam Vital Signs: Last Vital Signs Temp 98.6 F 11/10/23 13:48 Pulse 81 11/10/23 13:48 BP 100/68 11/10/23 13:48 Pulse Ox 94 11/10/23 13:48 Oxygen Delivery Method Room Air 11/10/23 13:48 BMI result Body Mass Index 28.6 Results AMB Rapid Strep AMB Rapid Strep Negative Last Edit by Barbie Calderon CMA on 11/10/23 13:53 Results Reviewed Results Reviewed: Laboratory Last Values Strep Scn Rapid Clinic Negative 11/10/23 13:53 Assessment & Plan Assessment & Plan (1) Otitis media, right: Code(s): H66.91 - Otitis media, unspecified, right ear Qualifiers: Otitis media type: mucoid Chronicity: acute Qualified Code(s): H65.191 - Other acute nonsuppurative otitis media, right ear Plan: . (2) History of COVID-19: Code(s): Z86.16 - Personal history of COVID-19 Plan: . (3) Pharyngitis: Code(s): J02.9 - Acute pharyngitis, unspecified Qualifiers: Pharyngitis/tonsillitis etiology: unspecified etiology Qualified Code(s): J02.9 - Acute pharyngitis, unspecified Plan: . Orders: Orders AMB Rapid Strep Screen Today Z13.9 - Encounter for screening, unspecified Patient Instructions: Good hand hygiene and respiratory etiquette can reduce the spread of all types of group A strep infection. Hand hygiene is especially important after coughing and sneezing and before preparing foods or eating. Good respiratory etiquette involves covering your cough or sneeze. Do not share food or drinks. Treating an infected person with an antibiotic for 12 hours or longer limits their ability to transmit the bacteria. Thus, people with group A strep pharyngitis should stay home from work, school, or daycare until: They are afebrile AND At least 12?24 hours after starting appropriate antibiotic therapy I also recommend changing toothbrush and washing bed linen in hot water 24 hours after starting antibiotics Coding Level of Care Code Est Pt Level 3 (22758) Diagnoses Acute mucoid otitis media of right ear H65.191 Otitis media type: mucoid Chronicity: acute History of COVID-19 Z86.16 Pharyngitis J02.9 Pharyngitis/tonsillitis etiology: unspecified etiology
[2023-11-10 13:48] VITALS: BP 100/68; PULSE 81; TEMP 37; O2SAT 94; BMI 28.6
== END 2023-11-10 14:23 | disposition home or self-care (01) ==
PROVIDERS: PCP Internal Medicine; Visit Provider Nurse Practitioner Family
DX: H65.191 Other acute nonsuppurative otitis media, right ear (principal); Z86.16 Personal history of COVID-19; J02.9 Acute pharyngitis, unspecified; Z13.9 Encounter for screening, unspecified
CPT/HCPCS: 87880; 99213

== ENCOUNTER 2023-11-20 13:48 | Emergency (ER) | payer MEDICARE, MEDICAID, SELFPAY ==
--- NOTE | ~2023-11-20 | CT_ITS ---
EXAMINATION: CT SOFT TISSUE NECK WITH CONTRAST CLINICAL INFORMATION: Tonsillar swelling despite treatment. Evaluate for deep infection. COMPARISON: Soft tissue neck CT scan 06/22/2023. TECHNIQUE: Following the intravenous administration of 60 mL of Omnipaque 350 intravenous contrast, helical imaging was performed in the axial plane with generation of coronal and sagittal reformatted images. This CT examination was performed using dose optimization techniques as appropriate, variously including the following: *Automated exposure control *Adjustment of mA and/or kV according to patient size (this includes techniques or standardized protocols for targeted exams where dose is matched to indication/reason for exam; i.e. extremities or head) *Use of iterative reconstruction technique DLP: 534 mGy-cm FINDINGS: Pharyngeal mucosal spaces are symmetric. Parapharyngeal and retromaxillary fat is preserved. Batch Analyst spaces are symmetric. The parotid and submandibular glands are normal. The tongue base and epiglottis are normal. Preepiglottic fat is preserved. Gliotic and subglottic airways are widely patent. The thyroid gland is normal and the remainder of the visualized visceral soft tissues are normal. There are no pathologically enlarged cervical lymph nodes. No mediastinal or axillary adenopathy is visualized within the [id number] of this examination. There is pleural parenchymal scarring and centrilobular emphysema visualized at the apices of both lungs. The aortic arch apex is normal. Cervical carotid and vertebral arteries are patent. Internal jugular veins fill symmetrically. No acute osseous finding. Specifically no worrisome lytic or blastic osseous lesion. There is multilevel spondylosis of the cervical spine with chronic changes of an anterior cervical discectomy at C6-C7. Grossly no spinal canal compromise. Skull base is grossly intact. Trace mastoid tip effusions. Limited visualization of the intracranial anatomy reveals no abnormal finding. CT/CT soft tissue neck w IV con IMPRESSION: Unremarkable examination in that there is no discrete anatomic finding to provide an explanation for this patient's clinical symptoms. Specifically no evidence of a peritonsillar abscess. No pathologically enlarged cervical lymph nodes. Electronically signed by: Nader Johnson MD 11/20/2023 04:47 PM EDT
[2023-11-20 14:04] VITALS: BP 145/79; PULSE 91; RESP 18; TEMP 36.6; O2SAT 96; BMI 27.9
--- NOTE | 2023-11-20 14:21 | ED_ITS ---
HPI - URI/Sore Throat General Chief Complaint: Upper Respiratory Symptoms Stated Complaint: Sore throat Time Seen by Provider: 11/20/23 14:19 Source: patient Mode of arrival: ambulatory Limitations: no limitations History of Present Illness ED Provider: TRACY QUINTERO PA-C HPI Narrative: 67 year old male with pmhx significant for asthma, COPD, anxiety, depression, BPH presents to the ED today for evaluation of sore throat x2 weeks. He was evaluated at urgent care 1 week ago and prescribed penicillin for suspected strep throat. Reports taking the entire 7 day course without improvement in symptoms. Admits to continued throat pain and odynophagia. States he has been eating soup for the past 2 weeks due to the pain. Is able to tolerate fluids and saliva. Also endorses bilateral ear pain, right worse than left. Denies fever, chills, dysphagia, rashes, nausea or vomiting. Related Data Previous Rx's ?Medication ?Instructions ?Recorded ipratropium 20 mcg-albuterol 100 1 puff inhalation QID Wheezing 30 04/17/22 mcg/actuation mist for inhalation days #4 grams (Combivent Respimat) cholecalciferol (vitamin D3) 50 50 mcg PO DAILY 90 days #90 caps 11/28/22 mcg (2,000 unit) capsule bisacodyl 5 mg tablet,delayed 20 mg (4 x 5 mg) PO ONCE 1 day #4 04/13/23 release (Dulcolax (bisacodyl)) tabs polyethylene glycol 3350 17 238 g PO ONCE #238 grams 04/13/23 gram/dose oral powder (Miralax) ibuprofen 600 mg tablet 600 mg PO Q8H PRN fever or pain 06/22/23 #20 tabs ondansetron 4 mg disintegrating 4 mg PO Q6-8H PRN nausea and 06/24/23 tablet vomiting #7 tabs tamsulosin 0.4 mg capsule (Flomax) 0.4 mg PO BEDTIME #7 caps 06/24/23 sertraline 25 mg tablet 25 mg PO DAILY 30 days #90 tabs 07/19/23 albuterol sulfate 90 mcg/actuation 2 puff inhalation QID PRN 10/07/23 aerosol inhaler shortness of breath or wheezing 30 days #8.5 grams atorvastatin 10 mg tablet 10 mg PO BEDTIME 90 days #90 tabs 10/27/23 amoxicillin 500 mg tablet 500 mg PO BID #20 tabs 11/12/23 amoxicillin 875 mg-potassium 1 tab PO Q12H 7 days #14 tabs 11/20/23 clavulanate 125 mg tablet benzocaine 15 mg-menthol 2.6 mg 1 timothy mucous membrane Q2-4H PRN 11/20/23 lozenges (Cepacol Sore Throat sore throat #16 ea (benzocaine-menthol)) prednisone 20 mg tablet 40 mg (2 x 20 mg) PO DAILY 5 days 11/20/23 #10 tabs Allergies Allergy/AdvReac Type Severity Reaction Status Date / Time grass pollen Allergy Unknown positive Verified 11/20/23 14:06 allergy test latex [LATEX] Allergy Unknown UNKNOWN Verified 11/10/23 13:56 Latex, Natural Rubber Allergy Unknown Itching Verified 11/10/23 13:56 morphine [MORPHINE] AdvReac Mild SENSATION Verified 11/10/23 13:56 OF HEAT/WARMTH environmental Allergy Unknown Dry Eye Uncoded 11/10/23 13:50 Review of Systems 2 Review of Systems: Constitutional: No fever, chills, fatigue, night sweats, weight changes ENT/Mouth: No ear pain, hearing loss, nasal congestion, sinus pain, rhinorrhea, +sore throat, +odynophagia Eyes: No eye pain, swelling, redness, vision changes, discharge Cardio: No chest pain, palpitations, LIRIANO, orthopnea, peripheral edema Pulm: No SOB, cough, sputum, wheezing, dyspnea, hemoptysis GI: No nausea, vomiting, hematemesis, abdominal pain, diarrhea, constipation, hematochezia, melena : No irregular bleeding, dysuria, frequency, urgency, hesitancy, hematuria, flank pain, urinary flow changes, urinary incontinence or retention MSK: No back pain, neck pain, joint pain, myalgias Skin: No lesions, rashes Neuro: No weakness, numbness, paresthesias, LOC, dizziness, headache Psych: No anxiety/panic, depression, SI/HI, AH/VH All other systems reviewed and are negative. [facility]LY [facility] Past Medical History Attestation statement: The following information was validated with the patient. Source: old records reviewed and nursing notes reviewed Medical History Abnormal chest x-ray Anxiety and depression Chronic obstructive pulmonary disease (COPD) Impaired fasting glucose Vitamin D deficiency Pure hypercholesterolemia Overweight (BMI 25.0-29.9) Benign prostatic hyperplasia Pulmonary nodules Asthma Surgical History H/O cervical spine surgery History of ear surgery H/O knee surgery Social History Social History Household Members: Family Housing: Apartment Do you presently have visiting nurse or other home services: No Alcohol intake: never Patient Tobacco Use Status: Former Tobacco user e-Cigarette/Vaping Use: Never Used Second Hand Smoke Exposure: No Advance Directives: Yes Advance Directives on File: Yes Advance Directives Date on File: 03/11/21 service: No Current occupational status: unemployed and retired Cognitive needs: No Hearing needs: Yes Vision needs: Yes Physical Exam 2 Vital Signs: Vital Signs: Last Vital Signs Temp 97.2 F 11/20/23 17:06 Pulse 69 11/20/23 17:06 Resp 16 11/20/23 17:06 BP 131/81 11/20/23 17:06 Pulse Ox 94 11/20/23 17:06 O2 Del Method Room Air 11/20/23 17:06 BMI result Body Mass Index 27.9 Patient hypertensive to 145/79, vitals otherwise WNL General: Well appearing, in no acute distress. Skin: Warm, dry, intact. No rashes or lesions. Head: Normocephalic, atraumatic. EENT: Hearing is intact b/l. Bilateral EACs and TMs WNL. Conjunctiva clear. PERRLA. Moist mucous membranes.? + posterior oropharynx erythematous with bilateral tonsillar hypertrophy. Uvula midline. No peritonsillar masses. No tonsillar exudates. Controlling secretions and speaking in complete sentences. Neck: Supple without LAD. FROM. Trachea midline.? Cardiac: Chest wall symmetric. RRR. No MRG. No JVD. Lungs: Normal respiratory effort without accessory muscle use. CTA bilaterally. No rales, rhonchi, or wheezes.? Ext: Upper and lower extremities atraumatic, without tenderness, deformity, swelling or erythema. Full ROM throughout. Neuro: AOx3. Normal speech. Ambulating with steady gait. Psych: Appropriate mood and affect. Responds appropriately to questions. Course Course Course Narrative: CBC without leukocytosis or left shift. Chronic normocytic anemia, H&H stable when compared to priors. Chemistry without acute electrolyte abnormality requiring intervention. BUN 22, creatinine 0.85. Patient receiving a L of IV fluids. Normal liver function. He has tested negative for COVID, flu, RSV, strep throat. > CT soft tissue neck pending > patient receiving dexamethasone, IV fluids and Toradol in the ED 1700 -- on re-evaluation, patient reports improvement in pain with steroids and Toradol. > CT scan soft tissues unremarkable. No evidence of peritonsillar abscess or enlarged cervical lymph nodes. Airways patent. At this time, will treat patient for pharyngitis. Augmentin sent to pharmacy for treatment. Also send prednisone for swelling along with Cepacol throat lozenges for pain. Patient has remained stable throughout ED visit today. Discussed worrisome signs and symptoms and when to return to the ED. All questions answered at this time. Patient is agreeable with disposition and stable for discharge. Medications Administered Discontinued Medications Generic Name Dose Route Start Last Admin Trade Name Freq PRN Reason Stop Dose Admin Dexamethasone Sodium Phosphate 10 mg 11/20/23 14:30 11/20/23 14:40 Dexamethasone Sod Phosphate 10 Mg/Ml Vial IVPUSH 11/20/23 14:31 10 mg ONCE ONE Administration Sodium Chloride 1,000 mls @ 999 mls/hr 11/20/23 14:30 11/20/23 16:07 Ns IV 11/20/23 15:30 Infused .Q1H1M RENNY Infusion Iohexol 70 ml 11/20/23 15:30 11/20/23 15:30 Iohexol 350 Mg/Ml 100 Ml Infus..Btl IV 11/20/23 15:31 70 ml ONCE ONE Administration Ketorolac Tromethamine 15 mg 11/20/23 14:24 11/20/23 14:41 Ketorolac Tromethamine 15 Mg/Ml Vial IVPUSH 11/20/23 14:25 15 mg ONCE ONE Administration Medical Decision Making Medical Decision Making [facility] Narrative: 67 year old male with pmhx significant for asthma, COPD, anxiety, depression, BPH presents to the ED today for evaluation of sore throat x2 weeks. Vital signs stable. Afebrile. Not hypoxic. He is nontoxic-appearing and in no acute distress. No respiratory distress noted. Airway patent. No increased effort of breathing. No muffled voice. Lungs CTA bilaterally. Posterior oropharynx erythematous with bilateral tonsillar hypertrophy. Uvula midline. No peritonsillar masses. No tonsillar exudates. Controlling secretions and speaking in complete sentences. Skin warm, dry, intact, no rashes. Differential diagnosis includes viral syndrome, strep throat, pharyngitis. Lower suspicion for [employer], retropharyngeal abscess, epiglottitis. Plan for viral swabs, strep swab, CT soft tissue neck. Differential Diagnosis Differential Diagnoses: The differential diagnosis associated with the presentation includes As above Admission/Observation Not indicated Lab Data MDM Lab Attestation statement: I reviewed the patient's lab results. As above 11/20/23 14:38 11/20/23 14:38 Labs: Lab Results 11/20/23 11/20/23 Range/Units 14:33 14:38 WBC 6.0 (4.8-10.8) X10*3/uL RBC 4.35 L (4.60-5.80) X10*6/uL Hgb 13.3 L (14.0-18.0) g/dl Hct 39.8 L (42.0-52.0) % MCV 91.5 (80.0-98.0) fL MCH 30.6 (27.0-33.0) pg MCHC 33.4 (31.0-36.0) g/dl RDW 13.2 (11.0-16.0) % Plt Count 187 (160-400) X10*3/uL MPV 10.2 (9.4-12.4) fL Immature Gran % (Auto) 0.5 H (0.0-0.4) % Neut % (Auto) 70.7 (45-73) % Lymph % (Auto) 17.3 L (20-40) % Dawes % (Auto) 10.2 (2-11) % Eos % (Auto) 1.0 (0-4) % Baso % (Auto) 0.3 (0-2) % Lymph # (Auto) 1.0 L (1.2-4.9) X10*3/uL Dawes # (Auto) 0.6 (0.1-1.2) X10*3/uL Eos # (Auto) 0.1 (0.0-0.4) X10*3/uL Baso # (Auto) 0.0 (0.0-0.2) X10*3/uL Abs Immat Gran (auto) 0.03 (0.00-0.03) X10*3/uL Absolute Neuts (auto) 4.2 (2.0-8.3) x10*3/uL Absolute Nucleated RBC 0.000 (0.0-0.012) X10*3/uL Nucleated RBC % (auto) 0.0 (0.0-0.2) /100WBC Sodium 143 (135-145) mmol/L Potassium 3.8 (3.3-5.1) mmol/L Chloride 111 H (96-108) mmol/L Carbon Dioxide 25 (22-29) mmol/L Anion Gap 11 L (12-20) BUN 22 H (9-16) mg/dL Creatinine 0.85 (0.5-1.4) mg/dL Estim Creat Clear Calc 95.8 Estimated GFR > 60 Random Glucose 98 (60-115) mg/dL Calcium 9.3 (8.4-10.2) mg/dL Total Bilirubin 0.5 (0.0-1.0) mg/dL AST 27 (5-37) U/L ALT 42 H (0-40) U/L Alkaline Phosphatase 54 (39-117) U/L Total Protein 6.9 (6.5-8.0) g/dL Albumin 4.3 (3.5-5.0) g/dL Influenza Type A (PCR) NEGATIVE (Negative) Influenza Type B (PCR) NEGATIVE (Negative) RSV RNA Qual (PCR) NEGATIVE (Negative) SARS-CoV-2 RNA (RT-PCR) NEGATIVE (Negative) S. pyogenes GrpA MIRTA Negative (Negative) Independent Interpretation I performed an independent interpretation of an: CT Scan Interpretation: CT soft tissue neck without abscess, agree with radiologist's interpretation. Radiology Impression Discussion of test interpretation with radiology: I have reviewed the radiologist's reading. Radiologist Impression: EXAMINATION: CT SOFT TISSUE NECK WITH CONTRAST CLINICAL INFORMATION: Tonsillar swelling despite treatment. Evaluate for deep infection. COMPARISON: Soft tissue neck CT scan 06/22/2023. TECHNIQUE: Following the intravenous administration of 60 mL of Omnipaque 350 intravenous contrast, helical imaging was performed in the axial plane with generation of coronal and sagittal reformatted images. This CT examination was performed using dose optimization techniques as appropriate, variously including the following: *Automated exposure control *Adjustment of mA and/or kV according to patient size (this includes techniques or standardized protocols for targeted exams where dose is matched to indication/reason for exam; i.e. extremities or head) *Use of iterative reconstruction technique DLP: 534 mGy-cm FINDINGS: Pharyngeal mucosal spaces are symmetric. Parapharyngeal and retromaxillary fat is preserved. Professor In Family [employer] spaces are symmetric. The parotid and submandibular glands are normal. The tongue base and epiglottis are normal. Preepiglottic fat is preserved. Gliotic and subglottic airways are widely patent. The thyroid gland is normal and the remainder of the visualized visceral soft tissues are normal. There are no pathologically enlarged cervical lymph nodes. No mediastinal or axillary adenopathy is visualized within the [id number] of this examination. There is pleural parenchymal scarring and centrilobular emphysema visualized at the apices of both lungs. The aortic arch apex is normal. Cervical carotid and vertebral arteries are patent. Internal jugular veins fill symmetrically. No acute osseous finding. Specifically no worrisome lytic or blastic osseous lesion. There is multilevel spondylosis of the cervical spine with chronic changes of an anterior cervical discectomy at C6-C7. Grossly no spinal canal compromise. Skull base is grossly intact. Trace mastoid tip effusions. Limited visualization of the intracranial anatomy reveals no abnormal finding. CT/CT soft tissue neck w IV con IMPRESSION: Unremarkable examination in that there is no discrete anatomic finding to provide an explanation for this patient's clinical symptoms. Specifically no evidence of a peritonsillar abscess. No pathologically enlarged cervical lymph nodes. Electronically signed by: Nader Johnson MD 11/20/2023 04:47 PM EDT Independent Historian Clinical information obtained from an independent historian. History obtained from or confirmed by: Spouse External Record Review External record reviewed: Inpatient record, Office record, Outpatient record, Prior outpatient labs, Prior outpatient radiology, Primary care record and Outside ED record Prescription Management I considered prescription management with: Pain Medication and Antibiotic Social Determinants Patient?s care significantly limited by Social Determinants of Health including: Other Social Determinant of Health Critical Care Time Critical Care Time Critical Care Time: Yes Total Critical Care Time: 31 Attestation: Critical care time in the amount of 31 minutes has been provided to the patient in terms of direct patient care, frequent reevaluation, review and interpretation of medical data and results, and management of potentially life- threatening conditions. This is all outside of any medical procedures. Discharge Plan Discharge Clinical Impression: Pharyngitis, Sore throat Patient Disposition: Home, Self-Care Instructions: Pharyngitis (ED) Additional Instructions: You were seen in the ED today for evaluation of sore throat. You tested negative for COVID, flu, RSV, strep throat. Your CT scan today did not show evidence of abscess. Augmentin is an antibiotic that has been sent to your pharmacy for treatment. Start this tonight. I recommend warm salt water gargles 3 times daily Ringer's sore throat. Cepacol throat lozenges have been sent to your pharmacy which witll help numb your throat. Prednisone as a steroid that has been sent to your pharmacy for you to take for tonsilar swelling. You were given a dose of this in the ED today so please take your next dose tomorrow. Make sure you are drinking plenty of fluids. Follow up with your PCP this week. Return to the Emergency Department if you experience worsening or uncontrolled pain, tongue swelling, difficulty swallowing, change in your voice, difficulty breathing, fevers 100.4?F or greater, recurrent vomiting, development of a rash, or any other concerning symptoms. In the case of emergency, call 911.? Prescriptions: New amoxicillin-pot clavulanate 875-125 mg tablet 1 tab PO Q12H 7 Days Qty: 14 0RF Cepacol Sore Throat (nayana-men) 15-2.6 mg lozenge 1 timothy mucous membrane Q2-4H PRN (Reason: sore throat) Qty: 16 0RF prednisone 20 mg tablet 40 mg PO DAILY 5 Days Qty: 10 0RF No Action Combivent Respimat 20-100 mcg/actuation mist 1 puff inhalation QID 30 Days Qty: 4 5RF cholecalciferol (vitamin D3) 50 mcg (2,000 unit) capsule 50 mcg PO DAILY 90 Days Qty: 90 3RF sertraline 25 mg tablet 25 mg PO DAILY 30 Days Qty: 90 1RF albuterol sulfate 90 mcg/actuation HFA aerosol inhaler 2 puff inhalation QID PRN (Reason: shortness of breath or wheezing) 30 Days Qty: 8.5 3RF atorvastatin 10 mg tablet 10 mg PO BEDTIME 90 Days Qty: 90 1RF amoxicillin 500 mg tablet 500 mg PO BID Qty: 20 0RF ibuprofen 600 mg tablet 600 mg PO Q8H PRN (Reason: fever or pain) Qty: 20 0RF ondansetron 4 mg tablet,disintegrating 4 mg PO Q6-8H PRN (Reason: nausea and vomiting) Qty: 7 0RF tamsulosin [Flomax] 0.4 mg capsule 0.4 mg PO BEDTIME Qty: 7 0RF bisacodyl [Dulcolax (bisacodyl)] 5 mg tablet,delayed release (DR/EC) 20 mg PO ONCE 1 Days Qty: 4 0RF Rx Instructions: take 4 tabs at noon the day before your colonoscopy polyethylene glycol 3350 [Miralax] 17 gram/dose powder 238 g PO ONCE Qty: 238 0RF Rx Instructions: As directed by gastroenterology department at [facility] Referrals: Earnest Lucio MD [Primary Care Provider] - Interventions: ED Discharge Assessment Last Done: 11/20/23 17:14 Discharge Date/Time: 11/20/23 17:15 Print Language: Maldivian
[2023-11-20] MEDS: dexAMETHasone sod phosphate 10 MG/ML VIAL IVPUSH (14:40)
[2023-11-20] MEDS: Ketorolac Tromethamine 15 MG/ML VIAL IVPUSH (14:41)
[2023-11-20] MEDS: 0.9 % Sodium Chloride 1,000 ML 999 ML IV (14:41)
[2023-11-20 14:43] LABS: MANUAL DIFF FLAG NO
[2023-11-20 14:45] LABS: Basophils Percent Auto 0.3 % (0-2); Eosinophils Absolute Auto 0.1 X10*3/uL (0.0-0.4); Hematocrit 39.8 % (42.0-52.0); Hemoglobin 13.3 g/dl (14.0-18.0); Imm Gran Abs Auto 0.03 X10*3/uL (0.00-0.03); Imm Gran Pct Auto 0.5 % (0.0-0.4); Lymphocytes Percent Auto 17.3 % (20-40); Mean Corpuscular HGB Conc 33.4 g/dl (31.0-36.0); Mean Corpuscular Hemoglobin 30.6 pg (27.0-33.0); Mean Corpuscular Volume 91.5 fL (80.0-98.0); Mean Platelet Volume 10.2 fL (9.4-12.4); Monocytes Absolute Auto 0.6 X10*3/uL (0.1-1.2); Monocytes Percent Auto 10.2 % (2-11); Neutrophils Absolute Auto 4.2 x10*3/uL (2.0-8.3); Neutrophils Percent Auto 70.7 % (45-73); Platelet Count 187 X10*3/uL (160-400); Red Blood Count 4.35 X10*6/uL (4.60-5.80); Red Cell Distribution Width 13.2 % (11.0-16.0)
[2023-11-20 14:50] LABS: IDNOW Serial# 58CA691E; Strep A Nucleic Acid Negative (Negative)
[2023-11-20 15:01] LABS: Alanine Aminotransferase 42 U/L (0-40); Albumin Level 4.3 g/dL (3.5-5.0); Alkaline Phosphatase 54 U/L (39-117); Anion Gap 11 (12-20); Aspartate Amino Transferase 27 U/L (5-37); Bilirubin Total 0.5 mg/dL (0.0-1.0); Blood Urea Nitrogen 22 mg/dL (9-16); Calcium 9.3 mg/dL (8.4-10.2); Carbon Dioxide 25 mmol/L (22-29); Chloride 111 mmol/L (96-108); Creatinine Clr Calc Pharmacy 95.8; Estimated Glomerular Filt Rate > 60; Glucose Random 98 mg/dL (60-115); Potassium 3.8 mmol/L (3.3-5.1); Sodium 143 mmol/L (135-145); Total Protein 6.9 g/dL (6.5-8.0)
[2023-11-20 15:24] LABS: Influenza A PCR NEGATIVE (Negative); Influenza B PCR NEGATIVE (Negative); Resp Syncy Virus RNA Qual PCR NEGATIVE (Negative); SARS COV2 PCR INHOUSE NEGATIVE (Negative)
[2023-11-20] MEDS: iohexoL 350 MG/ML 100 ML INFUS..BTL 70 ML IV (15:30)
[2023-11-20 17:06] VITALS: BP 131/81; PULSE 69; RESP 16; TEMP 36.2; O2SAT 94
[2023-11-20 17:14] VITALS: BP 131/81; PULSE 69; RESP 16; TEMP 36.2; O2SAT 94
== END 2023-11-20 17:15 | disposition home or self-care (01) ==
PROVIDERS: Physician Assistant Medical; Emergency Provider Emergency Medicine; PCP Internal Medicine
DX: J02.9 Acute pharyngitis, unspecified (principal); H92.03 Otalgia, bilateral; R11.0 Nausea; Z87.891 Personal history of nicotine dependence; Z03.818 Encounter for observation for suspected exposure to other biological agents ruled out
CPT/HCPCS: 0241U; 36415; 70491; 80053; 85025; 87651; 96361; 96374; 96375; 99284; J1100; J1885; Q9967

== ENCOUNTER 2023-12-19 10:50 | Day surgery (SDC) | payer MEDICARE, MEDICAID, SELFPAY ==
--- NOTE | 2023-12-18 09:13 | HO.ANESPROP2 ---
Documented by User: Drea Lopez NP 12/18/23 09:14 HPI - Anesthesia Eval Consult details Narrative: 68yo M for Upper Endoscopy and Colonoscopy [facility] Active Problems Active Problems: All Active Problems History of COVID-19 (Acute) Otitis media, right (Acute) COVID-19 (Acute) Ureteral calculus, left (Acute) Calcaneal spur, left foot (Acute) Dysphagia (Acute) Pain of left heel (Acute) Contact dermatitis (Acute) Abnormal chest x-ray (Acute) Otitis externa of right ear (Acute) Anxiety and depression (Acute) Chronic obstructive pulmonary disease (COPD) (Acute) Impaired fasting glucose (Acute) Vitamin D deficiency (Acute) Eczema (Acute) Pure hypercholesterolemia (Acute) Aspiration of liquid (Acute) COPD exacerbation (Acute) Overweight (BMI 25.0-29.9) (Acute) Benign prostatic hyperplasia (Acute) Asthma (Acute) Pruritic rash (Acute) Annual physical exam (Acute) Rash (Acute) Pulmonary nodules (Acute) Cellulitis (Acute) Chronic wound of extremity (Acute) Past Medical History Medical History Abnormal chest x-ray Anxiety and depression Chronic obstructive pulmonary disease (COPD) Impaired fasting glucose Vitamin D deficiency Pure hypercholesterolemia Overweight (BMI 25.0-29.9) Benign prostatic hyperplasia Pulmonary nodules Asthma Surgical History Surgical History H/O cervical spine surgery History of ear surgery H/O knee surgery Social History Social History Household Members: Family Housing: Apartment Are you a primary medication care manager to a significant other at home: No Do you presently have visiting nurse or other home services: No Alcohol intake: never Patient Tobacco Use Status: Former Tobacco user e-Cigarette/Vaping Use: Never Used Second Hand Smoke Exposure: No Have you been hit, kicked, punched, or otherwise hurt by someone within the past year? If so, by whom?: No Advance Directives: No Advance Directives Information Provided: Yes Advance Directives Date on File: 03/11/21 Recently lost weight without trying: No Nutrition Risks: No Nutritional Risk service: No Current occupational status: unemployed and retired Cognitive needs: No Hearing needs: Yes Vision needs: Yes Meds Allergies Allergy/AdvReac Type Severity Reaction Status Date / Time grass pollen Allergy Unknown positive Verified 11/20/23 14:06 allergy test latex [LATEX] Allergy Unknown UNKNOWN Verified 11/10/23 13:56 Latex, Natural Rubber Allergy Unknown Itching Verified 11/10/23 13:56 morphine [MORPHINE] AdvReac Mild SENSATION Verified 11/10/23 13:56 OF HEAT/WARMTH environmental Allergy Unknown Dry Eye Uncoded 11/10/23 13:50 Assessment and Plan Assessment Anesthesia Assessment: Chart Reviewed Documented by User: Jackelin Schumacher MD 12/19/23 13:18 PMFSH Past Medical History Medical History Abnormal chest x-ray Anxiety and depression Chronic obstructive pulmonary disease (COPD) Impaired fasting glucose Vitamin D deficiency Pure hypercholesterolemia Overweight (BMI 25.0-29.9) Benign prostatic hyperplasia Pulmonary nodules Asthma Family History Family history of problems with anesthesia: No Surgical History Surgical History H/O cervical spine surgery History of ear surgery H/O knee surgery History of Problems with Anesthesia: No Social History Social History Household Members: Family Housing: Apartment Are you a primary medication care manager to a significant other at home: No Do you presently have visiting nurse or other home services: No Alcohol intake: never Patient Tobacco Use Status: Former Tobacco user e-Cigarette/Vaping Use: Never Used Second Hand Smoke Exposure: No Have you been hit, kicked, punched, or otherwise hurt by someone within the past year? If so, by whom?: No Advance Directives: No Advance Directives Information Provided: Yes Advance Directives Date on File: 03/11/21 Recently lost weight without trying: No Nutrition Risks: No Nutritional Risk service: No Current occupational status: unemployed and retired Cognitive needs: No Hearing needs: Yes Vision needs: Yes Meds Allergies Allergy/AdvReac Type Severity Reaction Status Date / Time grass pollen Allergy Unknown positive Verified 11/20/23 14:06 allergy test latex [LATEX] Allergy Unknown UNKNOWN Verified 11/10/23 13:56 Latex, Natural Rubber Allergy Unknown Itching Verified 11/10/23 13:56 morphine [MORPHINE] AdvReac Mild SENSATION Verified 11/10/23 13:56 OF HEAT/WARMTH environmental Allergy Unknown Dry Eye Uncoded 11/10/23 13:50 Exam Airway Mallampati Class: II (top front cap, missing multiple teeth, denies anything loose) TM Dist: >3cm Neck ROM: Full Heart: rrr Lungs: cta Assessment and Plan Assessment Anesthesia Assessment: Anesthesia Plan Discussed Final Anesthetic Review Family History of Problems with Anesthesia: No History of Problems with Anesthesia: No NPO: Yes ASA Class: II Final Preanesthetic Review: No Changes in Pt Med Stat, Meds/Allgs Chart Reviewed and Consent Obtained/Reviewed Patient Risk: Low Procedure Risk: Low Anesthetic Plan Anesthetic Plan: MAC: Disposition: Standard PACU
[2023-12-19 12:56] VITALS: BP 126/74; PULSE 64; RESP 18; TEMP 36.3; O2SAT 91; BMI 27.9
--- NOTE | 2023-12-19 13:22 | MHC.SHP ---
Pre-Procedural Eval Section A - 24 Hr Update-Section A only Date of Service: 12/19/23 Section B - Complete if H&P > 30 days Chief Complaint: Encounter for screening for malignant neoplasm of Details of Present Illness: dysphagia Relevant Family History (Specify if Yes): No Relevant Social History: None Present Medications: see Short Stay Collaborative assessment Medical History: Significant History ( Abnormal chest x-ray Anxiety and depression Chronic obstructive pulmonary disease (COPD) Impaired fasting glucose Vitamin D deficiency Pure hypercholesterolemia Overweight (BMI 25.0-29.9) Benign prostatic hyperplasia Pulmonary nodules Asthma Prostate atrophy) History of Previous Operations: Relevant previous surgery/procedure and date(s) (H/O cervical spine surgery History of ear surgery H/O knee surgery) Allergies: Allergies Allergy/AdvReac Type Severity Reaction Status Date / Time grass pollen Allergy Unknown positive Verified 11/20/23 14:06 allergy test latex [LATEX] Allergy Unknown UNKNOWN Verified 11/10/23 13:56 Latex, Natural Rubber Allergy Unknown Itching Verified 11/10/23 13:56 morphine [MORPHINE] AdvReac Mild SENSATION Verified 11/10/23 13:56 OF HEAT/WARMTH environmental Allergy Unknown Dry Eye Uncoded 11/10/23 13:50 Review of Systems Sugical H&P ROS: Negative: Constitution, Cardiovascular, Respiratory, Neurological, Psychiatric, Hem-Onc, Allergic/Immunologic, Gastrointestinal, Genitourinary, Musculoskeletal, Integumentary, Endocrine and Eyes/Ears/Nose/Throat Exam Surgical H&P Exam: Normal: HEENT, Normal: Heart, Normal: Lungs, Normal: Extremities, Normal: Abdomen, Normal: Skin and Normal: Neurological Plan Diagnosis/Plan: Unchanged I have reviewed the history and physical and performed a pertinent physical examination on my patient. No changes have occurred unless specified. Time Spent With Patient Time: Total time managing care of this patient today ____ minutes.
--- NOTE | 2023-12-19 14:01 | HO.OPN-COLON ---
Colonoscopy Operative Note Operative Note Date of Service: 12/19/23 Narrative: Operative Information Procedure Description: EGD, Colonoscopy Indication: dysphagia, screening colo Anesthesia: MAC FLEXIBLE TRANSORAL UPPER GASTROINTESTINAL ENDOSCOPY AND COLONOSCOPY PROCEDURE NOTE UPPER ENDOSCOPY Consent: Indications for the procedure and potential complications of bleeding, perforation, reaction to medications and missed diagnosis were discussed with the patient and informed consent was obtained. Instrument: Olympus GIF H 190 J mid size upper endoscope Monitoring: Vital signs and clinical assessment, continuous EKG monitoring, Pulse oximetry, Carbon Dioxide monitoring and blood pressure monitoring were done throughout the procedure. Procedure: The patient was placed in the left lateral decubitis position and pre-procedure medications were administered and a bite block was placed. The endoscope was inserted into the mouth and advanced under direct vision to the third part of duodenum. A careful inspection was made as the upper endoscope was withdrawn including a retroflexed examination of the proximal stomach; Findings and interventions are described below. Findings: Larynx:normal Esophagus: GE junction at 40 cm, diaphragm hiatus at 40 cm, normal mucosa, bx taken from GEJ, distal and proximal esophagus --balloon dilation done to 20 mm, no tears seen Stomach: mild erosive gastritis. Biopsies were obtained. Grade 2 flap valve on retroflexed examination of the cardia. Duodenum: Normal bulb and descending duodenum, Intervention: Biopsies as noted above, COLONOSCOPY Instrument: Olympus variable stiffness pediatric scope 190L Colonoscopy Monitoring: Vital signs and clinical assessment, continuous EKG monitoring, Pulse oximetry, Carbon Dioxide monitoring and blood pressure monitoring were done throughout the procedure. Colon withdrawal time was 11 minutes. Procedure: The patient was placed in the left lateral decubitis position and pre-procedure medications were administered. After a digital rectal examination of the ano-rectum, the video colonoscope was inserted into the rectum and advanced through the colon to the cecum/TI. The colonoscope was slowly withdrawn in a retrograde panoramic fashion and the colon mucosa was carefully examined including a retroflexed view of the rectum. Findings and interventions are described below. Procedure Difficulty:moderate Findings: Terminal Ileum-normal Cecum: 6-7 mm sessile polyp removed with cold forceps Ascending Colon: normal Transverse Colon -normal Descending Colon:normal Sigmoid Colon: mild diverticulosis Rectum: Retroflexion with small internal hemorrhoids, grade I, x 2 sessile polyps 6-8 mm removed with cold snare Anorectum - normal Colon preparation: [place] Bowel Preparation Scale Right colon; 2 Transverse colon: 2 Left colon; 2 (0 = Unprepared colon segment with mucosa not seen due to solid stool that cannot be cleared. 1 = Portion of mucosa of the colon segment seen, but other areas of the colon segment not well seen due to staining, residual stool and/or opaque liquid. 2 = Minor amount of residual staining, small fragments of stool and/or opaque liquid, but mucosa of colon segment seen well. 3 = Entire mucosa of colon segment seen well with no residual staining, small fragments of stool or opaque liquid) Impression and Post Procedure Diagnosis: Endoscopy Findings: erosive gastritis Colonoscopy Findings: Plan: Await Pathology results Repeat Colonoscopy in 5 years if adenomatous polyps, 10 yrs if benign or earlier if clinically indicated High fiber diet leaflet avoid straining at stool, epsom salts and sitz bath, anusol supps or cream if ongoing sx of dysphagia then modified barium swallow, maybe manometry as well Above findings were reviewed with the patient and relevant handouts were provided if indicated.
[2023-12-19 14:07] VITALS: BP 115/53; PULSE 78; RESP 16; TEMP 36.1; O2SAT 90
[2023-12-19 14:22] VITALS: BP 100/70; PULSE 74; RESP 16; O2SAT 93
[2023-12-19 14:37] VITALS: BP 138/74; PULSE 60; RESP 16; O2SAT 96
[2023-12-19 14:45] VITALS: RESP 16; O2SAT 96
[2023-12-19 15:00] VITALS: BP 137/95; PULSE 58; RESP 16; TEMP 36.2; O2SAT 95
== END 2023-12-19 15:39 | disposition home or self-care (01) ==
PROVIDERS: PCP Internal Medicine; Visit Provider Internal Medicine Gastroenterology
PROC: (CPT 45385; principal; 2023-12-19 14:00)
DX: Z12.11 Encounter for screening for malignant neoplasm of colon (principal); D12.0 Benign neoplasm of cecum; K62.1 Rectal polyp; K57.30 Diverticulosis of large intestine without perforation or abscess without bleeding; K64.0 First degree hemorrhoids; R13.14 Dysphagia, pharyngoesophageal phase; K29.50 Unspecified chronic gastritis without bleeding; B96.81 Helicobacter pylori [H. pylori] as the cause of diseases classified elsewhere; K44.9 Diaphragmatic hernia without obstruction or gangrene; E78.00 Pure hypercholesterolemia, unspecified; R91.8 Other nonspecific abnormal finding of lung field; E55.9 Vitamin D deficiency, unspecified; J44.9 Chronic obstructive pulmonary disease, unspecified; R73.01 Impaired fasting glucose; F41.8 Other specified anxiety disorders; N40.0 Benign prostatic hyperplasia without lower urinary tract symptoms; Z88.5 Allergy status to narcotic agent; Z91.040 Latex allergy status; Z98.890 Other specified postprocedural states; Z87.891 Personal history of nicotine dependence; Z56.0 Unemployment, unspecified
CPT/HCPCS: 45385; 45380; 43249; 43239; 88305; 88313; 88342; C1726; J1100; J1596; J2003; J2704

== ENCOUNTER → 2023-12-19 10:50 | Outpatient (BNV) | payer MEDICARE, MEDICAID, SELFPAY | PROVIDERS: PCP Internal Medicine; Visit Provider Internal Medicine Gastroenterology | DX: Z12.11 Encounter for screening for malignant neoplasm of colon (principal); D12.0 Benign neoplasm of cecum; K62.1 Rectal polyp; K57.30 Diverticulosis of large intestine without perforation or abscess without bleeding; K64.0 First degree hemorrhoids; R13.10 Dysphagia, unspecified; K29.70 Gastritis, unspecified, without bleeding | CPT/HCPCS: 43239; 43249; 45380; 45385 ==

== ENCOUNTER 2024-06-20 16:02 | Outpatient (AMB) | payer MEDICARE, MEDICAID, SELFPAY ==
--- OUTSIDE RECORDS SUMMARY | 2024-06-20 16:05 | XMS_ITS | Encounter Summary ---
Author Organization [facility] Address [address] [place] [address] Care Team Providers Care Farmworker Poultry Name Role Phone Earnest Lucio MD Primary Care Provider Encounter Details Date Type Department Care Team (Late st Contact Info) Description 05/28/2024 Lab Requisition [facility] - Main Lab [address] [facility] [place] [address] Johnny Ballard MD [address] [place], [place] [id number] Elevated prostate specific antigen (PSA) Social History Tobacco Use Types Packs/Day Years Used Date Smoking Tobacco: Never Assessed Sex and Gender Information Value Date Recorded Sex Assigned at Not on file Legal Sex Male 11:07 AM EDT Gender Identity Not on file Sexual Orientation Not on file documented as of this encounter Plan of Treatment Not on file documented as of this encounter Procedures Procedure Name Priority Date/Time Associated Diagnosis Comments AP OUTSIDE CONSULT Routine 05/27/2024 Elevated prostate specific antigen (PSA) documented in this encounter Results * Anatomic pathology outside consult (05/27/2024) Final Diagnosis A. Prostate, Left [place] Biopsy: Benign prostate tissue. B. Prostate, Left Lateral [place] Biopsy: Benign prostate tissue with focal chronic inflammation including rare multinucleated giant cells. C. Prostate, Left Middle Middle Biopsy: Benign prostate tissue. D. Prostate, Left Lateral Middle Biopsy: Benign prostate tissue. E. Prostate, Left Middle Base Biopsy: Acinar adenocarcinoma, conventional (usual) type, Coleen score 3 + 3 = 6 (Grade group 1). The carcinoma involves approximately 15% of the tissue submitted for review and spans approximately 1.5 mm in greatest dimension in a single core. F. Prostate, Left Lateral Base Biopsy: Benign prostate tissue. G. Prostate, Right [place] Biopsy: Benign prostate tissue with chronic and focal acute inflammation. H. Prostate, Right Lateral [place] Biopsy: Acinar adenocarcinoma, conventional (usual) type, Greenwood score 3 + 4 = 7 (Grade group 2). Coleen pattern 4 comprises approximately 10-20% of the carcinoma. The carcinoma involves approximately 30-35% of the tissue submitted for review and spans approximately 4 mm in greatest dimension in a single core. I. Prostate, Right Middle Middle Biopsy: Small focus of acinar adenocarcinoma, conventional (usual) type, favor Greenwood score 3 + 4 = 7 (Grade group 2). (See note.) The carcinoma involves less than 5% of the tissue submitted for review and spans less than 1 mm in greatest dimension in a single core. Note: The focus of adenocarcinoma is small and abuts the edge of the tissue core with occasional compressed glands at the edge. Although definitive grading is challenging in this small focus, a Coleen score of 3 + 4 is favored. J. Prostate, Right Lateral Middle Biopsy: Atypical small acinar proliferation, suspicious for adenocarcinoma. K. Prostate, Right Middle Base Biopsy: Benign prostate tissue with patchy chronic inflammation. L. Prostate, Right Lateral Base Biopsy: Benign prostate tissue. M. Prostate, Right Anterior Peripheral Zone Biopsy: Acinar adenocarcinoma, conventional (usual) type, Greenwood score 3 + 3 = 6 (Grade group 1). The carcinoma involves two of two tissue cores and approximately 50% of the tissue submitted for review and spans approximately 6 mm in greatest dimension in each tissue core. 06/03/2024 7:08 PM [facility] Comment Network Operations Technician slide(s) from this case have been presented at Anatomic Pathology Intradepartmental Review Conference on 06/02/24. 06/03/2024 7:08 PM [facility] Clinical Information Elevated PSA PSA: 5.0 (03/26/24) [id number] 06/03/2024 7:08 PM [facility] Gross Description A. Prostate, Left [place] Biopsy: Received, properly labeled, are two H and E stained slides and two unstained slides. B. Prostate, Left Lateral [place] Biopsy: Received, properly labeled, are two H and E stained slides and two unstained slides. C. Prostate, Left Middle Middle Biopsy: Received, properly labeled, are two H and E stained slides and two unstained slides. D. Prostate, Left Lateral Middle Biopsy: Received, properly labeled, are two H and E stained slides and two unstained slides. E. Prostate, Left Middle Base Biopsy: Received, properly labeled, are two H and E stained slides and two unstained slides. F. Prostate, Left Lateral Base Biopsy: Received, properly labeled, are two H and E stained slides and two unstained slides. G. Prostate, Right [place] Biopsy: Received, properly labeled, are two H and E stained slides and two unstained slides. H. Prostate, Right Lateral [place] Biopsy: Received, properly labeled, are two H and E stained slides and two unstained slides. I. Prostate, Right Middle Middle Biopsy: Received, properly labeled, are two H and E stained slides and two unstained slides. J. Prostate, Right Lateral Middle Biopsy: Received, properly labeled, are two H and E stained slides and two unstained slides. K. Prostate, Right Middle Base Biopsy: Received, properly labeled, are two H and E stained slides and two unstained slides. L. Prostate, Right Lateral Base Biopsy: Received, properly labeled, are two H and E stained slides and two unstained slides. M. Prostate, Right Anterior Peripheral Zone Biopsy: Received, properly labeled, are two H and E stained slides and two unstained slides. /al 06/03/2024 7:08 PM EDT [facility] Disclaimer Unless otherwise specified, all tissue is 10% NB formalin fixed and paraffin embedded. Technical pathology services provided by [facility] at [address] [place] [address] [address], [place] [address] (CLIA #[id number]/Letty Damon MD, Hospital Clinic Assistant) 06/03/2024 7:08 PM EDT [facility] Tissue Prostate / Unknown 05/27/20242024 1:32 PM EDT Tissue specimen (specimen) Prostate / Unknown 05/27/2024 05/28/2024 1: 37 PM EDT Tissue specimen (specimen) Prostate / Unknown 05/27/2024 05/28/2024 1: 37 PM EDT Tissue specimen (specimen) Prostate / Unknown 05/27/2024 05/28/2024 1: 37 PM EDT Tissue specimen (specimen) Prostate / Unknown 05/27/2024 05/28/2024 1: 37 PM EDT Tissue specimen (specimen) Prostate / Unknown 05/27/2024 05/28/2024 1: 37 PM EDT Tissue specimen (specimen) Prostate / Unknown 05/27/2024 05/28/2024 1: 37 PM EDT Tissue specimen (specimen) Prostate / Unknown 05/27/2024 05/28/2024 1: 37 PM EDT Tissue specimen (specimen) Prostate / Unknown 05/27/2024 05/28/2024 1: 37 PM EDT Tissue specimen (specimen) Prostate / Unknown 05/27/2024 05/28/2024 1: 37 PM EDT Tissue specimen (specimen) Prostate / Unknown 05/27/2024 05/28/2024 1: 37 PM EDT Tissue specimen (specimen) Prostate / Unknown 05/27/2024 05/28/2024 1: 37 PM EDT Tissue specimen (specimen) Prostate / Unknown 05/27/2024 05/28/2024 1: 37 PM EDT us Johnny Ballard MD LAB PATHOLOGY ORDERABLES Fi nal Result [facility] [address] [place] [address], documented in this encounter Visit Diagnoses Diagnosis Elevated prostate specific antigen (PSA) documented in this encounter Care Teams Farmworker Poultry Relationship Specialty Start Date End Date Earnest Lucio MD [address] [place] [address] Dr [address] [place], [place] PCP - General 04/30/23 documented as of this encounter
--- OUTSIDE RECORDS SUMMARY | 2024-06-20 16:05 | XMS_ITS | Clinical Summary ---
Author Organization [address] [facility] Address [address] [place] [address] Phone Care Team Providers Care Contractor General Building Name Role Phone Earnest Lucio MD Primary Care Provider Encounters Date Type Department Care Team Description 05/28/2024 Lab Requisition [facility] - Main Lab [address] [place] [address] Johnny Ballard MD Elevated prostate specific antigen (PSA) from Last 3 Months Social History Tobacco Use Types Packs/Day Years Used Date Smoking Tobacco: Never Assessed Sex and Gender Information Value Date Recorded Sex Assigned at Not on file Legal Sex Male 11:07 AM EDT Gender Identity Not on file Sexual Orientation Not on file Plan of Treatment Health Maintenance Due Date Last Done Comments DTaP,Tdap,and Td Vaccines (1 - Tdap) 1973 Pneumococcal Vaccine: 50+ Ye ars (1 of 1 - PCV) 2004 Zoster Vaccines (1 of 2) 2004 Abdominal Aortic Aneurysm (A AA) Screen 09/28/2023 Cholesterol Screening (Lipid Panel) 09/28/2023 Colorectal Cancer Screening: Colonoscopy 09/28/2023 Depression Screening 09/28/2023 Falls Risk Assessment 09/28/2023 Hepatitis C Screening 09/28/2023 Medicare Annual Wellness Visit 09/28/2023 Social Influencers of Health Screening 09/28/2023 COVID-19 Vaccine ( - 2023-2 5 season) 2023 Influenza Vaccine (Season Ended) 2024 RSV Immunization Adult Patie nts (1 - 1-dose 75+ series) 2029 HIB Vaccines Aged Out No longer eligi ble based on patient's age to complete this topic HPV Vaccines Aged Out No longer eligi ble based on patient's age to complete this topic Hepatitis A Vaccines Aged Out No long er eligible based on patient's age to complete this topic Hepatitis B Vaccines Aged Out No long er eligible based on patient's age to complete this topic IPV Vaccines Aged Out No longer eligi ble based on patient's age to complete this topic MMR Vaccines Aged Out No longer eligi ble based on patient's age to complete this topic Meningococcal ACWY Vaccine Aged Out N o longer eligible based on patient's age to complete this topic Meningococcal B Vaccine Aged Out No l onger eligible based on patient's age to complete this topic RSV Immunization Patients Un xuan 20 months Aged Out No longer eligible b ased on patient's age to complete this topic Varicella Vaccines Aged Out No longer eligible based on patient's age to complete this topic Procedures Procedure Name Priority Date/Time Associated Diagnosis Comments AP OUTSIDE CONSULT Routine 05/27/2024 Elevated prostate specific antigen (PSA) from Last 3 Months Results * Anatomic pathology outside consult (05/27/2024) Final Diagnosis A. Prostate, Left Middle Lucile Biopsy: Benign prostate tissue. B. Prostate, Left Lateral Lucile Biopsy: Benign prostate tissue with focal chronic [...] Benign prostate tissue. G. Prostate, Right [place] Lucile Biopsy: Benign prostate tissue with chronic and focal acute inflammation. H. Prostate, Right Lateral Lucile Biopsy: Acinar adenocarcinoma, conventional (usual) type, Carman score 3 + 4 = 7 (Grade group 2). Carman pattern 4 comprises approximately 10-20% of the carcinoma. The carcinoma involves approximately 30-35% of the tissue submitted for review and spans approximately 4 mm in greatest dimension in a single core. I. Prostate, Right Middle Middle Biopsy: Small focus of acinar adenocarcinoma, conventional (usual) type, favor Carman score 3 + 4 = 7 (Grade [...] is challenging in this small focus, a Carman score of 3 + 4 is favored. J. Prostate, Right Lateral Middle Biopsy: Atypical small acinar proliferation, suspicious for adenocarcinoma. K. Prostate, Right Middle Base Biopsy: Benign prostate tissue with patchy chronic inflammation. L. Prostate, Right Lateral Base Biopsy: Benign prostate tissue. M. Prostate, Right Anterior Peripheral Zone Biopsy: Acinar adenocarcinoma, conventional (usual) type, Coleen score 3 + 3 = 6 (Grade group 1). The carcinoma involves two of two tissue cores and approximately 50% of the tissue submitted for review and spans approximately 6 mm in greatest dimension in each tissue core. 06/03/2024 7:08 PM [facility] Comment Hotel Security Officer slide(s) from this case have been presented at Anatomic Pathology Intradepartmental Review Conference on 06/02/24. 06/03/2024 7:08 PM [facility]) [facility] Clinical Information Elevated PSA PSA: 5.0 (03/26/24) [id number] 06/03/2024 7:08 PM [facility] Gross Description A. Prostate, Left Middle Lucile Biopsy: Received, properly labeled, are two H and E stained slides and two unstained slides. B. Prostate, Left Lateral Lucile Biopsy: Received, properly labeled, are two H [...] two unstained slides. G. Prostate, Right Middle Lucile Biopsy: Received, properly labeled, are two H and E stained slides and two unstained slides. H. Prostate, Right Lateral Lucile Biopsy: Received, properly labeled, are two H [...] unstained slides. /al 06/03/2024 7:08 PM EDT [facility] Disclaimer Unless otherwise specified, all tissue is 10% NB formalin fixed and paraffin embedded. Technical pathology services provided by [facility] at [address] [place] [address] [address], [place] [address] (CLIA #[id number]/Letty Damon MD, Critical Care Unit Nurse) 06/03/2024 7:08 PM EDT [facility] Tissue Prostate / Unknown [...] MD LAB PATHOLOGY ORDERABLES Fi nal Result [facility] [address] [place] [address], [place] [phone] from Last 3 Months Insurance MEDICARE MEDICAID - [place] Care Teams Contractor General Building Relationship Specialty Start Date End Date Earnest Lucio MD [address] [place] [address] [place] [address] PCP - General 04/30/23
[2024-06-20 16:08] VITALS: BP 110/70; PULSE 82; O2SAT 95; BMI 28.4
--- NOTE | 2024-06-20 16:08 | A.OFFPC_ITS ---
Vital Signs 06/20/24 16:08 Height 5 ft 11 in Weight 204 lb BMI 28.4 BP 110/70 Blood Pressure Location Lt brachial Position Sitting Pulse 82 Pulse Source Pulse Oximeter Pulse Oximetry (%) 95 Oxygen Delivery Method Room Air Intake Visit Reasons: follow up Tour Narrator Required: No Accompanied by: Self / Same As Patient Allergies grass pollen Allergy (Unknown, Verified 06/20/24 16:59) positive allergy test latex [LATEX] Allergy (Unknown, Verified 06/20/24 16:59) UNKNOWN Latex, Natural Rubber Allergy (Unknown, Verified 06/20/24 16:59) Itching morphine [MORPHINE] Adverse Reaction (Mild, Verified 06/20/24 16:59) SENSATION OF HEAT/WARMTH environmental Allergy (Unknown, Uncoded 06/20/24 16:59) Dry Eye Medication List - Last Reconciled 06/20/24 by Earnest Lucio MD albuterol sulfate 90 mcg/actuation 2 puffs inhalation QID PRN 30 days atorvastatin 10 mg PO BEDTIME 90 days bisacodyl (Dulcolax (bisacodyl)) 20 mg (4 x 5 mg) PO ONCE 1 day cholecalciferol (vitamin D3) 50 mcg PO DAILY 90 days ibuprofen 600 mg PO Q8H PRN ipratropium-albuterol 20-100 mcg/actuation (Combivent Respimat) 1 puff inhalation QID 30 days ondansetron 4 mg PO Q6-8H PRN polyethylene glycol 3350 (Miralax) 238 grams PO ONCE sertraline 25 mg PO DAILY 30 days tamsulosin 0.4 mg PO BEDTIME Tobacco use date assessed: 06/20/24 Fall risk assessment: No Falls in past year Last assessed Fall Risk: 06/20/24 Dental Screening Dental Screen Date: 06/20/24 Did you have a dental visit in the last 12 months?: Yes Did you have a dental problem in the last 6 months where you did not have access to dental care?: No Was dental information given to patient?: Patient has dentist HPI follow up HPI Details Patient comes in today for his follow up visit - he has not been back since 09/27/2023 States that his last appointment back in January 2024 was supposedly cancelled by the office and he was not able to reschedule and get a follow up appointment earlier than today Patient states that he was just diagnosed with prostate cancer (adenocarcinoma) and is currently undergoing further evaluation / genetic testing to help determine the best treatment plan Patient states that he feels okay otherwise He denies any headaches or dizziness Denies any chest pains, no increased SOB No nausea/vomiting, no abdominal pain No change in bowel habits noted States that he continues to break out in a recurrent and itchy rash on a few fingers in both hands, with the one on his right index finger being the most severe lately - states that it started bleeding on and off a few days ago and continues to feel very itchy and irritated He does not have any follow-up labs done recently [facility] Medical History Abnormal chest x-ray Anxiety and depression Chronic obstructive pulmonary disease (COPD) Impaired fasting glucose Vitamin D deficiency Pure hypercholesterolemia Overweight (BMI 25.0-29.9) Benign prostatic hyperplasia Pulmonary nodules Asthma Surgical History H/O cervical spine surgery History of ear surgery H/O knee surgery Social History Household Members: Family Housing: Apartment Are you a primary palliative care specialist to a significant other at home: No Do you presently have visiting nurse or other home services: No Alcohol intake: never Patient Tobacco Use Status: Former Tobacco user e-Cigarette/Vaping Use: Never Used Second Hand Smoke Exposure: No Advance Directives Date on File: 03/11/21 service: No Current occupational status: unemployed and retired Cognitive needs: No Hearing needs: Yes Vision needs: Yes Questionnaire PHQ-9 Over the last 2 weeks, how often have you been bothered by any of the following problems? 1. Little interest or pleasure in doing things: several days 2. Feeling down, depressed, or hopeless: several days 3. Trouble falling or staying asleep, or sleeping too much: several days 4. Feeling tired or having little energy: not at all 5. Poor appetite or overeating: not at all 6. Feeling bad about yourself - or that you are a failure or have let yourself or your family down: not at all 7. Trouble concentrating on things, such as reading the newspaper or watching television: not at all 8. Moving or speaking so slowly that other people could have noticed. Or the opposite - being so fidgety or restless that you have been moving around a lot more than usual: not at all 9. Thoughts that you would be better off or of hurting yourself in some way: not at all Total score: 3 Depression Screening Interpretation: Positive Depression Screening Follow-up: Existing condition and In treatment Depression Screening Done: Yes 95737 - PHQ-9 Billing: Yes Source: Developed by Drs. Nader Madera, Gabrielle Contreras, Brock Kahn and colleagues, with an educational jo from [employer]. Thrive Questionnaire Date Thrive assessed: 06/20/24 I am a: Patient What is your living situation today?: I have a steady place to live Within the past 12 months, did the food you bought not last and you didn't have the money to get more?: Never true Within the past 12 months, did you worry whether your food would run out before you got money to buy more?: Never true Do you have trouble paying for medicines?: No Do you have trouble getting transportation to medical appointments?: No Do you have trouble paying your heating and electricity bill?: No Do you have trouble taking care of your child, family member or friend?: No Do you have trouble with day-to-day activities such as bathing, preparing meals, shopping, managing finances, etc.?: No Are you currently unemployed and looking for a job?: No Are you interested in more education?: No Please select the resources that you would like help with: None Currently or been in a relationship where the following occur: No concerns reported THRIVE Score: 0 AUDIT C Alcohol Use Questionnaire (AUDIT-C) 1. How often do you have a drink containing alcohol?: Monthly or less 2. How many drinks containing alcohol do you have on a typical day when you are drinking?: 3 or 4 3. How often do you have six or more drinks on one occasion?: Never Total Score: 2 Score Reviewed/Action Taken: Yes CALOS-7 AMB Questionnaire CALOS-7 Date CALOS - 7 assessed: 06/20/24 Feeling nervous, anxious, or on edge: 0 = Not at all Not being able to stop or control worryin = Not at all Worrying too much about different things: 0 = Not at all Trouble relaxin = Not at all Being so restless that it is hard to sit still: 0 = Not at all Becoming easily annoyed or irritable: 0 = Not at all Feeling afraid as if something awful might happen: 0 = Not at all Total CALOS-7 score (0-4 normal; 5-9 mild; 10-14 moderate; 15-21 severe): 0 Source: Developed by Drs. Nader Madera, Gabrielle Contreras, Brock Kahn and colleagues, with an educational jo from [employer]. Review of Systems Const Denies chills, Denies fatigue, Denies fever(s) and Denies headache(s) ENT Denies dysphagia, Denies dizziness, Denies otalgia, Denies headache(s), Reports neck pain (on and off), Denies odynophagia and Denies sore throat Card Denies chest pain, Denies palpitations and Reports dyspnea on exertion (mild) Resp Denies chest congestion, Reports cough (occasional, non-productive), Reports dyspnea on exertion (mild) and Denies wheezing GI Denies abdominal pain, Denies constipation, Denies dysphagia, Denies heartburn, Denies diarrhea, Denies nausea, Denies odynophagia and Denies vomiting Denies hematuria (but had bout a few months ago due to kidney stones), Denies difficulty urinating, Denies dysuria, Reports nocturia and Reports urinary frequency Musc Denies back pain and Reports neck pain (on and off) Skin/Breast Details: (+) recurrent itchy rash on a few fingers of both hands Neuro Denies dizziness and Denies headache(s) Psych Reports anxiety and Reports depression Endo Denies fatigue and Denies palpitations Aller/Immun Denies wheezing Physical exam (Primary Care) Vital Signs: Last Vital Signs Pulse 82 06/20/24 16:08 BP 110/70 06/20/24 16:08 Pulse Ox 95 06/20/24 16:08 Oxygen Delivery Method Room Air 06/20/24 16:08 BMI result Body Mass Index 28.4 Tobacco/Smoking Status: Tobacco use Status Tobacco use date assessed 06/20/24 06/20/24 16:16 Patient Tobacco Use Status Former Tobacco user 06/20/24 16:16 e-Cigarette/Vaping Use Never Used 06/20/24 16:16 PHQ-9: PHQ-9 Score PHQ-9: Total score 3 06/20/24 17:03 Depression Screening Interpretation: Positive Depression Screening Follow-up: Existing condition and In treatment Thrive Assessment: Date of Thrive Assessment Date Thrive assessed 06/20/24 06/20/24 16:16 Currently or been in a relationship where the following occur: No concerns reported Const General: no acute distress and alert HENMT Ears: TM's normal bilaterally and EAC's normal Throat: Yes posterior oropharynx normal and Yes tonsils normal (no TP congestion) Neck Neck: Yes supple and No lymphadenopathy Thyroid: Thyroid normal Resp Auscultation: no rales, no wheezes and diminished lung sounds (slightly) bilateral Cardio Rate: regular rate Rhythm: regular rhythm Heart sounds: no murmurs GI Palpation (GI): Soft to palpation and nontender Auscultation: normal bowel sounds General: Yes no CVA tenderness Back/Spine/Pelvis Back: no CVA tenderness Cervical Spine: Cervical spine tenderness (mild) Thoracic/Lumbar Spine: No lumbar spinal tenderness Skin Other: (+) scaling rash on the IP joints of a few fingers on both hands, with the worse on the IP joint of the right index finger Extrem General: Yes no clubbing, cyanosis or edema Coding Level of Care Code Est Pt Level 4 (02954) Complex EM visit Add On G2211 Diagnoses Adenocarcinoma of prostate C61 Pure hypercholesterolemia E78.00 Centrilobular emphysema J43.2 COPD type: emphysema Emphysema type: centrilobular Pulmonary nodules R91.8 Impaired fasting glucose R73.01 Vitamin D deficiency E55.9 Ureteral calculus, left N20.1 Eczema, unspecified type L30.9 Eczema type: unspecified Anxiety and depression F41.9; F32.A Overweight (BMI 25.0-29.9) E66.3 Additional Codes PHQ-9 - 56460 - PHQ-9 Billing: Yes ([id number]) Assessment & Plan Assessment & Plan (1) Adenocarcinoma of prostate: Code(s): C61 - Malignant neoplasm of prostate Category: Medical Plan: Patient was diagnosed with prostatic adenocarcinoma recently, grade group 2, [place] score 7 (3+4) He is currently undergoing ProlBetabrand genetic testing to assess if he is a candidate for active surveillance He was reportedly advised of treatment options which include prostatectomy (open vs robotic) with external beam radiation therapy with or without adjuvant androgen ablation, focal therapy with cryoablation, radioactive seed placement, active surveillance, observation or peer androgen ablation therapy He was recommended active surveillance vs prostatectomy vs external beam radiation therapy given his [place] score Follow-up with urology as scheduled (2) Pure hypercholesterolemia: Code(s): E78.00 - Pure hypercholesterolemia, unspecified Category: Medical Plan: Reinforced low cholesterol diet Continue Atorvastatin 10 mg QD Will recheck his labs and fasting lipids in 4 months for follow up (3) Chronic obstructive pulmonary disease (COPD): Code(s): J44.9 - Chronic obstructive pulmonary disease, unspecified Category: Medical Qualifiers: COPD type: emphysema Emphysema type: centrilobular Qualified Code(s): J43.2 - Centrilobular emphysema Plan: Chest CT done on 07/04/22 revealed (+) centrilobular emphysema with ground glass scarring in both upper lobes; a 4 mm noncalcified nodule is noted at the right upper lobe, likely a granuloma PFTs revealed no obstructive or restrictive ventilatory defects identified and no significant response to bronchodilators noted. There is a mild decrease in maximum voluntary ventilation secondary to likely deconditioning. Lung volumes are within normal limits except for decrease in the expiratory reserve volume secondary to an elevated BMI Patient states that his chest/lung symptoms have been stable, and he uses his inhalers as needed with (+) relief of his symptoms even though his PFT showed no significant bronchodilator response Continue Combivent Respimat 20-100 mcg 1 inhalation QID and Albuterol HFA 2 inh alations every 6 hours as needed Follow up with pulmonary as scheduled (4) Pulmonary nodules: Code(s): R91.8 - Other nonspecific abnormal finding of lung field Category: Medical Plan: (+) multiple nodules were seen on previous chest CT and chest x-rays A more recent chest x-ray revealed (+) bilateral pulmonary nodules probably representing calcified granulomas Follow up with pulmonary as scheduled (5) Impaired fasting glucose: Code(s): R73.01 - Impaired fasting glucose Category: Medical Plan: His FBS was at 112 mg/dl and HgbA1c at 6.1% when they were last checked in September 2023; HgbA1c was previously at 5.9% and 6.2% when previously checked Reinforced low calorie/low carb diet; exercise as tolerated (6) Vitamin D deficiency: Code(s): E55.9 - Vitamin D deficiency, unspecified Category: Medical Plan: Continue Vitamin D3 2000 units QD (7) Ureteral calculus, left: Code(s): N20.1 - Calculus of ureter Category: Medical Plan: Patient states that he has not had any bouts of kidney stones lately Follow up with urology as scheduled (8) Eczema: Code(s): L30.9 - Dermatitis, unspecified Category: Medical Qualifiers: Eczema type: unspecified Qualified Code(s): L30.9 - Dermatitis, unspecified Plan: Patient reports breaking out in recurrent scaling and itchy rash/lesions, especially over the interphalangeal joints of his fingers Continue Hydroxyzine 25 mg TID PRN for rash/ itching and Triamcinolone 0.1% cream apply to rash TID PRN Will start him empirically on oral Doxycycline 100 mg BID x 7 days and Mupirocin 2% ointment to apply to the scaling rash on the IP joint of his R index finger Follow-up with dermatology as scheduled (9) Anxiety and depression: Code(s): F41.9 - Anxiety disorder, unspecified; F32.A - Depression, unspecified Category: Medical Plan: Continue Sertraline 25 mg QD - feels that he has been doing well on his current Rx Patient used to see psychiatry and goes to therapy at the [facility] in [place] regularly but eventually stopped going as he got tired of seeing and talking to a different therapist every he goes back for follow up States that the psychiatrists there also tend to change often as they move on after a year or two (10) Overweight (BMI 25.0-29.9): Code(s): E66.3 - Overweight Category: Medical Plan: Reinforced diet/exercise as tolerated/lose weight Plan Follow up in 4 months Orders: Orders UA CC w/rflx Micro + Cult 4 Months R30.0 - Dysuria Hemoglobin A1c 4 Months R73.01 - Impaired fasting glucose Complete Blood Count Auto Diff 4 Months D64.9 - Anemia, unspecified Comprehensive [place]. Panel Fast 4 Months E78.00 - Pure hypercholesterolemia, unspecified Lipid Panel 4 Months E78.00 - Pure hypercholesterolemia, unspecified TSH reflex Free T4 4 Months E78.00 - Pure hypercholesterolemia, unspecified Vitamin D 25-OH Total 4 Months E55.9 - Vitamin D deficiency, unspecified Medications: New mupirocin 2% 1 appl topical TID 50 grams 0RF doxycycline monohydrate 100 mg PO BID 7 days 14 caps 0RF
== END 2024-06-20 17:04 | disposition home or self-care (01) ==
LOC: HO.HMCH 16:03
PROVIDERS: PCP Internal Medicine; Visit Provider Internal Medicine
DX: C61 Malignant neoplasm of prostate (principal); E78.00 Pure hypercholesterolemia, unspecified; J43.2 Centrilobular emphysema; R91.8 Other nonspecific abnormal finding of lung field; R73.01 Impaired fasting glucose; E55.9 Vitamin D deficiency, unspecified; N20.1 Calculus of ureter; L30.9 Dermatitis, unspecified; F41.9 Anxiety disorder, unspecified; F32.A Depression, unspecified; E66.3 Overweight

== ENCOUNTER → 2024-06-20 16:02 | Outpatient (BNVA) | payer MEDICARE, MEDICAID, SELFPAY | PROVIDERS: PCP Internal Medicine; Visit Provider Internal Medicine | DX: C61 Malignant neoplasm of prostate (principal); E78.00 Pure hypercholesterolemia, unspecified; J43.2 Centrilobular emphysema; R91.8 Other nonspecific abnormal finding of lung field; R73.01 Impaired fasting glucose; E55.9 Vitamin D deficiency, unspecified; N20.1 Calculus of ureter; L30.9 Dermatitis, unspecified; F32.A Depression, unspecified; E66.3 Overweight; Z68.28 Body mass index [BMI] 28.0-28.9, adult; Z71.3 Dietary counseling and surveillance | CPT/HCPCS: 96127; 99212 ==

== ENCOUNTER 2024-07-15 11:44 | Emergency (ER) | payer MEDICARE, MEDICAID, SELFPAY ==
--- NOTE | ~2024-07-15 | XR_ITS ---
EXAMINATION: XR CHEST 2 VIEWS HISTORY: cough, dyspnea COMPARISON: Comparison is made with the prior examination dated 10/17/2021. FINDINGS: PA and lateral views of the chest are submitted. There is linear scarring at the right lung apex. There are calcified granulomas abutting the right minor fissure and at the left lung base. There are no focal airspace opacities. There is no pleural effusion, pneumothorax, or pulmonary vascular congestion. The heart is normal in size. The bones are intact. XR/XR chest 2V IMPRESSION: No acute cardiopulmonary abnormality. Electronically signed by: Nader Butler MD 07/15/2024 12:39 PM EDT
[2024-07-15 11:59] VITALS: BP 117/72; PULSE 83; RESP 18; TEMP 36.8; O2SAT 97; BMI 28.5
--- NOTE | 2024-07-15 12:00 | ED.GENADULT ---
HPI - General Adult General Chief complaint: Upper Respiratory Symptoms Stated complaint: Cough, runny nose, stepped on nail Time Seen by Provider: 07/15/24 13:44 Source: patient Mode of arrival: ambulatory Limitations: no limitations History of Present Illness ED Provider: Binh Mack PA-C HPI narrative: 68 yo male with history of prostate cancer, COPD/asthma, anxiety, depression, pulmonary nodules who presents to the ER for evaluation of cough, body aches, chills, runny nose for the last 2 days. He also wants to get his right foot evaluated because he stepped on a ti nail yesterday. He states he has been coughing a dry cough and he has chest discomfort in the middle when he coughs. He has been tired and achey all over. His runny nose makes it hard for him to breathe well at night. He denies difficulty breathing, SOB, N/V/D, or abdominal pain. No known sick contacts. No fevers but he has had chills. He states he was walking outside yesterday and a ti nail went through his shoe and punctured the bottom of his right foot. unknown if it was rasta or not. unknown tdap status. he states he cleaned it with alcohol at the time. it is still sore. MD complaint: cough, puncture wound to right foot Onset (ago): day(s) Location: right and lower extremity Radiation: non-radiation Severity: mild Quality: aching Pain Consistency: intermittent Relieving factors: rest Associated symptoms: cough, fever/chills, malaise and shortness of breath Treatments prior to arrival: none Related Data Previous Rx's ?Medication ?Instructions ?Recorded ipratropium 20 mcg-albuterol 100 1 puff inhalation QID Wheezing 30 04/17/22 mcg/actuation mist for inhalation days #4 grams (Combivent Respimat) bisacodyl 5 mg tablet,delayed 20 mg (4 x 5 mg) PO ONCE 1 day #4 04/13/23 release (Dulcolax (bisacodyl)) tabs polyethylene glycol 3350 17 238 g PO ONCE #238 grams 04/13/23 gram/dose oral powder (Miralax) ibuprofen 600 mg tablet 600 mg PO Q8H PRN fever or pain 06/22/23 #20 tabs ondansetron 4 mg disintegrating 4 mg PO Q6-8H PRN nausea and 06/24/23 tablet vomiting #7 tabs cholecalciferol (vitamin D3) 50 50 mcg PO DAILY 90 days #90 caps 12/30/23 mcg (2,000 unit) capsule atorvastatin 10 mg tablet 10 mg PO BEDTIME 90 days #90 tabs 03/25/24 tamsulosin 0.4 mg capsule 0.4 mg PO BEDTIME #90 caps 03/25/24 sertraline 25 mg tablet 25 mg PO DAILY 30 days #90 tabs 04/18/24 albuterol sulfate 90 mcg/actuation 2 puff inhalation QID PRN 04/27/24 aerosol inhaler shortness of breath or wheezing 30 days #8.5 grams doxycycline monohydrate 100 mg 100 mg PO BID 7 days #14 caps 06/20/24 capsule mupirocin 2 % topical ointment 1 appl topical TID #50 grams 06/20/24 fluticasone propionate 50 1 spray intranasal BID #16 grams 07/15/24 mcg/actuation nasal spray,suspension (Flonase Allergy Relief) guaifenesin 1,200 mg tablet, 1,200 mg PO BID #10 tabs 07/15/24 extended release 12 hr (Mucinex) levofloxacin 500 mg tablet 500 mg PO DAILY #5 tabs 07/15/24 Allergies Allergy/AdvReac Type Severity Reaction Status Date / Time grass pollen Allergy Unknown positive Verified 07/15/24 12:01 allergy test latex [LATEX] Allergy Unknown UNKNOWN Verified 07/15/24 12:01 Latex, Natural Rubber Allergy Unknown Itching Verified 07/15/24 12:01 morphine [MORPHINE] AdvReac Mild SENSATION Verified 07/15/24 12:01 OF HEAT/WARMTH environmental Allergy Unknown Dry Eye Uncoded 06/20/24 16:59 Review of Systems Review of Systems: Yes all other systems are reviewed and are negative PMFSH Past Medical History Medical History Abnormal chest x-ray Anxiety and depression Chronic obstructive pulmonary disease (COPD) Impaired fasting glucose Vitamin D deficiency Pure hypercholesterolemia Overweight (BMI 25.0-29.9) Benign prostatic hyperplasia Pulmonary nodules Asthma Surgical History H/O cervical spine surgery History of ear surgery H/O knee surgery Social History Social History Household Members: Family Housing: Apartment Are you a primary director day care center to a significant other at home: No Do you presently have visiting nurse or other home services: No Alcohol intake: never Patient Tobacco Use Status: Former Tobacco user Smoked in Last 30 Days: No e-Cigarette/Vaping Use: Never Used Second Hand Smoke Exposure: No Use of substances other than those prescribed or required for medical reasons: No Advance Directives: Yes Advance Directives on File: Yes Advance Directives Date on File: 03/11/21 service: No Current occupational status: unemployed and retired Cognitive needs: No Hearing needs: Yes Vision needs: Yes Physical Exam ED Vital Signs: Vital Signs - 24 hr 07/15/24 11:59 07/15/24 14:45 07/15/24 14:48 Temperature 98.2 F 98.2 F 98.2 F Pulse Rate 83 85 85 Respiratory Rate 18 18 18 Blood Pressure 117/72 121/46 L 121/46 L Pulse Oximetry 97 97 97 Oxygen Delivery Method Room Air Room Air Room Air BMI result Body Mass Index 28.5 Appearance: Alert. Oriented X3. No acute distress. Head: normocephalic, atraumatic. Eyes: Pupils equal, round and reactive to light. ENT: Pharynx normal. No tonsillar swelling or exudate. Clear nasal discharge Neck: Normal inspection. Neck supple. CVS: Normal heart rate and rhythm. Pulses normal. Respiratory: No respiratory distress. Breath sounds normal. No wheezing or rhonchi. Skin: Skin warm and dry. Normal skin color. Normal skin turgor. No rashes. Extremities: No lower extremity edema. No joint swelling. plantar aspect of the right foot with a punctate wound w/ tenderness, no redness. Neuro/psych: Oriented X 3. grossly normal, nofocal. Normal speech and cognition. Course Course Course Narrative: This is a rapid medical exam performed by Israel Fontana NP: Additional HPI, ROS, PE not included below will be deferred to primary provider. Patient is a 68-year-old male presenting to the emergency department with complaint of congestion, cough, body aches, fatigue for the past 2 days. Also reports that he stepped on a nail yesterday which went through his shoe into his right foot. Unknown last Tdap. Plan: viral panel, cxr, tdap Medications Administered Discontinued Medications Generic Name Dose Route Start Last Admin Trade Name Fresybil PRN Reason Stop Dose Admin Diphtheria/Tetanus/Acell Pertussis 0.5 ml 07/15/24 12:01 07/15/24 14:37 Diphth,Pertus(Acell),Tet Adult 0.5 Ml Syringe IM 07/15/24 12:02 0.5 ml .ONCE ONE Administration Medical Decision Making Medical Decision Making [facility] Narrative: 68 yo male presenting to the ER for evaluation of URI symptoms for the last 2 days along with puncture wound to his right foot after stepping on a nail yesterday. On arrival his vital signs are stable, no respiratory distress in his lungs are clear. No wheezing to suggest COPD or asthma exacerbation. He has diffuse body aches and chills more consistent with a viral process. His viral PCR is negative. His chest x-ray does not show any focal pneumonia or pleural effusion. The foot has a small puncture wound without any evidence of superimposed infection at this time. Given that the nail went through his shoe will empirically treat with levofloxacin. patient encouraged to monitor the wound closely and monitor for signs of infection. He is not diabetic. At this time is stable for discharge home with outpatient follow-up. Return precautions were discussed. Differential Diagnosis Differential Diagnoses: The differential diagnosis associated with the presentation includes COPD exacerbation, asthma exacerbation, covid, flu, rsv, bronchitis, other viral syndrome, seasonal allergies puncture wound, cellulitis, open fracture Admission/Observation Consideration of admission/observation: Escalation of care including admission/observation considered Lab Data [facility] Lab Attestation statement: I reviewed the patient's lab results. Labs: Lab Results 07/15/24 Range/Units 12:32 Influenza Type A (PCR) NEGATIVE (Negative) Influenza Type B (PCR) NEGATIVE (Negative) RSV RNA Qual (PCR) NEGATIVE (Negative) SARS-CoV-2 RNA (RT-PCR) NEGATIVE (Negative) Independent Interpretation I performed an independent interpretation of an: Plain X-Ray Interpretation: cxr clear without focal infiltrate Radiology Impression Discussion of test interpretation with radiology: I have reviewed the radiologist's reading. Independent Historian Clinical information obtained from an independent historian. History obtained from or confirmed by: Spouse External Record Review External record reviewed: Outpatient record, Prior outpatient labs and Prior outpatient radiology Prescription Management I considered prescription management with: Pain Medication and Antibiotic Chronic Conditions Patient?s care impacted by: Other (COPD) Critical Care Time Critical Care Time Critical Care Time: No Discharge Plan Discharge Clinical Impression: Puncture wound, Viral respiratory illness Patient Disposition: Home, Self-Care Instructions: Viral Syndrome (ED), Puncture Wound in the Foot (ED) Additional Instructions: Your chest x-ray today was normal You tested negative for COVID, Flu and RSV Your most likely have another viral illness causing your symptoms Use the prescribed nasal steroid spray Rest and drink plenty of fluids Take the prescribed antibiotics as directed, complete the entire course and do not miss any doses - this will help prevent infection in the foot and treat any process in your lungs You were given tetanus shot today Monitor for signs of infection in your foot including redness and swelling Follow up with your doctor If you develop new or worsening symptoms call 911 or come back to the ER for further evaluation. Prescriptions: New levofloxacin 500 mg tablet 500 mg PO DAILY Qty: 5 0RF fluticasone propionate [Flonase Allergy Relief] 50 mcg/actuation spray,suspension 1 spray intranasal BID Qty: 16 0RF Rx Instructions: administer into each nostril guaifenesin [Mucinex] 1,200 mg tablet extended release 12hr 1,200 mg PO BID Qty: 10 0RF No Action Combivent Respimat 20-100 mcg/actuation mist 1 puff inhalation QID 30 Days Qty: 4 5RF cholecalciferol (vitamin D3) 50 mcg (2,000 unit) capsule 50 mcg PO DAILY 90 Days Qty: 90 3RF atorvastatin 10 mg tablet 10 mg PO BEDTIME 90 Days Qty: 90 1RF tamsulosin 0.4 mg capsule 0.4 mg PO BEDTIME Qty: 90 3RF sertraline 25 mg tablet 25 mg PO DAILY 30 Days Qty: 90 0RF albuterol sulfate 90 mcg/actuation HFA aerosol inhaler 2 puff inhalation QID PRN (Reason: shortness of breath or wheezing) 30 Days Qty: 8.5 3RF ibuprofen 600 mg tablet 600 mg PO Q8H PRN (Reason: fever or pain) Qty: 20 0RF ondansetron 4 mg tablet,disintegrating 4 mg PO Q6-8H PRN (Reason: nausea and vomiting) Qty: 7 0RF doxycycline monohydrate 100 mg capsule 100 mg PO BID 7 Days Qty: 14 0RF mupirocin 2 % ointment 1 appl topical TID Qty: 50 0RF bisacodyl [Dulcolax (bisacodyl)] 5 mg tablet,delayed release (DR/EC) 20 mg PO ONCE 1 Days Qty: 4 0RF Rx Instructions: take 4 tabs at noon the day before your colonoscopy polyethylene glycol 3350 [Miralax] 17 gram/dose powder 238 g PO ONCE Qty: 238 0RF Rx Instructions: As directed by gastroenterology department at [facility] Referrals: Earnest Lucio MD [Primary Care Provider] - Interventions: ED Discharge Assessment Last Done: 07/15/24 14:48 Discharge Date/Time: 07/15/24 14:49 Print Language: Latvian
[2024-07-15 13:46] LABS: Influenza A PCR NEGATIVE (Negative); Influenza B PCR NEGATIVE (Negative); Resp Syncy Virus RNA Qual PCR NEGATIVE (Negative); SARS COV2 PCR INHOUSE NEGATIVE (Negative)
[2024-07-15] MEDS: Diphth,Pertus(ACell),Tet Adult 0.5 ML SYRINGE IM (14:37)
[2024-07-15 14:45] VITALS: BP 121/46; PULSE 85; RESP 18; TEMP 36.8; O2SAT 97
[2024-07-15 14:48] VITALS: BP 121/46; PULSE 85; RESP 18; TEMP 36.8; O2SAT 97
--- OUTSIDE RECORDS SUMMARY | 2024-07-15 15:03 | XMS_ITS | Encounter Summary ---
Author Organization [facility] Address [address] [place] [address] Care Team Providers Care Gate Attendant Name Role Phone Earnest Lucio MD Primary Care Provider Encounter Details Date Type Department Care Team (Late st Contact Info) Description 05/28/2024 Lab Requisition [facility] - Main Lab [address] [facility] [place] [address] Johnny Ballard MD [address] [place], [place] [id number] Elevated prostate specific antigen (PSA) Social History [...] (05/27/2024) Final Diagnosis A. Prostate, Left [place] Biopsy: Benign prostate tissue. B. Prostate, Left Lateral [place] Biopsy: Benign prostate tissue with focal chronic inflammation including rare multinucleated giant cells. C. Prostate, Left Middle Middle Biopsy: Benign prostate tissue. D. Prostate, Left Lateral Middle Biopsy: Benign prostate tissue. E. Prostate, Left Middle [place] Biopsy: Acinar adenocarcinoma, conventional (usual) type, [place] score 3 + 3 = 6 (Grade group 1). The carcinoma involves approximately 15% of the tissue submitted for review and spans approximately 1.5 mm in greatest dimension in a single core. F. Prostate, Left Lateral Base Biopsy: Benign prostate tissue. G. Prostate, Right [place] Biopsy: Benign prostate tissue with chronic and focal acute inflammation. H. Prostate, Right Lateral [place] Biopsy: Acinar adenocarcinoma, conventional (usual) type, Coleen score 3 + 4 = 7 (Grade group 2). [place] pattern 4 comprises approximately 10-20% of the carcinoma. The carcinoma involves approximately 30-35% of the tissue submitted for review and spans approximately 4 mm in greatest dimension in a single core. I. Prostate, Right Middle Middle Biopsy: Small focus of acinar adenocarcinoma, conventional (usual) type, favor Coleen score 3 + 4 = 7 (Grade [...] Zone Biopsy: Acinar adenocarcinoma, conventional (usual) type, [place] score 3 + 3 = 6 (Grade group 1). The carcinoma involves two of two tissue cores and approximately 50% of the tissue submitted for review and spans approximately 6 mm in greatest dimension in each tissue core. 06/03/2024 7:08 PM [facility] Comment Soup Mixer slide(s) from this case have been presented at Anatomic Pathology Intradepartmental Review Conference on 06/02/24. 06/03/2024 7:08 PM [facility] Clinical Information Elevated PSA PSA: 5.0 (03/26/24) [id number] 06/03/2024 7:08 PM [facility] Gross Description A. Prostate, Left [place] Biopsy: Received, properly labeled, are two H and E stained slides and two unstained slides. B. Prostate, Left Lateral [place] Biopsy: Received, properly labeled, are two H [...] two unstained slides. G. Prostate, Right [place] Biopsy: Received, properly labeled, are two H and E stained slides and two unstained slides. H. Prostate, Right Lateral [place] Biopsy: Received, properly labeled, are two H [...] unstained slides. /al 06/03/2024 7:08 PM EDT [facility] Disclaimer Unless otherwise specified, all tissue is 10% NB formalin fixed and paraffin embedded. Technical pathology services provided by [facility] at [address] [place] [address] [address], [place] [address] (CLIA #[id number]/Letty Damon MD, [employer]man) 06/03/2024 7:08 PM EDT [facility] Tissue Prostate / Unknown 05/27/20242024 1:32 [...] MD LAB PATHOLOGY ORDERABLES Fi nal Result [facility] ([facility]) [facility] [address] [place] [address], documented in this encounter Visit Diagnoses Diagnosis Elevated prostate specific antigen (PSA) documented in this encounter Care Teams Gate Attendant Relationship Specialty Start Date End Date Earnest Lucio MD [address] [place] [address] Dr [address] [place], [place] PCP - General 04/30/23 documented as of this encounter
== END 2024-07-15 14:49 | disposition home or self-care (01) ==
PROVIDERS: Registered Nurse Emergency; Emergency Provider Emergency Medicine; PCP Internal Medicine
DX: B34.9 Viral infection, unspecified (principal); R05.9 Cough, unspecified; Z03.818 Encounter for observation for suspected exposure to other biological agents ruled out; S91.331A Puncture wound without foreign body, right foot, initial encounter; W45.0XXA Nail entering through skin, initial encounter; Y93.9 Activity, unspecified; Y92.9 Unspecified place or not applicable; Y99.9 Unspecified external cause status; Z23 Encounter for immunization; Z79.02 Long term (current) use of antithrombotics/antiplatelets; Z79.899 Other long term (current) drug therapy
CPT/HCPCS: 0241U; 71046; 90471; 90715; 99284

== ENCOUNTER → 2024-07-15 12:01 | Outpatient (BNV) | payer MEDICARE, MEDICAID, SELFPAY | PROVIDERS: PCP Internal Medicine; Visit Provider Radiology Diagnostic Radiology | DX: R05.9 Cough, unspecified (principal); R06.00 Dyspnea, unspecified | CPT/HCPCS: 71046 ==

== ENCOUNTER 2024-08-12 15:08 | Outpatient (AMB) | payer MEDICARE, MEDICAID, SELFPAY ==
[2024-08-12 15:19] VITALS: BP 110/60; PULSE 84; O2SAT 94; BMI 28.7
--- NOTE | 2024-08-12 15:19 | A.OFFVIS_ITS ---
Vital Signs 08/12/24 15:19 Height 5 ft 11 in Weight 206 lb 2.115 oz BMI 28.7 BP 110/60 Blood Pressure Location Lt brachial Position Sitting Pulse 84 Pulse Source Pulse Oximeter Pulse Oximetry (%) 94 Oxygen Delivery Method Room Air Intake Visit Reasons: COPD follow-up Allergies grass pollen Allergy (Unknown, Verified 08/12/24 15:21) positive allergy test latex [LATEX] Allergy (Unknown, Verified 08/12/24 15:21) UNKNOWN Latex, Natural Rubber Allergy (Unknown, Verified 08/12/24 15:21) Itching morphine [MORPHINE] Adverse Reaction (Mild, Verified 08/12/24 15:21) SENSATION OF HEAT/WARMTH environmental Allergy (Unknown, Uncoded 06/20/24 16:59) Dry Eye HPI Comments Details: The patient is a 68 y/o man with COPD and pulmonary nodules. Apparently the last CT scan at [facility] was back in 2016 were demonstrated multiple pulmonary nodules indeed he had a new left upper lobe pulmonary nodule. The patient also had extensive upper lobe emphysema. He has subsequently moved a and did not follow up further. Back in early March 2021 the patient developed bad acute respiratory failure he was diagnosed with COVID-19. He had a CTA demonstrating extensive airspace disease bilaterally. He was hospitalized for. Was treated appropriately and subsequently discharged. His last chest x-ray was done back in October 2021 demonstrating persistent airspace disease. On a evidence of potential scarring and decreased lung volumes. The patient was recommended to get a CT scan. He continues to have shortness of breath with activity. [id number] severity. He does have her inhaler that helps him. He does use Combivent. Sometimes he gets a little tremulous with it. Will go ahead and request a CT scan of the chest to follow up with the abnormal findings in addition to that will go ahead and request pulmonary function studies. 09/14/2022 the patient is here for a pulmonary follow-up visit. Overall the patient has been doing well. He does complaint of shortness of breath with activity. Mild in severity. Also has an intermittent cough. As far as inhalers he does have a Combivent inhaler that he uses couple times a day. He also has a short-acting beta agonist that he uses about twice a week. He is not on any other inhalers. Will hold off on changing his regimen since this appears to be working for him. We should repeat his PFTs next year also in July. He recently had a CT scan of the chest that we personally reviewed. His pulmonary nodules appear to be stable which is reassuring. The patient does have extensive emphysema primarily in the upper lung zones. The rest of the lungs are preserved. He also has some coronary calcifications. He no longer smoking. He quit about 25 years ago. the patient also has evidence of some scarring and some ground-glass opacities. Likely residual from a previous infection could have been COVID. Clinically the patient is doing well on this is likely printout. Will go ahead and follow-up july after his repeat CT scan. 08/28/2023 the patient is here for a pulmonary follow-up visit. The patient overall has been doing well from a respiratory status. He has these inhalers available. He has not had to use his rescue inhaler as often. Typically less than 2 times a week. He did have a CT scan of the chest that was personally by me. Appears that his pulmonary nodule in the right upper lobe appears to be stable measuring between 7-8 mm in size. The other nodules appear doing granulomas and not concerning. Again the other findings including the calcifications of the coronary arteries. He did quit smoking which is very happy about. Will wait for the final read on the CT scan. Although the appears that the nodule has been stable when compared to last year's CT scan. Although we have to wait for the final read from the radiologist. At this point I will plan to repeat the CT scan in a year unless the reading from the radiologist states differently. 08/12/2024 the patient is here for pulmonary follow-up visit. Overall the patient has been doing okay. He has been frustrated with the diagnosis of prostate cancer. He is awaiting that urology appointment in order to talk about disposition and plan. In the meantime the patient knows that he has underlying pulmonary nodules. This is unlikely related to the prostate cancer. However, will need to do formal CT scans to follow the nodular densities. The patient also has extensive emphysema. Will go ahead and reschedule his CT scan for 6 months from now since he is going to be following up with urology and starting therapy for the prostate cancer. [facility] Medical History Abnormal chest x-ray Anxiety and depression Chronic obstructive pulmonary disease (COPD) Impaired fasting glucose Vitamin D deficiency Pure hypercholesterolemia Overweight (BMI 25.0-29.9) Benign prostatic hyperplasia Pulmonary nodules Asthma Surgical History H/O cervical spine surgery History of ear surgery H/O knee surgery Social History Household Members: Family Housing: Apartment Are you a primary health care assistant to a significant other at home: No Do you presently have visiting nurse or other home services: No Alcohol intake: never Patient Tobacco Use Status: Former Tobacco user e-Cigarette/Vaping Use: Never Used Second Hand Smoke Exposure: No Advance Directives Date on File: 03/11/21 service: No Current occupational status: unemployed and retired Cognitive needs: No Hearing needs: Yes Vision needs: Yes Review of Systems Const Denies fatigue, Denies fever(s) and Denies headache(s) ENT Reports dysphagia (sometimes chokes when drinking liquids), Denies dizziness, Denies otalgia, Denies headache(s), Reports neck pain (on and off), Denies odynophagia and Denies sore throat Card Denies chest pain, Denies palpitations and Reports dyspnea on exertion (mild) Resp Denies chest congestion, Reports cough (occasional, non-productive), Reports dyspnea on exertion (mild) and Denies wheezing GI Denies abdominal pain, Denies constipation, Reports dysphagia (sometimes chokes when drinking liquids), Denies heartburn, Denies diarrhea, Denies nausea, Denies odynophagia and Denies vomiting Musc Details: increased pain over the left heel, worse with walking and weight-bearing Denies back pain and Reports neck pain (on and off) Neuro Denies dizziness and Denies headache(s) Psych Reports anxiety and Reports depression Endo Denies fatigue and Denies palpitations Aller/Immun Denies wheezing Physical Exam Vital Signs: Last Vital Signs Pulse 84 08/12/24 15:19 BP 110/60 08/12/24 15:19 Pulse Ox 94 08/12/24 15:19 Oxygen Delivery Method Room Air 08/12/24 15:19 BMI result Body Mass Index 28.7 Const General: cooperative, no acute distress, alert and awake Orientation/consciousness: oriented to person and oriented to place Limitations: no limitations HEENT Head: Yes normal to inspection, Yes normocephalic and Yes atraumatic Ears: external ears normal General nose exam: Normal external nose present Face and sinus: Yes normal facial exam Mouth: Normal oral and palatal mucosa present Throat: Yes posterior oropharynx normal Eyes General: appearance normal, both eyes and all related structures Periorbital: periorbital findings normal Eyelids: Yes eyelids normal Conjunctivae: conjunctivae normal Sclerae: sclerae normal Corneas: corneas normal Pupils: Equal, round and reactive pupils present Direct Ophthalmoscopy: normal light reflex Neck Neck: Yes normal visual inspection and Yes supple Lymphatic: no lymphadenopathy noted Chest Chest palpation & inspection: normal inspection of the chest and normal palpation of entire chest wall Resp Effort & Inspection: normal respiratory effort Auscultation: clear to auscultation bilaterally, no rales, no rhonchi and no wheezes Cardio Rate: regular rate Rhythm: regular rhythm Heart sounds: S1 normal heart sound present, S2 normal heart sound present and Murmur heart sound present GI Inspection: No distended Palpation (GI): Soft to palpation, nontender, no guarding and No hepatosplenomegaly present Auscultation: normal bowel sounds General: Yes no CVA tenderness Back/Spine/Pelvis Back: no CVA tenderness Skin General skin exam: no rashes or lesions noted Lesions: no lesions Rashes: no rashes Wounds: no wounds Neuro General: oriented to person and oriented to place Cranial nerves: Yes CN's II-XII intact bilaterally and Yes Equal, round and reactive pupils present Cognition (Neuro): normal cognition Motor exam (neuro): 5/5 motor strength present throughout Extrem General: Yes normal to inspection, Yes full ROM, Yes no pedal edema and Yes no calf tenderness Psych Appearance: grossly normal Mental Status: mental status grossly normal Speech and movement: Clear speech present Affect: normal affect Attitude: cooperative Thought process: Normal thought process present Thought content: Normal thought content present Assessment & Plan Assessment & Plan (1) Chronic obstructive pulmonary disease (COPD): Code(s): J44.9 - Chronic obstructive pulmonary disease, unspecified Category: Medical Qualifiers: COPD type: emphysema Emphysema type: centrilobular Qualified Code(s): J43.2 - Centrilobular emphysema (2) Pulmonary nodules: Code(s): R91.8 - Other nonspecific abnormal finding of lung field Category: Medical Plan continue combivent VINICIUS as needed CT chest in 6 months F/U 6 months Orders: Orders CT chest wo IV con 6 Months R91.8 - Other nonspecific abnormal finding of lung field Coding Level of Care Code Est Pt Level 4 (66356) Diagnoses Centrilobular emphysema J43.2 COPD type: emphysema Emphysema type: centrilobular Pulmonary nodules R91.8 Time Spent (min) 16
--- OUTSIDE RECORDS SUMMARY | 2024-08-12 18:15 | XMS_ITS | Clinical Summary ---
Author Organization [address] [facility] Address [address] [place] [address] Phone Care Team Providers Care Edge Stitcher Name Role Phone Earnest Lucio MD Primary Care Provider [phone] Encounters Date Type Department Care Team Description 05/28/2024 Lab Requisition [facility] - Main Lab [address] [facility] [email or web address] [address] Johnny Ballard MD Elevated prostate [...] Health Maintenance Due Date Last Done Comments COVID-19 Vaccine (#1) 12/04/1960 DTaP,Tdap,and Td Vaccines (1 - Tdap) 1973 Pneumococcal Vaccine: 50+ Ye ars (1 of 2 - PCV) 1973 Zoster Vaccines (1 of 2) 1973 Abdominal Aortic Aneurysm (A AA) Screen 09/28/2023 Cholesterol Screening (Lipid Panel) 09/28/2023 Colorectal Cancer Screening: Colonoscopy 09/28/2023 Depression Screening 09/28/2023 Falls Risk Assessment 09/28/2023 Hepatitis C Screening 09/28/2023 Medicare Annual Wellness Visit 09/28/2023 Social Influencers of Health Screening 09/28/2023 Influenza Vaccine (Season Ended) 2024 RSV Immunization [...] (05/27/2024) Final Diagnosis A. Prostate, Left [place] Biopsy: Benign prostate tissue. B. Prostate, Left Lateral [place] Biopsy: Benign prostate tissue with focal chronic inflammation including rare multinucleated giant cells. C. Prostate, Left Middle Middle Biopsy: Benign prostate tissue. D. Prostate, Left Lateral Middle Biopsy: Benign prostate tissue. E. Prostate, Left Middle Base Biopsy: Acinar adenocarcinoma, conventional (usual) type, Wellston score 3 + 3 = 6 (Grade group 1). The carcinoma involves approximately 15% of the tissue submitted for review and spans approximately 1.5 mm in greatest dimension in a single core. F. Prostate, Left Lateral Base Biopsy: Benign prostate tissue. G. Prostate, Right [place] Biopsy: Benign prostate tissue with chronic and focal acute inflammation. H. Prostate, Right Lateral [place] Biopsy: Acinar adenocarcinoma, conventional (usual) type, Coleen score 3 + 4 = 7 (Grade group 2). Wellston pattern 4 comprises approximately 10-20% of the carcinoma. The carcinoma involves approximately 30-35% of the tissue submitted for review and spans approximately 4 mm in greatest dimension in a single core. I. Prostate, Right Middle Middle Biopsy: Small focus of acinar adenocarcinoma, conventional (usual) type, favor Wellston score 3 + 4 = 7 (Grade [...] Zone Biopsy: Acinar adenocarcinoma, conventional (usual) type, Wellston score 3 + 3 = 6 (Grade group 1). The carcinoma involves two of two tissue cores and approximately 50% of the tissue submitted for review and spans approximately 6 mm in greatest dimension in each tissue core. 06/03/2024 7:08 PM [facility] Comment Director Industrial Nursing slide(s) from this case have been presented at Anatomic Pathology Intradepartmental Review Conference on 06/02/24. 06/03/2024 7:08 PM [facility]) [facility] Clinical Information Elevated PSA PSA: 5.0 (03/26/24) [id number] 06/03/2024 7:08 PM [facility] Gross Description A. Prostate, Left [place] Biopsy: Received, properly labeled, are two H and E stained slides and two unstained slides. B. Prostate, Left Lateral [place] Biopsy: Received, properly labeled, are two H [...] two unstained slides. G. Prostate, Right [place] Biopsy: Received, properly labeled, are two H and E stained slides and two unstained slides. H. Prostate, Right Lateral [place] Biopsy: Received, properly labeled, are two H [...] unstained slides. /al 06/03/2024 7:08 PM EDT [facility] Disclaimer Unless otherwise specified, all tissue is 10% NB formalin fixed and paraffin embedded. Technical pathology services provided by [facility] at [address] [place] [address] [address], [place] [address] (CLIA #[id number]/Letty Damon MD, Customer Manager) 06/03/2024 7:08 PM EDT [facility] Tissue Prostate / Unknown 05/27/20242024 [...] MD LAB PATHOLOGY ORDERABLES Fi nal Result [facility] [address] [place] [address], from Last 3 Months Insurance MEDICARE MEDICAID - [place] Care Teams Edge Stitcher Relationship Specialty Start Date End Date Earnest Lucio MD [address] [place] [address] [place] [address] PCP - General 04/30/23
== END 2024-08-12 15:36 | disposition home or self-care (01) ==
LOC: HO.HPS 15:09
PROVIDERS: PCP Internal Medicine; Visit Provider Hospitalist
DX: J43.2 Centrilobular emphysema (principal); R91.8 Other nonspecific abnormal finding of lung field
CPT/HCPCS: 99214

== ENCOUNTER → 2024-08-12 15:08 | Outpatient (BNVA) | payer MEDICARE, MEDICAID, SELFPAY | PROVIDERS: PCP Internal Medicine; Visit Provider Hospitalist | DX: J43.2 Centrilobular emphysema (principal); R91.8 Other nonspecific abnormal finding of lung field | CPT/HCPCS: 99212 ==

== ENCOUNTER 2024-11-01 08:05 | Outpatient (REF) | payer MEDICARE, MEDICAID, SELFPAY ==
--- OUTSIDE RECORDS SUMMARY | 2024-11-01 08:08 | XMS_ITS | Encounter Summary ---
Author Organization [employer] Address [address] [place] [address] Care Team Providers Care Disability Representative Name Role Phone Earnest Lucio MD Primary Care Provider Encounter Details Date Type Department Care Team (Late st Contact Info) Description 05/28/2024 Lab Requisition [facility] - Main Lab [address] [facility] [place] [address] Johnny Ballard MD [address] [place], [place] [phone] Elevated prostate specific antigen (PSA) Social History [...] (05/27/2024) Final Diagnosis A. Prostate, Left [place] Biopsy: Benign prostate tissue. B. Prostate, Left Lateral [place] Biopsy: Benign prostate tissue with focal chronic [...] Benign prostate tissue. G. Prostate, Right [place] Biopsy: Benign prostate tissue with chronic and focal acute inflammation. H. Prostate, Right Lateral [place] Biopsy: Acinar adenocarcinoma, conventional (usual) type, Coleen [...] in each tissue core. 06/03/2024 7:08 PM [facility] Comment Attendance Officer slide(s) from this case have been presented at Anatomic Pathology Intradepartmental Review Conference on 06/02/24. 06/03/2024 7:08 PM [facility]) [facility] Clinical Information Elevated PSA PSA: 5.0 (03/26/24) [id number] 06/03/2024 7:08 PM [facility] Gross Description A. Prostate, Left [place] Biopsy: Received, properly labeled, are two H and E stained slides and two unstained slides. B. Prostate, Left Lateral [place] Biopsy: Received, properly labeled, are two H [...] two unstained slides. G. Prostate, Right [place] Biopsy: Received, properly labeled, are two H and E stained slides and two unstained slides. H. Prostate, Right Lateral [place] Biopsy: Received, properly labeled, are two H [...] unstained slides. /al 06/03/2024 7:[address] [facility] Disclaimer Unless otherwise specified, all tissue is 10% NB formalin fixed and paraffin embedded. Technical pathology services provided by [facility] at [address] [place] [address] [id number], [place] [address] (CLIA #[id number]/Letty Damon MD, Pump Technician) 06/03/2024 7:[address] [facility] Tissue Prostate / Unknown 05/27/20242024 [...] MD LAB PATHOLOGY ORDERABLES Fi nal Result [facility] [address] [place] [address], documented in this encounter Visit Diagnoses Diagnosis Elevated prostate specific antigen (PSA) documented in this encounter Care Teams Disability Representative Relationship Specialty Start Date End Date Earnest Lucio MD [address] [place] [address] Dr [address] [place], [place] PCP - General 04/30/23 documented as of this encounter
--- OUTSIDE RECORDS SUMMARY | 2024-11-01 08:08 | XMS_ITS | Clinical Summary ---
Author Organization 299 [facility] Address [address] [place] [address] Phone Care Team Providers Care Plumbing Mechanic Name Role Phone Earnest Lucio MD Primary Care Provider Social History Tobacco Use Types Packs/Day Years [...] Panel) 09/28/2023 Colorectal Cancer Screening: Colonoscopy 09/28/2023 Falls Risk Assessment 09/28/2023 Hepatitis C Screening 09/28/2023 Medicare Annual Wellness Visit 09/28/2023 Social Influencers of Health Screening 09/28/2023 COVID-19 Vaccine ( - 2023-2 5 season) 2023 Depression Screening 03/05/2024 Influenza Vaccine (#1) 2024 RSV Immunization Adult Patie nts (1 [...] on patient's age to complete this topic Insurance MEDICARE MEDICAID - [place] Care Teams Plumbing Mechanic Relationship Specialty Start Date End Date Earnest Lucio MD [address] [place] [address] [address] [place], [place] PCP - General 04/30/23
[2024-11-01 08:16] LABS: MANUAL DIFF FLAG NO
[2024-11-01 08:55] LABS: Hematocrit 43.6 % (42.0-52.0); Hemoglobin 14.5 g/dl (14.0-18.0); Imm Gran Abs Auto 0.02 X10*3/uL (0.00-0.03); Imm Gran Pct Auto 0.4 % (0.0-0.4); Lymphocytes Absolute Auto 1.2 X10*3/uL (1.2-4.9); Mean Corpuscular HGB Conc 33.3 g/dl (31.0-36.0); Mean Corpuscular Hemoglobin 30.9 pg (27.0-33.0); Mean Corpuscular Volume 93.0 fL (80.0-98.0); NRBC Abs Auto 0.000 X10*3/uL (0.0-0.012); NRBC Pct Auto 0.0 /100WBC (0.0-0.2); Platelet Count 203 X10*3/uL (160-400); Red Blood Count 4.69 X10*6/uL (4.60-5.80); White Blood Count 5.3 X10*3/uL (4.8-10.8)
[2024-11-01 09:04] LABS: Hemoglobin A1C 175.7105 umol/L; Total Hemoglobin (HGBA1C) 3789.6605 umol/L
[2024-11-01 09:40] LABS: Alanine Aminotransferase 63 U/L (0-40); Albumin Level 4.6 g/dL (3.5-5.0); Alkaline Phosphatase 61 U/L (39-117); Anion Gap 11 (12-20); Aspartate Amino Transferase 41 U/L (5-37); Blood Urea Nitrogen 24 mg/dL (9-16); Calcium 8.8 mg/dL (8.4-10.2); Carbon Dioxide 28 mmol/L (22-29); Chloride 109 mmol/L (96-108); Cholesterol 171 mg/dL (<200); Estimated Glomerular Filt Rate > 60; HDL Cholesterol 48 mg/dL (>40); Potassium 4.3 mmol/L (3.3-5.1); Sodium 144 mmol/L (135-145); Total Protein 7.2 g/dL (6.5-8.0); Triglycerides 99 mg/dL (<150)
[2024-11-01 10:13] LABS: Appearance Urine Clear; Glucose Urine UA Negative (Negative); PH 6.0 (5.0-9.0); Specific Gravity - Urine 1.025 (1.005-1.025)
== END 2024-11-01 08:06 | disposition home or self-care (01) ==
LOC: HO.LAB 08:05
PROVIDERS: PCP Internal Medicine; Visit Provider Internal Medicine
DX: R30.0 Dysuria (principal); R73.01 Impaired fasting glucose; D64.9 Anemia, unspecified; E55.9 Vitamin D deficiency, unspecified; E78.00 Pure hypercholesterolemia, unspecified
CPT/HCPCS: 36415; 80053; 80061; 81003; 82306; 83036; 84443; 85025

== ENCOUNTER 2024-11-04 16:47 | Outpatient (AMB) | payer MEDICARE, MEDICAID, SELFPAY ==
[2024-11-04 16:49] VITALS: BP 120/70; PULSE 72; O2SAT 97; BMI 28.9
--- NOTE | 2024-11-04 16:49 | MHC.PC.OV ---
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 Required: No Accompanied by: Allergies grass pollen Allergy (Unknown, Verified 11/04/24 17:14) positive allergy test latex (LATEX) Allergy (Unknown, Verified 11/04/24 17:14) UNKNOWN Latex, Natural Rubber Allergy (Unknown, Verified 11/04/24 17:14) Itching morphine (MORPHINE) Adverse Reaction (Mild, Verified 11/04/24 17:14) SENSATION OF HEAT/WARMTH environmental Allergy (Unknown, Uncoded 11/04/24 17:14) Dry Eye Medication List - Last Reconciled 11/04/24 by Earnest Lucio MD albuterol sulfate 90 mcg/actuation 2 puffs inhalation QID PRN 30 days atorvastatin 10 mg PO BEDTIME 90 days bisacodyl (Dulcolax (bisacodyl)) 20 mg (4 x 5 mg) PO ONCE 1 day cholecalciferol (vitamin D3) 50 mcg PO DAILY 90 days fluticasone propionate 50 mcg/actuation (Flonase Allergy Relief) 1 spray intranasal BID ibuprofen 600 mg PO Q8H PRN ipratropium-albuterol 20-100 mcg/actuation (Combivent Respimat) 1 puff inhalation QID 30 days mupirocin 2% 1 appl topical TID polyethylene glycol 3350 (Miralax) 238 grams PO ONCE sertraline 25 mg PO DAILY 30 days tamsulosin 0.4 mg PO BEDTIME Tobacco use date assessed: 06/20/24 Fall risk assessment: No Falls in past year Last assessed Fall Risk: 11/04/24 Dental Screening Dental Screen Date: 11/04/24 Did you have a dental visit in the last 12 months?: No Did you have a dental problem in the last 6 months where you did not have access to dental care?: No Was dental information given to patient?: Patient has dentist HPI 4 Months f/u HPI Details Patient comes in today for his follow-up visit States that he feels okay except for increasing pain in both of his knees lately Feels that the pain is much worse in his left knee He does not recall any recent injury or trauma to his knees but recalls having some (arthroscopic) surgery done on his right knee years ago He denies any headaches or dizziness Denies any chest pains, no shortness of breath No nausea/vomiting, no abdominal pain No change in bowel habits noted Adds that he has a recurrent itchy rash on the dorsum of his left hand that he's had for a while now States that he has been using the cream he was prescribed by dermatology for the rash on his fingers before but it has not been helping States that he still has the same rash on his fingers that also keep recurring but only occasionally He had his follow-up labs done a few days ago - to discuss his results [facility] Medical History (Updated 11/05/24 @ 09:09 by Earnest Lucio MD) Abnormal chest x-ray Anxiety and depression Chronic obstructive pulmonary disease (COPD) Impaired fasting glucose Vitamin D deficiency Pure hypercholesterolemia Overweight (BMI 25.0-29.9) Benign prostatic hyperplasia Pulmonary nodules Asthma Surgical History (Updated 11/04/24 @ 17:19 by Earnest Lucio MD) H/O cervical spine surgery History of ear surgery H/O knee surgery Social History Household Members: Family Housing: Apartment Are you a primary healthcare applications analyst to a significant other at home: No Do you presently have visiting nurse or other home services: No Alcohol intake: never Patient Tobacco Use Status: Former Tobacco user e-Cigarette/Vaping Use: Never Used Second Hand Smoke Exposure: No Advance Directives Date on File: 03/11/21 service: No Current occupational status: unemployed and retired Cognitive needs: No Hearing needs: Yes Vision needs: Yes Questionnaire PHQ-9 Over the last 2 weeks, how often have you been bothered by any of the following problems? 1. Little interest or pleasure in doing things: several days 2. Feeling down, depressed, or hopeless: several days 3. Trouble falling or staying asleep, or sleeping too much: several days 4. Feeling tired or having little energy: not at all 5. Poor appetite or overeating: not at all 6. Feeling bad about yourself - or that you are a failure or have let yourself or your family down: not at all 7. Trouble concentrating on things, such as reading the newspaper or watching television: not at all 8. Moving or speaking so slowly that other people could have noticed. Or the opposite - being so fidgety or restless that you have been moving around a lot more than usual: not at all 9. Thoughts that you would be better off or of hurting yourself in some way: not at all Total score: 3 Depression Screening Interpretation: Positive Depression Screening Follow-up: Existing condition and In treatment Depression Screening Done: Yes 91266 - PHQ-9 Billing: Yes Source: Developed by Drs. Nader Madera, Gabrielle Contreras, Brock Kahn and colleagues, with an educational jo from [employer]. Thrive Questionnaire Date Thrive assessed: 06/20/24 I am a: Patient What is your living situation today?: I have a steady place to live Within the past 12 months, did the food you bought not last and you didn't have the money to get more?: Never true Within the past 12 months, did you worry whether your food would run out before you got money to buy more?: Never true Do you have trouble paying for medicines?: No Do you have trouble getting transportation to medical appointments?: No Do you have trouble paying your heating and electricity bill?: No Do you have trouble taking care of your child, family member or friend?: No Do you have trouble with day-to-day activities such as bathing, preparing meals, shopping, managing finances, etc.?: No Are you currently unemployed and looking for a job?: No Are you interested in more education?: No Please select the resources that you would like help with: None Currently or been in a relationship where the following occur: No concerns reported THRIVE Score: 0 AUDIT C Alcohol Use Questionnaire (AUDIT-C) 1. How often do you have a drink containing alcohol?: Monthly or less 2. How many drinks containing alcohol do you have on a typical day when you are drinking?: 3 or 4 3. How often do you have six or more drinks on one occasion?: Never Total Score: 2 Score Reviewed/Action Taken: Yes CALOS-7 AMB Questionnaire CALOS-7 Date CALOS - 7 assessed: 06/20/24 Feeling nervous, anxious, or on edge: 0 = Not at all Not being able to stop or control worryin = Not at all Worrying too much about different things: 0 = Not at all Trouble relaxin = Not at all Being so restless that it is hard to sit still: 0 = Not at all Becoming easily annoyed or irritable: 0 = Not at all Feeling afraid as if something awful might happen: 0 = Not at all Total CALOS-7 score (0-4 normal; 5-9 mild; 10-14 moderate; 15-21 severe): 0 Source: Developed by Drs. Nader Madera, Gabrielle Contreras, Brock Kahn and colleagues, with an educational jo from [employer]. Review of Systems Const Denies chills, Denies fatigue, Denies fever(s) and Denies headache(s) ENT Denies dysphagia, Denies dizziness, Denies otalgia, Denies headache(s), Reports neck pain (on and off), Denies odynophagia and Denies sore throat Card Denies chest pain, Denies palpitations and Reports dyspnea on exertion (mild) Resp Denies chest congestion, Reports cough (occasional, non-productive), Reports dyspnea on exertion (mild) and Denies wheezing GI Denies abdominal pain, Denies constipation, Denies dysphagia, Denies heartburn, Denies diarrhea, Denies nausea, Denies odynophagia and Denies vomiting Denies hematuria (but had bout a few months ago due to kidney stones), Denies difficulty urinating, Denies dysuria, Reports nocturia and Reports urinary frequency Musc Denies back pain and Reports neck pain (on and off) Skin/Breast Details: (+) recurrent itchy rash on the dorsum of the left hand Neuro Denies dizziness and Denies headache(s) Psych Reports anxiety and Reports depression Endo Denies fatigue and Denies palpitations Aller/Immun Denies wheezing Physical exam (Primary Care) Vital Signs: Last Vital Signs Pulse 72 11/04/24 16:49 BP 120/70 11/04/24 16:49 Pulse Ox 97 11/04/24 16:49 BMI result Body Mass Index 28.9 Tobacco/Smoking Status: Tobacco use Status Tobacco use date assessed 06/20/24 11/04/24 16:54 Patient Tobacco Use Status Former Tobacco user 11/04/24 16:54 e-Cigarette/Vaping Use Never Used 11/04/24 16:54 PHQ-9: PHQ-9 Score PHQ-9: Total score 3 11/04/24 17:19 Depression Screening Interpretation: Positive Depression Screening Follow-up: Existing condition and In treatment Thrive Assessment: Date of Thrive Assessment Date Thrive assessed 06/20/24 11/04/24 16:54 Currently or been in a relationship where the following occur: No concerns reported Const General: no acute distress and alert HENMT Ears: TM's normal bilaterally and EAC's normal Throat: Yes posterior oropharynx normal and Yes tonsils normal (no TP congestion) Neck Neck: Yes supple and No lymphadenopathy Thyroid: Thyroid normal Resp Auscultation: no rales, no wheezes and diminished lung sounds (slightly) bilateral Cardio Rate: regular rate Rhythm: regular rhythm Heart sounds: no murmurs GI Palpation (GI): Soft to palpation and nontender Auscultation: normal bowel sounds General: Yes no CVA tenderness Back/Spine/Pelvis Back: no CVA tenderness Cervical Spine: Cervical spine tenderness (mild) Thoracic/Lumbar Spine: No lumbar spinal tenderness Skin Other: (+) large patch of scaling rash on the dorsum of the left hand Extrem General: Yes no clubbing, cyanosis or edema Results Reviewed Results Reviewed: Laboratory Tests 11/01/24 11/01/24 08:12 08:13 WBC 5.3 Hgb 14.5 Hct 43.6 Plt Count 203 Sodium 144 Potassium 4.3 Creatinine 0.98 Estimated GFR > 60 Fasting Glucose 116 H Hemoglobin A1c % 6.4 H Calcium 8.8 AST 41 H ALT 63 H Triglycerides 99 Cholesterol 171 LDL Cholesterol, Calc 104 H HDL Cholesterol 48 25-OH Vitamin D Total 28.1 L TSH 0.[address] 1[address]025 Urine Protein Negative Urine Glucose (UA) Negative Urine Blood Negative Urine Nitrite Negative Ur Leukocyte Esterase Negative Coding Level of Care Code Est Pt Level 4 (42368) Diagnoses Chronic pain of both knees M25.561; M25.562; G89.29 Chronicity: chronic Pure hypercholesterolemia E78.00 Centrilobular emphysema J43.2 COPD type: emphysema Emphysema type: centrilobular Pulmonary nodules R91.8 Impaired fasting glucose R73.01 Vitamin D deficiency E55.9 Adenocarcinoma of prostate C61 Ureteral calculus, left N20.1 Eczema, unspecified type L30.9 Eczema type: unspecified Anxiety and depression F41.9; F32.A Overweight (BMI 25.0-29.9) E66.3 Additional Codes PHQ-9 - 82554 - PHQ-9 Billing: Yes ([id number]) Assessment & Plan Assessment & Plan (1) Bilateral knee pain: Code(s): M25.561 - Pain in right knee; M25.562 - Pain in left knee Category: Medical Qualifiers: Chronicity: chronic Qualified Code(s): M25.561 - Pain in right knee; M25.562 - Pain in left knee; G89.29 - Other chronic pain Plan: This is likely due to OA of his knees, especially in light of his previous right knee arthroscopic surgery several years ago Will send patient for x-rays of both knees for further evaluation Will also refer him to orthopedics for further evaluation and management (2) Pure hypercholesterolemia: Code(s): E78.00 - Pure hypercholesterolemia, unspecified Category: Medical Plan: Results of his labs done a few days ago reviewed and discussed with patient Reinforced low cholesterol diet Continue Atorvastatin 10 mg QD Will recheck his labs and fasting lipids in 4 months for follow up (3) Chronic obstructive pulmonary disease (COPD): Code(s): J44.9 - Chronic obstructive pulmonary disease, unspecified Category: Medical Qualifiers: COPD type: emphysema Emphysema type: centrilobular Qualified Code(s): J43.2 - Centrilobular emphysema Plan: Chest CT done on 07/04/22 revealed (+) centrilobular emphysema with ground glass scarring in both upper lobes; a 4 mm noncalcified nodule is noted at the right upper lobe, likely a granuloma PFTs revealed no obstructive or restrictive ventilatory defects identified and no significant response to bronchodilators noted. There is a mild decrease in maximum voluntary ventilation secondary to likely deconditioning. Lung volumes are within normal limits except for decrease in the expiratory reserve volume secondary to an elevated BMI Patient states that his chest/lung symptoms have been stable, and he uses his inhalers as needed with (+) relief of his symptoms even though his PFT showed no significant bronchodilator response Continue Combivent Respimat 20-100 mcg 1 inhalation QID and Albuterol HFA 2 inhalations every 6 hours as needed Follow up with pulmonary as scheduled (4) Pulmonary nodules: Code(s): R91.8 - Other nonspecific abnormal finding of lung field Category: Medical Plan: (+) multiple nodules were seen on previous chest CT and chest x-rays A more recent chest x-ray revealed (+) bilateral pulmonary nodules probably representing calcified granulomas Follow up with pulmonary as scheduled (5) Impaired fasting glucose: Code(s): R73.01 - Impaired fasting glucose Category: Medical Plan: His FBS was at 116 mg/dl and HgbA1c at 6.4% on his recent labs Have cautioned patient that his HgbA1c has been slowly but steadily creeping up - it was at 6.1% when it were last checked in September 2023 and was previously at 5.9% earlier last year Have advised patient that if this goes up any further, then he will be considered a diabetic and will likely need to start taking Rx for diabetes Reinforced low calorie/low carb diet; exercise as tolerated (6) Vitamin D deficiency: Code(s): E55.9 - Vitamin D deficiency, unspecified Category: Medical Plan: Continue Vitamin D3 2000 units QD (7) Adenocarcinoma of prostate: Code(s): C61 - Malignant neoplasm of prostate Category: Medical Plan: Patient was diagnosed with prostatic adenocarcinoma earlier this year, grade group 2, Coleen score 7 (3+4) He underwent Prolaris genetic testing to assess if he is a candidate for active surveillance He was reportedly advised of treatment options which include prostatectomy (open vs robotic) with external beam radiation therapy with or without adjuvant androgen ablation, focal therapy with cryoablation, radioactive seed placement, active surveillance, observation or peer androgen ablation therapy He was recommended active surveillance vs prostatectomy vs external beam radiation therapy given his Cordova score Follow-up with urology as scheduled (8) Ureteral calculus, left: Code(s): N20.1 - Calculus of ureter Category: Medical Plan: Patient states that he has not had any bouts of kidney stones lately Follow up with urology as scheduled (9) Eczema: Code(s): L30.9 - Dermatitis, unspecified Category: Medical Qualifiers: Eczema type: unspecified Qualified Code(s): L30.9 - Dermatitis, unspecified Plan: Patient was breaking out in recurrent scaling and itchy rash/lesions, especially over the interphalangeal joints of his fingers, previously but the rash now appears mostly on the dorsum of his left hand Continue Hydroxyzine 25 mg TID PRN for rash/ itching and Triamcinolone 0.1% cream apply to rash TID PRN - states that these do not appear to be helping much lately Will start him on a trial of Clobetasol 0.05% cream BID Follow-up with dermatology as scheduled (10) Anxiety and depression: Code(s): F41.9 - Anxiety disorder, unspecified; F32.A - Depression, unspecified Category: Medical Plan: Continue Sertraline 25 mg QD - feels that he has been doing well on his current Rx Patient used to see psychiatry and goes to therapy at the [facility] in [place] regularly but eventually stopped going as he got tired of seeing and talking to a different therapist every he goes back for follow up States that the psychiatrists there also tend to change often as they move on after a year or two (11) Overweight (BMI 25.0-29.9): Code(s): E66.3 - Overweight Category: Medical Plan: Reinforced diet/exercise as tolerated/lose weight Plan Follow up in 4 months Orders: Orders XR knee LT 4V 11/04/24 M25.562 - Pain in left knee XR knee RT 4V 11/04/24 M25.561 - Pain in right knee Complete Blood Count Auto Diff 4 Months D64.9 - Anemia, unspecified Comprehensive [place]. Panel Fast 4 Months E78.00 - Pure hypercholesterolemia, unspecified Lipid Panel 4 Months E78.00 - Pure hypercholesterolemia, unspecified Hemoglobin A1c 4 Months R73.01 - Impaired fasting glucose Vitamin D 25-OH Total 4 Months E55.9 - Vitamin D deficiency, unspecified UA CC w/rflx Micro + Cult 4 Months R30.0 - Dysuria Referrals Orthopedics Referral M25.561 - Pain in right knee, M25.562 - Pain in left knee Medications: New clobetasol 0.05% 1 appl topical BID 45 grams 0RF 2 weeks
--- OUTSIDE RECORDS SUMMARY | 2024-11-04 17:00 | XMS_ITS | Encounter Summary ---
Author Organization [employer] Address [address] [place] [address] Care Team Providers Care Instructional Technology Coach Name Role Phone Earnest Lucio MD Primary Care Provider Encounter Details Date Type Department Care Team (Late st Contact Info) Description 05/28/2024 Lab Requisition [facility] Lab [address] [facility] [place] [place] [address] Johnny Ballard MD [address] [place], [place] [id number] Elevated prostate specific antigen (PSA) Social History [...] (05/27/2024) Final Diagnosis A. Prostate, Left [place] Biopsy: Benign prostate tissue. B. Prostate, Left Lateral [place] Biopsy: Benign prostate tissue with focal chronic [...] Benign prostate tissue. G. Prostate, Right [place] Biopsy: Benign prostate tissue with chronic and focal acute inflammation. H. Prostate, Right Lateral [place] Biopsy: Acinar adenocarcinoma, conventional (usual) type, Coleen [...] Zone Biopsy: Acinar adenocarcinoma, conventional (usual) type, Gasquet score 3 + 3 = 6 (Grade group 1). The carcinoma involves two of two tissue cores and approximately 50% of the tissue submitted for review and spans approximately 6 mm in greatest dimension in each tissue core. 06/03/2024 7:[address] [facility] Comment Dental Ceramist slide(s) from this case have been presented at Anatomic Pathology Intradepartmental Review Conference on 06/02/24. 06/03/2024 7:08 PM [facility] Clinical Information Elevated PSA PSA: 5.0 (03/26/24) [id number] 06/03/2024 7:[address] [facility] Gross Description A. Prostate, Left [place] Biopsy: Received, properly labeled, are two H and E stained slides and two unstained slides. B. Prostate, Left Lateral [place] Biopsy: Received, properly labeled, are two H [...] two unstained slides. G. Prostate, Right [place] Biopsy: Received, properly labeled, are two H and E stained slides and two unstained slides. H. Prostate, Right Lateral [place] Biopsy: Received, properly labeled, are two H [...] unstained slides. /al 06/03/2024 7:08 PM EDT [facility] Disclaimer Unless otherwise specified, all tissue is 10% NB formalin fixed and paraffin embedded. Technical pathology services provided by [facility] at [address] [place] [address] [address], [place] [address] (CLIA #[id number]/Letty Damon MD, Outside Medical Sales Representative) 06/03/2024 7:08 PM EDT [facility] Tissue Prostate / Unknown 05/27/20242024 [...] MD LAB PATHOLOGY ORDERABLES Fi nal Result [facility] [address] [place] [address], documented in this encounter Visit Diagnoses Diagnosis Elevated prostate specific antigen (PSA) documented in this encounter Care Teams Instructional Technology Coach Relationship Specialty Start Date End Date Earnest Lucio MD [address] [place] [address] Dr [address] [place], [place] PCP - General 04/30/23 documented as of this encounter
--- OUTSIDE RECORDS SUMMARY | 2024-11-04 17:00 | XMS_ITS | Clinical Summary ---
Author Organization [address] [facility] Address [address] [place] [address] Phone Care Team Providers Care Analytics Developer Name Role Phone Earnest Lucio MD Primary [...] 09/28/2023 Social Influencers of Health Screening 09/28/2023 Depression Screening 03/05/2024 COVID-19 Vaccine ( - 2023-2 5 season) 2024 Influenza Vaccine (#1) 2024 RSV Immunization Adult [...] Insurance MEDICARE MEDICAID - [place] Care Teams Analytics Developer Relationship Specialty Start Date End Date Earnest Lucio MD [address] [place] [address] [address] [place], [place] PCP - General 04/30/23
== END 2024-11-04 17:25 | disposition home or self-care (01) ==
LOC: HO.HMCH 16:47
PROVIDERS: PCP Internal Medicine; Visit Provider Internal Medicine
DX: M25.561 Pain in right knee (principal); J43.2 Centrilobular emphysema; C61 Malignant neoplasm of prostate; M25.562 Pain in left knee; G89.29 Other chronic pain; E78.00 Pure hypercholesterolemia, unspecified; R91.8 Other nonspecific abnormal finding of lung field; R73.01 Impaired fasting glucose; E55.9 Vitamin D deficiency, unspecified; N20.1 Calculus of ureter; L30.9 Dermatitis, unspecified; F41.9 Anxiety disorder, unspecified

== ENCOUNTER → 2024-11-04 16:47 | Outpatient (BNVA) | payer MEDICARE, MEDICAID, SELFPAY | PROVIDERS: PCP Internal Medicine; Visit Provider Internal Medicine | DX: M25.561 Pain in right knee (principal); M25.562 Pain in left knee; G89.29 Other chronic pain; E78.00 Pure hypercholesterolemia, unspecified; J43.2 Centrilobular emphysema; R91.8 Other nonspecific abnormal finding of lung field; R73.01 Impaired fasting glucose; E55.9 Vitamin D deficiency, unspecified; C61 Malignant neoplasm of prostate; N20.1 Calculus of ureter; L30.9 Dermatitis, unspecified; F41.9 Anxiety disorder, unspecified; F32.A Depression, unspecified; E66.3 Overweight; Z68.28 Body mass index [BMI] 28.0-28.9, adult; Z71.3 Dietary counseling and surveillance | CPT/HCPCS: 96127; 99212 ==

== ENCOUNTER 2025-01-13 12:57 | Outpatient (REF) | payer MEDICARE, MEDICAID, SELFPAY | END 2025-01-13 12:58 | disposition home or self-care (01) | LOC: HO.HOSX 12:57 | PROVIDERS: Visit Provider Orthopaedic Surgery | DX: Z13.89 Encounter for screening for other disorder (principal) ==

== ENCOUNTER 2025-01-22 13:57 | Emergency (ER) | payer MEDICARE, MEDICAID, SELFPAY ==
--- NOTE | ~2025-01-22 | CT_ITS ---
EXAMINATION: CT HEAD WITHOUT IV CONTRAST HISTORY: head pressure. TECHNIQUE: Unenhanced helical CT of the head was performed per standard departmental protocol. Coronal and sagittal reformats of the head were also evaluated. One or more of the following techniques was used for dose reduction: Automated exposure control, adjustment of the mA and/or kV according to patient size, use of iterative reconstruction technique. DLP: 691 mGy-cm COMPARISON: Comparison is made with the prior examination dated 10/26/2018. FINDINGS: BRAIN: The brain parenchyma is unremarkable. There is normal ace/white differentiation. The ventricular system is normal in size and configuration. There is no mass effect or midline shift. No intra- or extra-axial fluid collections are identified. SINUSES: The visualized paranasal sinuses are clear. The mastoid air cells and middle ear cavities are well pneumatized. ORBITS: The visualized orbits are unremarkable. BONES/SOFT TISSUES: The extracranial soft tissues are unremarkable. The calvarium is intact. No suspicious lytic or sclerotic lesions. CT/CT head/brain wo IV con IMPRESSION: No acute intracranial abnormality. Electronically signed by: Nader Butler MD 01/22/2025 02:53 PM [facility]
--- NOTE | ~2025-01-22 | XR_ITS ---
EXAMINATION: XR CHEST CLINICAL INFORMATION: Pnuemonia? COMPARISON: July 15, 2024 TECHNIQUE: PA and lateral views FINDINGS: 3 mm calcified pulmonary nodule, mid right hemithorax. 3 mm calcified pulmonary nodule, left lower hemithorax. Pulmonary reticular pattern. Linear opacity, right upper hemithorax. Emphysematous changes, upper lung lobes. No consolidation, pleural effusion or pneumothorax. No flattening of the diaphragm. S-shaped curvature of the thoracolumbar spine. Multilevel spondylosis. XR/XR chest 2V IMPRESSION: 3 mm granulomata, right upper and left upper/lingula. Emphysematous changes, upper lung lobes. Electronically signed by: Jd Farley MD 01/22/2025 02:31 PM [facility]
[2025-01-22 14:02] VITALS: BP 131/80; PULSE 100; RESP 20; TEMP 36.2; O2SAT 96; BMI 28.6
--- NOTE | 2025-01-22 14:11 | ECG_ITS ---
Test Reason : palpitatoins Blood Pressure : */* mmHG Vent. Rate : 96 BPM Atrial Rate : 96 BPM P-R Int : 142 ms QRS Dur : 94 ms QT Int : 348 ms P-R-T Axes : 49 25 30 degrees QTcB Int : 439 ms Normal sinus rhythm Incomplete right bundle branch block Borderline ECG When compared with ECG of 17-Oct-2021 16:37, No significant change was found Referred By: Jonel Izquierdo Electronically Signed By: JERRY ROBERTSON
--- NOTE | 2025-01-22 14:12 | ED.GENADULT ---
HPI - General Adult General Chief complaint: Arrhythmia/Palpitations Stated complaint: Headache Time Seen by Provider: 01/22/25 15:56 Source: patient, family, RN notes reviewed and old records reviewed Mode of arrival: ambulatory Limitations: no limitations History of Present Illness ED Provider: Dr. Kena Rodriguez HPI narrative: 69-year-old male with a history of chronic kidney disease, COPD (uses rescue inhaler PRN), benign prostatic hyperplasia status post prostatectomy approximately 2?weeks ago, and eczema. He presents from urgent care for evaluation of new-onset palpitations, shaking, and headache that began this morning. He reports feeling ?shaky,? with subjective tachycardia confirmed by his (?a little fast?). He described his heart as ?going really fast? and shaking as the main reason for seeking care. No associated chest pain, shortness of breath, nausea, or vomiting. He endorses a persistent burning pain immediately after voiding with post-void dribbling that has been present since the prostate surgery. He delivered a urine sample to his urologist earlier today and then went to urgent care where UA reportedly showed ?maybe a little bacteria,? but today?s ED UA showed no bacteria and no signs of infection. Medication change: yesterday he started a brand-new daily pill (name unknown) prescribed by urology to improve piain with urination. His symptoms began the morning after the first dose. He denies prior similar episodes. He denies fever, cough, congestion, or recent sick contacts. He ate breakfast and lunch today and is tolerating oral intake. Post-operative incisional pain is minimal and localized near the umbilical port site. Related Data Previous Rx's ?Medication ?Instructions ?Recorded ipratropium 20 mcg-albuterol 100 1 puff inhalation QID Wheezing 30 04/17/22 mcg/actuation mist for inhalation days #4 grams (Combivent Respimat) bisacodyl 5 mg tablet,delayed 20 mg (4 x 5 mg) PO ONCE 1 day #4 04/13/23 release (Dulcolax (bisacodyl)) tabs polyethylene glycol 3350 17 238 g PO ONCE #238 grams 04/13/23 gram/dose oral powder (Miralax) ibuprofen 600 mg tablet 600 mg PO Q8H PRN fever or pain 06/22/23 #20 tabs cholecalciferol (vitamin D3) 50 50 mcg PO DAILY 90 days #90 caps 12/30/23 mcg (2,000 unit) capsule tamsulosin 0.4 mg capsule 0.4 mg PO BEDTIME #90 caps 03/25/24 mupirocin 2 % topical ointment 1 appl topical TID #50 grams 06/20/24 fluticasone propionate 50 1 spray intranasal BID #16 grams 07/15/24 mcg/actuation nasal spray,suspension (Flonase Allergy Relief) albuterol sulfate 90 mcg/actuation 2 puff inhalation QID PRN 07/30/24 aerosol inhaler shortness of breath or wheezing 30 days #8.5 grams atorvastatin 10 mg tablet 10 mg PO BEDTIME 90 days #90 tabs 09/19/24 clobetasol 0.05 % topical cream 1 appl topical BID 2 weeks #45 11/04/24 grams sertraline 25 mg tablet 25 mg PO DAILY 30 days #90 tabs 01/12/25 phenazopyridine 100 mg tablet 100 mg PO TID PRN pain 6 doses #6 01/22/25 (Pyridium) tabs Allergies Allergy/AdvReac Type Severity Reaction Status Date / Time grass pollen Allergy Unknown positive Verified 01/22/25 14:05 allergy test latex (LATEX) Allergy Unknown UNKNOWN Verified 01/22/25 14:05 Latex, Natural Rubber Allergy Unknown Itching Verified 01/22/25 14:05 morphine (MORPHINE) AdvReac Mild SENSATION Verified 01/22/25 14:05 OF HEAT/WARMTH environmental Allergy Unknown Dry Eye Uncoded 11/04/24 17:14 Review of Systems Review of Systems: As per HPI, full review of systems performed and negative but for the above mentioned pertinent positives and negatives. [facility] Past Medical History Medical History Abnormal chest x-ray Anxiety and depression Chronic obstructive pulmonary disease (COPD) Impaired fasting glucose Vitamin D deficiency Pure hypercholesterolemia Overweight (BMI 25.0-29.9) Benign prostatic hyperplasia Pulmonary nodules Asthma Surgical History H/O cervical spine surgery History of ear surgery H/O knee surgery Social History Social History Household Members: Family Housing: Apartment Are you a primary manager intensive care unit to a significant other at home: No Do you presently have visiting nurse or other home services: No Alcohol intake: never Patient Tobacco Use Status: Former Tobacco user Smoked in Last 30 Days: No e-Cigarette/Vaping Use: Never Used Second Hand Smoke Exposure: No Use of substances other than those prescribed or required for medical reasons: No Advance Directives: Yes Advance Directives on File: Yes Advance Directives Date on File: 03/11/21 Do you have a plan to hurt others: No Plan service: No Current occupational status: unemployed and retired Cognitive needs: No Hearing needs: Yes Vision needs: Yes Physical Exam ED Exam Exam: GENERAL: Chronically ill-appearing, conversant, no acute distress. SKIN: Normal skin color for ethnicity, warm, dry, no rashes noted. HEENT: Normocephalic, atraumatic, no stridor, posterior oropharynx nonerythematous, EOMI. NECK: Soft, supple, full ROM, midline structures nontender, no step-offs, no deformities, no lymphadenopathy. CHEST: Heart regular rate and rhythm, no murmurs, symmetric chest rise and fall. PULMONARY: Clear to auscultation bilaterally, no labored breathing, no wheezes/rhales/ rhonchi. ABDOMINAL: Soft, nondistended, diffusely tender to palpation without rebound or guarding, incision site are clean, dry, well healed, positive bowel sounds in all quadrants. : Deferred. MUSCULOSKELETAL: Normal tone, full range of motion, no deformities, no peripheral edema. NEURO: Alert and oriented to person, CN II through XII intact, no focal neurologic deficits. PSYCHIATRIC: Flat affect, fluid speech, appropriate demeanor. Vital Signs: Vital Signs - 24 hr 01/22/25 14:02 01/22/25 15:54 Temperature 97.2 F Pulse Rate 100 87 Respiratory Rate 20 16 Blood Pressure 131/80 126/82 Pulse Oximetry 96 94 Oxygen Delivery Method Room Air Room Air BMI result Body Mass Index 28.6 Course Course Course Narrative: RME: 69 year male sent from urgent Care for dysuria, headache, and palpitations. Patient has had recent prostate surgery. Labs EKG imaging ordered Medications Administered Discontinued Medications Generic Name Dose Route Start Last Admin Trade Name Freq PRN Reason Stop Dose Admin Acetaminophen 650 mg 01/22/25 16:27 01/22/25 16:51 Acetaminophen 325 Mg Tablet PO 01/22/25 16:28 650 mg ONCE ONE Administration Phenazopyridine HCl 200 mg 01/22/25 16:38 01/22/25 16:51 Phenazopyridine Hcl 200 Mg Tablet PO 01/22/25 16:39 200 mg ONCE ONE Administration Medical Decision Making Medical Decision Making [facility] Narrative: Emergency Department Course Diagnostic testing completed prior to or in ED: - UA (ED): No bacteria, no evidence of infection. - Comprehensive metabolic panel: Kidney and liver function within normal limits. - CBC: WBC and blood counts within normal limits. - CXR: Normal, old pulmonary nodules noted and unchanged. - Head CT: Normal. - EKG: Normal; unchanged from prior tracing. Treatment provided: - Acetaminophen (Tylenol) given in ED for headache/post-op discomfort. - Reviewed medication list; evaluating new urologic medication as possible etiology of today?s symptoms. Assessment & Plan Diagnosis: 1. Palpitations and shakiness, likely adverse reaction to newly started urologic medication. 2. Dysuria/post-void urethral spasm pain, status post prostatectomy. 3. Post-operative incisional pain ? mild. 4. COPD ? stable. Plan: - Medication review: Will attempt to identify the new urologic medication started yesterday; discuss potential side effects with patient. - Symptomatic management: Acetaminophen given; patient advised may continue at home as needed for headache or incisional pain per package instructions. - Follow-up: Patient to follow up with urology regarding urine culture results and ongoing dysuria; continue nephrology follow-up as previously established. - Return precautions: Return to ED for worsening pain, fever, persistent palpitations, chest pain, shortness of breath, or any other concerning symptoms. Discharged home in stable condition; tolerating oral intake; accompanied by . Acetaminophen offered in ED for headache prior to discharge. Differential Diagnosis Differential Diagnoses: The differential diagnosis associated with the presentation includes (as above) Admission/Observation Consideration of admission/observation: Escalation of care including admission/observation considered Lab Data [facility] Lab Attestation statement: I reviewed the patient's lab results. 01/22/25 15:09 01/22/25 15:09 Labs: Lab Results 01/22/25 Range/Units 15:09 WBC 7.4 (4.8-10.8) X10*3/uL RBC 4.91 (4.60-5.80) X10*6/uL Hgb 15.4 (14.0-18.0) g/dl Hct 45.6 (42.0-52.0) % MCV 92.9 (80.0-98.0) fL MCH 31.4 (27.0-33.0) pg MCHC 33.8 (31.0-36.0) g/dl RDW 12.9 (11.0-16.0) % Plt Count 193 (160-400) X10*3/uL MPV 10.9 (9.4-12.4) fL Immature Gran % (Auto) 0.3 (0.0-0.4) % Neut % (Auto) 65.8 (45-73) % Lymph % (Auto) 22.4 (20-40) % [place] % (Auto) 8.6 (2-11) % Eos % (Auto) 2.4 (0-4) % Baso % (Auto) 0.5 (0-2) % Lymph # (Auto) 1.7 (1.2-4.9) X10*3/uL [place] # (Auto) 0.6 (0.1-1.2) X10*3/uL Eos # (Auto) 0.2 (0.0-0.4) X10*3/uL Baso # (Auto) 0.0 (0.0-0.2) X10*3/uL Abs Immat Gran (auto) 0.02 (0.00-0.03) X10*3/uL Absolute Neuts (auto) 4.9 (2.0-8.3) x10*3/uL Absolute Nucleated RBC 0.000 (0.0-0.012) X10*3/uL Nucleated RBC % (auto) 0.0 (0.0-0.2) /100WBC PT 11.7 (11.2-13.5) SEC INR 1.0 (0.9-1.1) APTT 25.0 L (26.7-34.1) SEC Sodium 141 (135-145) mmol/L Potassium 4.2 (3.3-5.1) mmol/L Chloride 107 (96-108) mmol/L Carbon Dioxide 25 (22-29) mmol/L Anion Gap 13 (12-20) BUN 24 H (9-16) mg/dL Creatinine 1.03 (0.5-1.4) mg/dL Estim Creat Clear Calc 77.7 Estimated GFR > 60 Random Glucose 82 (60-115) mg/dL Calcium 9.8 D (8.4-10.2) mg/dL Total Bilirubin 0.4 (0.0-1.0) mg/dL AST 42 H (5-37) U/L ALT 64 H (0-40) U/L Alkaline Phosphatase 59 (39-117) U/L Troponin I High Sens 2.8 (<3.5-35.0) ng/L Total Protein 8.2 H (6.5-8.0) g/dL Albumin 5.0 (3.5-5.0) g/dL Lipase 33 (8-78) U/L Urine Color Yellow Urine Appearance Clear Urine pH 5.0 (5.0-9.0) Ur Specific [place] >= 1.030 H (1.005-1.025) Urine Protein Trace (Neg-Trace) mg/dL Urine Glucose (UA) Negative (Negative) mg/dL Urine Ketones Negative (Negative) mg/dL Urine Blood Trace H (Negative) Urine Nitrite Negative (Negative) Ur Leukocyte Esterase Trace H (Negative) Urine RBC 0-2 (0-2) /HPF Urine WBC 11-20 H (0-5) /HPF Ur Squamous Epith Cells 0-2 (0-2) /HPF Urine Bacteria None Seen (None Seen) Hyaline Casts 0-2 (0-2) /LPF COVID-19 ([place]) Negative (Negative) COVID-19 Clin Com See Note Influenza Type A (MIRTA) Negative (Negative) Influenza Type B (MIRTA) Negative (Negative) Influenza A & B Note See Note Independent Interpretation I performed an independent interpretation of an: EKG Interpretation: My independent interpretation of the ECG reveals normal sinus rhythm with rate of 96, normal axis, normal intervals, no ST elevations or depressions to suggest ischemic changes, relatively unchanged from previous on 10/17/21. Radiology Impression Discussion of test interpretation with radiology: I have reviewed the radiologist's reading. Independent Historian Clinical information obtained from an independent historian. History obtained from or confirmed by: Spouse External Record Review External record reviewed: Inpatient record Prescription Management I considered prescription management with: Pain Medication Discharge Plan Discharge Clinical Impression: Heart palpitations, Adverse drug effect, Spastic dysuria Patient Disposition: Home, Self-Care Instructions: Heart Palpitations (ED), Dysuria (ED) Additional Instructions: - Follow-up: Follow up with urology regarding urine culture results and ongoing painful urination; don't take your new medication until you speak with the urologist as this medication could be causing you to feel palpiations and shakiness. - Return to ED for worsening pain, fever, persistent palpitations, chest pain, shortness of breath, or any other concerning symptoms. Call 911 with any medical emergency Prescriptions: New phenazopyridine [Pyridium] 100 mg tablet 100 mg PO TID PRN (Reason: pain) Qty: 6 0RF No Action Combivent Respimat 20-100 mcg/actuation mist 1 puff inhalation QID 30 Days Qty: 4 5RF cholecalciferol (vitamin D3) 50 mcg (2,000 unit) capsule 50 mcg PO DAILY 90 Days Qty: 90 3RF tamsulosin 0.4 mg capsule 0.4 mg PO BEDTIME Qty: 90 3RF albuterol sulfate 90 mcg/actuation HFA aerosol inhaler 2 puff inhalation QID PRN (Reason: shortness of breath or wheezing) 30 Days Qty: 8.5 3RF atorvastatin 10 mg tablet 10 mg PO BEDTIME 90 Days Qty: 90 1RF sertraline 25 mg tablet 25 mg PO DAILY 30 Days Qty: 90 0RF fluticasone propionate [Flonase Allergy Relief] 50 mcg/actuation spray,suspension 1 spray intranasal BID Qty: 16 0RF Rx Instructions: administer into each nostril ibuprofen 600 mg tablet 600 mg PO Q8H PRN (Reason: fever or pain) Qty: 20 0RF mupirocin 2 % ointment 1 appl topical TID Qty: 50 0RF bisacodyl [Dulcolax (bisacodyl)] 5 mg tablet,delayed release (DR/EC) 20 mg PO ONCE 1 Days Qty: 4 0RF Rx Instructions: take 4 tabs at noon the day before your colonoscopy polyethylene glycol 3350 [Miralax] 17 gram/dose powder 238 g PO ONCE Qty: 238 0RF Rx Instructions: As directed by gastroenterology department at [facility] clobetasol 0.05 % cream 1 appl topical BID 14 Days Qty: 45 0RF Interventions: ED Discharge Assessment Last Done: 01/22/25 17:49 Discharge Date/Time: 01/22/25 17:50 Print Language: Luxembourgish
[2025-01-22 15:15] LABS: MANUAL DIFF FLAG NO
[2025-01-22 15:17] LABS: Hematocrit 45.6 % (42.0-52.0); Hemoglobin 15.4 g/dl (14.0-18.0); Imm Gran Abs Auto 0.02 X10*3/uL (0.00-0.03); Imm Gran Pct Auto 0.3 % (0.0-0.4); Lymphocytes Absolute Auto 1.7 X10*3/uL (1.2-4.9); Mean Corpuscular HGB Conc 33.8 g/dl (31.0-36.0); Mean Corpuscular Hemoglobin 31.4 pg (27.0-33.0); Mean Corpuscular Volume 92.9 fL (80.0-98.0); NRBC Abs Auto 0.000 X10*3/uL (0.0-0.012); NRBC Pct Auto 0.0 /100WBC (0.0-0.2); Platelet Count 193 X10*3/uL (160-400); Red Blood Count 4.91 X10*6/uL (4.60-5.80); White Blood Count 7.4 X10*3/uL (4.8-10.8)
[2025-01-22 15:18] LABS: Appearance Urine Clear; Glucose Urine UA Negative (Negative); PH 5.0 (5.0-9.0); Specific Gravity - Urine >= 1.030 (1.005-1.025); UMIC TRIGGER UACC YES
[2025-01-22 15:23] LABS: UACC Culture Trigger YES
[2025-01-22 15:36] LABS: Alanine Aminotransferase 64 U/L (0-40); Albumin Level 5.0 g/dL (3.5-5.0); Alkaline Phosphatase 59 U/L (39-117); Anion Gap 13 (12-20); Aspartate Amino Transferase 42 U/L (5-37); Blood Urea Nitrogen 24 mg/dL (9-16); COVID-19 Test Negative (Negative); Calcium 9.8 mg/dL (8.4-10.2); Carbon Dioxide 25 mmol/L (22-29); Chloride 107 mmol/L (96-108); Creatinine Clr Calc Pharmacy 77.7; Estimated Glomerular Filt Rate > 60; IDNOW Serial# 55D5AD1C; IDNOW Serial# 58CA691E; Influenza B2 Negative (Negative); Lipase 33 U/L (8-78); Potassium 4.2 mmol/L (3.3-5.1); Sodium 141 mmol/L (135-145); Total Protein 8.2 g/dL (6.5-8.0)
[2025-01-22 15:39] LABS: Troponin-I High Sensitivity 2.8 ng/L (<3.5-35.0)
[2025-01-22 15:41] LABS: INTERNATIONAL NORM RATIO 1.0 (0.9-1.1); Prothrombin Time 11.7 SEC (11.2-13.5)
[2025-01-22 15:44] LABS: Partial Thromboplastin Time 25.0 SEC (26.7-34.1)
[2025-01-22 15:54] VITALS: BP 126/82; PULSE 87; RESP 16; O2SAT 94
[2025-01-22 16:24] VITALS: BP 118/88; PULSE 82; RESP 17; TEMP 36.4; O2SAT 92
[2025-01-22 17:49] VITALS: BP 118/88; PULSE 82; RESP 17; TEMP 36.4; O2SAT 92
--- OUTSIDE RECORDS SUMMARY | 2025-01-22 20:47 | XMS_ITS | Clinical Summary ---
Author Organization [address] [facility] Address [address] [place] [address] Phone Care Team Providers Care Sr. Director Name Role Phone Earnest Lucio MD Primary Care Provider Social History Tobacco Use Types Packs/Day Years Used Date Smoking Tobacco: Never Assessed Sex and Gender Information Value Date Recorded Sex Assigned at Not on file Legal Sex Male 11:07 AM EDT Gender Identity Not on file Sexual Orientation Not on file Plan of Treatment Health Maintenance Due Date Last Done Comments Colorectal Cancer Screening: Colonoscopy 1954 DTaP,Tdap,and Td Vaccines (1 - Tdap) 1973 Pneumococcal Vaccine: 50+ Ye ars (1 of 1 - PCV) 2004 Zoster Vaccines (1 of 2) 2004 Abdominal Aortic Aneurysm (A AA) Screen 09/28/2023 Cholesterol Screening (Lipid Panel) 09/28/2023 Falls Risk Assessment 09/28/2023 Hepatitis C Screening 09/28/2023 Medicare Annual Wellness Visit 09/28/2023 Social Influencers of Health Screening 09/28/2023 Depression Screening 03/05/2024 COVID-19 Vaccine (1 - 2024-2 6 season) 2024 Influenza Vaccine (#1) 2024 RSV [...] Insurance MEDICARE MEDICAID - [place] Care Teams Sr. Director Relationship Specialty Start Date End Date Earnest Lucio MD [address] [place] [address] [address] [place], [place] PCP - General 04/30/23
--- OUTSIDE RECORDS SUMMARY | 2025-01-22 20:47 | XMS_ITS | Encounter Summary ---
Author Organization [facility] Address [address] [place] [address] Care Team Providers Care Delivery Truck Driver Heavy Name Role Phone Earnest Lucio MD Primary Care Provider Encounter Details Date Type Department Care Team (Late st Contact Info) Description 05/28/[address] [facility] - Main Lab [address] [facility] [place] [address] Johnny Ballard MD [address] [place], [place] [id number] Elevated prostate specific antigen (PSA) Social History [...] (05/27/2024) Final Diagnosis A. Prostate, Left [place] Biopsy: Benign prostate tissue. B. Prostate, Left Lateral [place] Biopsy: Benign prostate tissue with focal chronic [...] Benign prostate tissue. G. Prostate, Right [place] Biopsy: Benign prostate tissue with chronic and focal acute inflammation. H. Prostate, Right Lateral [place] Biopsy: Acinar adenocarcinoma, conventional (usual) type, [place]en [...] Zone Biopsy: Acinar adenocarcinoma, conventional (usual) type, [place] score 3 + 3 = 6 (Grade group 1). The carcinoma involves two of two tissue cores and approximately 50% of the tissue submitted for review and spans approximately 6 mm in greatest dimension in each tissue core. 06/03/2024 7:08 PM EDT [facility] at 1908 EDT Comment Edge Beader slide(s) from this case have been presented at Anatomic Pathology Intradepartmental Review Conference on 06/02/24. 06/03/2024 7:08 PM EDT [facility] Clinical Information Elevated PSA PSA: 5.0 (03/26/24) [id number] 06/03/2024 7:08 PM EDT [facility] Gross Description A. Prostate, Left [place] Biopsy: Received, properly labeled, are two H and E stained slides and two unstained slides. B. Prostate, Left Lateral [place] Biopsy: Received, properly labeled, are two H [...] two unstained slides. G. Prostate, Right [place] Biopsy: Received, properly labeled, are two H and E stained slides and two unstained slides. H. Prostate, Right [place]ateral [place] Biopsy: Received, properly labeled, are two H [...] unstained slides. /al 06/03/2024 7:08 PM EDT [facility] Disclaimer Unless otherwise specified, all tissue is 10% NB formalin fixed and paraffin embedded. Technical pathology services provided by [facility] at [address] [place] [address] [address], [place] [address] (CLIA #[id number]/Letty Damon MD, Air Hammer Stripper) 06/03/2024 7:08 PM EDT [facility] Tissue Prostate / Unknown 05/27/20242024 [...] MD LAB PATHOLOGY ORDERABLES Fi nal Result [facility] ([facility] [address] [place] [address], documented in this encounter Visit Diagnoses Diagnosis Elevated prostate specific antigen (PSA) documented in this encounter Care Teams Delivery Truck Driver Heavy Relationship Specialty Start Date End Date Earnest Lucio MD [address] [place] [address] Dr [address] [place], [place] PCP - General 04/30/23 documented as of this encounter
== END 2025-01-22 17:50 | disposition home or self-care (01) ==
PROVIDERS: Physician Assistant; Emergency Provider Emergency Medicine; PCP Internal Medicine
DX: R51.9 Headache, unspecified (principal); R00.2 Palpitations; T50.905A Adverse effect of unspecified drugs, medicaments and biological substances, initial encounter; Y92.9 Unspecified place or not applicable; R30.0 Dysuria; J44.9 Chronic obstructive pulmonary disease, unspecified; N18.9 Chronic kidney disease, unspecified
CPT/HCPCS: 36415; 70450; 71046; 80053; 81001; 83690; 84484; 85025; 85610; 85730; 87086; 87502; 87635; 93005; 99284; 99285

== ENCOUNTER → 2025-01-22 14:11 | Outpatient (BNV) | payer MEDICARE, MEDICAID, SELFPAY | PROVIDERS: Emergency Provider Emergency Medicine; PCP Internal Medicine; Visit Provider Internal Medicine | DX: I45.10 Unspecified right bundle-branch block (principal) | CPT/HCPCS: 93010 ==

== ENCOUNTER → 2025-01-22 14:11 | Outpatient (BNV) | payer MEDICARE, MEDICAID, SELFPAY | PROVIDERS: Visit Provider Radiology Diagnostic Radiology | DX: J43.9 Emphysema, unspecified (principal); J84.10 Pulmonary fibrosis, unspecified | CPT/HCPCS: 70450; 71046 ==

== ENCOUNTER 2025-02-10 15:39 | Outpatient (AMB) | payer MEDICARE, MEDICAID, SELFPAY ==
--- NOTE | 2025-02-10 15:40 | A.OFFVIS_ITS ---
Vital Signs 02/10/25 15:41 Height 5 ft 11 in Weight 212 lb 11.937 oz BMI 29.7 BP 110/64 Blood Pressure Location Lt brachial Position Sitting Pulse 94 Pulse Source Pulse Oximeter Pulse Oximetry (%) 96 Oxygen Delivery Method Room Air Intake Visit Reasons: Pulmonary Nodule Director Financial Planning Required: Yes Director Financial Planning Services: Director Financial Planning Offered & Declined Director Financial Planning Name: MD speaks [place] citizen Accompanied by: Self / Same As Patient Allergies grass pollen Allergy (Unknown, Verified 02/10/25 15:44) positive allergy test latex (LATEX) Allergy (Unknown, Verified 02/10/25 15:44) UNKNOWN Latex, Natural Rubber Allergy (Unknown, Verified 02/10/25 15:44) Itching morphine (MORPHINE) Adverse Reaction (Mild, Verified 02/10/25 15:44) SENSATION OF HEAT/WARMTH environmental Allergy (Unknown, Uncoded 11/04/24 17:14) Dry Eye HPI Comments Details: The patient is a 69 y/o man with COPD and pulmonary nodules. Apparently the last CT scan at [facility] was back in 2016 were demonstrated multiple pulmonary nodules indeed he had a new left upper lobe pulmonary nodule. The patient also had extensive upper lobe emphysema. He has subsequently moved a and did not follow up further. Back in early March 2021 the patient developed bad acute respiratory failure he was diagnosed with COVID-19. He had a CTA demonstrating extensive airspace disease bilaterally. He was hospitalized for. Was treated appropriately and subsequently discharged. His last chest x-ray was done back in October 2021 demonstrating persistent airspace disease. On a evidence of potential scarring and decreased lung volumes. The patient was recommended to get a CT scan. He continues to have shortness of breath with activity. Hthj-wy-ihepnvwy severity. He does have her inhaler that helps him. He does use Combivent. Sometimes he gets a little tremulous with it. Will go ahead and request a CT scan of the chest to follow up with the abnormal findings in addition to that will go ahead and request pulmonary function studies. 09/14/2022 the patient is here for a pulmonary follow-up visit. Overall the patient has been doing well. He does complaint of shortness of breath with activity. Mild in severity. Also has an intermittent cough. As far as inhalers he does have a Combivent inhaler that he uses couple times a day. He also has a short-acting beta agonist that he uses about twice a week. He is not on any other inhalers. Will hold off on changing his regimen since this appears to be working for him. We should repeat his PFTs next year also in July. He recently had a CT scan of the chest that we personally reviewed. His pulmonary nodules appear to be stable which is reassuring. The patient does have extensive emphysema primarily in the upper lung zones. The rest of the lungs are preserved. He also has some coronary calcifications. He no longer smoking. He quit about 25 years ago. the patient also has evidence of some scarring and some ground-glass opacities. Likely residual from a previous infection could have been COVID. Clinically the patient is doing well on this is likely printout. Will go ahead and follow-up july after his repeat CT scan. 08/28/2023 the patient is here for a pulmonary follow-up visit. The patient overall has been doing well from a respiratory status. He has these inhalers available. He has not had to use his rescue inhaler as often. Typically less than 2 times a week. He did have a CT scan of the chest that was personally by me. Appears that his pulmonary nodule in the right upper lobe appears to be stable measuring between 7-8 mm in size. The other nodules appear doing g ranulomas and not concerning. Again the other findings including the calcifications of the coronary arteries. He did quit smoking which is very happy about. Will wait for the final read on the CT scan. Although the appears that the nodule has been stable when compared to last year's CT scan. Although we have to wait for the final read from the radiologist. At this point I will plan to repeat the CT scan in a year unless the reading from the radiologist states differently. 08/12/2024 the patient is here for pulmonary follow-up visit. Overall the patient has been doing okay. He has been frustrated with the diagnosis of prostate cancer. He is awaiting that urology appointment in order to talk about disposition and plan. In the meantime the patient knows that he has underlying pulmonary nodules. This is unlikely related to the prostate cancer. However, will need to do formal CT scans to follow the nodular densities. The patient also has extensive emphysema. Will go ahead and reschedule his CT scan for 6 months from now since he is going to be following up with urology and starting therapy for the prostate cancer. 02/10/2025 the patient is here for pulmonary follow-up visit. Overall he is doing well from a respiratory status. Denies any shortness of breath or cough. He recently underwent a surgery for his prostate cancer. He had a total radical prostatectomy. This was back in December. He is still dealing with the side effects. His he was then placed on Cialis causing him to have elevated pressures and had pressure. He did go to the ER. Had a CT scan of the brain also chest x-ray without any acute disease and also blood work. Overall the patient is recovering okay from that. He is scheduled to undergo a CT scan of the chest to follow-up the pulmonary nodules. Does not till the end of February. I will call him with the results. Based on the MR of the prostate there was no evidence of any localized disease or spread of the prostate cancer. Therefore is very unlikely that the nodular densities are associated. But we have to make sure. Otherwise if the nodules in the CAT scan is stable will follow-up in a year's time. [facility] Medical History Abnormal chest x-ray Anxiety and depression Chronic obstructive pulmonary disease (COPD) Impaired fasting glucose Vitamin D deficiency Pure hypercholesterolemia Overweight (BMI 25.0-29.9) Benign prostatic hyperplasia Pulmonary nodules Asthma Surgical History H/O cervical spine surgery History of ear surgery H/O knee surgery Social History Household Members: Family Housing: Apartment Are you a primary rn care transition to a significant other at home: No Do you presently have visiting nurse or other home services: No Alcohol intake: never Patient Tobacco Use Status: Former Tobacco user e-Cigarette/Vaping Use: Never Used Second Hand Smoke Exposure: No Advance Directives Date on File: 03/11/21 service: No Current occupational status: unemployed and retired Cognitive needs: No Hearing needs: Yes Vision needs: Yes Review of Systems Const Denies fatigue, Denies fever(s) and Denies headache(s) ENT Reports dysphagia (sometimes chokes when drinking liquids), Denies dizziness, Denies otalgia, Denies headache(s), Reports neck pain (on and off), Denies odynophagia and Denies sore throat Card Denies chest pain, Denies palpitations and Denies dyspnea on exertion (mild) Resp Denies chest congestion, Reports cough (occasional, non-productive), Denies dyspnea on exertion (mild) and Denies wheezing GI Denies abdominal pain, Denies constipation, Reports dysphagia (sometimes chokes when drinking liquids), Denies heartburn, Denies diarrhea, Denies nausea, Denies odynophagia and Denies vomiting Reports as per HPI Musc Details: increased pain over the left heel, worse with walking and weight-bearing Denies back pain and Reports neck pain (on and off) Neuro Denies dizziness and Denies headache(s) Psych Reports anxiety and Reports depression Endo Denies fatigue and Denies palpitations Aller/Immun Denies wheezing Physical Exam Vital Signs: Last Vital Signs Pulse 94 02/10/25 15:41 BP 110/64 02/10/25 15:41 Pulse Ox 96 02/10/25 15:41 Oxygen Delivery Method Room Air 02/10/25 15:41 BMI result Body Mass Index 29.7 Const General: cooperative, no acute distress, alert and awake Orientation/consciousness: oriented to person and oriented to place Limitations: no limitations HEENT Head: Yes normal to inspection, Yes normocephalic and Yes atraumatic Ears: external ears normal General nose exam: Normal external nose present Face and sinus: Yes normal facial exam Mouth: Normal oral and palatal mucosa present Throat: Yes posterior oropharynx normal Eyes General: appearance normal, both eyes and all related structures Periorbital: periorbital findings normal Eyelids: Yes eyelids normal Conjunctivae: conjunctivae normal Sclerae: sclerae normal Corneas: corneas normal Pupils: Equal, round and reactive pupils present Direct Ophthalmoscopy: normal light reflex Neck Neck: Yes normal visual inspection and Yes supple Lymphatic: no lymphadenopathy noted Chest Chest palpation & inspection: normal inspection of the chest and normal palpation of entire chest wall Resp Effort & Inspection: normal respiratory effort Auscultation: clear to auscultation bilaterally, no rales, no rhonchi and no wheezes Cardio Rate: regular rate Rhythm: regular rhythm Heart sounds: S1 normal heart sound present, S2 normal heart sound present and Murmur heart sound present GI Inspection: No distended Palpation (GI): Soft to palpation, nontender, no guarding and No hep atosplenomegaly present Auscultation: normal bowel sounds General: Yes no CVA tenderness Back/Spine/Pelvis Back: no CVA tenderness Skin General skin exam: no rashes or lesions noted Lesions: no lesions Rashes: no rashes Wounds: no wounds Neuro General: oriented to person and oriented to place Cranial nerves: Yes CN's II-XII intact bilaterally and Yes Equal, round and reactive pupils present Cognition (Neuro): normal cognition Motor exam (neuro): 5/5 motor strength present throughout Extrem General: Yes normal to inspection, Yes full ROM, Yes no pedal edema and Yes no calf tenderness Psych Appearance: grossly normal Mental Status: mental status grossly normal Speech and movement: Clear speech present Affect: normal affect Attitude: cooperative Thought process: Normal thought process present Thought content: Normal thought content present Assessment & Plan Assessment & Plan (1) Chronic obstructive pulmonary disease (COPD): Code(s): J44.9 - Chronic obstructive pulmonary disease, unspecified Category: Medical Qualifiers: COPD type: emphysema Emphysema type: centrilobular Qualified Code(s): J43.2 - Centrilobular emphysema (2) Pulmonary nodules: Code(s): R91.8 - Other nonspecific abnormal finding of lung field Category: Medical Plan continue combivent VINICIUS as needed CT chest 02/21/25 F/U 12 months Coding Level of Care Code Est Pt Level 4 (01021) Diagnoses Centrilobular emphysema J43.2 COPD type: emphysema Emphysema type: centrilobular Pulmonary nodules R91.8 Time Spent (min) 16
[2025-02-10 15:41] VITALS: BP 110/64; PULSE 94; O2SAT 96; BMI 29.7
== END 2025-02-10 16:17 | disposition home or self-care (01) ==
LOC: HO.HPS 15:39
PROVIDERS: PCP Internal Medicine; Visit Provider Hospitalist
DX: J43.2 Centrilobular emphysema (principal); R91.8 Other nonspecific abnormal finding of lung field
CPT/HCPCS: 99214

== ENCOUNTER → 2025-02-10 15:39 | Outpatient (BNVA) | payer MEDICARE, MEDICAID, SELFPAY | PROVIDERS: PCP Internal Medicine; Visit Provider Hospitalist | DX: J43.2 Centrilobular emphysema (principal); R91.8 Other nonspecific abnormal finding of lung field | CPT/HCPCS: 99212 ==

== ENCOUNTER 2025-02-21 08:50 | Outpatient (REF) | payer MEDICARE, MEDICAID, SELFPAY ==
--- OUTSIDE RECORDS SUMMARY | 2025-02-21 08:53 | XMS_ITS | Clinical Summary ---
Author Organization [address] [facility] Address [address] [place] [address] Phone Care Team Providers Care Scallop Dredger Name Role Phone Earnest Lucio MD Primary [...] Insurance MEDICARE MEDICAID - [place] Care Teams Scallop Dredger Relationship Specialty Start Date End Date Earnest Lucio MD [address] [place] [address] [address] [place], [place] PCP - General 04/30/23
--- OUTSIDE RECORDS SUMMARY | 2025-02-21 08:53 | XMS_ITS | Encounter Summary ---
Author Organization [facility] Address [address] [place] [address] Care Team Providers Care Director Of Operations For Therapy Name Role Phone Earnest Lucio MD Primary Care Provider Encounter Details Date Type Department Care Team (Late st Contact Info) Description 05/28/2024 Lab Requisition [facility] - Main Lab [address] [facility] [place] [address] Johnny Ballard MD [address] [place], [place] [id number] Elevated prostate specific antigen (PSA) Social History [...] (05/27/2024) Final Diagnosis A. Prostate, Left [place] Biopsy: Benign prostate tissue. B. Prostate, Left Lateral [place] Biopsy: Benign prostate tissue with focal chronic [...] Benign prostate tissue. G. Prostate, Right [place] Biopsy: Benign prostate tissue with chronic and focal acute inflammation. H. Prostate, Right Lateral [place] Biopsy: Acinar adenocarcinoma, conventional (usual) type, Coleen [...] Zone Biopsy: Acinar adenocarcinoma, conventional (usual) type, [place] score 3 + 3 = 6 (Grade group 1). The carcinoma involves two of two tissue cores and approximately 50% of the tissue submitted for review and spans approximately 6 mm in greatest dimension in each tissue core. 06/03/2024 7:08 PM EDT [facility] at 1908 EDT Comment Golf Tournament Consultant slide(s) from this case have been presented at Anatomic Pathology Intradepartmental Review Conference on 06/02/24. 06/03/2024 7:08 PM EDT [facility] Clinical Information Elevated PSA PSA: 5.0 (03/26/24) [id number] 06/03/2024 7:08 PM EDT [facility] Gross Description A. Prostate, Left [place] Biopsy: Received, properly labeled, are two H and E stained slides and two unstained slides. B. Prostate, Left Lateral [place] Biopsy: Received, properly labeled, are two H [...] two unstained slides. G. Prostate, Right [place] Biopsy: Received, properly labeled, are two H and E stained slides and two unstained slides. H. Prostate, Right L[place] Biopsy: Received, properly labeled, are two H [...] unstained slides. /al 06/03/2024 7:08 PM EDT [facility] Disclaimer Unless otherwise specified, all tissue is 10% NB formalin fixed and paraffin embedded. Technical pathology services provided by [facility] at [address] [place] [address] [address], [place] [address] (CLIA #[id number]/Letty Damon MD, Ignition Expert) 06/03/2024 7:08 PM EDT [facility] Tissue Prostate / Unknown 05/27/20242024 [...] MD LAB PATHOLOGY ORDERABLES Fi nal Result [facility] [address] [place] [address], documented in this encounter Visit Diagnoses Diagnosis Elevated prostate specific antigen (PSA) documented in this encounter Care Teams Director Of Operations For Therapy Relationship Specialty Start Date End Date Earnest Lucio MD [address] [place] [address] Dr [address] [place], [place] PCP - General 04/30/23 documented as of this encounter
== END 2025-02-21 08:51 | disposition home or self-care (01) ==
LOC: HO.CT 08:50
PROVIDERS: PCP Internal Medicine; Visit Provider Hospitalist
DX: R91.8 Other nonspecific abnormal finding of lung field (principal)
CPT/HCPCS: 71250

== ENCOUNTER → 2025-02-21 08:52 | Outpatient (BNV) | payer MEDICARE, MEDICAID, SELFPAY | PROVIDERS: PCP Internal Medicine; Visit Provider Radiology Diagnostic Radiology | DX: J43.2 Centrilobular emphysema (principal) | CPT/HCPCS: 71250 ==

== ENCOUNTER 2025-02-24 14:37 | Emergency (ER) | payer MEDICARE, MEDICAID, SELFPAY ==
--- OUTSIDE RECORDS SUMMARY | 2025-02-21 23:59 | XMS_ITS | Continuity of Care Document ---
Author Organization [facility] Address [address] [place] [address]- Care Team Providers Care Pot Room Tapper Name Role Phone Not on Staff, PCP Primary Care Physician Unavail able Encounter [facility] Date(s): 01/22/25 - 02/21/25 [facility] [address] [place] [address]- Attending Physician: AdmTracie bear Admitting Physician: AdmtrTracie Referring Physician: Admtr, Ar8 Encounter Type: Triage Allergies, Adverse Reactions, Alerts Substance Criticality Severity Reaction Reaction Severity Status Grass sneezing Active Latex itching Active Immunizations Given and Recorded Vaccine Date Status Refusal Reason SARS-CoV-2 (COVID-19) mRNA BNT-162b2 vac 07/06/20 Given influenza virus vaccine, inactivated 1 03/09/17 Gi yefri influenza virus vaccine, inactivated 03/27/13 Give n pneumococcal 23-valent vaccine 08/09/12 Given Influenza Inactive (IM) (oldterm) 2 12/16/09 Given Influenza Virus Vaccine (oldterm) 3 03/30/08 Given Tet/Diphth/Acel, Pertussis (oldterm) 4 12/02/07 Gi yefri 1Admin Note: Pharmacy 2Admin Note: vis 3Admin Note: VIS GIVEN 2007- 4Admin Note: VIS GIVEN 09/13/05 Medications Aerochamber See Instructions, # 1 each, Refills 1, Tot. Refills 1, Maintenance, Pharmacist, please demonstrate use. For use with flovent, 08/09/12 5:00:57 PM EDT Start Date: 08/09/12 Stop Date: 08/10/13 Status: Ordered Medication Dispense Status: Completed Quantity: 1.0 Unit: each Total Allowed Fills: 2 Fills Dispensed: 0 atorvastatin 20 mg oral tablet 1 tablet = 20 mg, By Mouth, Daily at bedtime, # 30 tablet, 11 Refills, Maintenance, Tablet, Route to Pharmacy Electronically, [id number], [facility]/pharmacy #[id number] Start Date: 05/30/17 Stop Date: 05/25/18 Status: Ordered Medication Dispense Status: Completed Quantity: 30.0 Unit: tablet Total Allowed Fills: 12 Fills Dispensed: 0 clotrimazole 1% topical cream 1 application, Topically, 2 times a day, # 100 Gm, 0 Refills, Maintenance, 05/31/20 4:08:00 PM EDT, Cream, [facility]/pharmacy #[id number], Partial fill upon patient request if the prescription is for a schedule II opioid drug., 1 application Topically 2 times a day,x14 days, 180.34, cm, 05/31/20 15:39:00 EDT, Height Start Date: 05/31/20 Stop Date: 06/14/20 Status: Ordered Medication Dispense Status: Completed Quantity: 100.0 Unit: g Total Allowed Fills: 1 Fills Dispensed: 0 Colace sodium 100 mg oral capsule 100 mg, 1, capsule, By Mouth, 2 times a day, PRN, # 20 capsule, Refills 0, Tot. Refills 0, Maintenance, for constipation, 12/23/24 11:05:00 AM EDT, Route to Pharmacy Electronically, [facility]/pharmacy #[id number], Partial fill upon patient request if the prescription is for a schedule II opioid drug., 180.34, cm, 12/23/24 6:51:00 EDT, Height, 94.8, kg, 12/23/24 6:51:00 EDT, Dry Weight Start Date: 12/23/24 Status: Ordered Medication Dispense Status: Completed Quantity: 20.0 Unit: capsule Total Allowed Fills: 1 Fills Dispensed: 0 Combivent Respimat 20 mcg-100 mcg/inh inhalation aerosol See Instructions, GRISELDA SOLOMON INHALACION POR VIA ORAL CUATRO VECES AL LORRIE - MAY TAKE ADDITIONAL PUFFS.MAX 6/DAY, # 12 mL, 0 Refills, [id number], 90, TOME JUANITO INHALACION POR VIA ORAL CUATRO VECES AL LORRIE - MAY TAKE ADDITIONAL PUFFS. MAX 6/DAY, 180.34, cm, 05/31/20 15:39:00 EDT, Height Start Date: 01/19/21 Status: Ordered Medication Dispense Status: Completed Quantity: 12.0 Unit: mL Total Allowed Fills: 1 Fills Dispensed: 0 Combivent Respimat 20 mcg-100 mcg/inh inhalation aerosol 1 puffs, Inhalation, 4 times a day, may take additional inhalations as required, not to exceed six in 24 hours, # 4 Gm, 2 Refills, Maintenance, 10/18/20 6:43:00 AM EDT, Aerosol, [id number], Partial fill upon patient request if the prescription is for a schedule II opioid drug., 1 puffs Inhalation 4 times a day,Instr:may take additional inhalations as required, not to exceed six in 24 hours, 180.34, cm, 05/31/20 15:39:00 EDT, Height Start Date: 10/18/20 Status: Ordered Medication Dispense Status: Completed Quantity: 4.0 Unit: g Total Allowed Fills: 3 Fills Dispensed: 0 Eucerin Gentle Hydrating Cleanser topical liquid 1 application, Topically, 2 times a day, PRN for dry skin, # 240 mL, 1 Refills, Maintenance, 02/10/19 3:51:31 PM EST, Liquid, [id number], 1 application Topically 2 times a day,PRN:for dry skin, 180.34, cm, 02/10/19 15:08:00 EST, Height Start Date: 02/10/19 Status: Ordered Medication Dispense Status: Completed Quantity: 240.0 Unit: mL Total Allowed Fills: 2 Fills Dispensed: 0 NuLYTELY with Flavor Packs oral powder for reconstitution See Instructions, 240 mL By Mouth Every 15 minutes, # 4,000 mL, 0 Refills, Maintenance, 04/03/18 10:31:19 AM EST, [id number], 240 mL By Mouth Every 15 minutes Start Date: 04/03/18 Status: Ordered Medication Dispense Status: Completed Quantity: 4000.0 Unit: mL Total Allowed Fills: 1 Fills Dispensed: 0 sertraline 25 mg oral tablet 1 tablet = 25 mg, By Mouth, Daily at bedtime, # 30 tablet, 0 Refills, Maintenance, 12/17/24 9:17:00AM EDT, Tablet, Partial fill upon patient request if the prescription is for a schedule II opioid drug. Start Date: 12/17/24 Status: Ordered Medication Dispense Status: Completed Quantity: 30.0 Unit: tablet Total Allowed Fills: 1 Fills Dispensed: 0 tamsulosin 0.4 mg oral capsule 0.4 mg, 1, capsule, By Mouth, Daily, # 30 capsule, Refills 5, Tot. Refills 5, Maintenance, 03/28/19 9:01:00 AM EST, Route to Pharmacy Electronically, [facility]/pharmacy #[id number], 180.34, cm, 03/20/19 14:50:00 EST, Height Start Date: 03/28/19 Status: Ordered Medication Dispense Status: Completed Quantity: 30.0 Unit: capsule Total Allowed Fills: 6 Fills Dispensed: 0 Vitamin D3 oral tablet 1 tablet = 10 mcg, By Mouth, Daily, # 30 tablet, 0 Refills, Maintenance, 12/17/24 9:18:00 AM EDT, Tablet, Partial fill upon patient request if the prescription is for a schedule II opioid drug. Start Date: 12/17/24 Status: Ordered Medication Dispense Status: Completed Quantity: 30.0 Unit: tablet Total Allowed Fills: 1 Fills Dispensed: 0 Problem List Condition Confirmation Course Effective Dates Status Health Status Informant Back pain 1, 2 Confirmed Active Benign prostatic hyperplasia Confirmed Active Cigarette smoker Confirmed 07/02/89 Active Depression 3 Confirmed 01/25/98 Active SOB (shortness of breath) Confirmed Active Erectile dysfunction Confirmed Active History of colon polyps Confirmed Active Hypercholesterolemia 4, 5 Confirmed 2007 Active Stool incontinence Confirmed Active Encounter for screening colonoscopy Confirmed Active Tubular adenoma of colon Confirmed 05/27/18 Active 1DrCaity Honeycutt (neurosurgery) -, mild spondylitic changes and small disk bulge L4-5, more pain in hips 2Scaroiliac dysfunction 3GDr. Huyen velázquez 89 yr CVD risk = 15% 89-yr Social History Social History Type Response Smoking Status Never smoker entered on: 04/21/14 Sex Sex Representation Male (finding) EKG study * Event Display: EKG Authored Date: Patient Care team information Care Team Personnel Name: Belgica Bell RN Position: S RN Member Role: Primary Care Nurse Name: Kailee Montaño RN Position: S RN Member Role: Primary Care Nurse Name: Laura Barton RN Position: S RN Member Role: Primary Care Nurse Name: Not on Staff, PCP Position: [facility] Physician (General Medicine) Member Role: PCP Care Team Related Persons Name: NGO BOB Name: REBEKAH ESTHERBROOK Insurance Providers Guarantor name: [employer] Information #: 1 Payer: MEDICARE B Payer Identifier: [employer] Member Number: [id number] Group Number: NA Subscriber Identifier: NA Relationship to Subscriber: self Coverage Type: NA Coverage Verification Date: NA Telecom: NA Address: Health Plan Information #: [address] [facility] Payer Identifier: [employer] Member Number: [id number] Group Number: NA Subscriber Identifier: NA Relationship to Subscriber: self Coverage Type: MEDICAID Coverage Verification Date: NA Telecom: NA Address:
--- NOTE | ~2025-02-24 | CT_ITS ---
CLINICAL HISTORY: epigastric pain and nausea CT abdomen and pelvis with contrast Comparison: CT/REG/SR - CT ABDOMEN PELVIS WO IV CON - 06/24/23 18:59 EDT Findings: Calcified granuloma within the lingula. No consolidation or pleural effusion. The liver is hypodense. There are multiple small nonobstructive calculi within the left kidney. No ureteral calculus or hydronephrosis. Unremarkable spleen, pancreas and adrenal glands. No calcified gallstones. There is fluid throughout the colon compatible with a diarrheal illness. There is mild colonic diverticulosis without diverticulitis. There is no colitis or bowel obstruction. Status post prostatectomy. Unremarkable urinary bladder. Normal appendix. No acute fracture. IMPRESSION: 1. Fluid throughout the colon compatible with a diarrheal illness. No focal bowel inflammation or evidence of bowel obstruction. 2. Multiple small nonobstructive calculi within the left kidney. 3. Fatty infiltration of the liver. This document has been electronically signed by: Elaina Ibarra MD on 02/24/2025 19:34:19
[2025-02-24 14:57] VITALS: BP 131/78; PULSE 89; RESP 18; TEMP 36.5; O2SAT 95; BMI 29.6
--- NOTE | 2025-02-24 15:15 | ECG_ITS ---
Test Reason : abdominal pain Blood Pressure : */* mmHG Vent. Rate : 88 BPM Atrial Rate : 88 BPM P-R Int : 138 ms QRS Dur : 96 ms QT Int : 362 ms P-R-T Axes : 51 8 43 degrees QTcB Int : 438 ms Normal sinus rhythm Normal ECG When compared with ECG of 22-Jan-2025 14:58, No significant change was found Referred By: Jonel Izquierdo Electronically Signed By: BUZZ LANDRY MD
--- NOTE | 2025-02-24 15:15 | ED_ITS ---
HPI - General Adult General Chief complaint: Abdominal Pain Stated complaint: ABD Pain- Trouble Eating Time Seen by Provider: 02/24/25 16:44 Source: patient, RN notes reviewed and old records reviewed Mode of arrival: ambulatory Limitations: no limitations History of Present Illness ED Provider: Joseph HPI narrative: 69-year-old male with a past medical history significant for COPD, anxiety, arthritis, prostate cancer status post resection presents for evaluation of upper abdominal pain with nausea and diarrhea. The patient reports that his symptoms started 3 days ago. he reports epigastric pain that has worse after eating. He reports when he eats he is able to tolerate it but becomes nauseous with upper abdominal pain. He reports no other abdominal surgeries with the exception of the transabdominal prostate resection. yesterday he reported having fevers and chills but did not take his temperature denies any cough, shortness of breath. He endorses diarrhea without blood. Denies any recent antibiotic use Related Data Home Medications ?Medication ?Instructions ?Recorded ?Confirmed tadalafil 5 mg tablet (Cialis) 5 mg PO DAILY 02/10/25 Previous Rx's ?Medication ?Instructions ?Recorded ipratropium 20 mcg-albuterol 100 1 puff inhalation QID Wheezing 30 04/17/22 mcg/actuation mist for inhalation days #4 grams (Combivent Respimat) bisacodyl 5 mg tablet,delayed 20 mg (4 x 5 mg) PO ONCE 1 day #4 04/13/23 release (Dulcolax (bisacodyl)) tabs polyethylene glycol 3350 17 238 g PO ONCE #238 grams 0 04/13/23 gram/dose oral powder (Miralax) ibuprofen 600 mg tablet 600 mg PO Q8H PRN fever or p ain 06/22/23 #20 tabs cholecalciferol (vitamin D3) 50 50 mcg PO DAILY 90 day s #90 caps 12/30/23 mcg (2,000 unit) capsule mupirocin 2 % topical ointment 1 appl topical TID #50 grams 06/20/24 fluticasone propionate 50 1 spray intranasal BID #16 g mellissa 07/15/24 mcg/actuation nasal spray,suspension (Flonase Allergy Relief) albuterol sulfate 90 mcg/actuation 2 puff inhalation Q ID PRN 07/30/24 aerosol inhaler shortness of breath or wheez ing 30 days #8.5 grams atorvastatin 10 mg tablet 10 mg PO BEDTIME 90 days #90 tabs 09/19/24 clobetasol 0.05 % topical cream 1 appl topical BID 2 w eeks #45 11/04/24 grams sertraline 25 mg tablet 25 mg PO DAILY 30 days #90 t abs 01/12/25 loperamide 2 mg capsule (Imodium 2 mg PO Q4H PRN loose stool #20 02/24/25 A-D) caps ondansetron 4 mg disintegrating 4 mg PO Q8H PRN nausea and 02/24/25 tablet vomiting #20 tabs Allergies Allergy/AdvReac Type Severity Reaction Status Date / Time grass pollen Allergy Unknown positive Verified 02/24/25 15:02 allergy test latex (LATEX) Allergy Unknown UNKNOWN Verified 02/24/25 15:02 Latex, Natural Rubber Allergy Unknown Itching Verified 02/24/25 15:02 morphine (MORPHINE) AdvReac Mild SENSATION Verified 02/24/25 15:02 OF HEAT/WARMTH environmental Allergy Unknown Dry Eye Uncoded 11/04/24 17:14 Review of Systems 2 Constitutional: Constitutional: Reports body ache(s), Reports chills, Reports fever(s), Denies headache(s), Denies increased appetite and Reports poor appetite ENT: Denies headache(s) Cardiovascular: Cardiovascular: Denies chest pain and Denies dyspnea on exertion Respiratory: Respiratory: Denies cough and Denies dyspnea on exertion Gastrointestinal: Gastrointestinal: Reports abdominal pain, Denies melena, Denies hematochezia, Reports diarrhea, Reports loose stools, Reports nausea and Denies vomiting Genitourinary: Genitourinary: Denies genital pain Musculoskeletal: Musculoskeletal: Denies back pain Integumentary/Breasts: Skin/Breast: Denies rash Neurologic: Denies headache(s) [facility] Past Medical History Medical History Abnormal chest x-ray Anxiety and depression Chronic obstructive pulmonary disease (COPD) Impaired fasting glucose Vitamin D deficiency Pure hypercholesterolemia Overweight (BMI 25.0-29.9) Benign prostatic hyperplasia Pulmonary nodules Asthma Surgical History H/O cervical spine surgery History of ear surgery H/O knee surgery Social History Social History Household Members: Family Housing: Apartment Are you a primary physician locums urgent care to a significant other at home: No Do you presently have visiting nurse or other home services: No Alcohol intake: never Patient Tobacco Use Status: Former Tobacco user e-Cigarette/Vaping Use: Never Used Second Hand Smoke Exposure: No Advance Directives Date on File: 03/11/21 service: No Current occupational status: unemployed and retired Cognitive needs: No Hearing needs: Yes Vision needs: Yes Physical Exam ED Vital Signs: Vital Signs - 24 hr 02/24/25 14:57 02/24/25 18:13 02/24/25 20:01 Temperature 97.7 F 98.6 F Pulse Rate 89 78 77 Respiratory Rate 18 16 16 Blood Pressure 131/78 127/81 136/83 Pulse Oximetry 95 94 94 Oxygen Delivery Method Room Air Room Air Room Air BMI result Body Mass Index 29.6 Const General: healthy appearing, comfortable, no acute distress, alert and awake Nutritional Appearance: well nourished Orientation/consciousness: patient oriented x3 HENMT Head: Yes normocephalic and Yes atraumatic Eyes Eyelids: Yes eyelids normal Conjunctivae: conjunctivae normal Sclerae: sclerae normal Corneas: corneas normal Pupils: Equal, round and reactive pupils present EOM: EOMs intact bilaterally Neck Neck: Yes full ROM Resp Effort & Inspection: normal respiratory effort, able to speak in complete sentences, no audible wheezes and not labored Auscultation: clear to auscultation bilaterally Cardio Rate: regular rate Rhythm: regular rhythm GI Other: abdomen is soft, non distended with some abdominal tenderness in the epigastric region. Inspection: No distended Palpation (GI): Soft to palpation, not firm, Tenderness to palpation present (GI) in the epigastrum and in the LUQ; not in the LLQ, not in the RLQ, not in the RUQ and Ortiz's sign negative, no guarding and not rigid Auscultation: normoactive bowel sounds Skin General skin exam: elasticity normal Neuro General: patient oriented x3 Cranial nerves: Yes Equal, round and reactive pupils present and Yes Bilaterally intact EOM present Cognition (Neuro): normal cognition Extrem Other: Moving all extremities well without any obvious deformities Course Course Course Narrative: RME: 69-year-old male presents to ED for upper abdominal pain for the past 2 day was nausea no vomiting or diarrhea. Patient has prostate surgery movement 2 months ago. Poor p.o. intake. Labs ordered Reevaluation(s) Reevaluation #1: the patient's CT scan shows findings consistent with a diarrheal illness, this is likely viral he has no risk factors for C diff. we will treat with Zofran and Imodium. I recommended the patient p.o. challenge prior to discharge with the patient does not want to do this he would like to just be discharged Time: 19:40 Medications Administered Discontinued Medications Generic Name Dose Route Start Last Admin Trade Name Freq PRN Reason Stop Dose Admin Famotidine 20 mg 02/24/25 17:57 02/24/25 18:10 Famotidine/Pf 20 Mg/2 Ml Vial IVPUSH 02/24/25 17:58 20 mg ONCE ONE Administration Lactated Ringer's 1,000 mls @ 999 mls/hr 02/24/25 18:00 02/24/25 20:01 Lr IV 02/24/25 19:00 Infused .Q1H1M RENNY Infusion Iohexol 100 ml 02/24/25 18:43 02/24/25 18:44 Iohexol 350 Mg/Ml 100 Ml Infus..Btl IV 02/24/25 18:44 85 ml ONCE ONE Administration Ondansetron HCl 4 mg 02/24/25 17:56 02/24/25 18:10 Ondansetron Hcl 4 Mg/2 Ml Vial IVPUSH 02/24/25 17:57 4 mg ONCE ONE Administration Pantoprazole Sodium 40 mg 02/24/25 17:57 02/24/25 18:10 Pantoprazole Sodium 40 Mg/10 Ml Vial IVPUSH 02/24/25 17:58 40 mg ONCE ONE Administration Medical Decision Making Medical Decision Making MDM Narrative: 69-year-old male presents for evaluation of upper abdominal pain is worse after eating. His symptoms are consistent with GERD or gastritis. He does not have any right upper quadrant tenderness, negative Ortiz's signs, less likely biliary colic or cholecystitis. Plan for screening labs, CT scan of the abdomen pelvis. He has no chest pain, EKG was obtained which is a normal sinus rhythm with a rate of [address] changes, no arrhythmias. His troponin also resulted negative, he rules out for ACS. Lipase is within normal limits. No significant electrolyte abnormalities. The patient is not hypotensive I have a lower suspicion for significant vascular issues suggest AAA or aortic dissection, and his symptoms seem more GI related Differential Diagnosis Differential Diagnoses: The differential diagnosis associated with the presentation includes GERD Gastritis Biliary colic Pancreatitis Constipation Abdominal pain Obstruction ACS less likely Lab Data MDM Lab Attestation statement: I reviewed the patient's lab results. Mild leukopenia, no significant anemia. Normal platelet count. No electrolyte abnormalities warranting dimension. Lipase within normal limits, troponin within normal limits. Slight elevation of AST and ALT which appears consistent in his labs from a month ago. 02/24/25 15:34 02/24/25 15:34 Labs: Lab Results 02/24/25 02/24/25 Range/Units 15:34 18:11 WBC 4.6 L (4.8-10.8) X10*3/uL RBC 4.86 (4.60-5.80) X10*6/uL Hgb 15.0 (14.0-18.0) g/dl Hct 45.0 (42.0-52.0) % MCV 92.6 (80.0-98.0) fL MCH 30.9 (27.0-33.0) pg MCHC 33.3 (31.0-36.0) g/dl RDW 13.1 (11.0-16.0) % Plt Count 174 (160-400) X10*3/uL MPV 10.3 (9.4-12.4) fL Immature Gran % (Auto) 0.2 (0.0-0.4) % Neut % (Auto) 73.9 H (45-73) % Lymph % (Auto) 14.8 L (20-40) % Millard % (Auto) 10.0 (2-11) % Eos % (Auto) 0.7 (0-4) % Baso % (Auto) 0.4 (0-2) % Lymph # (Auto) 0.7 L (1.2-4.9) X10*3/uL Millard # (Auto) 0.5 (0.1-1.2) X10*3/uL Eos # (Auto) 0.0 (0.0-0.4) X10*3/uL Baso # (Auto) 0.0 (0.0-0.2) X10*3/uL Abs Immat Gran (auto) 0.01 (0.00-0.03) X10*3/uL Absolute Neuts (auto) 3.4 (2.0-8.3) x10*3/uL Absolute Nucleated RBC 0.000 (0.0-0.012) X10*3/uL Nucleated RBC % (auto) 0.0 (0.0-0.2) /100WBC Sodium 141 (135-145) mmol/L Potassium 4.0 (3.3-5.1) mmol/L Chloride 108 (96-108) mmol/L Carbon Dioxide 26 (22-29) mmol/L Anion Gap 11 L (12-20) BUN 19 H (9-16) mg/dL Creatinine 1.00 (0.5-1.4) mg/dL Estim Creat Clear Calc 79.0 Estimated GFR > 60 Random Glucose 106 (60-115) mg/dL Calcium 9.1 D (8.4-10.2) mg/dL Total Bilirubin 0.5 (0.0-1.0) mg/dL AST 61 H (5-37) U/L ALT 77 H (0-40) U/L Alkaline Phosphatase 66 (39-117) U/L Troponin I High Sens < 2.7 (<3.5-35.0) ng/L Total Protein 7.4 (6.5-8.0) g/dL Albumin 4.7 (3.5-5.0) g/dL Lipase 18 (8-78) U/L Influenza Type A (PCR) NEGATIVE (Negative) Influenza Type B (PCR) NEGATIVE (Negative) RSV RNA Qual (PCR) NEGATIVE (Negative) SARS-CoV-2 RNA (RT-PCR) NEGATIVE (Negative) Radiology Impression Discussion of test interpretation with radiology: I have reviewed the radiologist's reading. Radiologist Impression: Findings: Calcified granuloma within the lingula. No consolidation or pleural effusion. The liver is hypodense. There are multiple small nonobstructive calculi within the left kidney. No ureteral calculus or hydronephrosis. Unremarkable spleen, pancreas and adrenal glands. No calcified gallstones. There is fluid throughout the colon compatible with a diarrheal illness. There is mild colonic diverticulosis without diverticulitis. There is no colitis or bowel obstruction. Status post prostatectomy. Unremarkable urinary bladder. Normal appendix. No acute fracture. IMPRESSION: 1. Fluid throughout the colon compatible with a diarrheal illness. No focal bowel inflammation or evidence of bowel obstruction. 2. Multiple small nonobstructive calculi within the left kidney. 3. Fatty infiltration of the liver. This document has been electronically signed by: Elaina Ibarra MD on 02/24/2025 19:34:19 Discharge Plan Discharge Clinical Impression: Diarrhea Patient Disposition: Home, Self-Care Instructions: Acute Diarrhea (ED) Additional Instructions: your workup in the ER today was reassuring pain Your symptoms are consistent with a viral illness causing your diarrhea. Take Zofran as needed for nausea and vomiting. Use Imodium as needed for diarrhea. You should consume a bland diet until your symptoms improve follow up with your primary doctor, return for new or worsening symptoms Prescriptions: New ondansetron 4 mg tablet,disintegrating 4 mg PO Q8H PRN (Reason: nausea and vomiting) Qty: 20 0RF loperamide [Imodium A-D] 2 mg capsule 2 mg PO Q4H PRN (Reason: loose stool) Qty: 20 0RF Rx Instructions: administer after each loose stool until symptoms controlled; do not exceed 8 mg per 24 hrs No Action Combivent Respimat 20-100 mcg/actuation mist 1 puff inhalation QID 30 Days Qty: 4 5RF cholecalciferol (vitamin D3) 50 mcg (2,000 unit) capsule 50 mcg PO DAILY 90 Days Qty: 90 3RF albuterol sulfate 90 mcg/actuation HFA aerosol inhaler 2 puff inhalation QID PRN (Reason: shortness of breath or wheezing) 30 Days Qty: 8.5 3RF atorvastatin 10 mg tablet 10 mg PO BEDTIME 90 Days Qty: 90 1RF sertraline 25 mg tablet 25 mg PO DAILY 30 Days Qty: 90 0RF fluticasone propionate [Flonase Allergy Relief] 50 mcg/actuation spray,suspension 1 spray intranasal BID Qty: 16 0RF Rx Instructions: administer into each nostril ibuprofen 600 mg tablet 600 mg PO Q8H PRN (Reason: fever or pain) Qty: 20 0RF mupirocin 2 % ointment 1 appl topical TID Qty: 50 0RF bisacodyl [Dulcolax (bisacodyl)] 5 mg tablet,delayed release (DR/EC) 20 mg PO ONCE 1 Days Qty: 4 0RF Rx Instructions: take 4 tabs at noon the day before your colonoscopy polyethylene glycol 3350 [Miralax] 17 gram/dose powder 238 g PO ONCE Qty: 238 0RF Rx Instructions: As directed by gastroenterology department at [facility] clobetasol 0.05 % cream 1 appl topical BID 14 Days Qty: 45 0RF tadalafil [Cialis] 5 mg tablet 5 mg PO DAILY Interventions: ED Discharge Assessment Last Done: 02/24/25 20:01 Discharge Date/Time: 02/24/25 20:03 Print Language: Ghanaian
[2025-02-24 15:40] LABS: MANUAL DIFF FLAG NO
[2025-02-24 15:41] LABS: Hematocrit 45.0 % (42.0-52.0); Hemoglobin 15.0 g/dl (14.0-18.0); Imm Gran Abs Auto 0.01 X10*3/uL (0.00-0.03); Imm Gran Pct Auto 0.2 % (0.0-0.4); Lymphocytes Absolute Auto 0.7 X10*3/uL (1.2-4.9); Mean Corpuscular HGB Conc 33.3 g/dl (31.0-36.0); Mean Corpuscular Hemoglobin 30.9 pg (27.0-33.0); Mean Corpuscular Volume 92.6 fL (80.0-98.0); NRBC Abs Auto 0.000 X10*3/uL (0.0-0.012); NRBC Pct Auto 0.0 /100WBC (0.0-0.2); Platelet Count 174 X10*3/uL (160-400); Red Blood Count 4.86 X10*6/uL (4.60-5.80); White Blood Count 4.6 X10*3/uL (4.8-10.8)
[2025-02-24 15:59] LABS: Alanine Aminotransferase 77 U/L (0-40); Albumin Level 4.7 g/dL (3.5-5.0); Alkaline Phosphatase 66 U/L (39-117); Anion Gap 11 (12-20); Aspartate Amino Transferase 61 U/L (5-37); Blood Urea Nitrogen 19 mg/dL (9-16); Calcium 9.1 mg/dL (8.4-10.2); Carbon Dioxide 26 mmol/L (22-29); Chloride 108 mmol/L (96-108); Creatinine Clr Calc Pharmacy 79.0; Estimated Glomerular Filt Rate > 60; Lipase 18 U/L (8-78); Potassium 4.0 mmol/L (3.3-5.1); Sodium 141 mmol/L (135-145); Total Protein 7.4 g/dL (6.5-8.0)
[2025-02-24 16:03] LABS: Troponin-I High Sensitivity < 2.7 ng/L (<3.5-35.0)
--- OUTSIDE RECORDS SUMMARY | 2025-02-24 17:10 | XMS_ITS | Encounter Summary ---
Author Organization [employer] Address [address] [place] [address] Care Team Providers Care Precision Aircraft Structure Assembler Name Role Phone Earnest Lucio MD Primary Care Provider Encounter Details Date Type Department Care Team (Late st Contact Info) Description 05/28/2024 Lab Requisition [facility] Lab [address] [facility] [place] [address] Johnny Ballard MD [address] [place], [place] [id number] Elevated prostate specific antigen (PSA) Social History [...] (05/27/2024) Final Diagnosis A. Prostate, Left [place] Biopsy: Benign prostate tissue. B. Prostate, Left Lateral [place] Biopsy: Benign prostate tissue with focal chronic [...] Benign prostate tissue. G. Prostate, Right [place] Biopsy: Benign prostate tissue with chronic and focal acute inflammation. H. Prostate, Right Lateral Str[place] Biopsy: Acinar adenocarcinoma, conventional (usual) type, Coleen [...] Zone Biopsy: Acinar adenocarcinoma, conventional (usual) type, [place] score 3 + 3 = 6 (Grade group 1). The carcinoma involves two of two tissue cores and approximately 50% of the tissue submitted for review and spans approximately 6 mm in greatest dimension in each tissue core. 06/03/2024 7:08 PM EDT [facility] at 1908 EDT Comment Radio Engineering Teacher slide(s) from this case have been presented at Anatomic Pathology Intradepartmental Review Conference on 06/02/24. 06/03/2024 7:08 PM EDT [facility] Clinical Information Elevated PSA PSA: 5.0 (03/26/24) [id number] 06/03/2024 7:08 PM EDT [facility] Gross Description A. Prostate, Left [place] Biopsy: Received, properly labeled, are two H and E stained slides and two unstained slides. B. Prostate, Left Lateral Str[place] Biopsy: Received, properly labeled, are two H [...] two unstained slides. G. Prostate, Right [place] Biopsy: Received, properly labeled, are two H and E stained slides and two unstained slides. H. Prostate, Right Lateral [place] Biopsy: Received, properly labeled, are two H [...] unstained slides. /al 06/03/2024 7:08 PM EDT [facility] Disclaimer Unless otherwise specified, all tissue is 10% NB formalin fixed and paraffin embedded. Technical pathology services provided by [facility] at [address] [place] [address] [address], [place] [address] (CLIA #[id number]/Letty Damon MD, [employer]) 06/03/2024 7:08 PM EDT [facility] Tissue Prostate / Unknown 05/27/20242024 [...] MD LAB PATHOLOGY ORDERABLES Fi nal Result [facility] [address] [place] [address], documented in this encounter Visit Diagnoses Diagnosis Elevated prostate specific antigen (PSA) documented in this encounter Care Teams Precision Aircraft Structure Assembler Relationship Specialty Start Date End Date Earnest Lucio MD [address] [place] [address] Dr [address] [place], [place] PCP - General 04/30/23 documented as of this encounter
--- OUTSIDE RECORDS SUMMARY | 2025-02-24 17:10 | XMS_ITS | Clinical Summary ---
Author Organization [address] [facility] Address [address] [place] [address] Phone Care Team Providers Care Communications Technologist Name Role Phone Earnest Lucio MD Primary [...] Insurance MEDICARE MEDICAID - [place] Care Teams Communications Technologist Relationship Specialty Start Date End Date Earnest Lucio MD [address] [place] [address] [address] [place], [place] PCP - General 04/30/23
[2025-02-24] MEDS: Lactated Ringers 1,000 ML 999 ML IV (18:10)
[2025-02-24 18:13] VITALS: BP 127/81; PULSE 78; RESP 16; O2SAT 94
[2025-02-24] MEDS: iohexoL 350 MG/ML 100 ML INFUS..BTL IV (18:44)
[2025-02-24 18:56] LABS: Resp Syncy Virus RNA Qual PCR NEGATIVE (Negative); SARS COV2 PCR INHOUSE NEGATIVE (Negative)
[2025-02-24 20:01] VITALS: BP 136/83; PULSE 77; RESP 16; TEMP 37; O2SAT 94
== END 2025-02-24 20:03 | disposition home or self-care (01) ==
PROVIDERS: Physician Assistant; Emergency Provider Emergency Medicine; PCP Internal Medicine
DX: R19.7 Diarrhea, unspecified (principal); Z03.818 Encounter for observation for suspected exposure to other biological agents ruled out; R10.10 Upper abdominal pain, unspecified; R11.0 Nausea; J44.9 Chronic obstructive pulmonary disease, unspecified; Z85.46 Personal history of malignant neoplasm of prostate
CPT/HCPCS: 36415; 74177; 80053; 83690; 84484; 85025; 87637; 93005; 96361; 96374; 96375; 99285; J1308; J2405; J2470; J7120; Q9967

== ENCOUNTER → 2025-02-24 15:15 | Outpatient (BNV) | payer MEDICARE, MEDICAID, SELFPAY | PROVIDERS: Emergency Provider Emergency Medicine; PCP Internal Medicine; Visit Provider Internal Medicine Cardiovascular Disease | DX: R10.9 Unspecified abdominal pain (principal) | CPT/HCPCS: 93010 ==

== ENCOUNTER → 2025-02-24 17:56 | Outpatient (BNV) | payer MEDICARE, MEDICAID, SELFPAY | PROVIDERS: Emergency Provider Emergency Medicine; PCP Internal Medicine; Visit Provider Radiology Diagnostic Radiology | DX: N20.0 Calculus of kidney (principal); K76.0 Fatty (change of) liver, not elsewhere classified | CPT/HCPCS: 74177 ==